=== PATIENT | female | born 1985 | race Caucasian/White ===

== ENCOUNTER 2025-04-29 22:58 | Observation (INO) | payer OTHER, SELFPAY ==
--- OUTSIDE RECORDS SUMMARY | 2024-10-11 08:00 | XMS_ITS ---
Author Organization [facility] Address [address] [facility] [place] [address] Care Team Providers Care Data Communications Analyst Name Role Phone Deidre Zepeda Unavailable [phone] Tete Taylor Unavailable [phone] REASON FOR VISIT Gastroparesis, GERD, Hx of Colon Cancer Encounters Encounter Location Date Provider Diagnosis [facility] [address] [place] [address] 10/11/2024 Tete Taylor Plan Of Treatment Next Appt Details Provider Name:Seamus Pena Chay sudhir, 05/25/2025 09:15:00 AM, [address] [place], [address], Progress Notes * WALTERDeidreDOB:1985 (40 yo F)Acc No.[id number]:10/11/2024 Patient: Deidre Hill Provider: Norma Taylor APRN :1985 A ge:39 Y S ex:Female Date:10/11/2024 Address:[address] [facility], [id number] Subjective: * Chief Complaints: * G astroparesis, GERD, Hx of Colon Cancer * Electronic signature of TOBY Soto on 04/29/2025 at 11:10 PM CDT Sign off status: Pending * Provider: Norma Taylor APRN Date: 0 10/11/2024 Generated for Ronaldo mcnair/Lion/eTransmitting on: 0 04/29/2025 11:10 PM CDT
--- OUTSIDE RECORDS SUMMARY | 2024-11-02 08:00 | XMS_ITS ---
Author Organization [facility] Address [address] [facility] [place] [address] Care Team Providers Care Mule Spinner Name Role Phone Deidre Zepeda Unavailable [phone] Dee Valentine Unavailable [phone] REASON FOR VISIT Gastroparesis, GERD, Hx of Colon Cancer Encounters Encounter Location Date Provider Diagnosis [facility] [address] [facility] [place] [address] 11/02/2024 Dee Valentine Plan Of Treatment Next Appt Details Provider Name:Seamus Jean peguero, 05/25/2025 09:15:00 AM, [address] [place], [address], Progress Notes * WALTERDeidreDOB:1985 (40 yo F)Acc No.[id number]:11/02/2024 Patient: Deidre Hill Provider: Slime Valentine APRN :1985 A ge:39 Y S ex:Female Date:11/02/2024 Address:[address] [facility], [id number] Subjective: * Chief Complaints: * G astroparesis, GERD, Hx of Colon Cancer Billing Information: * Procedure Codes: * Electronic signature of Yobany Valentine APRN-GAYLE on 04/29/2025 at 11:11 PM CDT Sign off status: Pending * Provider: Slime Valentine APRN Date: 0 11/02/2024 Generated for Ronaldo mcnair/Lion/Florecitaitting on: 0 04/29/2025 11:11 PM CDT
--- OUTSIDE RECORDS SUMMARY | 2024-12-28 05:30 | XMS_ITS ---
Author Organization [facility] Address [address] [facility] [place] [address] Care Team Providers Care Electroslag Welding Machine Operator Name Role Phone Deidre Zepeda Unavailable [phone] Dee Valentine Unavailable [phone] REASON FOR VISIT Gastroparesis, GERD, Hx of Colon Cancer Encounters Encounter Location Date Provider Diagnosis [facility] [address] [facility] [place] [address] 12/28/2024 Dee Valentine Plan Of Treatment Next Appt Details Provider Name:Seamus Jean peguero, 05/25/2025 09:15:00 AM, [address] [place], [address], Progress Notes * WALTERDeidreDOB:1985 (40 yo F)Acc No.[id number]:12/28/2024 Patient: Deidre Hill Provider: Slime Valentine APRN :1985 A ge:39 Y S ex:Female Date:12/28/2024 Address:[address] [facility], [id number] Subjective: * Chief Complaints: * G astroparesis, GERD, Hx of Colon Cancer Billing Information: * Procedure Codes: * Electronic signature of Yobany Valentine APRN-GAYLE on 04/29/2025 at 11:08 PM CDT Sign off status: Pending * Provider: Slime Valentine APRN Date: 0 12/28/2024 Generated for Ronaldo mcnair/Lion/Florecitaitting on: 0 04/29/2025 11:08 PM CDT
--- OUTSIDE RECORDS SUMMARY | 2025-04-05 05:40 | XMS_ITS ---
Author Organization [facility] Accounts Recei v[employer] Address [address] [place] [address] Care Team Providers Care R&D Lab Technician Name Role Phone Anita Church Primary Care Provider [phone] REASON FOR VISIT Non [facility] Hospital F/U, [facility] ORIENTAL ORTHODOX [place], Sharp Chest Pain, [facility] Social History Sex Assigned At : Social History Observation Description Sex Assigned At Female Encounters Encounter Location Date [facility] [address] [place] [address] 04/05/2025 Anita Church Plan Of Treatment No Information Progress Notes * Deidre WATSONDOB:1985 (40 yo F)Acc No.[id number]:04/05/2025 Patient: Deidre GARDNER Provider: Uri Church APRN :1985 A ge:40 Y S ex:Female Date:04/05/2025 Address:[address] [facility], [id number] Patient's Default Facility:[facility] View Subjective: * Chief Complaints: * 1 . Non TCM Hospital F/U, [facility] ORIENTAL ORTHODOX [place], Sharp Chest Pain, [facility]. * Medical History: Objective: * Vitals: Assessment: Plan: * Treatment: * Billing Information: * Visit Code: * Procedure Codes: * Electronic signature of Bennie Church APRN on 04/29/2025 at 11:10 PM CDT Sign off status: Pending * Provider: Uri Church APRN Date: 04/05/2025 Generated for Ronaldo Sol/Alexandro on: 04/29/2025 11:10 PM CDT
--- OUTSIDE RECORDS SUMMARY | 2025-04-19 08:20 | XMS_ITS ---
Author Organization [facility] Accounts Recei vable Address [address] [place] [address] Care Team Providers Care Medicine Aide Name Role Phone Anita Church Primary Care Provider REASON FOR VISIT ER f/up [facility]- CP/nausea/Back pain- 1 month f/u fasting tsmith Social History Sex Assigned At : Social History Observation Description Sex Assigned At Female Encounters Encounter Location Date Provider Diagnosis [facility] [address] [place] [address] 04/19/2025 Anita Church Plan Of Treatment No Information Progress Notes * Deidre WATSONDOB:1985 (40 yo F)Acc No.[id number]:04/19/2025 Patient: Deidre GARDNER Provider: rUi Church APRN :1985 A ge:40 Y S ex:Female Date:04/19/2025 [address] [facility] [place] [id number] Patient's Default Facility:[facility] View Subjective: * Chief Complaints: * 1 . ER f/up [facility]- CP/nausea/Back pain- 1 month f/u fasting tsmith. * Medical History: Objective: * Vitals: Assessment: Plan: * Treatment: * Billing Information: * Visit Code: * Procedure Codes: * Electronic signature of Bennie Church APRN on 04/29/2025 at 11:09 PM CDT Sign off status: Pending * Provider: Uri Church APRN Date: 0 04/19/2025 Generated for Ronaldo mcnair/Lion/Alexandro on: 0 04/29/2025 11:09 PM CDT
--- OUTSIDE RECORDS SUMMARY | 2025-04-19 08:44 | XMS_ITS ---
Author Organization [facility] Accounts Recei vable Address [address] [place] [address] Care Team Providers Care Cartoonist Special Effects Name Role Phone Anita Church Primary Care Provider [phone] REASON FOR VISIT n/s Social History Sex Assigned At : Social History Observation Description Sex Assigned At Female Encounters Encounter Location Date Provider Diagnosis [facility] [address] [place] [address] 04/19/2025 Anita Church Plan Of Treatment No Information Progress Notes * Deidre WATSONDOB:1985 (40 yo F)Acc No.[id number]:04/19/2025 Patient: Deidre GARDNER :1985 A ge:40 Y S ex:Female Address[address] [place], [address] * true * Date: Generated for Elisabeti tabby/Fagtg/eTransmitting on: 0 04/29/2025 11:09 PM CDT
--- OUTSIDE RECORDS SUMMARY | 2025-04-23 02:00 | XMS_ITS | Encounter Summary ---
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 Name Role Phone None, MD Primary Care Provider Unavailabl e Reason for Visit * Reason Comments Chest Pain Encounter Details Date Type Department Care Team (Late st Contact Info) Description 04/23/2025 2:00 AM CDT - 04/23/2025 4:39 AM CDT Emergency [facility] [address] [place] [address] [place] [id number] [place] [address] Chest pain, unspecified type (Primary Dx) Discharge Disposition: (01) - Home or Self Care Social History Tobacco Use Types Packs/Day Years Used Date Smoking Tobacco: Every Day Cigarettes Smokeless Tobacco: Never Alcohol Use Standard Drinks/Week Comments Never 0 (1 standard drink = 0.6 oz pur e alcohol) [facility] Utilities Answer Date Recorded In the past 12 months has e [employer], gas, oil, or water [employer] threatened to shut off services in your home? No 09/21/2024 Hunger Vital Sign Answer Date Recorded Within the past 12 months, y ou worried that your food would run out before you got the money to buy more. Patient declined Within the past 12 months, t he food you bought just didn't last and you didn't have money to get more. Patient declined [facility] HRSN - Transportation Answer Date R ecorded In the past 12 months, has l ack of reliable transportation kept you from medical appointments, meetings, work or from getting things needed for daily living? Unrecognized value 09/21/2024 PRAPARE - Interpersonal Safety Answer D ate Recorded Do you feel physically and e motionally safe? (A safe environment is one in which a person is not insulted, talked down to, threatened with harm, or screamed or cursed at.) Unrecognized value 09/21/2024 AAFP SN - Housing Stability Answer Date Recorded Are you worried or concerned that in the next two months you may not have stable housing that you own, rent, or stay in as a part of a household? Unrecognized value 09/21/[address] you li ve. Do you have problems with any of the following? 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 Sexual Orientation Straight 10/01/2024 8: 27 PM CAR ST[employer]ER documented as of this encounter Last Filed Vital Signs Vital Sign Reading Time Taken Comments Blood Pressure 104/70 04/23/2025 3:45 AM CDT Pulse 88 04/23/2025 4:00 AM CDT Temperature 36.7 C (98 F) 04/23/2025 1:56 AM CDT Respiratory Rate 22 04/23/2025 4:00 AM CDT Oxygen Saturation 97% 04/23/2025 4:00 AM CDT Inhaled Oxygen Concentration - - Weight 82.6 kg (182 lb) 04/23/2025 1:56 AM CDT Height 172.7 cm (5' 8 ) 04/23/2025 1:56 AM CDT Body Mass Index 27.67 04/23/2025 1:56 AM CDT documented in this encounter Functional Status documented as of this encounter Mental Status * Question Answer Entry Date Author Mental Status 0 04/23/2025 1:58 AM CDT Hilda Copeland RN documented in this encounter Medications at Time of Discharge ARIPiprazole 2 mg Oral tablet TAKE ONE TABLET BY MOUTH ONCE DAILY. stop escitalopram atorvastatin 80 mg Oral tablet Take 1 tablet by mouth at bedtime. clomiPRAMINE 50 mg Oral capsule Take 1 Capsule by mouth at bedtime, may increase to 2 capsules at bedtime. titrating off trazodone 5 clonazePAM 1 mg Oral disintegrating tablet Take 1 tablet by mouth 3 (three) times daily as needed for Anxiety. cyanocobalamin 1,000 mcg/mL Inj injection Inject 1 mL as directed every 30 (thirty) days. diltiazem 120 mg Oral 24 hr capsule Take 1 capsule by mouth daily. 30 capsule 11 4 furosemide 40 mg Oral tablet Take 1 tablet by mouth daily. gabapentin 400 mg Oral capsule Take 1 capsule by mouth 3 (three) times daily. hydroCHLOROthiazide 12.5 mg Oral capsule Take 1 capsule by mouth every morning at 0600. for blood pressure 5 HYDROcodone-acetami nophen 5-325 mg Oral per tablet Take 1 tablet by mouth every 8 (eight) hours as needed. metoclopramide HCl 5 mg Oral tablet Take 1 tablet by mouth 4 (four) times daily. nitroGLYCERIN 0.4 mg SL SL tablet 1 tab as directed Sublingual 1 tablet sublingual every 5 minutes up to 15 minutes as needed for chest pain. Do not take more than 3 tablets within the 15 minutes. if unrelieved with 3 doses go to the ER. for 30 days omeprazole 40 mg Oral capsule Take 1 capsule by mouth every morning at 0600. 30 min before breakfast ondansetron 4 mg Oral tablet Take 1 tablet by mouth every 6 (six) hours as needed for Nausea or Vomiting. potassium chloride 10 mEq Oral CR tablet Take 1 tablet by mouth every morning at 0600. Prasugrel 10 mg Oral Tab Take 1 tablet by mouth daily. promethazine 25 mg Oral tablet Take 1 tablet by mouth every 4 (four) hours as needed for Nausea. Do not take with metoclopramide ranolazine 500 mg Oral 12 hr tablet Take 1 tablet by mouth 2 (two) times daily. scopolamine 1 mg over [address] 1 patch onto the skin every third day. tiZANidine 4 mg Oral tablet Take 1 tablet by mouth every 6 (six) hours as needed for Muscle spasms. traZODone 50 mg Oral tablet Take 1 tablet by mouth at bedtime. Take 1-3 tabs QHS documented as of this encounter ED Notes * Leda Craig MD - 04/23/2025 2:01 AM CDT History Chief Complaint Patient presents with Chest Pain The history is provided by the patient. No russian language professor was used. Patient is a 40-year-old female with a history of previous LA, CAD s/p PCI, previous cardiac arrest, hypertension presenting to the ED for chest pain that started around 10:00 while she was visiting the ED with her significant other. Patient states that she started having some left-sided pain radiating to her jaw and felt that she was in trigeminy . She reported some shortness of breath and 1 episode of vomiting.. No recent fevers, abdominal pain, syncope, urinary symptoms. Past Medical History: Diagnosis Date CAD (coronary artery disease) Fibromyalgia Gastroparesis History of LA (myocardial infarction) Past Surgical History: Procedure Laterality Date SECTION, LOW TRANSVERSE CHOLECYSTECTOMY TN CATH PLMT L HRT & ARTS W/NJX & ANGIO IMG S&I N/A 09/21/2024 CL - SELECTIVE CORONARY ANGIOGRAPHY/LEFT HEART CATH (SCA/LHC) performed by Praveen Sanz MD at [facility] No family history on file. Social History Tobacco Use Smoking status: Every Day Types: Cigarettes Smokeless tobacco: Never Vaping Use Vaping status: Some Days Substances: THC Substance Use Topics Alcohol use: Never Drug use: Yes Types: Marijuana Review of Systems All other systems reviewed and are negative. Physical Exam First Vitals Charted [04/23/25 0156] BP Pulse Resp Temp SpO2 108/76 82 22 98 ??F (36.7 ??C) 100 % Physical Exam Vitals and nursing note reviewed. Constitutional: General: She is not in acute distress. Appearance: She is not ill-appearing or diaphoretic. HENT: Head: Normocephalic and atraumatic. Eyes: Extraocular Movements: Extraocular movements intact. Conjunctiva/sclera: Conjunctivae normal. Pupils: Pupils are equal, round, and reactive to light. Cardiovascular: Rate and Rhythm: Normal rate and regular rhythm. Pulses: Normal pulses. Heart sounds: Normal heart sounds. Pulmonary: Effort: Pulmonary effort is normal. No respiratory distress. Breath sounds: Normal breath sounds. Abdominal: General: Abdomen is flat. Tenderness: There is no abdominal tenderness. There is no guarding or rebound. Musculoskeletal: General: No deformity or signs of injury. Normal range of motion. Cervical back: Normal range of motion. Skin: General: Skin is warm and dry. Neurological: General: No focal deficit present. Mental Status: She is alert and oriented to person, place, and time. Mental status is at baseline. ED Course XR Chest 1 Vw Portable AP (Results Pending) Procedures Medication Administration from 04/23/2025 0146 to 04/23/2025 0201 None ED Course as of 04/23/25 0405 WedApr 23, 2025 0153 EKG per my read showed sinus rhythm with PVCs, with noST elevations or depressions or other concerns [AP] 0239 CXR with no acute cardiopulmonary findings per my read [AP] 0405 Patient wishes to leave against medical advice. I have discussed all risks with patient and any family members present at the time. Patient is alert and oriented X 3, has capacity to make all medical decisions, and has a complete understanding of all risks, including . Patient is aware that they may return at any time for further evaluation of their condition. [AP] ED Course User Index [AP] Leda Craig MD Clinical Impressions as of 04/23/25 0405 Chest pain, unspecified type Medical Decision Making Problems Addressed: Chest pain, unspecified type: acute illness or injury Amount and/or Complexity of Data Reviewed External Data Reviewed: labs, radiology, ECG and notes. Labs: ordered. Decision-making details documented in ED Course. Radiology: ordered and independent interpretation performed. Decision-making details documented in ED Course. ECG/medicine tests: ordered and independent interpretation performed. Decision- making details documented in ED Course. Risk Prescription drug management. Parenteral controlled substances. Drug therapy requiring intensive monitoring for toxicity. Results for orders placed or performed during the hospital encounter of 04/23/25 EKG 12 Lead - STAT Result Value Ref Range Ventricular Rate EKG/Min 85 BPM Atrial Rate 85 BPM QRS-Interval (MSEC) 104 ms QT-Interval (MSEC) 412 ms QTc 490 ms P [place] 62 degrees R [place] 48 degrees T [place] 32 degrees Labs Reviewed BASIC METABOLIC PANEL - Abnormal; Notable for the following components: Result Value Carbon Dioxide 20.8 (*) All other components within normal limits CBC W/ AUTO DIFFERENTIAL CWS AND NONCWS (PERFORMABLE) - Abnormal; Notable for the following components: Hemoglobin 10.5 (*) Hematocrit 34.0 (*) RDW 17.4 (*) Monocytes % 8.1 (*) All other components within normal limits CK - Abnormal; Notable for the following components: CK, Total 27 (*) All other components within normal limits NT PRO BRAIN NATRIURETIC PEPTIDE - Normal CBC AND DIFFERENTIAL (ORDERABLE) Narrative: The following orders were created for panel order CBC and Differential. Procedure Abnormality Status --------- ------ CBC and Differential[[id number]] Abnormal Final result Manual Differential[[id number]] Final result Please view results for these tests on the individual orders. CARDIAC PANEL(CKTOT, HSTROP W REFLEX)(NON-CLINIC ORDER) Narrative: The following orders were created for panel order Cardiac Panel (CK Total, HSTROP w Reflex if indicated). Procedure Abnormality Status --------- ------ High Sensitivity Troponi...[[id number]] Final result CK[[id number]] Abnormal Final result Please view results for these tests on the individual orders. HIGH SENSITIVITY TROPONIN SERIES, BASELINE W REFLEX IF NEEDED MANUAL DIFFERENTIAL,NONCARESPHERE (PERFORMABLE) D DIMER QUANTITATIVE B HIGH SENSITIVITY TROPONIN 2 HOUR W/REFLEX IF INDICATED XR Chest 1 Vw Portable AP (Results Pending) Medications ondansetron hcl (pf) (Zofran) (injection) 4 mg (4 mg Intravenous Given $$ 04/23/25 0343) morphine (injection) Syrg 4 mg (4 mg Intravenous Given $$ 04/23/25 0343) Vitals: 04/23/25 0300 04/23/25 0305 04/23/25 0345 04/23/25 0400 BP: (!) 117/103 111/72 104/70 Pulse: 76 75 79 88 Resp: (!) 27 13 23 22 Temp: TempSrc: SpO2: 98% 98% 99% 97% Weight: Height: Medical Decision Making: Patient is a 40-year-old female with a history of previous LA, CAD s/p PCI, previous cardiac arrest, hypertension presenting to the ED for chest pain that started around 10:00 while she was visiting the ED with her significant other. On examination here, patient was noted to be stable vitals, satting well on room air, exam as noted above. EKG per my read showed sinus rhythm with PVCs with no ST elevations or depressions. During today visit the following labs were obtained and I have reviewed the labs and noticed the following findings: Labs ordered which initially showed a negative troponin, BMP and CBC unremarkable,negative BNP., D-dimer and a repeat troponin ordered. Following imaging were also obtained with the following results: Chest x-ray with no acute cardiopulmonary process. Patient was treated in the ED with morphine and Zofran. Shortly after her receiving medications nursing staff informed me that patient wanted to leave AMA. I spoke with her in detail and told her that I would like to get more labs for potential concerns of other etiologies and especially given thatshe is high risk with previous PCI and cardiac arrest and I explained this in detail and patient continues to wish to leave AGAINST MEDICAL ADVICE. Patient wishes to leave against medical advice. I have discussed all risks with patient and any family members present at the time. Patient is alert and oriented X 3, has capacity to make all medicaldecisions, and has a complete understanding of all risks, including . Patient is aware that they may return at any time for further evaluation of their condition. 1. Chest pain, unspecified type Assessment / Plan Leda Craig MD 04/23/25 0501 Leda Craig MD 04/23/25 0512 * Leonela Salazar BSN RN - 04/23/2025 2:00 AM CDT Bed: 11 Expected date: Expected time: Means of arrival: Car Comments: * Hilda Barber RN - 04/23/2025 1:55 AM CDT Patient ambulatory to triage c/o chest pain that started 3-4 hours ago. She said that she has a stent in her heart from a previous LA in 2021. She has taken 325 ASA and three nitro SL with minimal relief. No acute distress noted. documented in this encounter Plan of Treatment Not on file documented as of this encounter Procedures Procedure Name Priority Date/Time Associated Diagnosis Comments XR CHEST 1 VW PORTABLE AP ER Eval 04/23/2025 2:25 AM CDT NT PRO BRAIN NATRIURETIC PEPTIDE Add-On 04/23/2025 2:14 AM CDT CARDIAC PANEL(CKTOT, HSTROP W REFLEX)(NON-CLINIC ORDER) ER Eval 04/23/2025 2:14 AM CDT HIGH SENSITIVITY TROPONIN SERIES, BASELINE W REFLEX IF NEEDED ER Eval 04/23/2025 2:14 AM CDT CBC W/ AUTO DIFFERENTIAL CWS AND NONCWS (PERFORMABLE) ER Eval 04/23/2025 2:14 AM CDT MANUAL DIFFERENTIAL,NONCARES PHERE (PERFROMABLE) STAT 04/23/2025 2:14 AM CDT CBC AND DIFFERENTIAL (ORDERABLE) ER Eval 04/23/2025 2:14 AM CDT CK ER Eval 04/23/2025 2:14 AM CDT BASIC METABOLIC PANEL ER Eval 04/23/2025 2:14 AM CDT EKG 12-LEAD STAT 04/23/2025 1:53 AM CDT documented in this encounter Results * XR Chest 1 Vw Portable AP (04/23/2025 2:25 AM CDT) Anatomical Region Laterality Modality Chest Digital Radiogra phy 04/23/2025 7:35 AM CDT Impressions 04/23/2025 1:16 PM CDT No acute cardiopulmonary findings. This document passed e-signature verification by Dr. Eduar Knutson on 04/23/2025 1:16 PM Narrative 04/23/2025 1:16 PM CDT CHEST RADIOGRAPH, ONE VIEW PROCEDURE DATE/TIME: 04/23/2025 2:16 AM HISTORY: Chest Pain. COMPARISON: 03/28/2025. 03/16/2025 FINDINGS: The cardiopericardial silhouette is normal in size. No pleural effusion or pneumothorax is evident. The lungs are clear. Procedure Note Eduar Knutson MD - 04/23/2025 CHEST RADIOGRAPH, ONE VIEW PROCEDURE DATE/TIME: 04/23/2025 2:16 AM HISTORY: Chest Pain. COMPARISON: 03/28/2025. 03/16/2025 FINDINGS: The cardiopericardial silhouette is normal in size. No pleural effusion or pneumothorax is evident. The lungs are clear. IMPRESSION: No acute cardiopulmonary findings. This document passed e-signature verification by Dr. Eduar Knutson on04/23/2025 1:16 PM Leda Craig MD IMG DIAGNOSTIC IMAGING ORDERAB LES Final Result * NT Pro Brain Natriuretic Peptide (04/23/2025 2:14 AM CDT) [facility] NT ProB-Natriuretic Peptide 57.5 15.8 - 104.8 pg/mL 04/23/2025 2:56 AM CDT [facility] Comment:The Alere NT-pro BNP for Alinity i assay is susceptible to interference effects from total protein >12.6 g/dL. Total protein at 15.2 g/dL decreased NT- proBNP values at 125 pg/mL by -12.7%. Blood VENOUS BLOOD SPECIMEN / Unknown Venipuncture / Unknown 04/23/2025 2:14 AM CDT 04/23/2025 2:16 AM CDT Leda Craig MD LAB BLOOD ORDERABLES Final Res ult [facility] [address] [place] [address] * Manual Differential (04/23/2025 2:14 AM CDT) [facility] Platelet Estimate Adequate 04/23/2025 2:51 AM CDT [facility] Blood VENOUS BLOOD SPECIMEN / Unknown Venipuncture / Unknown 04/23/2025 2:14 AM CDT 04/23/2025 2:16 AM CDT us Leda Craig MD LAB BLOOD ORDERABLES Final Res ult Performing Organization Address [facility] Co de Phone Number [facility] [address] [place] [address] * (ABNORMAL) CK (04/23/2025 2:14 AM CDT) [facility] CK, Total 27(L) 29 - 168 IU/L 04/23/2025 2:56 AM CDT [facility] Blood VENOUS BLOOD SPECIMEN / Unknown Venipuncture / Unknown 04/23/2025 2:14 AM CDT 04/23/2025 2:16 AM CDT us Leda Craig MD LAB BLOOD ORDER W/O STOP Final Result Performing Organization Address [facility] de Phone Number [facility] [address] [place] [address] * High Sensitivity Troponin Baseline with Reflex Actions if indicated (04/23/2025 2:14 AM CDT) [facility] High Sensitivity Trop, Baseline <2.7 <14.0 ng/L 04/23/2025 2:56 AM CDT [facility] Comment:Low risk for myocard ial infarction in patients with low clinical risk and symptoms > 2 hrs. Consider other causes of chest pain. A reflex 2-hour troponin will automatically be ordered; please cancel if not clinically indicated Symptom Onset >2Hrs Yes Hours 04/23/2025 2:56 AM CDT [facility] Symptom Onset >10Hrs No Hours 04/23/2025 2:56 AM CDT [facility] Blood VENOUS BLOOD SPECIMEN / Unknown Venipuncture / Unknown 04/23/2025 2:14 AM CDT 04/23/2025 2:16 AM CDT us Leda Craig MD LAB BLOOD ORDERABLES Final Res ult [facility] [address] [place] [address] * (ABNORMAL) CBC and Differential (04/23/2025 2:14 AM CDT) WBC 10.6 4.5 - 11.0 K/cmm 04/23/2025 2:51 AM CDT [facility] RBC 4.04 4.00 - 5.20 M/cmm 04/23/2025 2:51 AM CDT [facility] Hemoglobin 10.5(L) 12.0 - 16.0 g/dL 04/23/2025 2:51 AM T [facility] Hematocrit 34.0(L) 36.0 - 46.0 % 04/23/2025 2:51 AM T [facility] MCV 84 80 - 100 fL 04/23/2025 2:51 AM CDT [facility] MCH 26 26 - 34 pg 04/23/2025 2:51 AM T [facility] MCHC 31 31 - 37 g/dL 04/23/2025 2:51 AM T [facility] RDW 17.4(H) 12.2 - 15.6 % 04/23/2025 2:51 AM CDT [facility] RDWSD 54.3 40.0 - 55.0 fL 04/23/2025 2:51 AM T [facility] Platelets 223 150 - 400 K/cmm 04/23/2025 2:51 AM T [facility] Comment:Reviewed smear. MPV 10.5 9.2 - 12.0 fL 04/23/2025 2:51 AM [facility] Nucleated RBC's 0 0 - 1 /100WBC 04/23/2025 2:51 AM T [facility] Neutrophils % 55.0 40.0 - 70.0 % 04/23/2025 2:51 AM T [facility] Lymphocytes % 34.0 22.0 - 44.0 % 04/23/2025 2:51 AM T [facility] Monocytes % 8.1(H) 3.0 - 7.0 % 04/23/2025 2:51 AM T [facility] Eosinophils % 2.3 2.0 - 4.0 % 04/23/2025 2:51 AM CDT [facility] Basophils % 0.3 0.0 - 1.0 % 04/23/2025 2:51 AM T [facility] Immature Granulocytes Percent Automated 0.3 0.0 - 0.5 % 04/23/2025 2:51 AM CDT [facility] Neutrophils Absolute 5.81 1.50 - 7.70 K/cmm 04/23/2025 2:51 AM T [facility] Lymphocytes Absolute 3.59 1.00 - 4.80 K/cmm 04/23/2025 2:51 AM CDT [facility] Monocytes Absolute 0.85 0.20 - 1.00 K/cmm 04/23/2025 2:51 AM T [facility] Eosinophils Absolute 0.24 0.00 - 0.50 K/cmm 04/23/2025 2:51 AM T [facility] Basophils Absolute 0.03 0.00 - 0.20 K/cmm 04/23/2025 2:51 AM T [facility] Immature Platelet Fraction Percent 4.7 1.0 - 7.0 % 04/23/2025 2:51 AM T [facility] Blood VENOUS BLOOD SPECIMEN / Unknown Venipuncture / Unknown 04/23/2025 2:14 AM CDT 04/23/2025 2:16 AM CDT us Leda Craig MD LAB BLOOD ORDERABLES Final Res ult [facility] [address] [place] [address] * (ABNORMAL) Basic Metabolic Panel (04/23/2025 2:14 AM CDT) Glucose 75 70 - 105 mg/dL 04/23/2025 2:56 AM T [facility] BUN 9 7 - 18 mg/dL 04/23/2025 2:56 AM [facility] Creatinine, Blood 0.80 0.57 - 1.11 mg/dL 04/23/2025 2:56 AM [facility] Sodium 136 136 - 145 mEq/L 04/23/2025 2:56 AM T [facility] Potassium 4.0 3.5 - 5.1 mEq/L 04/23/2025 2:56 AM T [facility] Chloride 105 98 - 107 mEq/L 04/23/2025 2:56 AM [facility] Carbon Dioxide 20.8(L) 22.0 - 29.0 mEq/L 04/23/2025 2:56 AM T [facility] Calcium 8.8 8.4 - 10.2 mg/dL 04/23/2025 2:56 AM T [facility] Estimated GFR 96 >60 mL/min/1. 73m2 04/23/2025 2:56 AM T [facility] Comment: Calculation based on the Chronic Kidney Disease Epidemiology Collaboration (CKD-EPI)equation. The National Kidney Foundation recommends reporting eGFR(GFRC) values above 60 ml/min as >60. An eGFR(GFRC) of >60 ml/min is considered normal or near normal kidney function. Estimated GFR (eGFR or GFRC) values from 61 ml/min to 120 ml/min will also be reported. Anion Gap 10.2 8 - 12 mEq/L 04/23/2025 2:56 AM T [facility] Blood VENOUS BLOOD SPECIMEN / Unknown Venipuncture / Unknown 04/23/2025 2:14 AM CDT 04/23/2025 2:16 AM CDT us Leda Craig MD LAB BLOOD ORDERABLES Final Res ult [facility] [address] [place] [address] * EKG 12 Lead - STAT (04/23/2025 1:53 AM CDT) Ventricular Rate EKG/Min 85 BPM [facility] Atrial Rate 85 BPM [facility] QRS-Interval (MSEC) 104 ms [facility] QT-Interval (MSEC) 412 ms [facility] QTc 490 ms [facility] P [place] 62 degrees [facility] R [place] 48 degrees [facility] T [place] 32 degrees [facility] 04/23/2025 1:53 AM CDT Narrative [facility] - 04/25/2025 4:26 PM CDT Test Reason : Reason for Exam->Chest Pain Blood Pressure : */* mmHG Vent. Rate : 85 BPM Atrial Rate : 85 BPM P-R Int : 142 ms QRS Dur : 104 ms QT Int : 412 ms P-R-T Axes : 62 48 32 degrees QTcB Int : 490 ms Sinus rhythm with occasional Premature ventricular complexes Incomplete right bundle branch block Prolonged QT Abnormal ECG Referred By: Confirmed By: CAROLYN MANN MD Procedure Note Carolyn Mann MD - 04/25/2025 Test Reason : Reason for Exam->Chest Pain Blood Pressure : */* mmHG Vent. Rate : 85 BPM Atrial Rate : 85 BPM P-R Int : 142 ms QRS Dur : 104 ms QT Int : 412 ms P-R-T Axes : 62 48 32 degrees QTcB Int : 490 ms Sinus rhythm with occasional Premature ventricular complexes Incomplete right bundle branch block Prolonged QT Abnormal ECG Referred By: Confirmed By: CAROLYN MANN MD Leda Craig MD ECG ORDERABLES Final Result [facility] documented in this encounter Visit Diagnoses Diagnosis Chest pain, unspecified type- Primary documented in this encounter Administered Medications Inactive Administered Medications - up to 3 most recent administrations Medication Order MAR Action Action Date Dose Rate Site morphine (injection) Syrg 4 mg 4 mg, Intravenous, ONCE, On Wed04/23/25 at 0334, For 1 dose Given $$ 04/23/2025 3:43 AM CDT 4 mg ondansetron hcl (pf) (Zofran) (injection) 4 mg 4 mg, Intravenous, ONCE, On Wed04/23/25 at 0334, For 1 dose, IV: if unable to tolerate PO and IV access available. PO: if tolerating PO even if IV access available. Given $$ 04/23/2025 3:43 AM CDT 4 mg documented in this encounter Active and Recently Administered Medications Times are shown in CDT. Scheduled Medication Order 04/21/2025 04/22/2025 04/23/2025 morphine (injection) Syrg 4 mg (COMPLETED) 4 mg, Intravenous, ONCE, On Wed04/23/25 at 0334, For 1 dose 0343 (Given $$ - Pro vider: SALMA Madsen RN) ondansetron hcl (pf) (Zofran) (injection) 4 mg (COMPLETED) 4 mg, Intravenous, ONCE, On Wed04/23/25 at 0334, For 1 dose, IV: if unable to tolerate PO and IV access available. PO: if tolerating PO even if IV access available. 0343 (Given $$ - Pro vider: SALMA Madsen RN) documented in this encounter Care Teams Cafeteria Counter Attendant Relationship Specialty Start Date End Date Saqib, PCP - General 03/16/25 documented as of this encounter
--- OUTSIDE RECORDS SUMMARY | 2025-04-28 03:05 | XMS_ITS | Encounter Summary ---
Author Organization [facility] Address [address] [place] [address] Care Team Providers Care Hull Drafter Name Role Phone Andriy Ortiz MD Primary Care Provider [phone] Mariaa Barron PALLET RECTIFIER Unavailable [phone] Reason for Visit * Reason Comments Chest Pain Encounter Details Date Type Department Care Team ([facility] st Contact Info) Description 04/28/2025 3:05 AM CDT - 04/28/2025 6:05 AM CDT Emergency Emergency Department [address] [place] [phone] Stefano Yu, DO [address] [facility] [address] [place] [address] Chest pain, unspecified type (Primary Dx); Nausea [...] in this paperwork to sign up for Tongxue. This allows you to send messages to your doctor, view your test results, renew your prescriptions, schedule appointments, and more. To sign up, go to [email or web address] and click the Sign Up Now link in the New User box. Enter your Tongxue Activation Code exactly as it appears in the paperwork below along with the last 4 digits of your Social Security Number and your Date of to complete the sign-up process. * Attachments The following attachments cannot be sent through Care Everywhere. * Chest Pain That Is Not Caused by the Heart Discharge Instructions (Cymraes) * Chest Pain Discharge Instructions (Cymraes) documented in this encounter Medications at Time of Discharge prochlorperazine (COMPAZINE) 10 MG tablet Take one tablet (10 mg) by mouth every 6 (six) hours as needed (nausea). 5 tablet 03/29/2025 documented as of this encounter ED Notes * Emilee Crockett RN - 04/28/2025 2:18 AM CDT Extensive cardiac hx. Having CP that started 1900 last night with upper back pain, left arm pain and very nauseated - feels similar to prior [place]. documented in this encounter Plan of Treatment [...] <4.0 <14.9 ng/L 04/28/2025 5:41 AM CDT [facility] Blood Venipuncture / Unknown 04/28/2025 4:59 AM CDT 04/28/2025 5:10 AM CDT Narrative [facility] - 04/28/2025 5:41 AM CDT The High Sensitivity Troponin I was measured on the Daniel DXi with results expressed in units of ng/L; different from the previous Troponin I test which used units of ng/mL. Over all reference interval is 17.5 ng/L. Troponin results should be interpreted in conjunction with the patient's symptoms, history, and results of other diagnostic tests. us Stefano Haque Yu DO LAB BLOOD ORDERABLES Fi nal Result Performing Organization Address City/[facility]/ZIP Co de Phone Number [facility] [address] [place] [phone], * B-type Natriuretic Peptide (04/28/2025 4:08 AM CDT) Pathologist [facility] B-TYPE NATRIURETIC PEPTIDE <10 <=100 pg/mL 04/28/2025 4:48 AM CDT [facility] Blood Venipuncture / Unknown 04/28/2025 4:08 AM CDT 04/28/2025 4:16 AM CDT [employer] LAB BLOOD ORDERABLES Fi nal Result Performing Organization Address [facility] Co de Phone Number [facility] [address] [place] [phone], * High Sensitivity Troponin I-Timed Series (04/28/2025 4:08 AM CDT) [facility] HS Troponin I <4.0 <14.9 ng/L 04/28/2025 4:49 AM CDT [facility] Blood Venipuncture / Unknown 04/28/2025 4:08 AM CDT 04/28/2025 4:16 AM CDT Narrative [facility] - 04/28/2025 4:49 AM CDT The High Sensitivity Troponin I was measured on the Daniel DXi with results expressed in units of ng/L; different from the previous Troponin I test which used units of ng/mL. Over all reference interval is 17.5 ng/L. Troponin results should be interpreted in conjunction with the patient's symptoms, history, and results of other diagnostic tests. [employer]herrera HoneycuttTan Yu DO LAB BLOOD ORDERABLES Fi nal Result Performing Organization Address City/[facility]/ZIP Co de Phone Number [facility] [address] [place] [phone], * (ABNORMAL) Basic Metabolic Panel (04/28/2025 4:08 [...] mL/min/1.73 square meters 04/28/2025 4:49 AM CDT [facility] Blood Venipuncture / Unknown 04/28/2025 4:08 AM CDT 04/28/2025 4:16 AM CDT [facility] - 04/28/2025 4:49 AM CDT [...] us Stefano Yu DO LAB BLOOD ORDERABLES nal Result [facility] [address] [place] [address], [place] [phone] * (ABNORMAL) CBC (With Diff) (04/28/2025 4:08 AM CDT) [facility] WBC 8.31 3.60 - 9.50 K/uL 04/28/2025 [...] - 50.0 % 04/28/2025 4:32 AM CDT [facility] Monocytes, Auto 7.3 4.6 - 12.0 % 04/28/2025 4:32 AM CDT [facility] Eosinophils, Auto 1.4 0.5 - 6.5 % 04/28/2025 4:32 AM CDT [facility] Basophils, Auto 0.4 0.1 - 1.1 % 04/28/2025 4:32 AM CDT [facility] Immature Grans, Auto 0.4 0.0 - 0.5 % 04/28/2025 4:32 AM CDT [facility] Neutrophils, Absolute 4.42 1.40 - 6.00 K/uL 04/28/2025 4:32 AM CDT [facility] Lymphocytes, Absolute 3.10 1.20 - 3.40 K/uL 04/28/2025 4:32 AM CDT [facility] Monocytes, Absolute 0.61 0.20 - 1.00 K/uL 04/28/2025 4:32 AM CDT [facility] Eosinophils, Absolute 0.12 0.00 - 0.50 K/uL 04/28/2025 4:32 AM CDT [facility] Basophils, Absolute 0.03 0.00 - 0.07 K/uL 04/28/2025 4:32 AM CDT [facility] Immature Grans, Absolute 0.03 K/uL 04/28/2025 4:32 AM CDT [facility] Blood Venipuncture / Unknown 04/28/2025 4:08 AM CDT 04/28/2025 4:16 AM CDT Stefano Yu DO LAB BLOOD ORDERABLES Fi nal Result Performing Organization Address City/State/[facility] Co de Phone Number [facility] [address] [place] [address], * X-ray chest AP portable (04/28/2025 3:27 [...] acute cardiopulmonary findings. at04:15:32 Stefano Yu DO [facility] DIAGNOSTIC IMAGING ORDERABLES Final Result documented in [...] RN) documented in this encounter Care Teams Hull Drafter Relationship Specialty Start Date End Date Andriy Ortiz MD [address] [place] [id number] PCP - General Family Medicine 10/11/23 Mariaa Barron APRN [address] [place] [address] PCP - Insurance 03/15/25 documented as of this encounter
--- OUTSIDE RECORDS SUMMARY | 2025-04-29 23:09 | XMS_ITS | Patient Health Record ---
Author Organization [facility] Accounts Recei vable Address [address] [place] [address] Care Team Providers Care Natural Science Manager Name Role Phone Anita Church Primary Care Provider Akshat Marshall [phone] Allergies Allergen (clinical drug ingredient) Drug/Non Drug Allergy documented on EMR Reaction Allergy Type Onset Date Status ketorolac Ketorolac hives Drug Allergy Active Substance with sulfonamide structure and antibacterial mechanism of action (substance) Sulfa Antibiotics hives Drug Allergy Active tramadol traMADol anaphylaxis Drug Allergy Activ e Results Component Value Reference Range Notes Carotid Duplex Reviewed date:03/23/2025 08:17:28 AM Interpretation:Not Tracking Performing Lab: Notes/Report: Not Tracking Xray: Chest PA/Lat (PERFORME D AT ANOTHER FACILITY) Reviewed date:04/03/2025 02:38:01 PM Interpretation:Not Tracking Performing Lab: Notes/Report: Not Tracking Transthoracic Echocardiogram Reviewed date:04/03/2025 09:36:14 AM Interpretation:Not Tracking Performing Lab: Notes/Report: Not Tracking Reason For Referral Reason refer to dr bahena car diologist in [place] Diagnosis 1 History of heart art ashwin stent (Z95.5) Diagnosis 2 Hx of myocardial inf arction (I25.2) Diagnosis 3 Right-sided heart fa ilure, unspecified HF chronicity (I50.810) Referral Organization [facility] Referring Provider First Name Anita Referring Provider Last Name Ranjit Referring Provider Speciality Nurse Prac titioner Referred Provider Tim Bahena [place] [facility] Referred Provider Specialty Cardiology General Notes Sruthi Craft RN 05:57:31 PM > Per Dr. Bahena's office once referral has been received and processed they will reach out to pt to schedule. Referral and most recent OV note faxed., Sruthi Craft RN 03/28/2025 04:02:57 PM > Senior Sharepoint Developer called stating they have received referral and are working on scheduling an appointment. Senior Sharepoint Developer states Mona should be contacting me in the next few days regarding an appointment., Sruthi Craft RN 04/18/2025 11:51:34 AM > Pc to Dr. Bahena's office and left a message for Kenna [employer]er [employer] to call me back regarding appointment status for pt. Pc to pt, phone was answered by pt and when I stated I was calling from [facility] pt ended the phone call., Anika Moreira 04/18/2025 12:32:50 PM >appt date and time added. pt is aware Referral Priority Routine Referral Appointment Date 05/03/2025 Medications Medication SIG (Take, Route, Frequency, Duration) Notes Start Date End Date Status Ranolazine ER 500 MG 1 tablet Orally Twi ce a day Active traZODone HCl 100 MG 1 tablet at bedtime Orally Once a day Active Gabapentin 600 MG 1 tablet Orally Thre e Times a day Active Verapamil HCl 120 MG 1 tablet Orally Twi ce a day Active Prasugrel HCl 10 MG 1 tablet Orally once a day Active Potassium Chloride ER 10 MEQ 1 tablet wi th food Orally Twice a day for 30 days Active clonazePAM 1 MG 1 tablet Orally Once a day as needed for panic attacks 03/20/2025 Active Furosemide 40 MG 1 tablet Orally Once a day for 30 days Active Omeprazole 40 MG 1 capsule 1/2 to 1 h our before morning meal Orally Twice a day Active Ondansetron 4 MG 1 tablet on the tong ue and allow to dissolve Orally every 6 hours as needed Active ARIPiprazole 2 MG 1 tablet Oral Once a day for 30 days Active Nitroglycerin 0.4 MG 1 tablet under the tongue and allow to dissolve as needed. Take every 5 minutes up to 3 times if chest pain persists Sublingual Three times a day Active Cyanocobalamin 1000 MCG/ML 1 mL Injectio n once a month for 30 days Active tiZANidine HCl 4 MG 1 tablet at bedtime as needed Orally every 6 hours as needed Active Atorvastatin Calcium 80 MG 1 tablet Oral ly Once a day Active Amoxicillin-Pot Clavulanate 875-125 MG 1 tablet Orally every 12 hrs with food for 10 days 03/20/2025 Active Metoclopramide HCl 5 MG 1 tablet before meals Orally Four Times a Day as needed Active Social History Tobacco Use: Social History Observation Description Date Details (start date - stop date) Current Smoker NA - NA Sex Assigned At : Social History Observation Description Sex Assigned At Female PHQ2 (12+) Question Answer Notes Little interest or pleasure in doing things? Not at all Feeling down, depressed, or hopeless? Not at all Total Score 0 Alcohol Screening (12+) Question Answer Notes Did you have a drink containing alcohol in the p ast year? No Points 0 Interpretation Negative Smoking Status (12+) Question Answer Notes Tobacco use: Current smoker How many cigarettes a day do you smoke? 6-10 How soon after you wake up do you smoke your fir st cigarette? Within 5 minutes Are you interested in quitting? Not ready to gerri t Problems Problem Type SNOMED Code ICD Code Onset Dates Problem Status W/U Status Risk Notes Problem Coronary artery disease (I25.10) Active confirmed Problem 844161872 History of heart artery stent (Z95.5) Active confirmed Problem 624679599 Hx of myocardial infarction (I25.2) Active confirmed Problem Gastroparesis (484993271) Gastroparesis (K31.84) Active confirmed Problem Current smoker (11022398) Current smoker (F17.200) Active confirmed Vital Signs Heart Rate 68 Minute 03/20/2025 Temperature 97.8 degrees Fahrenheit 03/20/2025 Respiratory Rate 18 /min 03/20/2025 Blood pressure diastolic 64 mm Hg 03/20/2025 Oximetry 98 Percent 03/20/2025 Height 67 in 03/20/2025 Blood pressure systolic 96 mm Hg 03/20/2025 Weight 194.2 lbs 03/20/2025 BMI 30.41 kg/m2 03/20/2025 Encounters Encounter Location Date Provider [facility] [address] [place] [phone] 03/20/2025 Anita Church Dental infection K04 .7 ; Right-sided heart failure, unspecified HF chronicity I50.810 ; Hx of myocardial infarction I25.2 ; History of heart artery stent Z95.5 ; Gastroparesis K31.84 ; Current smoker F17.200 ; Coronary artery disease I25.10 and Vitamin B 12 deficiency E53.8 [facility] [address] [place] [address] 04/02/2025 Anita Church [facility] [address] [place] [address] 04/19/2025 Anita Church Assessments Encounter Date Diagnosis (ICD Code) Assessment Notes Treat ment Notes Treatment Clinical Notes 03/20/2025 Dental infection (ICD-10 - K04.7) Pt went to [facility] for dental pain yesterday, rx for amoxicillin-pot clavulanate given but patient unable to pharmacy picking tech, requesting new rx to local pharmacy. 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 Bahena. Referal made to Dr. Bahena. Pt advised that she would need to see cariologist to manage caridac medications. 03/20/2025 Hx of myocardial infarction (ICD-10 - I25.2) 08/28/21 03/20/2025 History of heart artery stent (ICD-10 - Z95.5) 03/20/2025 Gastroparesis (ICD-10 - K31.84) Pt on reglan 5 mg QID, adviced will need to see GI Doctor for managent, has appt with Dr. Herrera 03/27/25 for gastroparesis and esophageal spasm. 03/20/2025 Current smoker (ICD-10 - F17.200) 03/20/2025 Coronary artery disease (ICD-10 - I25.10) 03/20/2025 Vitamin B 12 deficiency (ICD-10 - E53.8) Pt currently taking B12 injections Q month, continue. 03/20/2025 Other Seeing [facility] for behavioral health issues, Telma Castillo DNP and giancarlo pop therapist. Pt states takes tizanidine for back pain and siatic nerve pain. Pt reports fibromyalgia and occipital neuralgia on gabapentin. Hospitalized last week for 4 days for chestpain, nausea, and low bp. Seen Dr. Melgar cardiology. OLVIN sent for records. OLVIN sent to Dr. Meija, and current PCP., A Healthy Lifestyle: Care Instructions material was printed Plan Of Treatment No Information Insurance Providers Payer Name Payer Address Payer Phone Subscriber Number Group Number Insured Name Patient Relationship to Insured Coverage Start Date Coverage End Date [employer] [address] [place] [phone] [id number] Deidre Bunch Self - patient is the insured UPDATE INSURANCE OR SLIDE [address] [id number] Deidre Bunch Self - patient is the insured Medical (General) History Medical History History ICD Code COPD PTSD Anxiety disorder Panic attacks night terrors major depressive mood disorder coronary artery disease gastroparesis fibromyalgia Right sided congestive heart failure myocardial infarction- 2020 Cardiac stent x 1 hypokalemia hyperlipidemia Surgical History Surgery Date(Month/Year) cardiac stent 08.28.21 C section x 3 cholecystectomy 10/2004 tubal ligation 10/2009
--- OUTSIDE RECORDS SUMMARY | 2025-04-29 23:09 | XMS_ITS | Data Portability ---
Author Organization [facility], autoContract Address [address] [facility] [address] [place] [address] Care Team Providers Care Professor Criminal Justice Name Role Phone Unavailable Primary Care Provider Unavailabl e Unavailable Referring Provider Unavailable Assessment No assessment recorded. Plan of Treatment Reminders Order Date Submit Date Provider Last Modified By Organization Details Last Modified Time Details Appointments None recorded. Lab amylase, serum or plasma 2017 018 sonny [place] ([facility]), [address] [place] [address] Adrián [place], [address], 8 15:58:17 CMP, serum or plasma 2017 018 JOSE ROBERTO [place] ([facility])[address] Adrián [place], [address], 8 17:37:39 lipase, serum or plasma 2017 018 ambrocio [place] ([facility])[address] Adrián [place], [address], 8 13:33:38 CBC w/ auto diff 2017 018 JOSE ROBERTO [place] ([facility]), [address] [place] [address] Adrián [place], [address], 8 17:25:18 Referral gastroente rologist referral 2017 018 leon Ferguson MD, [address], [facility], [address], 9 13:15:15 Procedures None recorded. Surgeries None recorded. Imaging US, transvagin al 2017 018 [facility]) Imaging, [address] [place] [address] Adrián Mcdonough, [place], [place], [address], 8 03:01:31 Medication Orders neomycin-p olymyxin-h ydrocort 3.5 mg-10,000 unit/mL-1 % ear drops,susp 2017 018 INTERFACE Not available 8 15:53:51 promethazi ne 25 mg tablet 2017 018 INTERFACE Not available 8 16:09:31 Patient TargetsNo targets recorded. Patient Instructions Encounter Date Encounter Id Patient Instructions Last Modified By Organization Details Last Modified Time 06/15/2018 [id number] nausea and vomit ing: care instructions [email or web address] Not available 06/15/2018 16:09:29 hepatitis C: car e instructions [email or web address] Not available 06/15/2018 16:13:28 Will get stat la bs Start Phenergan Patient was encouraged to drink more fluids. Patient was told to monitor for signs of dehydration such as decreased urination, dry mucus membranes, or inability to tolerate liquids for greater than 4 hours. If these symptoms develop, patient was told to return to clinic or go to er immediately. [email or web address] Not available 06/15/2018 16:12:03 06/27/2018 [id number] influenza (flu) vaccine: care instructions [email or web address] Not available 06/27/2018 15:53:49 earache: care instructions [email or web address] Not available 06/27/2018 15:53:49 gastroesophageal reflux disease (GERD): care instructions [email or web address] Not available 06/27/2018 15:53:49 Dr. Atul Portillo, [place]- has EGD appt on 08/01/18- [facility] Will get [facility] results Cont current meds Start ear drops Sched transvag US for ovarian cyst noted on ER CT of Abd Flu vaccine given today Pt was told to RTC in 1 week if not better or sooner if worsens kstucker Not available 06/27/2018 16:40:59 Reason for Referral Medical Transcription Supervisor Referral for Gastroesophageal reflux disease Referring Physician: Ramiro Olivares, Family Medicine, Encounter Date: 06/27/2018 Results Created Date Observation Date Name Description Value Unit Range Abnormal Flag Note LastModifiedBy Organization Detail LastModifiedTime 06/15/20 18 06/15/2018 CBC w/ auto diff blood leukocytes automated count (number/volu me) 10.4 10*3/ uL 4.5-11 .0 Not Available [facility] [address], [place], [address], 06/15/2018 17:25:18 06/15/20 18 06/15/2018 CBC w/ auto diff blood erythrocytes automated count (number/volu me) 5.56 10*6/ uL 4.00-5 .40 high Not Available [facility] [address], [place], [address], 06/15/2018 17:25:18 06/15/20 18 06/15/2018 CBC w/ auto diff blood hemoglobin measurement (mass/volume ) 15.7 g/dL 12.0-1 6.0 Not Available [facility] [address], [place], [address], 06/15/2018 17:25:18 06/15/20 18 06/15/2018 CBC w/ auto diff HCT vfr bld auto 49.3 % 36.0-4 8.0 high Not Available [facility] [address], [place], [address], 06/15/2018 17:25:18 06/15/20 18 06/15/2018 CBC w/ auto diff automated erythrocyte mean corpuscular volume 88.7 fL 80-100 Not Available [facility] [address], [place], [address], 06/15/2018 17:25:18 06/15/20 18 06/15/2018 CBC w/ auto diff automated erythrocyte mean corpuscular hemoglobin (mass per erythrocyte) 28.2 pg 27-32 Not Available [facility] [address], [place], [address], 06/15/2018 17:25:18 06/15/20 18 06/15/2018 CBC w/ auto diff automated erythrocyte mean corpuscular hemoglobin concentratio n measurement (mass/vol 31.8 g/dL 31.0-3 7.0 Not Available [facility] [address], [place], [address], 06/15/2018 17:25:18 06/15/20 18 06/15/2018 CBC w/ auto diff automated erythrocyte distribution width ratio 12.3 % 12-14. 5 Not Available [facility] [address], [place], [address], 06/15/2018 17:25:18 06/15/20 18 06/15/2018 CBC w/ auto diff automated blood platelet count (count/volum e) 93 10*3/ uL 140-45 0 low Not Available [facility] [address], [place], [address], 06/15/2018 17:25:18 06/15/20 18 06/15/2018 CBC w/ auto diff automated blood platelet mean volume 10.5 fL 7.4-10 .4 high Not Available [facility] [address], [place], [address], 06/15/2018 17:25:18 06/15/20 18 06/15/2018 CBC w/ auto diff automated blood segmented neutrophils/ 100 leukocytes 57.0 % 40-70 Not Available [facility] [address], [place], [address], 06/15/2018 17:25:18 06/15/20 18 06/15/2018 CBC w/ auto diff blood lymphocytes/ 100 leukocytes by flow cytometry 34.3 % 20-44 Not Available [facility] [address], [place], [address], 06/15/2018 17:25:18 06/15/20 18 06/15/2018 CBC w/ auto diff automated blood monocytes/10 0 leukocytes 5.5 % 2-9 Not Available [facility] [address], [place], [address], 06/15/2018 17:25:18 06/15/20 18 06/15/2018 CBC w/ auto diff automated blood eosinophils/ 100 leukocytes 2.0 % 0-4 Not Available [facility] [address], [place], [address], 06/15/2018 17:25:18 06/15/20 18 06/15/2018 CBC w/ auto diff automated blood basophils/10 0 leukocytes 1.2 % 0-1 high Not Available [facility] [address], [place], [address], 06/15/2018 17:25:18 06/15/20 18 06/15/2018 CBC w/ auto diff blood neutrophils automated count (number/volu me) 5.93 10*3/ uL 1.8-7. 7 Not Available [facility] [address], [place], [address], 06/15/2018 17:25:18 06/15/20 18 06/15/2018 CBC w/ auto diff blood lymphocytes automated count (number/volu me) 3.56 10*3/ uL 0.9-4. 8 Not Available [facility] [address], [place], [address], 06/15/2018 17:25:18 06/15/20 18 06/15/2018 CBC w/ auto diff blood monocytes automated count (number/volu me) 0.6 10*3/ uL 0-0.8 Not Available [facility] [address], [place], [address], 06/15/2018 17:25:18 06/15/20 18 06/15/2018 CBC w/ auto diff blood eosinophils automated count (count/volum e) 0.21 10*3/ uL 0-0.7 Not Available [facility] [address], [place], [address], 06/15/2018 17:25:18 06/15/20 18 06/15/2018 CBC w/ auto diff automated blood basophil count (count/volum e) 0.13 10*3/ uL 0-0.2 Not Available [facility] [address], [place], [address], 06/15/2018 17:25:18 06/15/20 18 06/15/2018 serum or plasm a amyla se measu remen t (enzy matic activ ity/v olume ) serum or plasma amylase measurement (enzymatic activity/vol ume) 56 U/L 30-110 Not Available [facility] [address], [place], [address], 06/15/2018 17:26:23 06/15/20 18 06/15/2018 serum or plasm a lipas e measu remen t (enzy matic activ ity/v olume ) serum or plasma lipase measurement (enzymatic activity/vol ume) 60 U/L 23-300 Not Available [facility] [address], [place], [address], 06/15/2018 17:26:24 06/15/20 18 06/15/2018 CMP, serum or plasm a glomerular filtration rate/1.73 sq M.predicted by creatinine-b ased formula (CKD-epi) 128.1 mL 60.0-1 20.0 Not Available [facility] [address], [place], [address], 06/15/2018 17:37:39 06/15/20 18 06/15/2018 CMP, serum or plasm a serum or plasma glucose measurement (mass/volume ) 94 mg/dL 74-106 Not Available [facility] [address], [place], [address], 06/15/2018 17:37:39 06/15/20 18 06/15/2018 CMP, serum or plasm a serum or plasma urea nitrogen measurement (mass/volume ) 10 mg/dL 7-17 Not Available [facility] [address], [place], [address], 06/15/2018 17:37:39 06/15/20 18 06/15/2018 CMP, serum or plasm a serum or plasma creatinine measurement (mass/volume ) 0.5 mg/dL 0.7-1. 2 low Not Available [facility] [address], [place], [address], 06/15/2018 17:37:39 06/15/20 18 06/15/2018 CMP, serum or plasm a blood urea nitrogen/cre atinine mass ratio 20.0 % 12 Not Available [facility] [address], [place], [address], 06/15/2018 17:37:39 06/15/20 18 06/15/2018 CMP, serum or plasm a serum or plasma sodium measurement (moles/volum e) 138 mmol/ L 137-14 5 Not Available [facility] [address], [place], [address], 06/15/2018 17:37:39 06/15/20 18 06/15/2018 CMP, serum or plasm a serum or plasma potassium measurement (moles/volum e) 4.5 mmol/ L 3.5-5. 1 Not Available [place] [facility] [address], [place], [address], 06/15/2018 17:37:39 06/15/20 18 06/15/2018 CMP, serum or plasm a serum or plasma chloride measurement (moles/volum e) 105 mmol/ L 98-107 Not Available [facility] [address], [place], [address], 06/15/2018 17:37:39 06/15/20 18 06/15/2018 CMP, serum or plasm a serum or plasma carbon dioxide, total measurement (moles/volum e) 22 mmol/ L 22-30 Not Available [facility] [address], [place], [address], 06/15/2018 17:37:39 06/15/20 18 06/15/2018 CMP, serum or plasm a blood calcium measurement (mass/volume ) 9.2 mg/dL 8.4-10 .2 Not Available [facility] [address], [place], [address], 06/15/2018 17:37:39 06/15/20 18 06/15/2018 CMP, serum or plasm a serum or plasma anion gap 15.5 mmol/ L 11.0-2 0.0 Not Available [facility] [address], [place], [address], 06/15/2018 17:37:39 06/15/20 18 06/15/2018 CMP, serum or plasm a osmolality of serum or plasma by calculation 275 mOsm/ kg 265.85 -296.6 0 Not Available [facility] [address], [place], [address], 06/15/2018 17:37:39 06/15/20 18 06/15/2018 CMP, serum or plasm a serum or plasma protein measurement (mass/volume ) 8.6 g/dL 6.3-8. 2 high Not Available [facility] [address], [place], [address], 06/15/2018 17:37:39 06/15/20 18 06/15/2018 CMP, serum or plasm a serum or plasma albumin measurement (mass/volume ) 4.6 g/dL 3.5-5. 0 Not Available [facility] [address], [place], [address], 06/15/2018 17:37:39 06/15/20 18 06/15/2018 CMP, serum or plasm a albumin/glob serpl-mrto 4.0 g/dL 2.2-4. 2 Not Available [facility] [address], [place], [address], 06/15/2018 17:37:39 06/15/20 18 06/15/2018 CMP, serum or plasm a serum or plasma albumin/glob ulin mass ratio 1.10 % 1.10-2 .20 Not Available [facility] [address], [place], [address], 06/15/2018 17:37:39 06/15/20 18 06/15/2018 CMP, serum or plasm a serum or plasma total bilirubin measurement (mass/volume ) 0.50 mg/dL 0.2-1. 3 Not Available [facility] [address], [place], [address], 06/15/2018 17:37:39 06/15/20 18 06/15/2018 CMP, serum or plasm a serum or plasma aspartate aminotransfe rase measurement (enzymatic activity/vol ume) 40 U/L 14-36 high Not Available [facility] [employer] [facility] [address], [place], [address], 06/15/2018 17:37:39 06/15/20 18 06/15/2018 CMP, serum or plasm a serum or plasma alanine aminotransfe rase measurement (enzymatic activity/vol ume) 54 U/L 9-52 high Not Available [facility] [employer] [facility] [address], [place], [address], 06/15/2018 17:37:39 06/15/20 18 06/15/2018 CMP, serum or plasm a serum or plasma alkaline phosphatase measurement (enzymatic activity/vol ume) 96 U/L 38-126 Not Available [facility] [address], [place], [address], 06/15/2018 17:37:39 06/15/20 18 06/15/2018 amyla se, serum or plasm a serum or plasma amylase measurement (enzymatic activity/vol ume) 56 U/L 30-110 Not Available [facility] [address], [place], [address], 06/15/2018 17:37:39 06/15/20 18 06/15/2018 serum or plasm a lipas e measu remen t (enzy matic activ ity/v olume ) serum or plasma lipase measurement (enzymatic activity/vol ume) 60 U/L 23-300 Not Available [facility] [address], [place], [address], 06/15/2018 17:37:40 12/31/19 23 12/31/2022 CBC WITH DIFFE RENTI AL WBC 8.0 K/uL 4.0-11 .0 Not Available [facility] [address] [place], [address], 12/31/2022 05:17:21 12/31/19 23 12/31/2022 CBC WITH DIFFE RENTI AL RBC 4.35 M/uL 4.00-5 .50 Not Available [facility] ([facility] [address] [place], [address], 12/31/2022 05:17:21 12/31/19 23 12/31/2022 CBC WITH DIFFE RENTI AL hemoglobin 12.9 g/dL 12.0-1 6.0 Not Available [facility] [address] [place], [address], 12/31/2022 05:17:21 12/31/19 23 12/31/2022 CBC WITH DIFFE RENTI AL hematocrit 39.4 % 36.0-4 8.0 Not Available [facility]) [address] [place], [address], 12/31/2022 05:17:21 12/31/19 23 12/31/2022 CBC WITH DIFFE RENTI AL MCV 90.6 fL 78.0-1 02.0 Not Available [facility] [address] [address] [place], [place], [address], 12/31/2022 05:17:21 12/31/19 23 12/31/2022 CBC WITH DIFFE RENTI AL MCH 29.7 pg 25.0-3 5.0 Not Available [facility] [address] [place], [place], [address], 12/31/2022 05:17:21 12/31/19 23 12/31/2022 CBC WITH DIFFE RENTI AL MCHC 32.7 g/dL 30.0-3 8.0 Not Available [facility] [address] [place], [place], [address], 12/31/2022 05:17:21 12/31/19 23 12/31/2022 CBC WITH DIFFE RENTI AL RDW 13.2 % 11.5-1 6.0 Not Available [facility] [address], [place], [address], 12/31/2022 05:17:21 12/31/19 23 12/31/2022 CBC WITH DIFFE RENTI AL platelet count 229 K/uL 150-45 0 Not Available [facility] [address] [place], [place], [address], 12/31/2022 05:17:21 12/31/19 23 12/31/2022 CBC WITH DIFFE RENTI AL abs neutrophils 4.2 K/uL 1.8-7. 0 Not Available [facility] [address] [place], [address], 12/31/2022 05:17:21 12/31/19 23 12/31/2022 CBC WITH DIFFE RENTI AL abs lymphocytes 3.0 K/uL 1.0-4. 0 Not Available [facility] [address] [place], [address], 12/31/2022 05:17:21 12/31/19 23 12/31/2022 CBC WITH DIFFE RENTI AL abs monocytes 0.5 K/uL 0.1-1. 1 Not Available [facility] [address] [place], [address], 12/31/2022 05:17:21 12/31/19 23 12/31/2022 CBC WITH DIFFE RENTI AL abs eosinophils 0.3 K/uL 0.0-0. 5 Not Available [facility] [address] [place], [address], 12/31/2022 05:17:21 12/31/19 23 12/31/2022 CBC WITH DIFFE RENTI AL abs basophils 0.0 K/uL 0.0-0. 3 Not Available [facility] [address] [place], [address], 12/31/2022 05:17:21 12/31/19 23 12/31/2022 CBC WITH DIFFE RENTI AL abs immature grans 0.0 K/uL 0.0-0. 1 Not Available [facility] [address] [place], [address], 12/31/2022 05:17:21 12/31/19 23 12/31/2022 CBC WITH DIFFE RENTI AL neutrophils 52.1 % Not Available [facility] [address] [place], [address], 12/31/2022 05:17:21 12/31/19 23 12/31/2022 CBC WITH DIFFE RENTI AL lymphocytes 36.9 % Not Available [facility] [address] [place], [place], [address], 12/31/2022 05:17:21 12/31/19 23 12/31/2022 CBC WITH DIFFE RENTI AL monocytes 6.3 % Not Available [facility] [address] [place], [address], 12/31/2022 05:17:21 12/31/19 23 12/31/2022 CBC WITH DIFFE RENTI AL eosinophils 3.8 % Not Available [facility] [address] [place], [address], 12/31/2022 05:17:21 12/31/19 23 12/31/2022 CBC WITH DIFFE RENTI AL basophils 0.5 % Not Available [facility] [address] [place], [address], 12/31/2022 05:17:21 12/31/19 23 12/31/2022 CBC WITH DIFFE RENTI AL immature grans 0.4 % Not Available [facility] [address] [place], [address], 12/31/2022 05:17:21 12/31/19 23 12/31/2022 CBC WITH DIFFE RENTI AL nucleated RBCs <1.0 /100_ WBCs <1 Not Available [facility] [address] [place], [address], 12/31/2022 05:17:21 12/31/19 23 12/31/2022 LUTEI NIZIN G HORMO NE LH 6.0 IU/L Comme nt for LUTEI NIZIN G HORMO NE Folli cular 2.4 - 12.6 IU/L Mid-C ycle 14.0 - 95.6 IU/L Lutea l 1.0 - 11.4 IU/L Post- Menop ausal 7.7 - 58.5 IU/L Not Available [facility] [address] [place], [address], 12/31/2022 05:17:20 12/31/19 23 12/31/2022 ESTRA DIOL estradiol 296 pg/mL Comme nt for ESTRA DIOL Folli cular 12 - 233 pg/mL Ovula tion 41 - 398 pg/mL Lutea l 22 - 341 pg/mL Post Menop ausal No HRT < 20 pg/mL Post Menop ausal With HRT < 139 pg/mL Not Available [facility] [address] [place], [address], 12/31/2022 05:17:19 12/31/19 23 12/31/2022 FOLLI TONY STIM HORMO NE FSH 5.8 IU/L Comme nt for FOLLI TONY STIM HORMO NE Folli cular : 3.5 - 12.5 IU/L Mid-C ycle: 4.7 - 21.5 IU/L Lutea l: 1.7 - 7.7 IU/L Post- Menop ausal : 25.8 - 134.8 IU/L Not Available [facility] [address] [place], [address], 12/31/2022 05:17:19 12/31/19 23 12/31/2022 THYRO ID STIM HORMO NE TSH 2.0 mIU/L 0.40-4 .1 Not Available [facility] [address] [place], [address], 12/31/2022 05:17:18 12/31/19 23 12/31/2022 LIPID PROFI LE cholesterol 157 mg/dL <200 Not Available [facility] [address] [place], [address], 12/31/2022 05:17:17 12/31/19 23 12/31/2022 LIPID PROFI LE triglyceride s 133 mg/dL 0-149 Not Available [facility] [address] [place], [address], 12/31/2022 05:17:17 12/31/19 23 12/31/2022 LIPID PROFI LE HDL cholesterol 50 mg/dL >39 Not Available [facility] [address] [place], [address], 12/31/2022 05:17:17 12/31/19 23 12/31/2022 LIPID PROFI LE LDL cholesterol 84 mg/dL <100 Not Available [facility] [address] [place], [address], 12/31/2022 05:17:17 12/31/19 23 12/31/2022 LIPID PROFI LE non HDL cholesterol 107 mg/dL <130 Not Available [facility] [address] [facility] [place], [address], 12/31/2022 05:17:17 12/31/19 23 12/31/2022 LIPID PROFI LE coronary risk ratio 3.14 <4.44 Comme nt for LIPID PROFI LE Non-H DL Heather stero l is a avelina r indic ator for cardi ovasc ular risk than LDL-C holes terol for patie nts who have incre ased trigl yceri luna or are non-f astin g. Non-H DL Heather stero l: < 130 mg/dL (Opti mal) < 160 mg/dL (Near Optim al/Ab ove Optim al) LDL Hetaher stero l: < 100 mg/dL (Opti mal) < 130 mg/dL (Near Optim al/Ab ove Optim al) Coron robert Risk Ratio : [place] for femal es < 4.44 Not Available [facility] [address] [place], [address], 12/31/2022 05:17:17 12/31/19 23 12/31/2022 COMP METAB OLIC PANEL sodium 141 mEq/L 135-14 6 Not Available [facility] [address] [place], [address], 12/31/2022 05:17:17 12/31/19 23 12/31/2022 COMP METAB OLIC PANEL potassium 4.0 mEq/L 3.5-5. 4 Not Available [facility] [address] [place], [address], 12/31/2022 05:17:17 12/31/19 23 12/31/2022 COMP METAB OLIC PANEL chloride 102 mEq/L 95-107 Not Available [facility] [address] [place], [address], 12/31/2022 05:17:17 12/31/19 23 12/31/2022 COMP METAB OLIC PANEL carbon dioxide 27 mEq/L 19-31 Not Available [facility] [address] [place], [address], 12/31/2022 05:17:17 12/31/19 23 12/31/2022 COMP METAB OLIC PANEL anion gap 12 mEq/L 7-23 Not Available [facility] [address] [place], [address], 12/31/2022 05:17:17 12/31/19 23 12/31/2022 COMP METAB OLIC PANEL glucose fasting 84 mg/dL 70-99 Not Available [facility] [address] [place], [address], 12/31/2022 05:17:17 12/31/19 23 12/31/2022 COMP METAB OLIC PANEL urea nitrogen (BUN) 8 mg/dL 6-20 Not Available [facility] [address] [place], [address], 12/31/2022 05:17:17 12/31/19 23 12/31/2022 COMP METAB OLIC PANEL creatinine 0.65 mg/dL 0.60-1 .30 Not Available [facility] [address] [place], [place], [address], 12/31/2022 05:17:17 12/31/19 23 12/31/2022 COMP METAB OLIC PANEL 2020 CKD-epi eGFR-cr 117 mL/mi n/1.7 3m'2 >59 Not Available [facility] ([facility] [address] [place], [place], [address], 12/31/2022 05:17:17 12/31/19 23 12/31/2022 COMP METAB OLIC PANEL BUN/creatini ne ratio 12 ratio Not Available [facility] [address] [place], [place], [address], 12/31/2022 05:17:17 12/31/19 23 12/31/2022 COMP METAB OLIC PANEL calcium total 8.9 mg/dL 8.5-10 .5 Not Available [facility] [address] [place], [place], [address], 12/31/2022 05:17:17 12/31/19 23 12/31/2022 COMP METAB OLIC PANEL protein total 6.9 g/dL 6.1-8. 3 Not Available [facility] [address] [place], [place], [address], 12/31/2022 05:17:17 12/31/19 23 12/31/2022 COMP METAB OLIC PANEL albumin 4.2 g/dL 3.5-5. 2 Not Available [facility] ([facility] [address] [place], [address], 12/31/2022 05:17:17 12/31/19 23 12/31/2022 COMP METAB OLIC PANEL globulin 2.7 g/dL 1.7-4. 3 Not Available [facility] [address] [place], [address], 12/31/2022 05:17:17 12/31/19 23 12/31/2022 COMP METAB OLIC PANEL A/G ratio 1.6 ratio 0.9-2. 8 Not Available [facility] ([facility] [address] [place], [address], 12/31/2022 05:17:17 12/31/19 23 12/31/2022 COMP METAB OLIC PANEL bilirubin total 0.2 mg/dL 0.0-1. 2 Not Available [facility] [address] [place], [address], 12/31/2022 05:17:17 12/31/19 23 12/31/2022 COMP METAB OLIC PANEL alkaline phosphatase 86 U/L 40-112 Not Available [facility] [address] [place], [address], 12/31/2022 05:17:17 12/31/19 23 12/31/2022 COMP METAB OLIC PANEL AST (SGOT) 11 U/L 9-40 Not Available [facility] [address] [place], [address], 12/31/2022 05:17:17 12/31/19 23 12/31/2022 COMP METAB OLIC PANEL ALT (SGPT) 8 U/L 5-40 Not Available [facility] [address] [place], [address], 12/31/2022 05:17:17 07/07/20 18 US, trans vagin al No observ ation record ed. [email or web address] [place] [facility] [address] [place], [address], 07/08/2018 11:58:30 07/07/20 18 07/04/2018 US, trans vagin al No observ ation record ed. [email or web address] [facility] [address] [place], [address], 07/08/2018 09:22:11 12/26/19 23 12/25/2022 imagi ng inter preta tion No observ ation record ed. [id number], [address], 08/13/2024 21:04:15 12/26/19 23 12/25/2022 imagi ng inter preta tion No observ ation record ed. [id number], [address], 08/13/2024 21:04:15 01/14/20 23 01/13/2023 imagi ng inter preta tion No observ ation record ed. [id number], [address], 08/13/2024 21:04:15 01/19/20 23 01/18/2023 imagi ng inter preta tion No observ ation record ed. [id number], [address], 08/13/2024 21:04:15 Result Notes None recorded. Problems Name Problem SNOMED Code Status Onset Date Resolution Date Notes Provider Name and Address Organization Details Recorded Time Depressive disorder 45649900 Active 2017 RAMIRO OLIVARES, [employer] [address], [place], [address] , [place] - Joey Phillips [facility] 8 16:00:37 Anxiety 34934151 Active 2017 RAMIRO OLIVARES, [employer] [address], [place], [address] , [place] LEXI Phillips [facility] 8 16:00:40 Gastroesophag eal reflux disease 057015864 Active 2017 RAMIRO OLIVARES, [employer] [address], [place], [address] , [place] LEXI Phillips [facility] 8 16:02:17 Steatotic liver disease 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 Active 2017 RAMIRO OLIVARES, [employer] [address], [place], [address] , LEXI Phillips [facility] 8 16:02:26 Chronic hepatitis C 971973210 Active 2017 RAMIRO OLIVARES, [employer] [address], [place], [address] , LEXI Phillips [facility] 8 16:02:35 Chronic obstructive pulmonary disease 17252578 Active 2017 RAMIRO OLIVARES, [employer] [address], [place], [address] , [place] LEXI Phillips [facility] 8 16:03:15 Fibromyalgia 309074995 Active 2017 RAMIRO OLIVARES, [employer] [address], [place], [address] , LEXI Phillips [facility] 8 16:03:38 Congestive heart failure 15978629 Active 2022 Not Available [facility] 4 21:05:01 Problem Notes None recorded. Procedures Surgical History Date Name Laterality Status Provider Name and Address Organization Details Recorded Time 10/04/19 10 Caesarean Section completed Alisha Phillips [facility] 06/15/2018 15:47:07 10/04/19 10 Tubal Ligation completed Alisha Phillips [facility] 06/15/2018 15:47:19 10/04/19 07 Caesarean Section completed Alisha Phillips [facility] 06/15/2018 15:47:04 10/04/19 06 Caesarean Section completed Alisha Phillips [facility] 06/15/2018 15:46:56 10/04/19 05 Cholecystectomy completed Alisha Phillips [facility] 06/15/2018 15:46:38 Cardiac Surgery completed Not Available [facility] 08/13/2024 21:03:47 Imaging Results None recorded. Procedure Notes None recorded. Medical Equipment None Reported. Allergies Allergen ID Allergen Name Allergen Category Reaction Reaction Severity Criticality Documentation Date Start Date Code Code System Note Provider Name and Address Organization Details Recorded Time 38816 Substance with sulfonami de structure and antibacte rial mechanism of action (substanc e) medicatio n anaphylax is moderate Not available 06/15/2018 20131 8003 SNOMED LEXI Bazzi [facility] 8 15:41:59 Medications Name Sig Start Date Stop Date Status Note LastModified by Organization Details LastModified Time verapamil ER (SR) 120 mg tablet,exte nded release Take 1 tablet twice a day by oral route. 12/30 completed Not Available Not Available Not Available cyclobenzap rine 10 mg tablet TAKE 1 TABLET BY MOUTH THREE TIMES DAILY NEEDED FOR MUSCLE RELAXATIO N active Not Available Not Available No t Available amoxicillin 500 mg capsule TK 1 C PO Q 8 H TAT active Not Available Not Available No t Available furosemide 40 mg tablet TAKE 1 TABLET BY MOUTH EVERY DAY 12/30 completed Not Available Not Available Not Available promethazin e-DM 6.25 mg-15 mg/5 mL oral syrup TAKE 5 ML (CC) BY MOUTH AT BEDTIME NEEDED active Not Available Not Available No t Available atorvastati n 80 mg tablet TAKE 1 TABLET AT BEDTIME active Not Available Not Available No t Available venlafaxine ER 75 mg capsule,ext ended release 24 hr TAKE ONE CAPSULE BY MOUTH EVERY DAY 12/30 completed Not Available Not Available Not Available doxycycline hyclate 100 mg capsule active Not Available Not Available N ot Available torsemide 20 mg tablet TAKE 1 TABLET BY MOUTH EVERY DAY active Not Available Not Available No t Available tizanidine 2 mg tablet TAKE ONE TABLET BY MOUTH EVERY 6 TO 8 HOURS NEEDED. must last 30 DAYS. 12/30 completed Not Available Not Available Not Available famotidine 10 mg tablet Take 1 tablet every day by oral route. 2022 active Not Available Not Available Not Stephanie iqbal azithromyci n 250 mg tablet TAKE 2 TABLETS (500MG) BY MOUTH TODAY THEN 1 TABLET (250MG) BY MOUTH DAILY FOR THE NEXT 4 DAYS. 12/30 completed Not Available Not Available Not Available alprazolam 1 mg tablet TAKE 1 TABLET 3 TIMES DAILY 12/30 completed Not Available Not Available Not Available tizanidine 4 mg tablet TAKE ONE TABLET BY MOUTH THREE TIMES DAILY NEEDED active Not Available Not Available No t Available hydrocodone 5 mg-acetamin ophen 325 mg tablet TAKE 1 TABLET BY MOUTH EVERY 6 HOURS NEEDED 12/30 completed Not Available Not Available Not Available meloxicam 15 mg tablet TAKE ONE TABLET BY MOUTH EVERY DAY active Not Available Not Available No t Available sucralfate 1 gram tablet Take 1 tablet 4 times a day by oral route for 30 days. active Not Available Not Available No t Available ondansetron HCl 4 mg tablet active Not Available Not Available Not Available isosorbide mononitrate ER 30 mg tablet,exte nded release 24 hr TAKE 3 TABLETS EVERY DAY active Not Available Not Available No t Available clonazepam 0.5 mg tablet TAKE 1 TABLET BY MOUTH 3 TIMES DAILY active Not Available Not Available No t Available clonazepam 1 mg tablet TAKE ONE TABLET BY MOUTH TWICE DAILY NEEDED 12/30 completed Not Available Not Available Not Available acetaminoph en 300 mg-codeine 30 mg tablet TK 1 T PO Q 4 TO 6 H PRN active Not Available Not Available No t Available hydrocodone 10 mg-acetamin ophen 325 mg tablet Take 1 tablet every 4-6 hours by oral route as needed. 06/27 completed Not Available Not Available Not Available omeprazole 40 mg capsule,del ayed release TAKE ONE CAPSULE BY MOUTH EVERY DAY 12/30 completed Not Available Not Available Not Available aspirin 81 mg tablet,dandy yed release TAKE 1 TABLET BY MOUTH ONCE DAILY active Not Available Not Available No t Available quetiapine 100 mg tablet TAKE 1 TABLET AT BEDTIME 12/30 completed Not Available Not Available Not Available ondansetron 8 mg disintegrat ing tablet 06/27 completed Not Available Not Available Not Available prednisone 10 mg tablets in a dose pack active Not Available Not Available Not Available isosorbide mononitrate ER 60 mg tablet,exte nded release 24 hr active Not Available Not Available Not Available potassium chloride ER 20 mEq tablet,exte nded release(par t/cryst) TAKE TWO TABLETS BY MOUTH THREE TIMES DAILY 12/30 completed Not Available Not Available Not Available trazodone 100 mg tablet TAKE ONE TABLET BY MOUTH DAILY 12/30 completed Not Available Not Available Not Available dicyclomine 20 mg tablet TAKE ONE TABLET BY MOUTH FOUR TIMES DAILY 12/30 completed Not Available Not Available Not Available meclizine 25 mg tablet active Not Available Not Available Not Available Lamictal 25 mg tablet take 1 TABLET BY MOUTH DAILY FOR 7 DAYS, 1 TABLET TWICE DAILY x7 DAYS, 1 TABLET THREE TIMES DAILY x7 DAYS, THEN 2 TABLETS TWICE DAILY 12/30 completed Not Available Not Available Not Available hydrocodone 7.5 mg-acetamin ophen 325 mg tablet TAKE 1 TABLET EVERY 6 HOURS NEEDED active Not Available Not Available No t Available promethazin e 25 mg tablet Take 1 tablet every 12 hours by oral route as needed. active Not Available Not Available No t Available Lamictal 100 mg tablet TAKE 1/2 TABLET (50 MG) BY MOUTH TWICE DAILY 12/30 completed Not Available Not Available Not Available metoprolol tartrate 50 mg tablet Take 1 tablet twice a day by oral route. active Not Available Not Available No t Available indomethaci n 50 mg capsule TAKE 1 CAPSULE 3 TIMES DAILY NEEDED FOR pain 12/30 completed Not Available Not Available Not Available nicotine 21 mg/24 hr daily transdermal patch apply one PATCH each DAY active Not Available Not Available No t Available nitroglycer in 0.4 mg sublingual tablet DISSOLVE 1 TABLET UNDER TONGUE every 5 MINUTES NEEDED FOR CHEST pain. DO not exceed total of 3 doses in 15 min. if no RELIEF seek medical help. 12/30 completed Not Available Not Available Not Available gabapentin 300 mg capsule TAKE 1 CAPSULE TWICE DAILY active Not Available Not Available No t Available omeprazole 20 mg capsule,del ayed release TAKE 1 CAPSULE EVERY DAY 12/30 completed Not Available Not Available Not Available chlordiazep oxide-clidi nium 5 mg-2.5 mg capsule TAKE 1 CAPSULE BY MOUTH 4 TIMES DAILY 12/30 completed Not Available Not Available Not Available acetaminoph en 300 mg-codeine 60 mg tablet TAKE 1 TABLET EVERY 6 HOURS NEEDED 12/30 completed Not Available Not Available Not Available lisinopril 5 mg tablet TAKE 1 TABLET BY MOUTH ONCE DAILY active Not Available Not Available No t Available mupirocin 2 % topical ointment APPLY TO AFFECTED AREA TWICE DAILY FOR 10 DAYS 12/30 completed Not Available Not Available Not Available furosemide 20 mg tablet TAKE ONE TABLET BY MOUTH EVERY DAY 12/30 completed Not Available Not Available Not Available metoprolol succinate ER 25 mg tablet,exte nded release 24 hr 12/30 completed Not Available Not Available Not Available Promethegan 25 mg rectal suppository active Not Available Not Available Not Available levofloxaci n 500 mg tablet TAKE 1 TABLET BY MOUTH ONCE DAILY FOR 10 DAYS active Not Available Not Available No t Available methylpredn isolone 4 mg tablets in a dose pack TAKE DIRECTED ON PACKAGE active Not Available Not Available No t Available ondansetron 4 mg disintegrat ing tablet DISSOLVE ONE TABLET ON TONGUE EVERY TWELVE HOURS NEEDED FOR NAUSEA AND VOMITING 12/30 completed Not Available Not Available Not Available amoxicillin 875 mg-potassiu m clavulanate 125 mg tablet TAKE 1 TABLET BY MOUTH EVERY 12 HOURS UNTIL ALL TAKEN active Not Available Not Available No t Available hydroxyzine pamoate 25 mg capsule TAKE 1 CAPSULE BY MOUTH TWICE DAILY 12/30 completed Not Available Not Available Not Available neomycin-po lymyxin-hyd rocort 3.5 mg-10,000 unit/mL-1 % ear drops,susp INSTILL 4 DROPS INTO LEFT EAR(S) BY OTIC ROUTE 3 TIMES PER DAY 2017 active Not Available Not Available Not Avai lable aripiprazol e 5 mg tablet TAKE 1 TABLET EVERY DAY 12/30 completed Not Available Not Available Not Available bupropion HCl XL 150 mg 24 hr tablet, extended release TAKE 1 TABLET BY MOUTH EVERY DAY active Not Available Not Available No t Available metoprolol tartrate 25 mg tablet TAKE 1 TABLET BY MOUTH TWICE DAILY active Not Available Not Available No t Available nitrofurant oin monohydrate /macrocryst als 100 mg capsule active Not Available Not Available Not Available duloxetine 30 mg capsule,del ayed release TAKE ONE CAPSULE BY MOUTH EVERY DAY AT dinner 12/30 completed Not Available Not Available Not Available duloxetine 60 mg capsule,del ayed release Take 1 capsule every day by oral route. active Not Available Not Available No t Available Librax (with clidinium) takes every 6 hours PRN active Not Available Not Available No t Available quetiapine 50 mg tablet TAKE 1 TABLET EVERY DAY 12/30 completed Not Available Not Available Not Available diclofenac 1 % topical gel active Not Available Not Available Not Available prasugrel HCl 10 mg tablet TAKE 1 TABLET EVERY DAY active Not Available Not Available No t Available Brilinta 90 mg tablet TAKE ONE TABLET BY MOUTH TWICE DAILY 12/30 completed Not Available Not Available Not Available potassium chloride ER 20 mEq tablet,exte nded release TAKE 1 TABLET BY MOUTH ONCE DAILY active Not Available Not Available No t Available albuterol 90 mcg-budeson alicia 80 mcg/actuati on HFA aerosol inhaler Inhale by inhalatio n route. 2022 active Not Available Not Available Not Avai lable Vitals Date Recorded Body weight Body mass index (BMI) Body height Heart rate Oxygen saturation Oxygen saturation in Arterial blood by Pulse oximetry Body temperature Systolic And Diastolic Provider Name and Address Organization Details Last Updated DateTime 3 38950.2 6 g 27.6 kg/m2 170.18 cm 62 /min 100 % 100 % 96.4 [degF] 90/59 mm[Hg] Not Available [facility] 4 21:04:57 Date Recorded Body weight Body mass index (BMI) Body height Body temperature Heart rate Respiratory rate Oxygen saturation Oxygen saturation in Arterial blood by Pulse oximetry Systolic And Diastolic Provider Name and Address Organization Details Last Updated DateTime 8 551602. 2 g 35.1 kg/m2 172.72 cm 98.1 [degF] 81 /min 19 /min 99 % 99 % 130/82 mm[Hg] Alisha Phillips [facility] 8 15:55:23 Date Recorded Body height Body mass index (BMI) Body weight Body temperature Heart rate Respiratory rate Oxygen saturation Oxygen saturation in Arterial blood by Pulse oximetry Systolic And Diastolic Provider Name and Address Organization Details Last Updated DateTime 8 172.72 cm 34.9 kg/m2 849553. 45 g 97.4 [degF] 70 /min 19 /min 96 % 96 % 132/80 mm[Hg] Alisha Phillips [facility] 8 15:23:18 Social History Question Answer Notes LastModified by Organizat ion Details LastModified Time Tobacco Smoking Status Current Every Day Smoker LEXI Bazzi [facility] 06/15/2018 15:44:10 Are You Blind Or Do You Have Difficulty Seeing? No [id number] Information not available 08/13/2024 What Is Your Level Of Caffeine Consumption? Heavy [email or web address] Information not available 06/15/2018 Are You Deaf Or Do You Have Serious Difficulty Hearing? No [id number] Information not available 08/13/2024 What Type Of Diet Are You Following? REGULAR [email or web address] Information not available 06/15/2018 Education 12 [email or web address] Information no t available 06/15/2018 Hard Of Hearing Or Deaf In One Or Both Ears? No [email or web address] Information not available 06/15/2018 Legally Blind In One Or Both Eyes? No [email or web address] Information no t available 06/15/2018 Live Alone Or With Others? With Others [email or web address] Information not available 06/15/2018 Risk Assessment Level Medium [email or web address] Information not available 07/07/2018 What Was The Date Of Your Most Recent Tobacco Screening? 06/27/2018 Information not available 04/27/2019 How Many Children Do You Have? 6 [id number] Information not available 08/13/2024 Performs Monthly Self-breast Exam? No [email or web address] Information no t available 06/15/2018 What Is Your Relationship Status? [id number] Information not available 08/13/2024 Seat Belts Used Routinely Yes [email or web address] Information not available 06/15/2018 Are You Sexually Active? Yes Information not available 06/15/2018 Smoke Alarm In Home Yes Information not available 06/15/2018 At What Age Did You Start Smoking Tobacco? 14 [id number] Information not available 08/13/2024 Are You Passively Exposed To Smoke? Yes Information no t available 06/15/2018 How Much Tobacco Do You Smoke? 1 PPD [email or web address] Information not available 06/15/2018 Do You Use Sunscreen Routinely? No [email or web address] Information not available 06/15/2018 Do You Have Difficulty Walking Or Climbing Stairs? No [id number] Information not available 08/13/2024 Sex: Unknown Functional Status Question Answer Note LastModified by Organizat ion Details LastModified Time Do you use any illicit or recreational drugs? No [id number] Information not available 08/13/2024 Do you or have you ever used any other forms of tobacco or nicotine? No [id number] Information not available 08/13/2024 What is your level of alcohol consumption? None [email or web address] Information not available 06/15/2018 Are you currently employed? No [email or web address] Information not available 06/15/2018 Do you have difficulty doing errands alone? No [id number] 900 Information not available 08/13/2024 Are you able to care for yourself independently? Yes Information not available 06/15/2018 Do you have difficulty dressing, bathing, grooming, or toileting? No [id number] 900 Information not available 08/13/2024 What is your exercise level? Occasional [email or web address] Information not available 06/15/2018 Mental Status Question Answer Note LastModified by Organizat ion Details LastModified Time Do you have difficulty concentrating, remembering or making decisions? No [id number] Information not available 08/13/2024 Family History Relationship Description Onset Age of this Age Resolved Age Notes LastModified by Organization Details LastModified Time Mother Anxiety disorder Not available 2017 15:52:28 Mother Cerebrovascu lar accident [email or web address] Not available 09/2018 15:52:49 Mother Myocardial infarction Not available 06/15 15:52:57 Mother Hypertensive disorder [id number] Not available 08/13/2024 21:04:14 Daughter Asthma [email or web address] Not availabl e 06/15/2018 15:52:41 Father Disease of liver [email or web address] Not available 2017 15:53:20 Father Malignant neoplastic disease Colon and Liver [email or web address] Not available 06/15/2018 16:00:20 Father Hypertensive disorder [id number] Not available 08/13/2024 21:04:14 Medical History Condition Response Depression Y COPD Y Anxiety Disorder Y Muscle, Joint, or Bone Problems Y Arthritis Y Hospital Admission other than Y Liver Disease Y Fibromyalgia Y Constipation Y GERD/Reflux Y Gynecological History Statement/Question Response Menses Monthly Y Duration of Flow (days) 7 Date of Last Pap Smear Age at Menarche 13 Current Control Method Tubal Ligat ion Age at First Child 19 Obstetrics History GPAL:G 5 P 0 3 2 3 Type Value Spontaneous 2 Premature 3 Living 3 Total 5 Immunizations Vaccine Type Date Status Note Provider Nam e and Address Organization Details Recorded Time Influenza, MDCK, quadrivalent, preservative 8 completed Not Available [facility] 10/21/2019 02:08:50 Past Encounters Encounter ID Performer Location Encounter Start Date Encounter Closed Date Diagnosis/Indication Diagnosis SNOMED-CT Code Diagnosis ICD10 Code Diagnosis Note [id number] RAMIRO OLIVARES [facility] [address] [place] [address] 06/15/2018 15:25:33 06/22/2018 11:46:42 Left upper quadrant pain 620420463 R10.12 Nausea and vomiting 1693 2000 R11.2 Chronic hepatitis C 1283 92768 B18.2 Sees GI in [place] [id number] RAMIRO OLIVARES [facility] [address] [place] [address] 06/27/2018 15:03:54 06/28/2018 14:51:38 Administration of influenza vaccine 43922144 Z23 Gastroesop hageal reflux disease 360050055 K21.9 Otalgia 87280831 H92.02 Tonsillar debris 1321932 00 J35.8 Warm salt water gargles Cyst of left ovary 60401 40174 4788471 N83.202 [id number] SONJA ESTRADA - [address] [place] [address] 12/30/2022 00:00:00 12/30/2022 12:46:51 Health Concerns Section Related Observation LastModified by Organization Detai ls LastModified Time None Recorded Concern Status LastModified by Organization Details LastModified Time None Recorded Advance Directives Directive None Recorded Payers Insurance Date Sequence Insurance Name Policy Number Policy Saunders Covered Member ID Saunders Member ID Guarantor Name 02/05/2021 1 [place]IT[place] Deidre Hussein [id number] Deidre Hussein 11/25/2020 1 [employer]: LOTTIE TAFOYA OPEN ACCESS (POS) Deidre Hussein [id number] Deidre Hussein 11/25/2020 1 [employer] - ESSENTIAL CARE 2 (PPO) [id number] Deidre Hussein [id number] Deidre Hussein Notes Date Note Type Note Provider Name and Address Organization Details Recorded Time 06/15/2018 text/html Abdominal PainRe ported by PatientAbdominal PainFor quality, patient reportsachingandsharp. For associated symptoms, patient reportsnausea,vomiting , andconstipation. For location, patient reportsluq. For severity, patient reportsmoderate. For duration, patient reportsconstant. Pt c/o abd pain, shoulder pain and vomiting for over 1 week. Pt reports she had episode of severe gastritis about 1.5 years ago and had to be admitted to [facility]. RAMIRO ANGELA, [employer] [address], [place], [address], LEXI Phillips [facility] 06/15/2018 16:13:32 06/27/2018 text/html EaracheReported by PatientHPIFor location, patient reportsleft. For quality, patient reportsaching. Follow up and left ear pain- Pt states she was seen at [facility] and was dx with ulcers and gastritis. Pt was given Carafate and Phenergan supp. Pt states she is feeling better. Pt states she went on 06/18 and 06/20- pt states she had US and CTs done. RAMIROLEIA OLIVARES, [employer] [address], [place], [address], [place] LEXI Phillips [facility] 06/27/2018 16:41:10 OBGyn Episode No OBEpisode recorded.
--- OUTSIDE RECORDS SUMMARY | 2025-04-29 23:09 | XMS_ITS | Clinical Summary ---
Author Organization [facility] Address [address] [place] [address] Care Team Providers Care Sand Digger Name Role Phone None, MD Primary Care Provider Unavailabl e Allergies Active Allergy Reactions Criticality Noted Date Comments Beta-Blockers (Beta-Adrenergic Blocking Agts) Diarrhea,Nausea And Vomiting 09/21/2024 Sulfa (Sulfonamide Antibiotics) Anaphylaxis High 09/20/2024 Ketorolac Rash Low 09/20/2024 Tramadol Rash Low 03/16/2025 Medications furosemide 40 mg Oral tablet Take 1 tablet by mouth daily. Active atorvastatin 80 mg Oral tablet Take 1 tablet by mouth at bedtime. Active tiZANidine 4 mg Oral tablet Take 1 tablet by mouth every 6 (six) hours as needed for Muscle spasms. Active gabapentin 400 mg Oral capsule Take 1 capsule by mouth 3 (three) times daily. Active clonazePAM 1 mg Oral disintegrating tablet Take 1 tablet by mouth 3 (three) times daily as needed for Anxiety. Active ondansetron 4 mg Oral tablet Take 1 tablet by mouth every 6 (six) hours as needed for Nausea or Vomiting. Active HYDROcodone-acetam inophen 5-325 mg Oral per tablet Take 1 tablet by mouth every 8 (eight) hours as needed. Active scopolamine 1 mg over [address] 1 patch onto the skin every third day. Active Prasugrel 10 mg Oral Tab Take 1 tablet by mouth daily. Active omeprazole 40 mg Oral capsule Take 1 capsule by mouth every morning at 0600. 30 min before breakfast Active ranolazine 500 mg Oral 12 hr tablet Take 1 tablet by mouth 2 (two) times daily. Active metoclopramide HCl 5 mg Oral tablet Take 1 tablet by mouth 4 (four) times daily. Active traZODone 50 mg Oral tablet Take 1 tablet by mouth at bedtime. Take 1-3 tabs QHS Active diltiazem 120 mg Oral 24 hr capsule Take 1 capsule by mouth daily. 30 capsule 11 09/23/20 24 Active cyanocobalamin 1,000 mcg/mL Inj injection Inject 1 mL as directed every 30 (thirty) days. Active potassium chloride 10 mEq Oral CR tablet Take 1 tablet by mouth every morning at 0600. Active promethazine 25 mg Oral tablet Take 1 tablet by mouth every 4 (four) hours as needed for Nausea. Do not take with metoclopramide Active ARIPiprazole 2 mg Oral tablet TAKE ONE TABLET BY MOUTH ONCE DAILY. stop escitalopram 12/08/19 Active clomiPRAMINE 50 mg Oral capsule Take 1 Capsule by mouth at bedtime, may increase to 2 capsules at bedtime. titrating off trazodone 12/08/19 Active hydroCHLOROthiazid e 12.5 mg Oral capsule Take 1 capsule by mouth every morning at 0600. for blood pressure 12/13/19 Active nitroGLYCERIN 0.4 mg SL SL tablet 1 tab as directed Sublingual 1 tablet sublingual every 5 minutes up to 15 minutes as needed for chest pain. Do not take more than 3 tablets within the 15 minutes. if unrelieved with 3 doses go to the ER. 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 09/21/2024 Fibromyalgia 09/21/2024 Chest pain, unspecified type 09/20/2024 Encounters Date Type Department Care Team Description 04/23/2025 2:00 AM CDT - 04/23/2025 4:39 AM CDT [facility] [address] [place] [address] Leda Craig MD Chest pain, unspecified type (Primary Dx) Discharge Disposition: (01) - Home or Self Care 04/23/2025 Travel 04/07/2025 8:05 PM CDT - 04/08/2025 5:02 AM CDT Emergency [facility] [address] [place], [place] [id number] Eloped from emergency department (Primary Dx) Discharge Disposition: (07) - Left Against Medical Advice or Discontinued Care 04/07/2025 Travel 03/28/2025 5:09 PM CDT - 03/28/2025 7:35 PM CDT [facility] [address] [place] [address] Discharge Disposition: (07) - Left Against Medical Advice or Discontinued Care 03/28/2025 Travel 03/16/2025 11:19 PM CDT - 03/17/2025 1:18 AM CDT [facility] [address] [place] [address] Luis A Rodríguez MD Atypical chest pain (Primary Dx) Discharge Disposition: (01) - Home or Self Care 03/16/2025 Travel from Last 3 Months Social History Tobacco Use Types Packs/Day Years Used Date Smoking Tobacco: Every Day Cigarettes Smokeless Tobacco: Never Tobacco Cessation:Ready to Q uit: Not Asked; Counseling Given: Not Answered Alcohol Use Standard Drinks/Week Comments Never 0 (1 standard drink = 0.6 oz pur e alcohol) [facility] Utilities Answer Date Recorded In the past 12 months has e eRALOS3, gas, oil, or water [employer] threatened to shut off services in your home? No 09/21/2024 Hunger Vital Sign Answer Date Recorded Within the past 12 months, y ou worried that your food would run out before you got the money to buy more. Patient declined Within the past 12 months, t he food you bought just didn't last and you didn't have money to get more. Patient declined [facility] HRSN - Transportation Answer Date [...] Sex Assigned at Female 10/01/2024 8:27 PM NURSE REVIEWER Legal Sex Female 4:36 PM NURSE REVIEWER Gender Identity Female 10/01/2024 8:27 PM NURSE REVIEWER Sexual Orientation Straight 10/01/2024 8: 27 PM NURSE REVIEWER Last Filed Vital Signs Vital Sign Reading [...] Mass Index 27.67 04/23/2025 1:56 AM CDT Plan of Treatment Health Maintenance Due Date Last Done Comments General Annual Wellness Visit 1986 HIV Screening 1986 HPV/Cotest 1986 Hepatitis C Screening 1986 Tobacco Cessation Intervention 1986 DTaP,Tdap,and Td Vaccines (6 - Tdap) 1997 04/24/1991, 07/14/1988, 06/24/1987, Additional history exists Pneumococcal Vaccine Childhood & At Risk (1 of 2 - PCV) 2005 Cervical Cancer Screening 2007 Pap Smear 2007 HPV Vaccines (1 - 3-dose SCDM series) 2013 Hepatitis A Vaccines (2 of 3 - Hep A Twinrix risk 3-dose series) 06/23/2016 05/26/2016 Hepatitis B Vaccines (2 of 3 - Hep B Twinrix 3-dose series) 06/23/2016 05/26/2016 COVID-19 Vaccine (1 - season) 2024 Depression Screening 10/04/2024 Influenza Vaccine (#1) 2025 2, 08/29/2021, 07/25/2018, Additional history exists Tobacco Use Screening 04/07/2026 04/07/2025 Lipid Screening 03/31/2028 03/31/2025, 12/2 , 09/22/2023 Shingles Vaccine (1 of 2) 01/09/2036 HIB Vaccines Aged Out No longer eligi ble based on patient's age to complete this topic Meningococcal ACWY Vaccine Aged Out N o longer eligible based on patient's age to complete this topic RSV Vaccine (under 20 mo) Aged Out No longer eligible based on patient's age to complete this topic Medical Devices Implanted Type Area Sonography Technician Device Identifier Shelf Expiration Date Model / Serial / Lot Device Prcls Prostyle 6fr Sutue Mediate Knot Push - [id number] Implanted:Qty: 1 on 09/21/2024 by Praveen Sanz MD at [facility] VASCULAR 05/03/2026 [id number] / [id number] / [id number] Procedures Procedure Name Priority Date/Time Associated Diagnosis Comments XR CHEST 1 VW PORTABLE AP ER Eval 04/23/2025 2:25 AM CDT NT PRO BRAIN NATRIURETIC PEPTIDE Add-On 04/23/2025 2:14 AM CDT MANUAL DIFFERENTIAL,NONCARES PHERE (PERFROMABLE) STAT 04/23/2025 2:14 AM CDT CK ER Eval 04/23/2025 2:14 AM CDT HIGH SENSITIVITY TROPONIN SERIES, BASELINE W REFLEX IF NEEDED ER Eval 04/23/2025 2:14 AM CDT CBC W/ AUTO DIFFERENTIAL CWS AND NONCWS (PERFORMABLE) ER Eval 04/23/2025 2:14 AM CDT CARDIAC PANEL(CKTOT, HSTROP W REFLEX)(NON-CLINIC ORDER) ER Eval 04/23/2025 2:14 AM CDT BASIC METABOLIC PANEL ER Eval 04/23/2025 2:14 AM CDT CBC AND DIFFERENTIAL (ORDERABLE) ER Eval 04/23/2025 2:14 AM CDT EKG 12-LEAD STAT 04/23/2025 1:53 AM CDT EKG 12-LEAD STAT 04/07/2025 8:29 PM CDT XR CHEST 2 VW PA AND LAT (ROUTINE) ER Eval 03/28/2025 2:31 PM CDT EKG 12-LEAD STAT 03/28/2025 2:10 PM CDT XR CHEST 1 VW PORTABLE AP ER Eval 03/16/2025 11:59 PM CDT SERUM QUALITATIVE POC WITH REFLEX TO QUANTITATIVE Routine 03/16/2025 11:50 PM CDT URINE MICRO HOLD SPECIMEN ER Eval 03/16/2025 11:34 PM CDT EXTRA URINE RED TOP ER Eval 03/16/2025 1 1:34 PM CDT UA DIPSTICK MICROSCOPIC IF INDICATED, WITH REFLEX TO CULTURE POC (PERFORMABLE) ER Eval 03/16/2025 11:34 PM CDT UA DIPSTICK MICROSCOPIC IF INDICATED, WITH REFLEX TO CULTURE POC (ORDERABLE) ER Eval 03/16/2025 11:34 PM CDT MAGNESIUM Add-On 03/16/2025 11:34 PM CDT CK ER Eval 03/16/2025 11:34 PM CDT HIGH SENSITIVITY TROPONIN SERIES, BASELINE W REFLEX IF NEEDED ER Eval 03/16/2025 11:34 PM CDT PURPLE TOP ER Eval 03/16/2025 11:34 PM CDT GREEN TOP ER Eval 03/16/2025 11:34 PM CDT GOLD (SST) TOP (PERFORMABLE) ER Eval 03/16/2025 11:34 PM CDT LIGHT BLUE TOP ER Eval 03/16/2025 11:34 PM CDT CARDIAC PANEL(CKTOT, HSTROP W REFLEX)(NON-CLINIC ORDER) ER Eval 03/16/2025 11:34 PM CDT BASIC METABOLIC AND VENOUS PH PANEL POC ER Eval 03/16/2025 11:34 PM CDT CBC W/DIFF POC ER Eval 03/16/2025 11:34 PM CDT ED RAINBOW DRAW ER Eval 03/16/2025 11:34 PM CDT EKG 12-LEAD STAT 03/16/2025 10:50 PM CDT from Last 3 Months Results * XR Chest 1 Vw Portable AP (04/23/2025 2:25 AM CDT) Only the most recent of2 resultswithin the time period is included. Anatomical Region Laterality Modality Chest Digital Radiogra [...] by Dr. Eduar Knutson on04/23/2025 1:16 PM us Leda Craig MD IMG DIAGNOSTIC IMAGING ORDERAB LES Final Result * NT Pro Brain Natriuretic Peptide (04/23/2025 2:14 AM CDT) [facility] NT ProB-Natriuretic Peptide 57.5 15.8 - 104.8 pg/mL 04/23/2025 2:56 AM CDT [facility] Comment:The Alere NT-pro BNP for Alinity i assay is susceptible to interference effects from total protein >12.6 g/dL. Total protein at 15.2 g/dL decreased NT- proBNP values at 125 pg/mL by -12.7%. Blood VENOUS BLOOD SPECIMEN / Unknown Venipuncture / Unknown 04/23/2025 2:14 AM CDT 04/23/2025 2:16 AM CDT us Leda Craig MD LAB BLOOD ORDERABLES Final Res ult [facility] [address] [place] [address] * High Sensitivity Troponin Baseline with Reflex Actions if indicated (04/23/2025 2:14 AM CDT) Only the most recent of2 resultswithin the time period is included. [facility] High Sensitivity Trop, Baseline <2.7 <14.0 ng/L 04/23/2025 2:56 AM CDT [facility] Comment:Low risk for myocard ial infarction in patients with low clinical risk and symptoms > 2 hrs. Consider other causes of chest pain. A reflex 2-hour troponin will automatically be ordered; please cancel if not clinically indicated Symptom Onset >2Hrs Yes Hours 04/23/2025 2:56 AM T [facility] Symptom Onset >10Hrs No Hours 04/23/2025 2:56 AM T [facility] Blood VENOUS BLOOD SPECIMEN / Unknown Venipuncture / Unknown 04/23/2025 2:14 AM CDT 04/23/2025 2:16 AM CDT us Leda Craig MD LAB BLOOD ORDERABLES Final Res ult [facility] [address] [place] [phone] * (ABNORMAL) CBC and Differential (04/23/2025 2:14 AM CDT) WBC 10.6 4.5 - 11.0 K/cmm 04/23/2025 2:[address] [facility] RBC 4.04 4.00 - 5.20 M/cmm 04/23/2025 2:[address] [facility] Hemoglobin 10.5(L) 12.0 - 16.0 g/dL 04/23/2025 2:[address] [facility] Hematocrit 34.0(L) 36.0 - 46.0 % 04/23/2025 2:[address] [facility] MCV 84 80 - 100 fL 04/23/2025 2:[address] [facility] MCH 26 26 - 34 pg 04/23/2025 2:[address] [facility] MCHC 31 31 - 37 g/dL 04/23/2025 2:[address] [facility] RDW 17.4(H) 12.2 - 15.6 % 04/23/2025 2:[address] [facility] RDWSD 54.3 40.0 - 55.0 fL 04/23/2025 2:[address] [facility] Platelets 223 150 - 400 K/cmm 04/23/2025 2:[address] [facility] Comment:Reviewed smear. MPV 10.5 9.2 - 12.0 fL 04/23/2025 2:[address] [facility] Nucleated RBC's 0 0 - 1 /100WBC 04/23/2025 2:[address] [facility] Neutrophils % 55.0 40.0 - 70.0 % 04/23/2025 2:[address] [facility] Lymphocytes % 34.0 22.0 - 44.0 % 04/23/2025 2:[address] [facility] Monocytes % 8.1(H) 3.0 - 7.0 % 04/23/2025 2:[address] [facility] Eosinophils % 2.3 2.0 - 4.0 % 04/23/2025 2:[address] [facility] Basophils % 0.3 0.0 - 1.0 % 04/23/2025 2:[address] [facility] Immature Granulocytes Percent Automated 0.3 0.0 - 0.5 % 04/23/2025 2:[address] [facility] Neutrophils Absolute 5.81 1.50 - 7.70 K/cmm 04/23/2025 2:[address] [facility] Lymphocytes Absolute 3.59 1.00 - 4.80 K/cmm 04/23/2025 2:[address] [facility] Monocytes Absolute 0.85 0.20 - 1.00 K/cmm 04/23/2025 2:[address] [facility] Eosinophils Absolute 0.24 0.00 - 0.50 K/cmm 04/23/2025 2:[address] [facility] Basophils Absolute 0.03 0.00 - 0.20 K/cmm 04/23/2025 2:[address] [facility] Immature Platelet Fraction Percent 4.7 1.0 - 7.0 % 04/23/2025 2:[address] [facility] Blood VENOUS BLOOD SPECIMEN / Unknown Venipuncture / Unknown 04/23/2025 2:14 AM T 04/23/2025 2:16 AM CDT Leda Craig MD LAB BLOOD ORDERABLES Final Res ult Performing Organization Address [facility]/ZIP Co de Phone Number [facility] [address] [place], [place] [phone] * Manual Differential (04/23/2025 2:14 AM CDT) Platelet Estimate Adequate 04/23/2025 2:51 AM CDT [facility] Blood VENOUS BLOOD SPECIMEN / Unknown Venipuncture / Unknown 04/23/2025 2:14 AM CDT 04/23/2025 2:16 AM CDT Leda Craig MD LAB BLOOD ORDERABLES Final Res ult Performing Organization Address [facility] de Phone Number [facility] [address] [place] [address] * (ABNORMAL) CK (04/23/2025 2:14 AM CDT) Only the most recent of2 resultswithin the time period is included. Pathologist [facility] CK, Total 27(L) 29 - 168 IU/L 04/23/2025 2:56 AM CDT [facility] Blood VENOUS BLOOD SPECIMEN / Unknown Venipuncture / Unknown 04/23/2025 2:14 AM CDT 04/23/2025 2:16 AM CDT Leda Craig MD LAB BLOOD ORDER W/O STOP Final Result Performing Organization Address [facility] Co de Phone Number [facility] [address] [facility] [place] [address] * (ABNORMAL) Basic Metabolic Panel (04/23/2025 2:14 AM CDT) Glucose 75 70 - 105 mg/dL 04/23/2025 2:56 AM CDT [facility] BUN 9 7 - 18 mg/dL 04/23/2025 2:56 AM CDT [facility] Creatinine, Blood 0.80 0.57 - 1.11 mg/dL 04/23/2025 2:56 AM CDT [facility] Sodium 136 136 - 145 mEq/L 04/23/2025 2:56 AM T [facility] Potassium 4.0 3.5 - 5.1 mEq/L 04/23/2025 2:56 AM T [facility] Chloride 105 98 - 107 mEq/L 04/23/2025 2:[address] [facility] Carbon Dioxide 20.8(L) 22.0 - 29.0 mEq/L 04/23/2025 2:56 AM T [facility] Calcium 8.8 8.4 - 10.2 mg/dL 04/23/2025 2:56 AM T [facility] Estimated GFR 96 >60 mL/min/1. 73m2 04/23/2025 2:56 AM T [facility] Comment: Calculation based on [...] - 12 mEq/L 04/23/2025 2:56 AM T [facility] Blood VENOUS BLOOD SPECIMEN / Unknown Venipuncture / Unknown 04/23/2025 2:14 AM CDT 04/23/2025 2:16 AM CDT us Leda Craig MD LAB BLOOD ORDERABLES Final Res ult [facility] [address] [place] [address] * EKG 12 Lead - STAT (04/23/2025 1:53 AM CDT) Only the most recent of4 resultswithin the time period is included. Ventricular Rate EKG/Min 85 BPM [facility] Atrial Rate 85 BPM [facility] QRS-Interval (MSEC) 104 ms [facility] QT-Interval (MSEC) 412 ms [facility] QTc 490 ms [facility] P [place] 62 degrees [facility] R [place] 48 degrees [facility] T [place] 32 degrees [facility] 04/23/2025 1:53 AM CDT Narrative [facility] - 04/25/2025 4:26 PM CDT Test [...] Leda Craig MD ECG ORDERABLES Final Result [facility] * XR Chest 2 Vw PA and Lat (Routine) (03/28/2025 2:31 PM CDT) Anatomical Region Laterality Modality Chest Digital Radiogra phy 03/28/2025 2:32 PM CDT Impressions 03/28/2025 2:33 PM CDT No acute cardiopulmonary abnormality. This document passed e-signature verification by Dr. Evaristo Jacome on 03/28/2025 2:33 PM Narrative 03/28/2025 2:33 PM CDT CHEST RADIOGRAPHS Procedure Date/Time: 03/28/2025 2:28 PM. History: Abscess and chest pain Comparison: Radiograph from 03/16/2025 Views: Two views of the chest were obtained. Findings: Support Devices: None. Mediastinum: Mediastinal contours are within normal limits. Heart: The cardiopericardial silhouette is normal in size. Pulmonary tico and vessels: No pulmonary vascular congestion is evident. Pleural spaces: No pleural effusion or pneumothorax is identified. Lungs: No focal infiltrate or other acute pulmonary abnormality is evident. Procedure Note Evaristo Jacome MD - 03/28/2025 CHEST RADIOGRAPHS Procedure Date/Time: 03/28/2025 2:28 PM. History: Abscess and chest pain Comparison: Radiograph from 03/16/2025 Views: Two views of the chest were obtained. Findings: Support Devices: None. Mediastinum: Mediastinal contours are within normal limits. Heart: The cardiopericardial silhouette is normal in size. Pulmonary tico and vessels: No pulmonary vascular congestion is evident. Pleural spaces: No pleural effusion or pneumothorax is identified. Lungs: No focal infiltrate or other acute pulmonary abnormality isevident. IMPRESSION: No acute cardiopulmonary abnormality. This document passed e-signature verification by Dr. Evaristo Jacome on 03/28/2025 2:33 PM Lizette Hilton APRN IMG DIAGNOSTIC IMAGING [place] Final Result * Serum Qualitative POC with Reflex to Quantitative (03/16/2025 11:50 PM CDT) Serum POC Negative NEGATIVE 03/16/2025 11:53 PM CDT [facility] Blood VENOUS BLOOD SPECIMEN / Unknown 03/16/2025 11:50 PM CDT 03/16/2025 11:53 PM CDT Luis A Rodríguez MD LAB BLOOD ORDERABLES Final Result [facility] [address] [place] [address] * Urine Micro Hold Specimen (03/16/2025 11:34 PM CDT) Extra Tube Hold for add-ons. 03/17/2025 1:01 AM T [facility] Urine URINE SPECIMEN COLLECTION, CLEAN CATCH / Unknown Non-blood Collection / Unknown 03/16/2025 11:34 PM CDT 03/16/2025 11:39 PM CDT Luis A Rodríguez MD URINE ORDERABLES Final Res ult [facility] [address] [place] [address] * (ABNORMAL) Basic Metabolic and Venous pH Panel POC (03/16/2025 11:34 PM CDT) Pathologist [facility] Glucose POC 71 70 - 105 mg/dl 03/16/2025 11:52 PM T [facility] BUN POC 5(L) 7 - 18 mg/dl 03/16/2025 11:52 PM [facility] Creatinine POC 0.90 0.57 - 1.11 mg/dL 03/16/2025 11:52 PM T [facility] Sodium POC 136 136 - 145 mmol/L 03/16/2025 11:52 PM [facility] Potassium POC 3.4(L) 3.5 - 5.1 mmol/L 03/16/2025 11:52 PM [facility] Chloride POC 102 98 - 107 mmol/L 03/16/2025 11:52 PM [facility] CO2 POC 32.7(H) 22.0 - 29.0 mmol/L 03/16/2025 11:52 PM [facility] Ionized Calcium POC 1.13 1.12 - 1.32 mmol/L 03/16/2025 11:52 PM [facility] ESTIMATED GFR POC 84 >60 mL/min/1. 73m2 03/16/2025 11:52 PM [facility] Comment: The calculation is based on the Chronic Kidney Disease Epidemiology Collaboration(CKD-EPI) equation. The National Kidney Foundation recommends reporting eGFR values above 60 ml/min as >60. An eGFR of >60 ml/min is considered normal or near normal kidney function. Estimated eGFR values from 61 ml/min to 120 ml/min will also be reported. VENOUS PH POC 7.414(H) 7.310 - 7.410 03/16/2025 11:52 PM CDT [facility] Anion Gap POC 1.3(L) 8 - 12 mEq/L 03/16/2025 11:52 PM CDT [facility] Blood VENOUS BLOOD SPECIMEN / Unknown Venipuncture / Unknown 03/16/2025 11:34 PM CDT 03/16/2025 11:36 PM CDT Luis A Rodríguez MD LAB BLOOD ORDERABLES Final Result [facility] [address] [place] [address] * UA DIPSTICK MICROSCOPIC IF INDICATED, WITH REFLEX TO CULTURE, POC (03/16/2025 11:34 PM CDT) Color, UA POC Yellow Yellow, Light Yellow, Dark Yellow 03/16/2025 11:49 PM CDT [facility] Clarity, UA POC Clear Clear 03/16/2025 11:49 PM CDT [facility] Specific [place], UA POC 1.010 1.003 - 1.035 03/16/2025 11:49 PM CDT [facility] pH, UA POC 7.5 5.0 - 9.0 03/16/2025 11:49 PM CDT [facility] Protein, UA POC Negative Negative 03/16/2025 11:49 PM CDT [facility] Glucose, UA POC Negative Negative 03/16/2025 11:49 PM CDT [facility] Ketones, UA POC Negative Negative 03/16/2025 11:49 PM CDT [facility] Bilirubin, UA POC Negative Negative 03/16/2025 11:49 PM CDT [facility] Blood, UA POC Negative Negative 03/16/2025 11:49 PM CDT [facility] Urobilinogen, UA POC 0.2 0.2, 1.0 03/16/2025 11:49 PM CDT [facility] Esterase UA POC Negative Negative 03/16/2025 11:49 PM CDT [facility] Nitrite, UA POC Negative Negative 03/16/2025 11:49 PM CDT [facility] Urine URINE SPECIMEN COLLECTION, CLEAN CATCH / Unknown Non-blood Collection / Unknown 03/16/2025 11:34 PM CDT 03/16/2025 11:39 PM CDT us Luis A Rodríguez MD URINE ORDERABLES Final Res ult Performing Organization Address [facility]/ZIP Co de Phone Number [facility] [address] [place] [phone] * Extra Urine Red Top (03/16/2025 11:34 PM CDT) Extra Urine Red Top Hold for add-ons. 03/17/2025 1:01 AM CDT [facility] Urine URINE SPECIMEN COLLECTION, CLEAN CATCH / Unknown Non-blood Collection / Unknown 03/16/2025 11:34 PM CDT 03/16/2025 11:39 PM CDT us Luis A Rodríguez MD URINE ORDERABLES Final Res ult Performing Organization Address City/[facility]/ZIP Co de Phone Number [facility] [address] [place] [address] * Gold (SST) Top (03/16/2025 11:34 PM CDT) Gold Top Hold Specimen Hold for add-ons. 03/17/2025 1:01 AM CDT [facility] Blood VENOUS BLOOD SPECIMEN / Unknown Venipuncture / Unknown 03/16/2025 11:34 PM CDT 03/16/2025 11:36 PM CDT Result Peter Rodríguez MD LAB BLOOD ORDERABLES Final Result [facility] [address] [place] [phone] * Purple Top (03/16/2025 11:34 PM CDT) Purple Top Hold Specimen Hold for add-ons. 03/17/2025 1:01 AM CDT [facility] Blood VENOUS BLOOD SPECIMEN / Unknown Venipuncture / Unknown 03/16/2025 11:34 PM CDT 03/16/2025 11:36 PM CDT Result Peter Rodríguez MD LAB BLOOD ORDERABLES Final Result Performing Organization Address City/[facility]/ZIP Co de Phone Number [facility] [address] [place] [phone] * Green Top (03/16/2025 11:34 PM CDT) Green Top Hold Specimen Hold for add-ons. 03/17/2025 1:01 AM CDT [facility] Blood VENOUS BLOOD SPECIMEN / Unknown Venipuncture / Unknown 03/16/2025 11:34 PM CDT 03/16/2025 11:36 PM CDT Result Peter Rodríguez MD LAB BLOOD ORDERABLES Final Result Performing Organization Address City/[facility]/ZIP Co de Phone Number [facility] [address] [place] [phone] * Light Blue Top (03/16/2025 11:34 PM CDT) Light Blue Top Hold Specimen Hold for add-ons. 03/17/2025 1:01 AM CDT [facility] Blood VENOUS BLOOD SPECIMEN / Unknown Venipuncture / Unknown 03/16/2025 11:34 PM CDT 03/16/2025 11:36 PM CDT us Luis A Rodríguez MD LAB BLOOD ORDERABLES Final Result [facility] [address] [phone] * (ABNORMAL) CBC w/Diff POC (03/16/2025 11:34 PM CDT) WBC POC 8.2 4.5 - 11.0 K/cmm 03/16/2025 11:40 PM CDT [facility] RBC POC 4.09 4.00 - 5.20 M/cmm 03/16/2025 11:40 PM CDT [facility] Hematocrit POC 34.7(L) 36.0 - 48.0 % 03/16/2025 11:40 PM CDT [facility] Hemoglobin POC 10.6(L) 12.0 - 16.0 g/dl 03/16/2025 11:40 PM CDT [facility] MCV POC 85 80 - 100 fl 03/16/2025 11:40 PM CDT [facility] MCH POC 26 26 - 34 pg 03/16/2025 11:40 PM CDT [facility] MCHC POC 31 31 - 37 g/dl 03/16/2025 11:40 PM CDT [facility] Platelets POC 213 150 - 400 K/cmm 03/16/2025 11:40 PM CDT [facility] Neutrophils % POC 54.1 40.0 - 70.0 % 03/16/2025 11:40 PM CDT [facility] Lymphs % POC 36.8 22.0 - 44.0 % 03/16/2025 11:40 PM CDT [facility] Monos % POC 7.1(H) 3.0 - 7.0 % 03/16/2025 11:40 PM CDT [facility] Baso % POC 0.2 0.0 - 1.0 % 03/16/2025 11:40 PM CDT [facility] Eos % POC 1.6(L) 2.0 - 4.0 % 03/16/2025 11:40 PM CDT [facility] Immature Gran % POC 0.2 0.0 - 0.5 % 03/16/2025 11:40 PM CDT [facility] NEUTROPHILS ABSOLUTE 4.43 1.50 - 7.70 K/cmm 03/16/2025 11:40 PM CDT [facility] LYMPHOCYTES ABSOLUTE 3.02 1.00 - 4.80 K/cmm 03/16/2025 11:40 PM CDT [facility] MONOCYTES ABSOLUTE 0.58 0.20 - 1.00 K/cmm 03/16/2025 11:40 PM CDT [facility] BASOPHILS ABSOLUTE 0.02 0.00 - 0.20 K/cmm 03/16/2025 11:40 PM CDT [facility] EOSINOPHILS ABSOLUTE 0.13 0.00 - 0.50 K/cmm 03/16/2025 11:40 PM CDT [facility] Blood VENOUS BLOOD SPECIMEN / Unknown Venipuncture / Unknown 03/16/2025 11:34 PM CDT 03/16/2025 11:36 PM CDT Luis A Rodríguez MD LAB BLOOD ORDERABLES Final Result Performing Organization Address City/[facility]/ZIP Co de Phone Number [facility] [address] [place], [place] [phone] * Magnesium (03/16/2025 11:34 PM CDT) [facility] Magnesium 1.750 1.560 - 2.520 mg/dL 03/17/2025 12:16 AM CDT [facility] Blood VENOUS BLOOD SPECIMEN / Unknown Venipuncture / Unknown 03/16/2025 11:34 PM CDT 03/16/2025 11:36 PM CDT us Luis A Rodríguez MD LAB BLOOD ORDERABLES Final Result Performing Organization Address City/[facility]/ZIP Co de Phone Number [facility] [address] [place] [phone] from Last 3 Months Insurance [facility] Advance Directives * Full Code (Latest Code Status on File) Date Activated Date Inactivated Comments 09/21/2024 1:00 PM 10/01/2024 5:40 PM * Full Code Date Activated Date Inactivated Comments 09/20/2024 6:29 PM 09/21/2024 1:00 PM Care Teams Sand Digger Relationship Specialty Start Date End Date None, PCP - General 03/16/25
--- OUTSIDE RECORDS SUMMARY | 2025-04-29 23:09 | XMS_ITS | Encounter Summary ---
Author Organization [facility] Address [address] [place] [address] Care Team Providers Care Telephoto Engineer Name Role Phone Andriy Ortzi MD Primary Care Provider [phone] Mariaa Barron DRAW FURNACE TENDER Unavailable [phone] Encounter Details Date Type Department Care Team (Latest Contact Info) Description 04/28/2025 Travel Social History Tobacco Use Types Packs/Day Years Used Date Smoking Tobacco: Every Day Cigarettes Smokeless Tobacco: Never Comments No Sex and Gender Information Value Date Recorded Sex Assigned at Not on file Legal Sex Female 6:05 PM CDT Gender Identity Not on file Sexual Orientation Not on file documented as of this encounter Plan of Treatment Not on file documented as of this encounter Visit Diagnoses Not on filedocumented in this encounter Care Teams Telephoto Engineer Relationship Specialty Start Date End Date Andriy Ortiz MD [address] [place] [address] PCP - General Family Medicine 10/11/23 Mariaa Barron APRN [address] [place] [phone] PCP - Insurance 03/15/25 documented as of this encounter
--- OUTSIDE RECORDS SUMMARY | 2025-04-29 23:09 | XMS_ITS | Clinical Summary ---
Author Organization [facility] Address [address] [place] [address] Care Team Providers Care Cut And Print Machine Operator Name Role Phone Andriy Ortiz MD Primary Care Provider [phone] Mariaa Barron STEEL PAN FORM PLACING SUPERVISOR Unavailable [phone] Allergies Active Allergy Reactions Criticality Noted Date Comments Beta-Blockers (Beta-Adrenergic Blocking Agts) 03/28/2025 Ketorolac Anaphylaxis,Rash High 06/16/2024 Ondansetron Other (See Comments) Low 09/21/2023 no longer allergic Sulfa (Sulfonamide Antibiotics) Anaphylaxis High 07/05/2024 Tramadol 03/15/2025 Venlafaxine 07/05/2024 Medications prochlorperazin e (COMPAZINE) 10 MG tablet Take one tablet (10 mg) by mouth every 6 (six) hours as needed (nausea). 5 tablet 03/29/2025 Active amoxicillin-cla vulanate (AUGMENTIN) 875-125 mg per tablet Take one tablet by mouth 2 (two) times a day for 7 days. 14 tablet 03/29/2025 Active Problems Problem Noted Date Diagnosed Date Allergic rhinitis due to pollen 04/28/2025 Current smoker 04/28/2025 Coronary artery graft present 04/28/2025 Chronic pain disorder 04/28/2025 Gastroesophageal reflux disease 04/28/2025 Viral hepatitis C 04/28/2025 Hyperlipidemia 03/31/2025 Lumbar radiculopathy 09/18/2024 Chronic fatigue syndrome 09/18/2024 Dyspnea on exertion 09/11/2024 Essential hypertension 09/03/2024 Gastroparesis 08/07/2024 No diagnosis on Denver I 02/07/2024 Anxiety 09/22/2023 Bipolar affective 09/22/2023 Cervical radiculopathy 09/22/2023 Chest pain 09/22/2023 CHF (congestive heart failure) 12/30/2022 Chronic obstructive pulmonary disease 12/30/2022 Fibromyalgia 12/30/2022 Atherosclerosis of coronary artery without angin a pectoris 08/12/2021 Encounters Date Type Department Care Team Description 04/28/2025 3:05 AM CDT - 04/28/2025 6:05 AM CDT Emergency Emergency Department [address] [place] [phone] Stefano Yu DO Chest pain, unspecified type (Primary Dx); Nausea and vomiting, unspecified vomiting type Discharge Disposition: Home or Self Care 04/28/2025 Travel 04/07/2025 7:14 PM CDT - 04/08/2025 12:12 AM CDT Emergency Emergency Department [address] [place] [phone] Discharge Disposition: Left Without Being Seen 03/28/2025 8:42 PM CDT - 03/29/2025 12:30 PM CDT Emergency Emergency Department [address] [place] [phone] Jez Marcos MD Dental infection (Primary Dx) Discharge Disposition: Home or Self Care 03/28/2025 Travel 03/15/2025 10:16 AM CDT - 03/15/2025 1:03 PM CDT Emergency Emergency Department [address] [place] [phone] Mitch Zhang MD Chest pain, rule out acute myocardial infarction (Primary Dx) Discharge Disposition: Home or Self Care 03/15/2025 Travel from Last 3 Months Social History [...] on file Sexual Orientation Not on file Last Filed Vital Signs Vital Sign Reading Time Taken Comments Blood Pressure 117/74 04/28/2025 5:45 AM CDT Pulse 91 04/28/2025 5:45 AM CDT Temperature 36.8 C (98.2 F) 04/28/2025 2:18 AM CDT Respiratory Rate 21 04/28/2025 5:45 AM CDT Oxygen Saturation 93% 04/28/2025 5:45 AM CDT Inhaled Oxygen Concentration - - Weight 80.7 kg (178 lb) 04/28/2025 2:18 AM CDT Height 170.2 cm (5' 7 ) 03/15/2025 10:15 AM CDT Body Mass Index 27.88 03/15/2025 10:15 AM CDT Plan of Treatment Health Maintenance Due Date Last Done Comments Anxiety Screening 1994 HIV Screening 2001 Depression Screening 01/09/2004 Pneumococcal Vaccine 0-50 years (1 of 2 - PCV) 2005 TDAP/DTaP/TD Vaccines (1 - Tdap) 2005 Pap Smear 2007 Cervical Cancer Screening (30-65) 01/09/2016 HPV/Cotest 01/09/2016 Hepatitis B Vaccine (2 of 3 - Hep B Twinrix 3-dose series) 06/23/2016 05/26/2016 COVID-19 Vaccine (1 - 2023-2 5 season) 2024 Influenza Series (#1) 2025 07/24/2022 , 06/19/2016 Hepatitis C Screening Completed 04/28/2025 Meningococcal B Vaccine Aged Out No l onger eligible based on patient's age to complete this topic Procedures Procedure Name Priority Date/Time Associated Diagnosis Comments TROPONIN I, HIGH SENSITIVITY-STANDALON E STAT 04/28/2025 4:59 AM CDT B-TYPE NATRIURETIC PEPTIDE Routine 04/28/2025 4:08 AM CDT HIGH SENSITIVITY TROPONIN I-TIMED SERIES Routine 04/28/2025 4:08 AM CDT BASIC METABOLIC PANEL Routine 04/28/2025 4:08 AM CDT CBC AND DIFFERENTIAL Routine 04/28/2025 4:08 AM CDT XR CHEST AP PORTABLE STAT 04/28/2025 3:27 AM CDT EKG 12-LEAD STAT 04/28/2025 2:26 AM CDT EKG 12-LEAD STAT 04/07/2025 7:35 PM CDT URINE TEST - POC STAT 03/28/2025 10:46 PM CDT MAGNESIUM Routine 03/28/2025 8:11 PM CDT HIGH SENSITIVITY TROPONIN I- HOUR 1 Routine 03/28/2025 8:11 PM CDT HIGH SENSITIVITY TROPONIN I-TIMED SERIES Routine 03/28/2025 5:14 PM CDT BASIC METABOLIC PANEL Routine 03/28/2025 5:14 PM CDT CBC Routine 03/28/2025 5:14 PM CDT EKG 12-LEAD STAT 03/28/2025 5:10 PM CDT HIGH SENSITIVITY TROPONIN I- HOUR 1 Routine 03/15/2025 11:55 AM CDT XR CHEST AP PORTABLE STAT 03/15/2025 10:47 AM CDT PHOSPHORUS STAT 03/15/2025 10:35 AM CDT MAGNESIUM STAT 03/15/2025 10:35 AM CDT HIGH SENSITIVITY TROPONIN I-TIMED SERIES Routine 03/15/2025 10:35 AM CDT BASIC METABOLIC PANEL Routine 03/15/2025 10:35 AM CDT CBC Routine 03/15/2025 10:35 AM CDT EKG 12-LEAD STAT 03/15/2025 10:18 AM CDT from Last 3 Months Results * Troponin I, High Sensitivity-Standalone (04/28/2025 4:59 AM CDT) [facility] HS Troponin I, Standalone <4.0 <14.9 ng/L 04/28/2025 5:41 AM CDT [facility] Blood Venipuncture / Unknown 04/28/2025 4:59 AM CDT 04/28/2025 5:10 AM CDT Narrative [facility] - 04/28/2025 5:41 AM CDT The High Sensitivity Troponin I was measured on the Daniel DXi with results expressed in units of ng/L; different from the previous Troponin I test which used units of ng/mL. Over all reference interval is 17.5 ng/L. Troponin results should be interpreted in conjunction with the patient's symptoms, history, and results of other diagnostic tests. Stefano Yu DO LAB BLOOD ORDERABLES Fi nal Result [facility] [address] [place] [address], * High Sensitivity Troponin I-Timed Series (04/28/2025 4:08 AM CDT) Only the most recent of3 resultswithin the time period is included. [facility] HS Troponin I <4.0 <14.9 ng/L 04/28/2025 4:49 AM CDT [facility] Blood Venipuncture / Unknown 04/28/2025 4:08 AM CDT 04/28/2025 4:16 AM CDT Narrative [facility] - 04/28/2025 4:49 AM CDT The High Sensitivity Troponin I was measured on the Daniel DXi with results expressed in units of ng/L; different from the previous Troponin I test which used units of ng/mL. Over all reference interval is 17.5 ng/L. Troponin results should be interpreted in conjunction with the patient's symptoms, history, and results of other diagnostic tests. us Stefano Yu DO LAB BLOOD ORDERABLES Fi nal Result [facility] [address] [place] [address], * (ABNORMAL) CBC (With Diff) (04/28/2025 4:08 [...] - 50.0 % 04/28/2025 4:32 AM CDT [facility] Monocytes, Auto 7.3 4.6 - 12.0 [...] - 0.07 K/uL 04/28/2025 4:32 AM CDT [facility] Immature Grans, Absolute 0.03 K/uL 04/28/2025 4:32 AM CDT [facility] Blood Venipuncture / Unknown 04/28/2025 4:08 AM CDT 04/28/2025 4:16 AM CDT us Stefano Yu DO LAB BLOOD ORDERABLES Fi nal Result [facility] [address] [phone], * B-type Natriuretic Peptide (04/28/2025 4:08 AM CDT) B-TYPE NATRIURETIC PEPTIDE <10 <=100 pg/mL 04/28/2025 4:48 AM CDT [facility] Blood Venipuncture / Unknown 04/28/2025 4:08 AM CDT 04/28/2025 4:16 AM CDT us Stefano Yu DO LAB BLOOD ORDERABLES Fi nal Result [facility] [address] [place] [address], * (ABNORMAL) Basic Metabolic Panel (04/28/2025 4:08 AM CDT) Only the most recent of3 resultswithin the time period is included. Sodium 134(L) 135 - 145 mmol/L 04/28/2025 [...] criteria for CKD Kidney Int Suppl 2013;3:1-150 Stefano Yu DO LAB BLOOD ORDERABLES Fi [facility] Result [facility] [address] [place] [address], * X-ray chest AP portable (04/28/2025 3:27 AM CDT) Only the most recent of2 resultswithin the time period is included. Anatomical Region Laterality Modality Chest Radiographic Negrita [...] acute cardiopulmonary findings. at04:15:32 Stefano Yu DO IMG DIAGNOSTIC IMAGING ORDERABLES Final Result * EKG 12 lead (04/07/2025 7:35 PM CDT) 04/07/2025 7:35 PM CDT 04/08/2025 5:58 AM CDT Narrative [facility] - 04/08/2025 5:58 AM CDT Ventricular Rate- 98 BPM Atrial Rate- 98 BPM P-R Interval- 130 ms QRS Duration- 102 ms Q-T Interval- 354 ms QTC Calculation(Bazett)- 451 ms P Denver- 75 degrees T Denver- 59 degrees Diagnosis Normal sinus rhythm Incomplete right bundle branch block Borderline ECG When compared with ECG of 28-Mar-2025 17:10, No significant change was found Confirmed by Valorie Norman ([id number]) on 04/08/2025 5:58:48 AM Samuel Claire MD ECG ORDERABLES Final Resu lt Performing Organization Address City/[facility]/ZIP Co de Phone Number [facility] * Urine test, Point of Care Testing (03/28/2025 10:46 PM CDT) Test, Ur Negative [facility] Lot Number [id number] [facility] Expiration Date 10/22/2026 [facility] Internal Control(s) Acceptable [facility] Jez Marcos MD POINT OF CARE TEST ORDERABLES Fi nal Result Performing Organization Address City/[facility]/ZIP Co de Phone Number [facility] [place] [address], * HIGH SENSITIVITY TROPONIN I- HOUR 1 (03/28/2025 8:11 PM CDT) Only the most recent of2 resultswithin the time period is included. HS Troponin I, 1hr <4.0 <14.9 ng/L 03/28/2025 9:15 PM CDT [facility] Blood Venipuncture / Unknown 03/28/2025 8:11 PM CDT 03/28/2025 8:15 PM CDT Narrative [facility] - 03/28/2025 9:15 PM CDT The High Sensitivity Troponin I was measured on the Daniel DXi with results expressed in units of ng/L; different from the previous Troponin I test which used units of ng/mL. Over all reference interval is 17.5 ng/L. Troponin results should be interpreted in conjunction with the patient's symptoms, history, and results of other diagnostic tests. Alejandro Camacho MD LAB BLOOD ORDERABLES Final Re sult Performing Organization Address [facility]/ZIP Co de Phone Number [facility] [address] [place] [address], * Magnesium, Serum (03/28/2025 8:11 PM CDT) Only the most recent of2 resultswithin the time period is included. Pathologist [facility] Magnesium 1.7 1.6 - 2.6 mg/dL 03/28/2025 10:02 PM CDT [facility] Blood Venipuncture / Unknown 03/28/2025 8:11 PM CDT 03/28/2025 8:15 PM CDT Srikanth BRYAN LAB BLOOD ORDERABLES Final Res ult Performing Organization Address [facility] Co de Phone Number [facility] [address] [place] [address], * (ABNORMAL) CBC (No Diff) (03/28/2025 5:14 PM CDT) Only the most recent of2 resultswithin the time period is included. WBC 9.48 3.60 - 9.50 K/uL 03/28/2025 5:37 PM CDT [facility] RBC 4.29 4.00 - 5.20 M/uL 03/28/2025 5:37 PM CDT [facility] Hemoglobin 11.3(L) 12.0 - 15.0 g/dL 03/28/2025 5:37 PM CDT [facility] Hematocrit 36.8 35.0 - 45.0 % 03/28/2025 5:37 PM CDT [facility] MCV 85.8 80.0 - 100.0 fL 03/28/2025 5:37 PM CDT [facility] MCH 26.3 26.0 - 33.0 pg 03/28/2025 5:37 PM CDT [facility] MCHC 30.7(L) 32.0 - 36.0 g/dL 03/28/2025 5:37 PM CDT [facility] RDW 17.7(H) 12.0 - 15.0 % 03/28/2025 5:37 PM CDT [facility] Platelet 244 150 - 450 K/ L 03/28/2025 5:37 PM CDT [facility] MPV 10.5 9.0 - 13.0 fL 03/28/2025 5:37 PM CDT [facility] Nucleated RBC 0.0 #/100 WBC 03/28/2025 5:37 PM CDT [facility] Blood Venipuncture / Unknown 03/28/2025 5:14 PM CDT 03/28/2025 5:27 PM CDT us Alejandro Camacho MD LAB BLOOD ORDERABLES Final Re sult [facility] [address] [place] [address], * EKG 12 lead (03/28/2025 5:10 PM CDT) 03/28/2025 5:10 PM CDT 04/02/2025 6:00 PM CDT Narrative [facility] - 04/02/2025 6:00 PM CDT Ventricular Rate- 78 BPM Atrial Rate- 78 BPM P-R Interval- 126 ms QRS Duration- 106 ms Q-T Interval- 428 ms QTC Calculation(Bazett)- 487 ms P Denver- 20 degrees T Denver- 45 degrees Diagnosis Normal sinus rhythm RSR' or QR pattern in V1 suggests right ventricular conduction delay Nonspecific T wave abnormality Prolonged QT Abnormal ECG When compared with ECG of 15-Mar-2025 10:18, No significant change was found Confirmed by Tonja Trinh ([id number]) on 04/02/2025 6:00:01 PM us Alejandro Camacho MD ECG ORDERABLES Final Result [facility] * PO4, Serum (03/15/2025 10:35 AM CDT) Phosphorus 3.9 2.5 - 4.5 mg/dL 03/15/2025 11:02 AM CDT [facility] Blood Venipuncture / Unknown 03/15/2025 10:35 AM CDT 03/15/2025 10:38 AM CDT Mitch Zhang MD LAB BLOOD ORDERABLES Chery l Result Performing Organization Address [facility] Co de Phone Number [facility] [address] [place] [address], * EKG 12 lead (03/15/2025 10:18 AM CDT) 03/15/2025 10:1 8 AM CDT 03/15/2025 4:43 PM CDT Narrative [facility] - 03/15/2025 4:43 PM CDT Ventricular Rate- 89 BPM Atrial Rate- 89 BPM P-R Interval- 170 ms QRS Duration- 102 ms Q-T Interval- 386 ms QTC Calculation(Bazett)- 469 ms P Denver- 84 degrees T Denver- 67 degrees Diagnosis Normal sinus rhythm RSR' or QR pattern in V1 suggests right ventricular conduction delay Nonspecific T wave abnormality Borderline ECG When compared with ECG of 20-Dec-2024 01:42, No significant change was found Confirmed by Tonja Trinh ([id number]) on 03/15/2025 4:43:53 PM Samuel Claire MD ECG ORDERABLES Final Resu lt Performing Organization Address City/[facility]/ZIP Co de Phone Number [employer] [facility] from Last 3 Months Insurance [employer] Advance Directives * Full Code (Latest Code Status on File) Date Activated Date Inactivated Comments 03/28/2025 10:42 PM 03/29/2025 10:31 PM * Full Code Date Activated Date Inactivated Comments 12/20/2024 4:22 AM 12/20/2024 3:12 PM Care Teams Cut And Print Machine Operator Relationship Specialty Start Date End Date Andriy Ortiz MD [address] [place] [phone] PCP - General Family Medicine 10/11/23 Mariaa Barron APRN [address] [place] [id number] PCP - Insurance 03/15/25
--- OUTSIDE RECORDS SUMMARY | 2025-04-29 23:09 | XMS_ITS | Encounter Summary ---
Author Organization [facility] Address [address] [place] [address] Phone Care Team Providers Care Tax Audit Manager Name Role Phone Pradeep Bunch MD Primary Care Provider [phone] System, Pcp Not In Primary Care Provider Unavail able Reason for Visit * Reason Comments Medication Refill Encounter Details Date Type Department Care Team (Late st Contact Info) Description 05/07/2022 Refill [facility] Internal Medicine [address] [place] [phone] Jared Gay Jr., MD [address] [id number] Social History Tobacco Use Types Packs/Day Years Used Date Smoking Tobacco: Every Day Cigarettes E-Cigarette Smokeless Tobacco: Never Alcohol Use Standard Drinks/Week Comments No 0 (1 standard drink = 0.6 oz pur e alcohol) AUDIT-C Answer Date Recorded Q1: How often do you have a drink containing alc ohol? Never 10/15/2020 Average Number of Drinks Not on file 021 Frequency of Binge Drinking Not on file 10/04 Comments No Sex and Gender Information Value Date Recorded Sex Assigned at Not on file Legal Sex Female 10:09 AM CUSTOM FRAME ASSEMBLER Gender Identity Not on file Sexual Orientation Not on file documented as of this encounter Plan of Treatment Not on file documented as of this encounter Visit Diagnoses Not on filedocumented in this encounter Additional Health Concerns Assessment Noted Time A fall risk assessment has been complete d for the patient 07/18/2021 2:14 PM CDT documented as of this encounter Care Teams Tax Audit Manager Relationship Specialty Start Date End Date Pradeep Bunhc MD [address] [place] [address] [place] [phone] PCP - General 07/19/20 03/30/25 System, Pcp Not In PCP - General 03/31/25 documented as of this encounter
--- OUTSIDE RECORDS SUMMARY | 2025-04-29 23:09 | XMS_ITS ---
Author Organization [facility] Address [address] [place] [address] Care Team Providers Care Auto Glass Installer Name Role Phone Andriy Ortiz MD Primary Care Provider [phone] MAN Unavailable [phone] ED Transition of Care Status:Identified (Enrolling) Start date:04/28/2025 Related social drivers of health:Social Connections, Alcohol Use, Tobacco Use, Financial Resource Strain, Depression, Stress, Physical Activity, Transportation Needs Continued Care and Services Coordination
--- OUTSIDE RECORDS SUMMARY | 2025-04-29 23:09 | XMS_ITS ---
Author Organization [facility] Address [address] [place] [address] Care Team Providers Care Green End Department Supervisor Name Role Phone Andriy Ortiz MD Primary Care Provider [phone] Mariaa Barron BREAST WORKER Unavailable [phone] Transitional Care Management Status:Closed (Closed) Start date:03/29/2025 End date:04/28/2025 Close reason:Patient graduated Related social drivers of health:Social Connections, Alcohol Use, Tobacco Use, Financial Resource Strain, Depression, Stress, Physical Activity, Transportation Needs Continued Care and Services Coordination
[2025-04-29 23:10] VITALS: BP 110/73; PULSE 83; RESP 18; TEMP 36.9; O2SAT 99; BMI 28.8
--- OUTSIDE RECORDS SUMMARY | 2025-04-29 23:10 | XMS_ITS | Referral Summary ---
Author Organization [facility] Address [address] [place] [phone] Care Team Providers Care Belt Buckle Maker Name Role Phone Saqib, Primary Care Provider Jason reyes Encounters Date Type Department Care Team Description 04/23/2025 Travel 04/23/2025 2:00 AM CDT - 04/23/2025 4:39 AM CDT [facility] [address] [place] [address] Leda Craig MD Chest pain, unspecified type (Primary Dx) Discharge Disposition: (01) - Home or Self Care 04/07/2025 8:05 PM CDT - 04/08/2025 5:02 AM CDT Emergency [facility] [address] [place], [place] [phone] Eloped from emergency department (Primary Dx) Discharge Disposition: (07) - Left Against Medical Advice or Discontinued Care 04/07/2025 Travel 03/28/2025 Travel 03/28/2025 5:09 PM CDT - 03/28/2025 7:35 PM CDT [facility] [address] [phone] Discharge Disposition: (07) - Left Against Medical Advice or Discontinued Care 03/16/2025 11:19 PM CDT - 03/17/2025 1:18 AM CDT Emergency [facility] [address] [place] [phone] Luis A Rodríguez MD Atypical chest pain (Primary Dx) Discharge Disposition: (01) - Home or Self Care 03/16/2025 Travel from Last 3 Months Allergies Active Allergy Reactions Criticality Noted Date [...] BY MOUTH ONCE DAILY. stop escitalopram 12/08/19 25 Active clomiPRAMINE 50 mg Oral capsule Take 1 Capsule by mouth at bedtime, may increase to 2 capsules at bedtime. titrating off trazodone 12/08/19 25 Active hydroCHLOROthiazid e 12.5 mg Oral capsule Take 1 capsule by mouth every morning at 0600. for blood pressure 12/13/19 25 Active nitroGLYCERIN 0.4 mg SL SL tablet 1 tab as directed Sublingual 1 tablet sublingual every 5 minutes up to 15 minutes as needed for chest pain. Do not take more than 3 tablets within the 15 minutes. if unrelieved with 3 doses go to the ER. 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 No 09/21/2024 Hunger Vital Sign Answer Date Recorded Within the past 12 months, y ou worried that your food would run out before you got the money to buy more. Patient declined Within the past 12 months, t he food you bought just didn't last and you didn't have money to get more. Patient declined [facility] HRSN - Transportation Answer Date R ecorded [...] Sex Assigned at Female 10/01/2024 8:27 PM ASSOCIATE PROFESSOR OF THEOLOGY Legal Sex Female 4:36 PM ASSOCIATE PROFESSOR OF THEOLOGY Gender Identity Female 10/01/2024 8:27 PM ASSOCIATE PROFESSOR OF THEOLOGY Sexual Orientation Straight 10/01/2024 8: 27 PM ASSOCIATE PROFESSOR OF THEOLOGY Last Filed Vital Signs Vital Sign Reading [...] 04/23/2025 1:56 AM CDT Plan of Treatment Not on file Medical Devices Implanted Type Area Hat And Cap Parts Cutter Hand Device Identifier Shelf Expiration Date Model / Serial / Lot Device Prcls Prostyle 6fr Sutue Mediate Knot Push - [id number] Implanted:Qty: 1 on 09/21/2024 by Praveen Sanz MD at [facility] [employer] 05/03/2026 [id number] / [id number] / [id number] Procedures Procedure Name Priority Date/Time Associated Diagnosis [...] Brain Natriuretic Peptide (04/23/2025 2:14 AM CDT) Pathologist [facility] NT ProB-Natriuretic Peptide 57.5 15.8 - 104.8 pg/mL 04/23/2025 2:56 AM CDT [facility] Comment:The Alere NT-pro BNP for Alinity i assay is susceptible to interference effects from total protein >12.6 g/dL. Total protein at 15.2 g/dL decreased NT- proBNP values at 125 pg/mL by -12.7%. Blood VENOUS BLOOD SPECIMEN / Unknown Venipuncture / Unknown 04/23/2025 2:14 AM CDT 04/23/2025 2:16 AM CDT us Leda Craig MD LAB BLOOD ORDERABLES Final Res ult [facility] [address] [place] [address] * High Sensitivity Troponin Baseline with Reflex Actions if indicated (04/23/2025 2:14 AM CDT) Only the most recent of2 resultswithin the time period is included. [facility] High Sensitivity Trop, Baseline <2.7 <14.0 ng/L 04/23/2025 2:56 AM CDT [facility] Comment:Low risk for myocard ial infarction in patients with low clinical risk and symptoms > 2 hrs. Consider other causes of chest pain. A reflex 2-hour troponin will automatically be ordered; please cancel if not clinically indicated Symptom Onset >2Hrs Yes Hours 04/23/2025 2:56 AM CDT [facility] Symptom Onset >10Hrs No Hours 04/23/2025 2:56 AM CDT [facility] Blood VENOUS BLOOD SPECIMEN / Unknown Venipuncture / Unknown 04/23/2025 2:14 AM CDT 04/23/2025 2:16 AM CDT us Leda Craig MD LAB BLOOD ORDERABLES Final Res ult [facility] [address] [facility] [phone] * (ABNORMAL) CBC and Differential (04/23/2025 2:14 AM CDT) [facility] WBC 10.6 4.5 - 11.0 K/cmm 04/23/2025 2:51 AM CDT [facility] RBC 4.04 4.00 - 5.20 M/cmm 04/23/2025 2:51 AM CDT [facility] Hemoglobin 10.5(L) 12.0 - 16.0 g/dL 04/23/2025 2:51 AM CDT [facility] Hematocrit 34.0(L) 36.0 - 46.0 % 04/23/2025 2:51 AM CDT [facility] MCV 84 80 - 100 fL 04/23/2025 2:51 AM CDT [facility] MCH 26 26 - 34 pg 04/23/2025 2:51 AM [facility] MCHC 31 31 - 37 g/dL 04/23/2025 2:51 AM [facility] RDW 17.4(H) 12.2 - 15.6 % 04/23/2025 2:51 AM [facility] RDWSD 54.3 40.0 - 55.0 fL 04/23/2025 2:51 AM [facility] Platelets 223 150 - 400 K/cmm 04/23/2025 2:51 AM [facility] Comment:Reviewed smear. MPV 10.5 9.2 - 12.0 fL 04/23/2025 2:51 AM [facility] Nucleated RBC's 0 0 - 1 /100WBC 04/23/2025 2:51 AM [facility] Neutrophils % 55.0 40.0 - 70.0 % 04/23/2025 2:51 AM [facility] Lymphocytes % 34.0 22.0 - 44.0 % 04/23/2025 2:51 AM [facility] Monocytes % 8.1(H) 3.0 - 7.0 % 04/23/2025 2:51 AM [facility] Eosinophils % 2.3 2.0 - 4.0 % 04/23/2025 2:51 AM [facility] Basophils % 0.3 0.0 - 1.0 % 04/23/2025 2:51 AM [facility] Immature Granulocytes Percent Automated 0.3 0.0 - 0.5 % 04/23/2025 2:51 AM [facility] Neutrophils Absolute 5.81 1.50 - 7.70 K/cmm 04/23/2025 2:51 AM [facility] Lymphocytes Absolute 3.59 1.00 - 4.80 K/cmm 04/23/2025 2:51 AM [facility] Monocytes Absolute 0.85 0.20 - 1.00 K/cmm 04/23/2025 2:51 AM [facility] Eosinophils Absolute 0.24 0.00 - 0.50 K/cmm 04/23/2025 2:51 AM [facility] Basophils Absolute 0.03 0.00 - 0.20 K/cmm 04/23/2025 2:51 AM CDT [facility] Immature Platelet Fraction Percent 4.7 1.0 - 7.0 % 04/23/2025 2:51 AM CDT [facility] Blood VENOUS BLOOD SPECIMEN / Unknown Venipuncture / Unknown 04/23/2025 2:14 AM CDT 04/23/2025 2:16 AM CDT us Leda Craig MD LAB BLOOD ORDERABLES Final Res ult Performing Organization Address [facility] Co de Phone Number [facility] [address] [place] [phone] * Manual Differential (04/23/2025 2:14 AM CDT) Platelet Estimate Adequate 04/23/2025 2:51 AM CDT [facility] Blood VENOUS BLOOD SPECIMEN / Unknown Venipuncture / Unknown 04/23/2025 2:14 AM CDT 04/23/2025 2:16 AM CDT us Leda Craig MD LAB BLOOD ORDERABLES Final Res ult Performing Organization Address [facility] Phone Number [facility] [address] [phone] * (ABNORMAL) CK (04/23/2025 2:14 AM CDT) Only the most recent of2 resultswithin the time period is included. CK, Total 27(L) 29 - 168 IU/L 04/23/2025 2:56 AM CDT [facility] Blood VENOUS BLOOD SPECIMEN / Unknown Venipuncture / Unknown 04/23/2025 2:14 AM CDT 04/23/2025 2:16 AM CDT us Leda Craig MD LAB BLOOD ORDER W/O STOP Final Result Performing Organization Address [facility]/State/ZIP Co de Phone Number [facility] [address] [phone] * (ABNORMAL) Basic Metabolic Panel (04/23/2025 2:14 AM CDT) [facility] Signature Glucose 75 70 - 105 mg/dL 04/23/2025 2:56 AM CDT [facility] BUN 9 7 - 18 mg/dL 04/23/2025 2:56 AM T [facility] Creatinine, Blood 0.80 0.57 - 1.11 mg/dL 04/23/2025 2:56 AM CDT [facility] Sodium 136 136 - 145 mEq/L 04/23/2025 2:56 AM T [facility] Potassium 4.0 3.5 - 5.1 mEq/L 04/23/2025 2:56 AM CDT [facility] Chloride 105 98 - 107 mEq/L 04/23/2025 2:56 AM T [facility] Carbon Dioxide 20.8(L) 22.0 - 29.0 mEq/L 04/23/2025 2:56 AM CDT [facility] Calcium 8.8 8.4 - 10.2 mg/dL 04/23/2025 2:56 AM T [facility] Estimated GFR 96 >60 mL/min/1. 73m2 04/23/2025 2:56 AM T [facility] Comment: Calculation based [...] - 12 mEq/L 04/23/2025 2:56 AM T [facility] Blood VENOUS BLOOD SPECIMEN / Unknown Venipuncture / Unknown 04/23/2025 2:14 AM CDT 04/23/2025 2:16 AM CDT us Leda Craig MD LAB BLOOD ORDERABLES Final Res ult Performing Organization Address [facility] Co de Phone Number [facility] [address] [phone] * EKG 12 Lead - STAT (04/23/2025 1:53 AM CDT) Only the most recent of4 resultswithin the time period is included. [facility] Signature Ventricular Rate EKG/Min 85 BPM [facility] Atrial Rate 85 BPM [facility] QRS-Interval (MSEC) 104 ms [facility] QT-Interval (MSEC) 412 ms [facility] QTc 490 ms [facility] P [place] 62 degrees [facility] R [place] 48 degrees [facility] T [place] 32 degrees [facility] 04/23/2025 1:53 AM CDT Narrative [facility] - 04/25/2025 4:26 PM CDT Test [...] Referred By: Confirmed By: CAROLYN MANN MD us Leda Craig MD ECG ORDERABLES Final Result Performing Organization Address [facility]/State/ZIP Co de Phone Number [facility] * XR Chest 2 Vw PA [...] Dr. Evaristo Jacome on 03/28/2025 2:33 PM us Lizette Hilton APRN IMG DIAGNOSTIC IMAGING ORDE ELLA Final Result * Serum Qualitative POC with Reflex to Quantitative (03/16/2025 11:50 PM CDT) Serum POC Negative NEGATIVE 03/16/2025 11:53 PM CDT [facility] Blood VENOUS BLOOD SPECIMEN / Unknown 03/16/2025 11:50 PM CDT 03/16/2025 11:53 PM CDT us Luis A Rodríguez MD LAB BLOOD ORDERABLES Final Result Performing Organization Address City/[facility]/ZIP Co de Phone Number [facility] [address] [place] [phone] * Urine Micro Hold Specimen (03/16/2025 11:34 PM CDT) Extra Tube Hold for add-ons. 03/17/2025 1:01 AM CDT [facility] Urine URINE SPECIMEN COLLECTION, CLEAN CATCH / Unknown Non-blood Collection / Unknown 03/16/2025 11:34 PM CDT 03/16/2025 11:39 PM CDT us Luis A Rodríguez MD URINE ORDERABLES Final Res ult Performing Organization Address City/[facility]/ZIP Co de Phone Number [facility] [address] [place] [phone] * (ABNORMAL) Basic Metabolic and Venous pH Panel POC (03/16/2025 11:34 PM CDT) Glucose POC 71 70 - 105 mg/dl 03/16/2025 11:52 PM CDT [facility] BUN POC 5(L) 7 - 18 mg/dl 03/16/2025 11:52 PM CDT [facility] Creatinine POC 0.90 0.57 - 1.11 mg/dL 03/16/2025 11:52 PM CDT [facility] Sodium POC 136 136 - 145 mmol/L 03/16/2025 11:52 PM CDT [facility] Potassium POC 3.4(L) 3.5 - 5.1 mmol/L 03/16/2025 11:52 PM T [facility] Chloride POC 102 98 - 107 mmol/L 03/16/2025 11:52 PM T [facility] CO2 POC 32.7(H) 22.0 - 29.0 mmol/L 03/16/2025 11:52 PM CDT [facility] Ionized Calcium POC 1.13 1.12 - 1.32 mmol/L 03/16/2025 11:52 PM CDT [facility] ESTIMATED GFR POC 84 >60 mL/min/1. 73m2 03/16/2025 11:52 PM CDT [facility] Comment: The calculation is based [...] 7.414(H) 7.310 - 7.410 03/16/2025 11:52 PM T [facility] Anion Gap POC 1.3(L) 8 - 12 mEq/L 03/16/2025 11:52 PM T [facility] Blood VENOUS BLOOD SPECIMEN / Unknown Venipuncture / Unknown 03/16/2025 11:34 PM CDT 03/16/2025 11:36 PM CDT Luis A Rodríguez MD LAB BLOOD ORDERABLES Final Result [facility] [address] [place] [address] * UA DIPSTICK MICROSCOPIC IF INDICATED, WITH REFLEX TO CULTURE, POC (03/16/2025 11:34 PM CDT) Color, UA POC Yellow Yellow, Light Yellow, Dark Yellow 03/16/2025 11:49 PM CDT [facility] Clarity, UA POC Clear Clear 03/16/2025 11:49 PM CDT [facility] Specific [place], UA POC 1.010 1.003 - 1.035 03/16/2025 11:49 PM CDT [facility] pH, UA POC 7.5 5.0 - 9.0 03/16/2025 11:49 PM CDT [facility] Protein, UA POC Negative Negative 03/16/2025 11:49 PM CDT [facility] Glucose, UA POC Negative Negative 03/16/2025 11:49 PM CDT [facility] Ketones, UA POC Negative Negative 03/16/2025 11:49 PM CDT [facility] Bilirubin, UA POC Negative Negative 03/16/2025 11:49 PM CDT [facility] Blood, UA POC Negative Negative 03/16/2025 11:49 PM CDT [facility] Urobilinogen, UA POC 0.2 0.2, 1.0 03/16/2025 11:49 PM CDT [facility] Esterase UA POC Negative Negative 03/16/2025 11:49 PM CDT [facility] Nitrite, UA POC Negative Negative 03/16/2025 11:49 PM CDT [facility] Urine URINE SPECIMEN COLLECTION, CLEAN CATCH / Unknown Non-blood Collection / Unknown 03/16/2025 11:34 PM CDT 03/16/2025 11:39 PM CDT us Luis A Rodríguez MD URINE ORDERABLES Final Res ult Performing Organization Address City/[facility]/ZIP Co de Phone Number [facility] [address] [place] [phone] * Extra Urine Red Top (03/16/2025 11:34 PM CDT) Extra Urine Red Top Hold for add-ons. 03/17/2025 1:01 AM CDT [facility] Urine URINE SPECIMEN COLLECTION, CLEAN CATCH / Unknown Non-blood Collection / Unknown 03/16/2025 11:34 PM CDT 03/16/2025 11:39 PM CDT us Luis A Rodríguez MD URINE ORDERABLES Final Res ult [facility] [address] [place] [address] * Gold (SST) Top (03/16/2025 11:34 PM CDT) Gold Top Hold Specimen Hold for add-ons. 03/17/2025 1:01 AM CDT [facility] Blood VENOUS BLOOD SPECIMEN / Unknown Venipuncture / Unknown 03/16/2025 11:34 PM CDT 03/16/2025 11:36 PM CDT us Luis A Rodríguez MD LAB BLOOD ORDERABLES Final Result [facility] [address] [place] [phone] * Purple Top (03/16/2025 11:34 PM CDT) Pathologist [facility] Purple Top Hold Specimen Hold for add-ons. 03/17/2025 1:01 AM CDT [facility] Blood VENOUS BLOOD SPECIMEN / Unknown Venipuncture / Unknown 03/16/2025 11:34 PM CDT 03/16/2025 11:36 PM CDT Result Peter Rodríguez MD LAB BLOOD ORDERABLES Final Result [facility] [address] [place] [id number] * Green Top (03/16/2025 11:34 PM CDT) Green Top Hold Specimen Hold for add-ons. 03/17/2025 1:01 AM CDT [facility] Blood VENOUS BLOOD SPECIMEN / Unknown Venipuncture / Unknown 03/16/2025 11:34 PM CDT 03/16/2025 11:36 PM CDT us Luis A Rodríguez MD LAB BLOOD ORDERABLES Final Result [facility] [address] [place] [phone] * Light Blue Top (03/16/2025 11:34 PM CDT) Light Blue Top Hold Specimen Hold for add-ons. 03/17/2025 1:01 AM CDT [facility] Blood VENOUS BLOOD SPECIMEN / Unknown Venipuncture / Unknown 03/16/2025 11:34 PM CDT 03/16/2025 11:36 PM CDT Luis A Rodríguez MD LAB BLOOD ORDERABLES Final Result [facility] [address] [place] [address] * (ABNORMAL) CBC w/Diff POC (03/16/2025 11:34 PM CDT) Pathologist [facility] WBC POC 8.2 4.5 - 11.0 K/cmm 03/16/2025 11:40 PM CDT [facility] RBC POC 4.09 4.00 - 5.20 M/cmm 03/16/2025 11:40 PM T [facility] Hematocrit POC 34.7(L) 36.0 - 48.0 % 03/16/2025 11:40 PM CDT [facility] Hemoglobin POC 10.6(L) 12.0 - 16.0 g/dl 03/16/2025 11:40 PM T [facility] MCV POC 85 80 - 100 fl 03/16/2025 11:40 PM CDT [facility] MCH POC 26 26 - 34 pg 03/16/2025 11:40 PM CDT [facility] MCHC POC 31 31 - 37 g/dl 03/16/2025 11:40 PM CDT [facility] Platelets POC 213 150 - 400 K/cmm 03/16/2025 11:40 PM CDT [facility] Neutrophils % POC 54.1 40.0 - 70.0 % 03/16/2025 11:40 PM CDT [facility] Lymphs % POC 36.8 22.0 - 44.0 % 03/16/2025 11:40 PM CDT [facility] Monos % POC 7.1(H) 3.0 - 7.0 % 03/16/2025 11:40 PM CDT [facility] Baso % POC 0.2 0.0 - 1.0 % 03/16/2025 11:40 PM CDT [facility] Eos % POC 1.6(L) 2.0 - 4.0 % 03/16/2025 11:40 PM CDT [facility] Immature Gran % POC 0.2 0.0 - 0.5 % 03/16/2025 11:40 PM CDT [facility] NEUTROPHILS ABSOLUTE 4.43 1.50 - 7.70 K/cmm 03/16/2025 11:40 PM CDT [facility] LYMPHOCYTES ABSOLUTE 3.02 1.00 - 4.80 K/cmm 03/16/2025 11:40 PM CDT [facility] MONOCYTES ABSOLUTE 0.58 0.20 - 1.00 K/cmm 03/16/2025 11:40 PM CDT [facility] BASOPHILS ABSOLUTE 0.02 0.00 - 0.20 K/cmm 03/16/2025 11:40 PM CDT [facility] EOSINOPHILS ABSOLUTE 0.13 0.00 - 0.50 K/cmm 03/16/2025 11:40 PM CDT [facility] Blood VENOUS BLOOD SPECIMEN / Unknown Venipuncture / Unknown 03/16/2025 11:34 PM CDT 03/16/2025 11:36 PM CDT Luis A Rodríguez MD LAB BLOOD ORDERABLES Final Result [facility] [address] [phone] * Magnesium (03/16/2025 11:34 PM CDT) [facility] Magnesium 1.750 1.560 - 2.520 mg/dL 03/17/2025 12:16 AM CDT [facility] Blood VENOUS BLOOD SPECIMEN / Unknown Venipuncture / Unknown 03/16/2025 11:34 PM CDT 03/16/2025 11:36 PM CDT Luis A Rodríguez MD LAB BLOOD ORDERABLES Final Result [facility] [address] [place] [address] from Last 3 Months Insurance [facility] Advance Directives * Full Code (Latest Code Status on File) Date Activated Date Inactivated Comments 09/21/2024 1:00 PM 10/01/2024 5:40 PM * Full Code Date Activated Date Inactivated Comments 09/20/2024 6:29 PM 09/21/2024 1:00 PM Care Teams Belt Buckle Maker Relationship Specialty Start Date End Date None, PCP - General 03/16/25
--- OUTSIDE RECORDS SUMMARY | 2025-04-29 23:10 | XMS_ITS | Data Portability ---
Author Organization [facility] Address [address] [place] [id number] Assessment Encounter Date Assessment Date Assessment LastModified by Organization Details LastModified Time 08/29/2024 08/29/2024 -Review of [facility] ED visit 08.28.24 [email or web address] Not available 09/12/2024 01:17:33 09/13/2024 09/13/2024 -OLVIN most recent cardiology notes -OLVIN ED note from [facility] and [facility] Admission notes. -This visit is medically necessary for longitudinal evaluation of this patient due to serious, complex, medical conditions. Will continue to follow this patient and serve as the focal point for all of this patient's needs, as the medical conditions require continuation of care. [email or web address] Not available 09/19/2024 20:26:12 10/05/2024 10/05/2024 -OLVIN Pulmonology -This visit is medically necessary for longitudinal evaluation of this patient due to serious, complex, medical conditions. Will continue to follow this patient and serve as the focal point for all of this patient's needs, as the medical conditions require continuation of care. [email or web address] Not available 10/15/2024 23:56:09 11/13/2024 11/13/2024 -This visit is medically necessary for longitudinal evaluation of this patient due to serious, complex, medical conditions. Will continue to follow this patient and serve as the focal point for all of this patient's needs, as the medical conditions require continuation of care. Not available 11/13/2024 15:06:02 12/11/2024 12/11/2024 -F2F visit to include HPI, review of multiple, previous ED visits, plan of care and discharge letter spent is 22 mins. [email or web address] Not available 12/21/2024 19:56:28 Plan of Treatment Reminders Order Date Submit Date Provider Last Modified By Organization Details Last Modified Time Details Appointments None recorded. Lab CBC 2024 025 [facility] ([facility]) - [place], [address], [address], [place], [address], 5 17:56:13 CMP, serum or plasma 2024 025 [facility] ([facility]) - [place], [address], [address], [place], [address], 5 17:56:13 unlisted lab - pain management panel w/reflex 2023 024 [facility] ([facility]) - [place], [address], [address], [place], [address], 4 16:38:31 unlisted lab - pain management panel w/reflex 2023 024 [facility] ([facility]) - [place], [address], [address], [place], [address], 4 14:35:47 Referral None recorded. Procedures None recorded. Surgeries None recorded. Imaging None recorded. Medication Orders Nitrostat 0.4 mg sublingual tablet 2024 025 [facility], [address] [facility], [place], [id number], 5 13:14:10 prasugrel HCl 10 mg tablet 2024 025 [facility], [address] [facility], [place], [id number], 5 15:42:44 trazodone 100 mg tablet 2024 025 [facility], [address], [place], [place], [id number], 15:42:49 cyanocobal alba (vit B-12) 1,000 mcg/mL injection solution 2024 [facility], [address], [place], [place], [id number], 16:45:45 tizanidine 4 mg tablet 2024 [facility] [address], [place], [place], [id number], 11:10:47 gabapentin 600 mg tablet 2024 [facility], [address], [place], [place], [id number], 10:17:00 hydrocodon e 5 mg-acetami nophen 325 mg tablet 2024 [facility], [address], [place], [place], [id number], 17:28:41 metoclopra mide 5 mg tablet 2024 [facility], [address], [place], [place], [id number], 15:42:44 omeprazole 40 mg capsule,de layed release 2024 [facility], [address], [place], [place], [id number], 17:28:33 verapamil 120 mg tablet 2024 [facility], [address], [place], [place], [id number], 15:42:38 hydrochlor othiazide 12.5 mg capsule 2024 [facility], [address], [place], [place], [id number], 5 10:17:02 potassium chloride ER 10 mEq capsule,ex tended release 2024 [facility], [address], [place], [place], [id number], 5 10:16:59 atorvastat in 80 mg tablet 2024 [facility], [address], [place], [place], [id number], 5 11:10:45 Nitrostat 0.4 mg sublingual tablet 2024 [facility], [address], [place], [place], [id number], 5 13:33:55 hydrocodon e 5 mg-acetami nophen 325 mg tablet 2024 [facility], [address], [place], [place], [id number], 5 10:35:16 gabapentin 600 mg tablet 2024 [facility], [address], [place], [place], [id number], 5 14:36:39 scopolamin e 1 mg over 3 days transderma l patch 2024 [facility], [address], [place], [place], [id number], 5 14:46:50 metoclopra mide 5 mg tablet 2024 [facility], [address], [place], [place], [id number], 5 15:45:24 verapamil 120 mg tablet 2024 [facility], [address], [place], [place], [id number], 5 15:45:27 albuterol sulfate HFA 90 mcg/actuat ion aerosol inhaler 2024 025 [facility], [address], [place], [place], [id number], 5 10:35:17 potassium chloride ER 10 mEq capsule,ex tended release 2024 025 [facility], [address], [place], [place], [id number], 5 10:35:15 tizanidine 4 mg tablet 2023 024 [facility], [address], [place], [place], [id number], 5 14:39:28 cyanocobal alba (vit B-12) 1,000 mcg/mL injection solution 2023 024 [facility], [address], [place], [place], [id number], 4 17:27:05 hydrocodon e 5 mg-acetami nophen 325 mg tablet 2023 024 [email or web address] [facility], [address], [place], [place], [id number], 4 14:40:17 ondansetro n HCl (PF) 4 mg/2 mL injection solution 2023 024 [email or web address] [facility], [address], [place], [place], [id number], 4 16:25:29 ondansetro n HCl 4 mg tablet 2023 025 [facility], [address], [place], [place], [id number], 14:36:31 metoclopra mide 5 mg tablet 2023 [facility], [address] [facility], [place], [id number], 5 11:10:46 verapamil 120 mg tablet 2023 024 [facility], [facility] [address] [facility], [id number], 5 10:17:01 potassium chloride ER 10 mEq capsule,ex tended release 2023 [facility] [address] [facility], [place], [id number], 11:42:20 Patient TargetsNo targets recorded. Patient Instructions Encounter Date Encounter Id Patient Instructions Last Modified By Organization Details Last Modified Time 08/29/2024 [id number] -Instructions reviewed with patient and the patient repeated and agrees to follow -Keep specialist appointments as scheduled -RTC in 1 month on 12.15.24 for follow up, sooner as needed. -Patient discharged to self to home in stable condition. [email or web address] Not available 09/12/2024 01:19:33 09/13/2024 [id number] -Instructions reviewed with patient and the patient repeated and agrees to follow -Keep specialty appointments as scheduled -RTC in 1 month for follow up, sooner as needed. -Patient discharged to self to home in stable condition. [email or web address] Not available 09/19/2024 20:28:07 10/05/2024 [id number] -Instructions reviewed with patient and the patient repeated and agrees to follow -RTC in 1 month on 2.3.25 for follow up, sooner as needed. -Patient discharged to self to home in stable condition. [email or web address] Not available 10/15/2024 23:53:24 11/13/2024 [id number] -Instructions reviewed with patient and the patient repeated and agrees to follow -RTC in 1 month for follow up or sooner if symptoms or worsen -Patient discharged to self to home in stable condition. [email or web address] Not available 12/11/2024 04:33:45 12/11/2024 [id number] -Patient was informed will not be refilling pain medications, she did ask for refills of her other medications, it is found she has refills existing. -Patient left clinic did not make a follow up appointment; left clinic in stable condition. [email or web address] Not available 12/21/2024 19:58:25 Reason for Referral None Reported. Results Created Date Observation Date Name Description Value Unit Range Abnormal Flag Note LastModifiedBy Organization Detail LastModifiedTime 08/08/20 24 08/10/2024 PAIN MANAG E W RFX URN amphetamine interp NEGATI VE cutoff 500 NG/mL Not Available [facility] [address] [facility], [address], 08/10/2024 14:44:21 08/08/20 24 08/10/2024 PAIN MANAG E W RFX URN barbiturates interp NEGATI VE cutoff 200 NG/mL Not Available [facility] [address] [facility] [place], [address], 08/10/2024 14:44:21 08/08/20 24 08/10/2024 PAIN MANAG E W RFX URN benzodiazepi richard interp NEGATI VE cutoff 200 NG/mL Not Available [facility] [address] [facility] [place], [address], 08/10/2024 14:44:21 08/08/20 24 08/10/2024 PAIN MANAG E W RFX URN cocaine interp NEGATI VE cutoff 150 NG/mL Not Available [facility] [address] [place], [address], 08/10/2024 14:44:21 08/08/20 24 08/10/2024 PAIN MANAG E W RFX URN methadone interp NEGATI VE cutoff 300 NG/mL Not Available [facility] [address] [facility] [place], [address], 08/10/2024 14:44:21 08/08/20 24 08/10/2024 PAIN MANAG E W RFX URN opiates interp NEGATI VE cutoff 300 NG/mL Not Available [facility] [address] [place] [address] [place], [address], 08/10/2024 14:44:21 08/08/20 24 08/10/2024 PAIN MANAG E W RFX URN oxycodone interp NEGATI VE cutoff 100 NG/mL Not Available [facility] [address] [place] [address] [place], [address], 08/10/2024 14:44:21 08/08/20 24 08/10/2024 PAIN MANAG E W RFX URN pcp - phencyclidin e interp NEGATI VE cutoff 25 NG/mL Not Available [facility] [address] [place] [address] [place], [address], 08/10/2024 14:44:21 08/08/20 24 08/10/2024 PAIN MANAG E W RFX URN propoxyphene interp NEGATI VE cutoff 300 NG/mL Not Available [facility] [address] [place] [address] [place], [address], 08/10/2024 14:44:21 08/08/20 24 08/10/2024 PAIN MANAG E W RFX URN cannabinoids interp NEGATI VE cutoff 50 NG/mL Not Available [facility] [address] [place] [address] [place], [address], 08/10/2024 14:44:21 08/08/20 24 08/10/2024 PAIN MANAG E W RFX URN creatinine 26 mg/dL >10 Comme nt for PAIN MANAG E W RFX URN Speci men - Urine Not Available [facility] [address] [place] [address] [place], [address], 08/10/2024 14:44:21 08/08/20 24 08/10/2024 PRESC RIPTI ON MED(S ) drug #1 No Medica tions Prescr ibed Not Available [facility] [address] [place], [address], 08/10/2024 14:44:22 08/08/20 24 08/10/2024 PRESC RIPTI ON MED(S ) enhanced report Comple te To downl oad an enhan angelica repor t for this test go to: https :[email or web address] [email or web address].so [email or web address]. us/#/ login [email or web address] [email or web address] [email or web address] Comme nt for PRESC RIPTI ON MED(S ) All urine confi rmati on tests were perfo rmed by Liqui d Chrom atogr aphy Tande m Mass Spect romet ry. These tests were devel oped and their perfo rmanc e jaxon cteri stics deter mined by [facility]. They have not been clear ed or appro du by the US Food and Drug Admin istra tion (FDA) . The FDA does not requi re these tests to go larsu zhang corin rket FDA revie w. [facility] is CLIA certi fied to perfo rm high- compl exity testi ng. Not Available [facility] [address] [place], [address], 08/10/2024 14:44:22 08/29/20 24 09/02/2024 PAIN MANAG E W RFX URN amphetamine interp Negati ve cutoff 500 NG/mL Not Available [facility] [address] [place], [address], 09/02/2024 14:35:47 08/29/20 24 09/02/2024 PAIN MANAG E W RFX URN barbiturates interp Negati ve cutoff 200 NG/mL Not Available [facility] [address] [place], [address], 09/02/2024 14:35:47 08/29/20 24 09/02/2024 PAIN MANAG E W RFX URN benzodiazepi richard interp Positi ve Incons istent cutoff 200 NG/mL abnormal Not Available [facility] [address] [place], [address], 09/02/2024 14:35:47 08/29/20 24 09/02/2024 PAIN MANAG E W RFX URN cocaine interp Negati ve cutoff 150 NG/mL Not Available [facility] [address], [address], 09/02/2024 14:35:47 08/29/20 24 09/02/2024 PAIN MANAG E W RFX URN methadone interp Negati ve cutoff 300 NG/mL Not Available [facility] [address] [place], [address], 09/02/2024 14:35:47 08/29/20 24 09/02/2024 PAIN MANAG E W RFX URN opiates interp Negati ve cutoff 300 NG/mL Not Available [facility] [address] [place], [address], 09/02/2024 14:35:47 08/29/20 24 09/02/2024 PAIN MANAG E W RFX URN oxycodone interp Negati ve cutoff 100 NG/mL Not Available [facility] [address] [place], [address], 09/02/2024 14:35:47 08/29/20 24 09/02/2024 PAIN MANAG E W RFX URN pcp - phencyclidin e interp Negati ve cutoff 25 NG/mL Not Available [facility] [address] [place] [address] [place], [address], 09/02/2024 14:35:47 08/29/20 24 09/02/2024 PAIN MANAG E W RFX URN propoxyphene interp Negati ve cutoff 300 NG/mL Not Available [facility] [address] [facility], [address], 09/02/2024 14:35:47 08/29/20 24 09/02/2024 PAIN MANAG E W RFX URN cannabinoids interp Negati ve cutoff 50 NG/mL Not Available [facility] [address] [facility], [address], 09/02/2024 14:35:47 08/29/20 24 09/02/2024 PAIN MANAG E W RFX URN creatinine 57 mg/dL >10 Comme nt for PAIN MANAG E W RFX URN Speci men - Urine Not Available [facility] [address] [facility], [address], 09/02/2024 14:35:47 08/29/20 24 09/02/2024 PRESC RIPTI ON MED(S ) drug #1 No Medica tions Prescr ibed Not Available [facility] [address] [facility] [place], [address], 09/02/2024 14:35:47 08/29/20 24 09/02/2024 PRESC RIPTI ON MED(S ) enhanced report Comple te To downl oad an enhan angelica repor t for this test go to: https :[email or web address] pt.so [facility]. us/#/ login [email or web address] [email or web address] Comme nt for PRESC RIPTI ON MED(S ) All urine confi rmati on tests were perfo rmed by Finn Domingo atogr ney Beckman m Mass Spect romet ry. These tests were devel oped and their perfo rmanc e jaxon cteri stics deter mined by [facility]. They have not been clear ed or appro du by the US Food and Drug Admin istra tion (FDA) . The FDA does not requi re these tests to go lester coombs rket FDA revjuan francisco leger NOEUri is DARWINIA certi fied to perfo rm high- compl exity testi ng. Not Available [facility] [address] [facility] [place], [address], 09/02/2024 14:35:47 08/29/20 24 09/02/2024 BENZO DIAZE PINES CON U 7-aminoclona zepam 244 NG/mL <50.0 high Not Available [facility] [address] [facility] [place], [address], 09/02/2024 14:35:48 08/29/20 24 09/02/2024 BENZO DIAZE PINES CON U 7-aminoclona zepam interp Positi ve-Inc onsist ent abnormal Not Available [facility] [address] [facility] [place], [address], 09/02/2024 14:35:48 08/29/20 24 09/02/2024 BENZO DIAZE PINES CON U 7-aminofluni trazepam Not Detect ed NG/mL <50.0 Not Available [facility] [address] [facility] [place], [address], 09/02/2024 14:35:48 08/29/20 24 09/02/2024 BENZO DIAZE PINES CON U 7-aminofluni trazepam interp Negati ve Not Available [facility] [address] [facility] [place], [address], 09/02/2024 14:35:48 08/29/20 24 09/02/2024 BENZO DIAZE PINES CON U A-hydroxyalp razolam Not Detect ed NG/mL <50.0 Not Available [facility] [address] [facility] [place], [address], 09/02/2024 14:35:48 08/29/20 24 09/02/2024 BENZO DIAZE PINES CON U A-hydroxyalp razolam interp Negati ve Not Available [facility] [address] [facility] [place], [address], 09/02/2024 14:35:48 08/29/20 24 09/02/2024 BENZO DIAZE PINES CON U lorazepam Not Detect ed NG/mL <50.0 Not Available [facility] [address] [facility], [address], 09/02/2024 14:35:48 08/29/20 24 09/02/2024 BENZO DIAZE PINES CON U lorazepam interp Negati ve Not Available [facility] [address] [facility], [address], 09/02/2024 14:35:48 08/29/20 24 09/02/2024 BENZO DIAZE PINES CON U nordiazepam Not Detect ed NG/mL <50.0 Not Available [facility] [address] [facility], [address], 09/02/2024 14:35:48 08/29/20 24 09/02/2024 BENZO DIAZE PINES CON U nordiazepam interp Negati ve Not Available [facility] [address] [facility], [address], 09/02/2024 14:35:48 08/29/20 24 09/02/2024 BENZO DIAZE PINES CON U oxazepam Not Detect ed NG/mL <50.0 Not Available [facility] [address] [facility], [address], 09/02/2024 14:35:48 08/29/20 24 09/02/2024 BENZO DIAZE PINES CON U oxazepam interp Negati ve Not Available [facility] [address], [address], 09/02/2024 14:35:48 08/29/20 24 09/02/2024 BENZO DIAZE PINES CON U temazepam Not Detect ed NG/mL <50.0 Not Available [facility] [address] [place], [place], [address], 09/02/2024 14:35:48 08/29/20 24 09/02/2024 BENZO DIAZE PINES CON U temazepam interp Negati ve Not Available [facility] [address] [place], [address], 09/02/2024 14:35:48 09/13/20 24 09/17/2024 PAIN MANAG E W RFX URN amphetamine interp Positi ve Incons istent cutoff 500 NG/mL abnormal Not Available [facility] [address] [place], [address], 09/17/2024 16:38:31 09/13/20 24 09/17/2024 PAIN MANAG E W RFX URN barbiturates interp Negati ve cutoff 200 NG/mL Not Available [facility] [address] [place], [address], 09/17/2024 16:38:31 09/13/20 24 09/17/2024 PAIN MANAG E W RFX URN benzodiazepi ricahrd interp Positi ve Incons istent cutoff 200 NG/mL abnormal Not Available [facility] [address] [place], [address], 09/17/2024 16:38:31 09/13/20 24 09/17/2024 PAIN MANAG E W RFX URN cocaine interp Negati ve cutoff 150 NG/mL Not Available [facility] [address] [facility] [place], [address], 09/17/2024 16:38:31 09/13/20 24 09/17/2024 PAIN MANAG E W RFX URN methadone interp Negati ve cutoff 300 NG/mL Not Available [facility] [address] [place], [address], 09/17/2024 16:38:31 09/13/20 24 09/17/2024 PAIN MANAG E W RFX URN opiates interp Positi ve Incons istent cutoff 300 NG/mL abnormal Not Available [facility] [address], [place], [address], 09/17/2024 16:38:31 09/13/20 24 09/17/2024 PAIN MANAG E W RFX URN oxycodone interp Negati ve cutoff 100 NG/mL Not Available [facility] [address] [place], [address], 09/17/2024 16:38:31 09/13/20 24 09/17/2024 PAIN MANAG E W RFX URN pcp - phencyclidin e interp Negati ve cutoff 25 NG/mL Not Available [facility] [address] [place], [address], 09/17/2024 16:38:31 09/13/20 24 09/17/2024 PAIN MANAG E W RFX URN propoxyphene interp Negati ve cutoff 300 NG/mL Not Available [facility] [address] [place], [address], 09/17/2024 16:38:31 09/13/20 24 09/17/2024 PAIN MANAG E W RFX URN cannabinoids interp Negati ve cutoff 50 NG/mL Not Available [facility] [address] [place], [address], 09/17/2024 16:38:31 09/13/20 24 09/17/2024 PAIN MANAG E W RFX URN creatinine 280 mg/dL >10 Comme nt for PAIN MANAG E W RFX URN Speci men - Urine Not Available [facility] [address] [place], [address], 09/17/2024 16:38:31 09/13/20 24 09/17/2024 PRESC RIPTI ON MED(S ) drug #1 No Medica tions Prescr ibed Not Available [facility] [address] [facility] [place], [address], 09/17/2024 16:38:32 09/13/20 24 09/17/2024 PRESC RIPTI ON MED(S ) enhanced report Comple te To downl oad an enhan angelica repor t for this test go to: https :[email or web address] pt.so [facility]. us/#/ login [email or web address] [email or web address] [email or web address] OGf Comme nt for PRESC RIPTI ON MED(S ) All urine confi rmati on tests were perfo rmed by Finn Domingo atogr ney farris Mass Spect romet ry. These tests were devel oped and their perfo rmanc e jaxon cteri stics deter mined by [facility]. They have not been clear ed or appro du by the US Food and Drug Admin istra tion (FDA) . The FDA does not requi re these tests to go lester holcomb corin rket FDA revie w. [facility] is CLIA certi fied to perfo rm high- compl exity testi ng. Not Available [facility] [address] [facility] [place], [address], 09/17/2024 16:38:32 09/13/20 24 09/17/[address] U amphetamine Not Detect ed NG/mL <50.0 Not Available [facility] [address] [place], [address], 09/17/2024 16:38:32 09/13/20 24 09/17/[address] U amphetamine interp Negati ve Not Available [facility] [address] [place], [address], 09/17/2024 16:38:32 09/13/20 24 09/17/[address] U methamphetam ine Not Detect ed NG/mL <50.0 Not Available [facility] [address] [place], [address], 09/17/2024 16:38:32 09/13/20 24 09/17/[address] U methamphetam ine interp Negati ve Not Available [facility] [address] [place] [place], [address], 09/17/2024 16:38:32 09/13/20 24 09/17/2024 BENZO DIAZE PINES CON U 7-aminoclona zepam >1000 NG/mL <50.0 high Not Available [facility] [address] [place], [address], 09/17/2024 16:38:33 09/13/20 24 09/17/2024 BENZO DIAZE PINES CON U 7-aminoclona zepam interp Positi ve-Inc onsist ent abnormal Not Available [facility] [address] [place], [address], 09/17/2024 16:38:33 09/13/20 24 09/17/2024 BENZO DIAZE PINES CON U 7-aminofluni trazepam Not Detect ed NG/mL <50.0 Not Available [facility]) [address] [place], [address], 09/17/2024 16:38:33 09/13/20 24 09/17/2024 BENZO DIAZE PINES CON U 7-aminofluni trazepam interp Negati ve Not Available [facility] ([facility]) [address] [place], [address], 09/17/2024 16:38:33 09/13/20 24 09/17/2024 BENZO DIAZE PINES CON U A-hydroxyalp razolam Not Detect ed NG/mL <50.0 Not Available [facility] ([facility]) [address] [place], [address], 09/17/2024 16:38:33 09/13/20 24 09/17/2024 BENZO DIAZE PINES CON U A-hydroxyalp razolam interp Negati ve Not Available [facility] ([facility]) [address] [place], [address], 09/17/2024 16:38:33 09/13/20 24 09/17/2024 [place] CON U lorazepam Not Detect ed NG/mL <50.0 Not Available [facility] ([facility] [address] [place], [address], 09/17/2024 16:38:33 09/13/20 24 09/17/2024 [place] CON U lorazepam interp Negati ve Not Available [facility] ([facility]) [address] [place], [address], 09/17/2024 16:38:33 09/13/20 24 09/17/2024 [place] CON U nordiazepam Not Detect ed NG/mL <50.0 Not Available [facility] ([facility] [address] [place], [address], 09/17/2024 16:38:33 09/13/20 24 09/17/2024 [place] CON U nordiazepam interp Negati ve Not Available [facility] ([facility]) [address] [place], [place], [address], 09/17/2024 16:38:33 09/13/20 24 09/17/2024 [place] CON U oxazepam Not Detect ed NG/mL <50.0 Not Available [facility] ([facility] [address] [place], [place], [address], 09/17/2024 16:38:33 09/13/20 24 09/17/2024 [place] CON U oxazepam interp Negati ve Not Available [facility] ([facility]) [address] [place], [place], [address], 09/17/2024 16:38:33 09/13/20 24 09/17/2024 [place] CON U temazepam Not Detect ed NG/mL <50.0 Not Available [facility] ([facility] [address] [place], [address], 09/17/2024 16:38:33 09/13/20 24 09/17/2024 [place] CON U temazepam interp Negati ve Not Available [facility] ([facility] [address] [place], [address], 09/17/2024 16:38:33 09/13/20 24 09/17/[address] URN codeine Not Detect ed NG/mL <50.0 Not Available [facility] [address] [place], [place], [address], 09/17/2024 16:38:33 09/13/20 24 09/17/[address] URN codeine interp Negati ve Not Available [facility] ([facility] [address] [place], [place], [address], 09/17/2024 16:38:33 09/13/20 24 09/17/[address] URN morphine Not Detect ed NG/mL <50.0 Not Available [facility] ([facility] [address] [place], [address], 09/17/2024 16:38:33 09/13/20 24 09/17/[address] URN morphine interp Negati ve Not Available [facility] ([facility] [address] [place], [address], 09/17/2024 16:38:33 09/13/20 24 09/17/[address] URN hydrocodone 182 NG/mL <50.0 high Not Available [facility] ([facility] [address] [place], [address], 09/17/2024 16:38:33 09/13/20 24 09/17/[address] URN hydrocodone interp Pos[facility] onsist ent abnormal Not Available [facility] ([facility] [address] [place], [address], 09/17/2024 16:38:33 09/13/20 24 09/17/[address] URN hydromorphon e 110 NG/mL <50.0 high Not Available [facility] ([facility] [address] [place], [address], 09/17/2024 16:38:33 09/13/20 24 09/17/[address] URN hydromorphon e interp Pos[facility] onsist ent abnormal Not Available [facility] ([facility] [address] [place], [address], 09/17/2024 16:38:33 09/13/20 24 09/17/[address] URN dihydrocodei ne 131 NG/mL <50.0 high Not Available [facility] [address] [place], [address], 09/17/2024 16:38:33 09/13/20 24 09/17/[address] URN dihydrocodei ne interp [facility] onsist ent abnormal Not Available [facility] [address], [place], [address], 09/17/2024 16:38:33 08/09/20 24 08/09/2024 XR, chest , 2 view No observ ation record ed. [email or web address] [facility] [address] [place], [address], 08/25/2024 00:00:30 08/17/20 24 08/16/2024 XR, chest , 2 view No observ ation record ed. [email or web address] [facility] [address] [place], [address], 08/25/2024 00:00:23 09/07/20 24 08/29/2024 XR, chest , 2 view No observ ation record ed. [facility] Not Available 2023 14:36:24 09/07/20 24 09/02/2024 US, duple x, venou s, upper extre mity No observ ation record ed. [facility] Not Available 2023 14:38:27 09/09/20 24 09/08/2024 XR, chest , 2 view No observ ation record ed. [facility] [address] [place], [address], 09/15/2024 13:17:08 09/21/20 24 09/20/2024 CT, angio gram, abdom en + pelvi s, w/ contr ast No observ ation record ed. [address] , [place], [address], 09/24/2024 11:23:30 09/21/20 24 09/20/2024 trans -thor acic echoc ardio gram (TTE) (PROC ) No observ ation record ed. [address] [place], [address], 09/24/2024 11:21:27 09/21/20 24 09/21/2024 XR, ribs, unila teral No observ ation record ed. [address] [place], [address], 09/24/2024 11:24:17 09/28/20 24 09/27/2024 XR, chest , 2 view No observ ation record ed. [address] [place], [address], 10/05/2024 07:56:27 10/01/20 24 10/01/2024 CT, angio gram, chest + abdom en + pelvi s, w/ contr ast No observ ation record ed. [address] [place], [address], 10/05/2024 09:41:17 10/02/20 24 10/01/2024 XR, chest No observ ation record ed. [address] [place], [address], 10/05/2024 09:39:10 10/05/19 25 09/30/2024 XR, chest No observ ation record ed. [email or web address] Not Available 2024 09:38:33 11/09/19 25 11/08/2024 XR, chest , 2 view No observ ation record ed. [place] [id number] [facility], [place], [address], 11/11/2024 22:52:21 12/12/19 25 12/11/2024 XR, chest , 2 view No observ ation record ed. [email or web address] [facility] [address] [place], [address], 12/11/2024 16:51:02 12/12/19 25 12/11/2024 emerg ency dept. visit * No observ ation record ed. [email or web address] [facility] [address] [facility], [place], [address], 12/11/2024 16:51:28 03/13/20 25 03/12/2025 XR, chest No observ ation record ed. [email or web address] [facility] [address] [place] [address], [address], 03/13/2025 14:00:36 03/26/20 25 03/26/2025 NM, myoca rdial perfu zack scan No observ ation record ed. [email or web address] [facility] [address] [place] [address], [address], 04/02/2025 12:55:56 Result Notes None recorded. Problems Name Problem SNOMED Code Status Onset Date Resolution Date Notes Provider Name and Address Organization Details Recorded Time Chronic pain syndrome 652549745 Active WILLIAM CABAN [employer] [address] [facility] [address] [place], [address], [facility] 4 22:49:38 Atheroscler osis of coronary artery without angina pectoris 8600209693270 03 Active 2020 WILLIAM CABAN [employer] [address] [place], [address], [facility] 4 08:26:46 Chronic anxiety 888567183 Active 2023 WILLIAM CABAN [employer] [address] [place], [address], [facility] 22:49:35 Gastropares is syndrome 436594414 Active 2023 WILLIAM CABAN APRN [address], [place], [address], [facility] 22:49:41 Muscle spasm of cervical muscle of neck 947723867514 Active 2023 WILLIAM CABAN APRN [address], [place], [address], [facility] 19:46:27 Chronic obstructive pulmonary disease 32179728 Active 2023 WILLIAM CABAN APRN [address] [facility] [address] [facility], [place], [address], [facility] 19:46:11 Hypokalemia 22603178 Active 2023 WILLIAM CABAN APRN [address] [facility], [place], [address], [facility] 19:46:18 Essential hypertensio n 19868118 Active 2023 WILLIAM CABAN APRN [address] [facility] [address], [place], [address], [facility] 19:46:14 Chronic fatigue syndrome 94573833 Active 2023 WILLIAM CABAN APRN [address], [place], [address], [facility] 19:46:07 Obesity 070448886 Active 2023 WILLIAM CABAN [employer]OWEL [employer] [address], [place], [address], [facility] 19:46:30 Lumbar radiculopat hy 564897934 Active 2023 WILLIAM CABAN APRN [address] [facility] [address], [place], [address], [facility] 4 19:46:23 Chronic diastolic heart failure 312124771 Active 2023 WILLIAM CABAN [employer] [address] [facility] [address] [place], [address], [facility] 4 19:55:13 Problem Notes None recorded. Procedures Surgical History Date Name Laterality Status Provider Name and Address Organization Details Recorded Time 08/17/20 07 cholecystectomy completed [facility] 08/08/2024 16:15:47 08/18/20 00 ligation of fallopian tube completed [facility] 08/08/2024 16:14:39 delivery completed [facility] 08/08/2024 16:14:17 Stent placemt ante carotid completed [facility] 08/08/2024 16:15:08 Imaging Results None recorded. Procedure Notes None recorded. Medical Equipment None Reported. Allergies Allergen ID Allergen Name Allergen Category Reaction Reaction Severity Criticality Documentation Date Start Date Code Code System Note Provider Name and Address Organization Details Recorded Time 84663 Substance with sulfonami de structure and antibacte rial mechanism of action (substanc e) medicatio n Not available Not available Not available 08/08/2024 49041 8003 SNOMED dona coltharp [facility] 15:57:44 58576 Toradol medicatio n anaphylax is moderate high 08/08/2024 69881 RxNorm dona coltharp [facility] 15:58:31 30541 duloxetin e medicatio n Not available Not available Not available 08/08/2024 21750 RxNorm WILLIAM CABAN [employer] [address] [facility] [address], [address], [facility] 4 17:10:16 Medications Name Sig Start Date Stop Date Status Note LastModified by Organization Details LastModified Time verapamil ER (SR) 120 mg tablet,exte nded release TAKE 1 TABLET BY MOUTH TWICE A DAY 08/08 completed Not Available Not Available Not Available cyclobenzap rine 10 mg tablet TAKE ONE TABLET BY MOUTH THREE TIMES DAILY NEEDED MAY CAUSE DROWSINES S 08/08 completed Not Available Not Available Not Available furosemide 40 mg tablet Take 1 tablet EVERY DAY active Not Available Not Available No t Available methocarbam ol 500 mg tablet TAKE 2 TABLETS BY MOUTH 3 TIMES A DAY NEEDED FOR MUSCLE SPASM 08/08 completed Not Available Not Available Not Available atorvastati n 80 mg tablet TAKE ONE TABLET BY MOUTH ONCE DAILY AT dinner active Not Available Not Available No t Available venlafaxine ER 37.5 mg capsule,ext ended release 24 hr TAKE 1 CAPSULE BY MOUTH ONCE DAILY 08/08 completed Not Available Not Available Not Available potassium chloride ER 10 mEq capsule,ext ended release TAKE ONE CAPSULE BY MOUTH TWICE DAILY WITH FOOD active Not Available Not Available No t Available gabapentin 600 mg tablet TAKE ONE TABLET BY MOUTH THREE TIMES DAILY active Not Available Not Available No t Available doxycycline hyclate 100 mg capsule TAKE 1 CAPSULE BY MOUTH TWICE A DAY FOR 7 DAYS 09/13 completed Not Available Not Available Not Available venlafaxine 75 mg tablet TAKE 1 TABLET BY MOUTH ONCE DAILY 08/08 completed Not Available Not Available Not Available torsemide 20 mg tablet TAKE 1 TABLET BY MOUTH EVERY DAY 08/08 completed Not Available Not Available Not Available quetiapine 300 mg tablet TAKE ONE TABLET BY MOUTH at bedtime AND TAKE 1/2 TABLET ONCE DAILY NEEDED 10/05 completed Not Available Not Available Not Available tizanidine 2 mg tablet Take 2 tablets by mouth EVERY 6 HOURS as needed for muscle spasms --may cause drowsines s active Not Available Not Available No t Available azithromyci n 250 mg tablet TAKE 2 TABLETS BY MOUTH ON DAY 1, AND THEN TAKE 1 TABLET BY MOUTH ONCE A DAY ON DAY 2 THROUGH DAY 5 08/08 completed Not Available Not Available Not Available isosorbide mononitrate 20 mg tablet TAKE 1 TABLET BY MOUTH THREE TIMES DAILY 08/21 completed Not Available Not Available Not Available tizanidine 4 mg tablet TAKE ONE TABLET BY MOUTH EVERY 6 HOURS NEEDED FOR MUSCLE SPASMS MAY CAUSE DROWSINES S active Not Available Not Available No t Available benzonatate 200 mg capsule TAKE ONE CAPSULE BY MOUTH EVERY 8 HOURS NEEDED FOR COUGH. swallow whole. 08/29 completed Not Available Not Available Not Available hydrocodone 5 mg-acetamin ophen 325 mg tablet TAKE ONE TABLET BY MOUTH EVERY 6 HOURS NEEDED FOR PAIN MAY CAUSE DROWSINES S active Not Available Not Available No t Available prazosin 1 mg capsule TAKE ONE CAPSULE at bedtime NEEDED 08/08 completed Not Available Not Available Not Available promethazin e 25 mg rectal suppository active Not Available Not Available Not Available ondansetron HCl 4 mg tablet TAKE ONE TABLET BY MOUTH EVERY 6 HOURS NEEDED FOR NAUSEA AND VOMITING active Not Available Not Available No t Available prednisone 20 mg tablet TAKE 3 TABLETS BY MOUTH ONCE DAILY FOR 5 DAYS 08/08 completed Not Available Not Available Not Available clonazepam 0.5 mg tablet Take 1 tablet BY MOUTH THREE TIMES DAILY NEEDED FOR SIX DAYS MAY CAUSE DROWSINES S 08/08 completed Not Available Not Available Not Available medroxyprog esterone 5 mg tablet TAKE ONE TABLET EVERY DAY FOR 10 DAYS STARTING ON CYCLE DAY 15. WITH FOOD 08/08 completed Not Available Not Available Not Available gabapentin 400 mg capsule Take 1 capsule 3 times a day by oral route as directed for 30 days, for pain. 11/13 completed Not Available Not Available Not Available quetiapine 200 mg tablet TAKE 1 TABLET BY MOUTH EVERY DAY AT BEDTIME 10/05 completed Not Available Not Available Not Available clonazepam 1 mg tablet TAKE ONE TABLET BY MOUTH ONCE DAILY NEEDED FOR panic attack ONLY. MAY CAUSE DROWSINES S active Not Available Not Available No t Available potassium chloride ER 10 mEq tablet,exte nded release 09/19 completed Not Available Not Available Not Available hydroxyzine HCl 50 mg tablet TAKE 1 TABLET BY MOUTH EVERY 6 TO 8 HOURS NEEDED FOR ANXIETY UP TO A MAX OF 4 DOSES PER DAY. 08/08 completed Not Available Not Available Not Available oxcarbazepi ne 300 mg tablet TAKE 1 TABLET BY MOUTH EVERY DAY FOR 30 DAYS 08/08 completed Not Available Not Available Not Available prochlorper azine maleate 10 mg tablet TAKE ONE TABLET BY MOUTH THREE TIMES DAILY active Not Available Not Available No t Available omeprazole 40 mg capsule,del ayed release TAKE ONE CAPSULE BY MOUTH TWICE DAILY for stomach active Not Available Not Available No t Available tramadol 50 mg tablet TAKE ONE TABLET THREE TIMES DAILY NEEDED FOR PAIN 08/08 completed Not Available Not Available Not Available ondansetron 8 mg disintegrat ing tablet active Not Available Not Available N ot Available lamotrigine 25 mg tablet TAKE 2 TABLETS BY MOUTH EVERY DAY 08/08 completed Not Available Not Available Not Available nortriptyli ne 25 mg capsule TAKE 1 CAPSULE BY MOUTH EVERY DAY FOR 30 DAYS 08/08 completed Not Available Not Available Not Available verapamil 120 mg tablet TAKE ONE TABLET BY MOUTH TWICE DAILY DIRECTED 2024 active Not Available Not Available Not Avai lable isosorbide mononitrate ER 60 mg tablet,exte nded release 24 hr TAKE 1 TABLET BY MOUTH EVERY DAY 08/08 completed Not Available Not Available Not Available potassium chloride ER 20 mEq tablet,exte nded release(par t/cryst) Take 1 tablet EVERY DAY 09/19 completed Not Available Not Available Not Available lorazepam 0.5 mg tablet 08/08 completed Not Available Not Available Not Available metoclopram alicia 5 mg tablet Take 1 tablet 4 times a day by oral route as needed for 30 days, for stomach. 2024 active Not Available Not Available Not Avai lable promethazin e 12.5 mg rectal suppository INSERT 1 SUPPOSITO RY RECTALLY EVERY 6 HOURS NEEDED FOR NAUSEA AND VOMITING 08/08 completed Not Available Not Available Not Available trazodone 100 mg tablet take 1 tablets by oral route at bedtime active Not Available Not Available No t Available dicyclomine 20 mg tablet TAKE 1 TABLET BY MOUTH EVERY 6 HOURS NEEDED FOR ABDOMINAL CRAMPING. 08/08 completed Not Available Not Available Not Available doxycycline monohydrate 100 mg capsule TAKE 1 CAPSULE BY MOUTH TWICE DAILY FOR 7 DAYS 08/08 completed Not Available Not Available Not Available hydrocodone 7.5 mg-acetamin ophen 325 mg tablet TAKE ONE TABLET BY MOUTH EVERY SIX HOURS NEEDED FOR PAIN 08/08 completed Not Available Not Available Not Available nortriptyli ne 10 mg capsule Take 2 capsules at bedtime x 7-10 days then decrease to one per day for 7-10 days 08/08 completed Not Available Not Available Not Available cyanocobala min (vit B-12) 1,000 mcg/mL injection solution INJECT 1 ML SUBCUTANE OUSLY EVERY MONTH active Not Available Not Available No t Available trazodone 150 mg tablet TAKE ONE TABLET BY MOUTH ONCE DAILY at bedtime 08/08 completed Not Available Not Available Not Available oseltamivir 75 mg capsule TAKE 1 CAPSULE BY MOUTH EVERY 12 HOURS FOR 5 DAYS FOR INFLUENZA 08/08 completed Not Available Not Available Not Available promethazin e 25 mg tablet TAKE 1 TABLET BY MOUTH EVERY 8 HOURS NEEDED FOR NAUSEA 10/05 completed Not Available Not Available Not Available hydrochloro thiazide 12.5 mg capsule TAKE ONE CAPSULE BY MOUTH EVERY MORNING for blood pressure active Not Available Not Available No t Available nitroglycer in 0.4 mg sublingual tablet DISSOLVE 1 TABLET UNDER THE TONGUE EVERY 5 MINUTES NEEDED FOR CHEST PAIN. DO NOT EXCEED A TOTAL OF 3 DOSES IN 15 MINUTES. active Not Available Not Available No t Available gabapentin 300 mg capsule Take 1 capsule 3 times a day by oral route as needed. 08/21 completed Not Available Not Available Not Available chlordiazep oxide-clidi nium 5 mg-2.5 mg capsule TAKE 1 CAPSULE BY MOUTH THREE TIMES DAILY 08/08 completed Not Available Not Available Not Available hydroxyzine HCl 25 mg tablet TAKE 1 TABLET BY MOUTH DAILY NEEDED FOR ANXIETY/S LEEP 30 DAYS 08/08 completed Not Available Not Available Not Available acetaminoph en 300 mg-codeine 60 mg tablet TAKE 1 TAB BY MOUTH 1-3 TIMES A DAY NEEDED FOR SEVERE PAIN. DO NOT TAKE NEAR KLONOPIN 08/08 completed Not Available Not Available Not Available furosemide 20 mg tablet TAKE ONE TABLET BY MOUTH ONCE DAILY 08/08 completed Not Available Not Available Not Available ziprasidone 40 mg capsule TAKE 1 CAPSULE BY MOUTH EVERY EVENING 08/08 completed Not Available Not Available Not Available clomipramin e 50 mg capsule active Not Available Not Available Not Available ibuprofen 600 mg tablet TAKE ONE TABLET EVERY 6 HOURS WITH FOOD 08/08 completed Not Available Not Available Not Available scopolamine 1 mg over 3 days transdermal patch Apply 1 patch every 72 hours by transderm al route as needed for 30 days, for nausea/vo miting. 11/13 completed Not Available Not Available Not Available albuterol sulfate HFA 90 mcg/actuati on aerosol inhaler Inhale 2 puffs every 4 hours by inhalatio n route as needed for 30 days, for wheezing. active Not Available Not Available No t Available ziprasidone 60 mg capsule TAKE 1 CAPSULE BY MOUTH ONCE DAILY 08/08 completed Not Available Not Available Not Available ondansetron 4 mg disintegrat ing tablet TAKE ONE TABLET BY MOUTH EVERY 6 HOURS NEEDED nausea AND vomiting. 11/13 completed Not Available Not Available Not Available cefdinir 300 mg capsule TAKE ONE CAPSULE BY MOUTH TWICE DAILY for 10 days 08/08 completed Not Available Not Available Not Available fluticasone propionate 50 mcg/actuati on nasal spray,suspe nsion USE 1 SPRAY IN EACH NOSTRIL TWICE DAILY 08/08 completed Not Available Not Available Not Available prazosin 2 mg capsule TAKE TWO CAPSULES BY MOUTH at bedtime 08/08 completed Not Available Not Available Not Available nortriptyli ne 50 mg capsule TAKE ONE CAPSULE BY MOUTH ONCE DAILY 08/08 completed Not Available Not Available Not Available diazepam 5 mg tablet TAKE 1 TABLET BY MOUTH TWICE A DAY NEEDED FOR PANIC ATTACKS 08/08 completed Not Available Not Available Not Available amoxicillin 875 mg-potassiu m clavulanate 125 mg tablet TAKE ONE TABLET TWICE DAILY for 7 days WITH FOOD active Not Available Not Available No t Available azithromyci n 500 mg tablet TAKE ONE TABLET BY MOUTH daily FOR THREE DAYS. 08/08 completed Not Available Not Available Not Available escitalopra m 10 mg tablet TAKE ONE TABLET EVERY DAY 08/08 completed Not Available Not Available Not Available escitalopra m 20 mg tablet TAKE ONE TABLET BY MOUTH ONCE DAILY active Not Available Not Available No t Available duloxetine 60 mg capsule,del ayed release TAKE 1 CAPSULE BY MOUTH TWICE A DAY 08/08 completed Not Available Not Available Not Available aspirin 81mg po daily active Not Available Not Available No t Available ranolazine ER 500 mg tablet,exte nded release,12 hr Take 1 tablet TWICE DAILY active Not Available Not Available No t Available aripiprazol e 2 mg tablet TAKE ONE TABLET BY MOUTH ONCE DAILY. stop escitalop harvey active Not Available Not Available No t Available ondansetron HCl (PF) 4 mg/2 mL injection solution Take 8 mg by injection route as directed. 09/13 completed Not Available Not Available Not Available prasugrel HCl 10 mg tablet Take 1 tablet every day by oral route in the morning for 30 days, for cad. 2024 active Not Available Not Available Not Avai lable buprenorphi ne 12 mg-naloxone 3 mg sublingual film 08/08 completed Not Available Not Available Not Available potassium chloride ER 20 mEq tablet,exte nded release Take 1 tablet every day by oral route as directed for 30 days. 09/19 completed Not Available Not Available Not Available naloxone 4 mg/actuatio n nasal spray NEEDED USE 1 SPRAY INTO ONE NOSTRIL. CALL 911. REPEAT AFTER 2-3 MIN IF NO OR MINIMAL RESPONSE active Not Available Not Available No t Available Tiadylt ER 120 mg capsule,ext ended release 10/05 completed Not Available Not Available Not Available Vitals Date Recorded Body height Body mass index (BMI) Body weight Respiratory rate Oxygen saturation Oxygen saturation in Arterial blood by Pulse oximetry Body temperature Heart rate Systolic And Diastolic Provider Name and Address Organization Details Last Updated DateTime 5 172.72 cm 30.1 kg/m2 46138.0 1 g 18 /min 98 % 98 % 98.2 [degF] 82 /min 114/68 mm[Hg] [facility] 5 14:12:33 Date Recorded Body height Body mass index (BMI) Body weight Respiratory rate Oxygen saturation Oxygen saturation in Arterial blood by Pulse oximetry Body temperature Heart rate Systolic And Diastolic Provider Name and Address Organization Details Last Updated DateTime 5 172.72 cm 29.3 kg/m2 30263.3 3 g 18 /min 100 % 100 % 97.4 [degF] 74 /min 118/68 mm[Hg] [facility] 5 14:28:48 Date Recorded Body height Body mass index (BMI) Body weight Respiratory rate Body temperature Oxygen saturation Oxygen saturation in Arterial blood by Pulse oximetry Heart rate Systolic And Diastolic Provider Name and Address Organization Details Last Updated DateTime 4 172.72 cm 30.7 kg/m2 83735.6 6 g 18 /min 98 [degF] 98 % 98 % 72 /min 120/72 mm[Hg] dona ramirezendy [facility] 4 11:47:39 Date Recorded Body height Body mass index (BMI) Body weight Respiratory rate Oxygen saturation Oxygen saturation in Arterial blood by Pulse oximetry Body temperature Heart rate Systolic And Diastolic Provider Name and Address Organization Details Last Updated DateTime 4 172.72 cm 30.4 kg/m2 92093.1 9 g 18 /min 97 % 97 % 97.7 [degF] 77 /min 106/68 mm[Hg] dona venturaendy [facility] 4 16:24:33 Social History Question Answer Notes LastModified by Organizat ion Details LastModified Time Tobacco Smoking Status Current Every Day Smoker dona venturaabdirahman calderon, [facility] 08/08/2024 16:12:18 What Type Of Diet Are You Following? REGULAR Information not available 08/08/2024 Have There Been Any Changes To Your Family Or Social Situation? No Information not available 08/08/2024 What Is The Fluoride Status Of Your Home? Fluoridated Information not available 08/08/2024 What Was The Date Of Your Most Recent Tobacco Screening? 11/13/2024 Information not available 11/13/2024 How Many Children Do You Have? 3 Information not available 08/08/2024 Do You Have Any Pets? No Information not available 08/08/2024 What Is Your Relationship Status? Information not available 08/08/2024 Do You Use Your Seat Belt Or Car Seat Routinely? Yes Information not available 08/08/2024 Are You Sexually Active? Yes Information not available 08/08/2024 Do You Have Smoke And Carbon Monoxide Detectors In Your Home? Yes Information not available 08/08/2024 Are You Passively Exposed To Smoke? Yes Information not available 08/08/2024 How Much Tobacco Do You Smoke? 0.25 PPD Information not available 11/13/2024 Do You Use Sunscreen Routinely? Yes Information not available 08/08/2024 Has Tobacco Cessation Counseling Been Provided? Yes Information not available 08/08/2024 On What Date Was Tobacco Cessation Counseling Provided? 11/13/2024 Information not available 11/13/2024 How Many Years Have You Smoked Tobacco? 17 Information not available 08/08/2024 Sex: Unknown Functional Status Question Answer Note LastModified by Organizat ion Details LastModified Time Do you use any illicit or recreational drugs? No Information not available 08/08/2024 Do you or have you ever used any other forms of tobacco or nicotine? No Information not available 08/08/2024 What is your level of alcohol consumption? None Information not available 08/08/2024 Are you currently employed? Yes Information not available 08/08/2024 Do you have transportation difficulties? No Information not available 08/08/2024 Are you able to walk? YESWOREST Information not available 08/08/2024 Are you able to care for yourself independently? Yes Information not available 08/08/2024 What is your occupation? [employer] Information not available 08/08/2024 What is your exercise level? Occasional Information not available 08/08/2024 Mental Status Question Answer Note LastModified by Organization D etails LastModified Time Do you feel stressed (tense, restless, nervous, or anxious, or unable to sleep at night)? [id number] Information not available 08/08/2024 Family History Relationship Description Onset Age of this Age Resolved Age Notes LastModified by Organization Details LastModified Time Father Liver cell carcinoma [email or web address] Not available 2023 16:09:36 Father Hypertensive disorder pcoltharp Not available 2023 16:09:47 Mother Arthritis pcoltharp Not availab le 08/08/2024 16:10:07 Mother Essential hypertension pcoltharp Not available 02/2024 16:10:28 Mother Heart disease pcoltharp Not available 2023 16:10:38 Brother Cerebrovascu lar accident pcoltharp Not available 02/2024 16:10:51 Brother History of hypertension pcoltharp Not available 02/2024 16:11:20 Sister History of hypertension pcoltharp Not available 02/2024 16:11:20 Medical History Condition Response Coronary Artery Disease N Gout N Kidney Stones N HX Inpatient Psych Admission N Depression N COPD N Congestive Heart Failure N Parkinson's N Anxiety Disorder N Muscle, Joint, or Bone Problems N Vision or Eye Problems N Arthritis Y Serious Illness or Injuries N Seizures / Epilepsy N Blood Disease N Congenital Anomalies N Cancer N Stroke N Bladder or Kidney Problems N Hospital Admission other than N High Cholesterol Y Liver Disease N Fibromyalgia N Pulmonary Embolism / DVT N Kidney Disease N Prostate N Ear or Hearing Problems N ADD or ADHD N Thyroid Problems N Skin Problems N Anemia N Constipation N Diabetes N Bedwetting N Eczema, Hives, or other skin conditions N Tuberculosis N Pacemaker / Defibrillator N Diverticulitis N Dementia N Asthma N Allergies N GERD / Reflux N Heart Disease Y Hypertension Y Osteoporosis N Chicken Pox N Gynecological History Statement/Question Response Menses Monthly N Age at Menarche 13 Current Control Method None Obstetrics History GPAL:G 3 P 3 0 0 0 Type Value Full Term 3 Total 3 Past Encounters Encounter ID Performer Location Encounter Start Date Encounter Closed Date Diagnosis/Indication Diagnosis SNOMED-CT Code Diagnosis ICD10 Code Diagnosis Note [id number] WILLIAM CABAN RUDY [facility] [address] [place] [address] 08/08/2024 15:42:38 08/08/2024 17:46:44 Chronic pain syndrome 166110525 G89.4 -Patient denies active pain management contract with any provider.- Patient query on [place] Prescript[place] Drug Monitoring program shows multiple short term 3-5 day opioids prescribed /filled by multiple providers in the past year. This concern for opioid seeking behavior was discussed and patient stated that she would like to stay with one provider.- It is further discussed that due to patient's chronic pain history, it is highly advised to establish with pain management provider; patient agrees to referral back to [facility] Pain management clinic. -Pain management contract discussed, and agreed upon by provider and patient, signed by patient and scanned into [employer].-As of today there should not be any further prescripti ons from multiple providers, for multiple controlled substances , or in excessive amounts or frequencie s.-Must RTC each month for F2F for refills of controlled pain medication .-Discusse d with patient the use and prescribin g of controlled substances including prescripti on can not be filled any earlier than 30 days (or number of days that last Rx covered)-K eep in a secure location and not to share medication s with anyone because even if lost or stolen would be unable to provide new Rx until appropriat e time frame.-ENDY DMP will be reviewed prior to each prescripti on and patient is not to go to multiple providers or use multiple pharmacies for controlled substances .-Will need to bring pill bottle in for pill count. Will also be subjected to random drug screens and will be responsibl e for payment.-U DS is completed today.-Grace her admits she has naloxone nasal spray for emergent use if needed. Gastropare sis syndrome [id number] K31.84 -Patient has been followed by GI provider in [facility] [place]; she has not found one in her [facility] area of [facility].-Zuleika ent reports she has been on Librax in the past but due to chronic pain and opioid prescripti on, this is not advised since FDA warning on combinatio n use.-Will continue current regimen of metoclopra mide, omeprazole and daily Potassium replacemen t.-Referra l for GI specialty as discussed. Chronic anxiety 47412714 9 F41.9 -Patient is followed by provider with [facility] for her mental health medication s.-Continu e current regimen Atheroscle rosis of coronary artery without angina pectoris [id number] 08030 I25.10 -[facility] , patient to continue Baby asa. She admits she has SL TNG to use as needed for chest pain; to follow instructio ns as prescribed .-No chest pain or acute symptoms today. Hypertensive disorder 38 778747 I10 -Patient currently taking verapamil; patient admits that she has difficulty at times with her bp on the low end. She is advised to keep monitored at home. Would like to see these numbers at next appt.-Cont inue verapamil as prescribed . -Monitor for signs of elevated BP such has headaches, changes in vision, chest pain, palpitatio ns. RTC/ER if these occur. Lumbar radiculopathy 128 757011 M54.16 -Patient has been having right sided pain for several months, has worsened in the past few weeks.-Rep orts history of disc bulges in past, received interventi onal injections which helped temporaril y.-Unknown last MRI-Advise d to have new imaging to evaluate worsening pain with numbness. [id number] WILLIAM CABAN [address] [address] 08/21/2024 15:29:35 08/21/2024 16:50:29 Chronic pain syndrome 673667538 G89.4 -Patient query on [place] Prescript[place] Drug Monitoring program review shows no new controlled prescripti ons filled since last 7 day prescripti on of opioid by [facility] provider on 08.08.24.-P ending [facility] pain management PLANNED GIVING OFFICER appt.-Init ial UDS on 08.08.24 is negative for controlled or illegal substances .-Re-enfor angelica pain management agreement contract; one month hydro-apap given to take as needed every 6 hours as needed.-Winston ordoñez admits having naloxone nasal spray available for emergent use is needed. Gastropare sis syndrome 087247487 K31.84 -Pending GI specialty appointmen t.-To continue current regimen of metoclopra mide, omeprazole and daily Potassium replacemen t.-Will add trial of transderma l scopolamin e patch; indication s, directions and possible SE of reviewed. Atheroscle rosis of coronary artery without angina pectoris [id number] 78907 I25.10 -Has been followed by Dr. Barry and has a follow up in Sep 2024. Chronic anxiety 35162004 9 F41.9 Patient is followed by provider with [facility] for her mental health medication s.-Continu e current regimen [id number] [facility] [address] [place] [address] 08/29/2024 10:52:03 08/29/2024 13:32:23 Chronic pain syndrome 046568547 G89.4 -Pending [facility] pain management PLANNED GIVING OFFICER appt.-Zuleika ent query on [place] Prescript[place] Drug Monitoring program review shows no new controlled prescripti ons filled since last prescripti on of opioid by [facility] provider on 08.11.24.-I nitial UDS on 08.08.24 is negative for controlled or illegal substances .-Re-enfor angelica pain management agreement contract; one month hydro-apap given to take as needed every 6 hours as needed.-Winston ordoñez admits having naloxone nasal spray available for emergent use is needed.-[facility] RTC each month for F2F for refills of controlled pain medication -Discussed with patient the use and prescribin g of controlled substances including prescripti on can not be filled any earlier than 30 days (or number of days that last rx covered)-K eep in a secure location and not to share medication s with anyone because even if lost or stolen would be unable to provide new rx until appropriat e time frame.-ENDY DMP will be reviewed prior to each prescripti on and patient is not to go to multiple providers or use multiple pharmacies for controlled substances .-Will need to bring pill bottle in for pill count. Will also be subjected to random drug screens and will be responsibl e for payment.-U DS today Chronic anxiety 73057166 9 F41.9 -Followed by [facility] provider for POC-Denies acute s.s Atheroscle rosis of coronary artery without angina pectoris [id number] 90950 I25.10 Nausea 245155866 R11.0 Muscle spa sm of cervical muscle of neck 2266159489 04 M62.838 -A muscle spasm is sudden tightness and pain in your neck or back muscles. It may happen from overuse or an injury. Things like sleeping in an awkward way, bending, lifting, standing, or sitting can sometimes cause a spasm.-May use OTC ibuprofen or Tylenol per manufactur e dose and directions .-Alternat e heat with ice-Increa se fluid intake-To perform daily stretch and strengthen exercises to the specific area. Chest pain 92271021 R07. 9 -Patient denies pain today.-Has follow up appt. with Dr. Barry on 09.20.24; she is advised to call to add to cancellati on waiting list.-Re-e nforced emergent s.s to go directly to nearest ED: Severe sudden onset of chest pain, shortness of breath, severe JARRETT, loss of function, diff speech, or swallowing . Chronic ob structive pulmonary disease 15160924 J44.9 Hypokalemia 33091791 E87 .6 Essential hypertension 27696301 I10 -BP is controlled with current regimen verapamil, continue 120mg twice daily-Yarely tor bp, keep diary and bring with next appt. Gastropare sis syndrome 346546709 K31.84 -Pending GI specialty appointmen t.-To continue current regimen of metoclopra mide, omeprazole and daily Potassium replacemen t.-Will add trial of transderma l scopolamin e patch; indication s, directions and possible SE of reviewed. [id number] WILLIAM CABAN RUDY [facility] [address] [place] [address] 09/13/2024 15:55:45 09/13/2024 17:54:35 Chronic pain syndrome 447767036 G89.4 -Pending [facility] pain management PLANNED GIVING OFFICER appt; patient has spoken with office reporting they have her referral and will call her for an appt.-Zuleika ent query on [place] Prescript[place] Drug Monitoring program review shows no new controlled prescripti ons filled since last prescripti on of opioid by [facility] provider on 08.29.24.- Initial UDS on 08.08.24 is negative for controlled or illegal substances .-Continue current POC medication of tizanidine 4mg and opioid hydro/apap 5/325 as prescribed .-Discusse d and reviewed naloxone reversal agent, indication s, directions and possible SE to keep on hand in event of accidental overdose, it is recommende d by CDC and CAT (National institute on drug abuse). https://ni da.nih.gov /-Patient admits naloxone agent is on hand for emergency use if needed.-Re peat UDS today Obesity 953513242 E66.09 Chronic fa tigue syndrome 51275045 R53.82 -Continue monthly B12 injections Lumbar radiculopathy 128 361860 M54.16 -Pending PA approval for MRI, it has been submitted to insurance. -Discussed with patient other recommende d modalities , patient has failed NSAIDS, ice and heat, home exercise, and interventi onal steroid injections ; she is currently on opioids and muscle relaxants but continues to report uncontroll ed pain. She denies any kind of physical therapy (PT) or chiropract or treatment. -Declines PT Chronic anxiety 53512460 9 F41.9 -Followed by [facility] provider for POC-Denies acute s.s Chronic di astolic heart failure 881580095 I50.32 -Has been followed by [facility] cardiology -Today she reports that she has decided to change and establish with [facility], she confirmed she called and RS her appt with [facility] to see RUDY Joe on 10.03.24 Essential hypertension 69556961 I10 -BP is controlled with current regimen verapamil, continue 120mg twice daily-Yarely tor bp, keep diary and bring with next appt. History of thrombophlebitis 743745532 Z86.72 -Advised to complete antibiotic s as prescribed Hypokalemia 45574741 E87 .6 -Stable levels with replacemen t dosing-Rev iewed with patient high potassium foods to increase-W ill repeat labs with next visit [id number] [facility] [address] [place] [address] 10/05/2024 13:58:37 10/05/2024 16:05:17 Gastroparesis syndrome 183942571 K31.84 -Pending GI specialty appointmen t; Next appt is 11.02.24-To continue current regimen of metoclopra mide, omeprazole and daily Potassium replacemen t.-Will add trial of transderma l scopolamin e patch; indication s, directions and possible SE of reviewed. Chronic pain syndrome 37 0839707 G89.4 -Pending [facility] pain management PLANNED GIVING OFFICER appt on 10.18.24-Winston ordoñez query on [place] Pres[place] Drug Monitoring program review shows no new controlled prescripti ons filled since last 30 day prescripti on of opioid by [facility] provider on 09.06.24.-M ost recent UDS on Sep 13 2024 is consistent for opioids and benzo medication s prescribed .-Continue current POC medication of tizanidine 4mg and opioid hydro/apap 5/325 as prescribed .-Patient admits naloxone agent is on hand for emergency use if needed Essential hypertension 73284684 I10 -BP is controlled with current regimen verapamil, continue 120mg twice daily-Yarely tor bp, keep diary and bring with next appt. Atheroscle rosis of coronary artery without angina pectoris 3885056959 63896 I25.10 -Had to RS with [facility] for 1.20.25 Hypokalemia 96044308 E87 .6 -Stable levels with replacemen t dosing-Rev iewed with patient high potassium foods to increase-W ill repeat labs with next visit Chronic ob structive pulmonary disease 87527219 J44.9 -Chronic controlled with current medication s Albuterol rescue MDI as needed for short of breath.- To keep rescue MDI on person.-Av oid triggers-R eport to nearest ED or call 911 if uncontroll ed SOB, chest pain, high fever, new or worsening of swelling in legs or abdominal area Allergic rhinitis 054472 04 J30.89 -Discussed physical exam findings not likely bacterial, will treat symptomati herberth viral or allergic cause-Zuleika ent has fluticason e nasal spray at home, has not been using, recommende d to start using twice a day for 7 days, then daily and as needed for seasonal allergy prevention and flares-Adv ised patient to take OTC antihistam ine and decongesta nt; ie Caritin D, Advil Sinus D, tiffanie D, Nyquil at night-OTC Tylenol alternatin g with Motrin as indicated for discomfort or fever-May use hot compresses for sinus discomfort -Increase water intake, use a cool humidifier [id number] WILLIAM CABAN APRN [facility] [address] [place] [address] 11/13/2024 14:16:50 11/13/2024 16:55:36 Chronic fatigue syndrome 78775514 R53.82 -Continue monthly B12 injections Chronic pain syndrome 37 4965887 G89.4 -Patient has had to RS pain management due to bad weather-Winston ordoñez query on [place] Prescript[place] Drug Monitoring program review shows no new controlled prescripti ons filled since last 30 day prescripti on of opioid by [facility] provider on - Most recent UDS on Sep 13 2024 is consistent for opioids and benzo medication s prescribed .-Continue current POC medication of tizanidine 4mg and opioid hydro/apap 5/325 as prescribed .-Will increase gabapentin to 600mg TID from 400mg-Zuleika ent admits naloxone agent is on hand for emergency use if needed Gastropare sis syndrome 981210187 K31.84 -Pending GI specialty appointmen t; Next appt is 11.02.24-To continue current regimen of metoclopra mide, omeprazole and daily Potassium replacemen t.-Will add trial of transderma l scopolamin e patch; indication s, directions and possible SE of reviewed. Atheroscle rosis of coronary artery without angina pectoris [id number] 79713 I25.10 -Reports she has a RS appt. with [facility] clinic on 11.15.24 Hypokalemia 86554013 E87 .6 -Stable levels with replacemen t dosing-Rev iewed with patient high potassium foods to increase Chronic depression 30335 0009 F32.1 -Reports doing well on current regimen-De nies homicidal or suicidal ideation-D enies acute s.s-Contin ue trazodone 100mg 1-3tabs at HS for rest Essential hypertension 34521728 I10 -BP is controlled with current regimen verapamil, continue 120mg twice daily-Yarely tor bp, keep diary and bring with next appt. [id number] WILLIAM CABAN [facility] [address] [place] [address] 12/11/2024 13:40:52 12/11/2024 17:51:10 Chronic pain syndrome 057070680 G89.4 -See HPI-Multip le documents in [place] to local ED to show this patient is showing addictive and drug-seeki ng behavior for opioids.-S he was initially informed [facility] will continue her routine medication s, but no further pain medication s, she declines this. Letter of discharge will be sent to patient. Chronic di astolic heart failure 131323604 I50.32 -She is establishe d with cardiology , Dr. Goran Barry in [place] . Chronic anxiety 92283510 9 F41.9 -Followed by [facility] provider for POC Health Concerns Section Related Observation LastModified by Organization Detai ls LastModified Time None Recorded Concern Status LastModified by Organization Details LastModified Time None Recorded Advance Directives Directive None Recorded Payers Insurance Date Sequence Insurance Name Policy Number Policy Saunders Covered Member ID Saunders Member ID Guarantor Name 04/19/2025 1 BRITTNEY [employer]ADY - ESSENTIAL CARE 2 (PPO) Deidre Bunch [id number] Deidre Bunch Notes Date Note Type Note Provider Name and Address Organization Details Recorded Time 08/29/2024 text/html 39 Y/O FM presents to clinic today for a F/U from ER visit last night at 8:30 released her at 2:00 AM told her to go to her PCP. Pt reports that she was having chest pain on her left side radiating across to right shoulder that started around 6:00 PM yesterday. She reportedly has been seen in local ED without any further work up requested and has been sent home told that ekg and troponin are normal. She is having dizziness some when she stands up. She is concerned with 5 pound weight gain in past week. She does have shortness of breath, but relates this to her COPD, recently saw her stock clipper without any new recommendations. WILLIAM CABAN APRN [address] [place] [address] [address] [facility], [facility], [address], [facility] 09/12/2024 01:19:50 09/13/2024 text/html 39 Y/O FM presents to clinic with her for F./U and medication refill. She saw her campus manager Dr. Bill this morning at [facility]; reports no new recommendations. Pt. stated that she went to ED in [place] and they wanted to keep her and she left [place] because she was told her labs and ekg were normal and they couldn't do any more testing. The following day she reports she went to [facility] ED and was dx with a blood clot in her right arm from an infiltration of an IV. She was admitted overnight and dc on antibiotics. Denies any CP or SOB at this time. WILLIAM CABAN APRN [address] [facility] [address], [place], [phone], [facility] 09/19/2024 20:34:27 10/05/2024 text/html 39 Y/O FM presents to clinic today with her for a ER visit in [place] at [facility] on for CP, PVC's real bad, they released her did a chest Xray and said they did not know what was on the Xray could not explain it, so they brought the image CD with them. Then on they went home on the way stopped at [facility] in [place] did not find anything, then on the woke up and now she is having cough, headache, chills/low grade fever, sinus. Stated she was taken Tussin DM, tylenol, tizanidine and benadryl for the symptoms. Denies any CP at this time. WILLIAM CABAN TOWEL DISTRIBUTOR [address] [facility] [address], [place], [phone], [facility] 10/15/2024 23:56:39 11/13/2024 text/html 39 Y/O FM presents to clinic today for F/U and medication refills, stated that she has been down with gastroparesis for the past 6 weeks, stated that she went to the ER [facility]. Stated that she has been having bad H/a so she thinks that her B/P medicine is not working, stated this has been ongoing for over one week, stated that it has been running >140's/90. Denies any CP or SOB at this time. WILLIAM CABAN TOWEL DISTRIBUTOR [address] [facility] [address], [place], [phone], [facility] 12/11/2024 04:38:10 12/11/2024 text/html ROS as noted in the HPI Ms. Bunch presents to the clinic with her requesting only her pain medication refilled. Ms. Bunch is an established female patient that came to me in Aug 2024 several chronic problems asking for specialty referrals for her cardiac, GI and pain management. She was advised to see paint tinter for her pain, and initially referred to [facility] pain management. I had agreed to continue her pain management regimen until she was able to be seen and evaluated for further recommendations. After multiple times she rescheduled for different reasons she has failed to go to this referral. She has also been found to have frequent local facility ERs and left AMA after the provider refused to give her pain medication at her request. This morning specifically we have received records from [facility] in [place] and [facility] in [place] that she visited this am before coming to our clinic as a walk in stating she is out of her pain medications. These medical records were reviewed with patient, she was informed that this provider will no longer refill controlled pain medications. WILLIAM CABAN APRN [address] [place] [address] [place], [phone], [facility] - [facility] 12/21/2024 20:04:27 OBGyn Episode No OBEpisode recorded.
--- OUTSIDE RECORDS SUMMARY | 2025-04-29 23:10 | XMS_ITS | Clinical Summary ---
Author Organization [facility] Address [address] [place] [address] Phone Care Team Providers Care Deputy Director Name Role Phone System, Pcp Not In Primary Care Provider Unavail able Allergies Active Allergy Reactions Criticality Noted Date Comments Beta-Blockers (Beta-Adrenerg ic Blocking Agts) Nausea or Vomiting 03/31/2025 Morphine Hives 03/31/2025 Sulfa (Including Sulfonamide Antibiotics) Rash,Anaphylaxis High 05/20/2019 Sulfamethoxazole-Trimethoprim Unknown 2019 Ketorolac Rash Low 03/31/2025 Tramadol Anaphylaxis High 03/31/2025 Medications probiotic (TREE-Q) 8 billion cell capsule Take one capsule by mouth one (1) time a day. Active omeprazole (PRILOSEC) [address] capsule Take one capsule (40 mg total) by mouth one (1) time a day for 14 days 14 capsule 10/15/19 21 Active atorvastatin (LIPITOR) 80 MG tablet Take one tablet (80 mg total) by mouth one (1) time a day. Active furosemide (LASIX) 40 MG tablet Take one tablet (40 mg total) by mouth one (1) time a day. Active ranOLAzine (RANEXA) 500 MG 12 hr tablet Take one tablet (500 mg total) by mouth 2 (two) times a day. Active traZODone (DESYREL) 100 MG tablet Take one tablet to three tablets (100-300 mg total) by mouth nightly. Active nitroglycerin (NITROSTAT) 0.[address] one tablet (0.4 mg total) under the tongue every 5 (five) minutes as needed for chest pain. If pain is not relieved or worsens after 3 doses, seek immediate emergency medical attention (eg, call 911). Active HYDROcodone-acetam inophen (NORCO) 5-325 mg tablet Take one tablet by mouth 2 (two) times a day as needed for pain. Active magnesium 200 mg tablet Take two hundred mg by mouth one (1) time a day. Active clonazePAM (KLONOPIN) 1 MG tablet Take one tablet (1 mg total) by mouth 2 (two) times a day as needed for anxiety. Active metoclopramide HCl (REGLAN) 5 MG tablet Take one tablet (5 mg total) by mouth in the morning and one tablet (5 mg total) at noon and one tablet (5 mg total) in the evening and one tablet (5 mg total) before bedtime. Active naloxone (NARCAN) 4 mg/actuation nasal spray one spray by Nasal route Every 2 minutes as needed. 1 Blist Pack 03/31/20 25 025 Active Additional Information Patient taking differently:1 spray Nasal Every 2 min PRN,opioid overdose, Reported on 04/11/2025 ARIPiprazole (ABILIFY) 2 MG tablet Take one tablet (2 mg total) by mouth one (1) time a day. 12/08/19 25 Active chlorhexidine (PERIDEX) 0.12 % oral rinse Use as directed 15 mL in the mouth or throat 2 (two) times a day. 04/02/20 25 Active clomiPRAMINE (ANAFRANIL) 50 MG capsule Take one capsule (50 mg total) by mouth in the morning and at bedtime. 12/08/19 25 Active cyanocobalamin (VITAMIN B-12) 1,000 mcg/mL injection Inject 1 mL (1,000 mcg total) under the skin every 30 (thirty) days. 12/30/19 25 Active gabapentin (NEURONTIN) 600 MG tablet Take one tablet (600 mg total) by mouth in the morning and one tablet (600 mg total) at noon and one tablet (600 mg total) before bedtime. Active nicotine (NICODERM CQ) 21 mg/24 hr (daily patch) Place one patch onto the skin daily. Active ondansetron (ZOFRAN-ODT) 4 MG disintegrating tablet Dissolve one tablet (4 mg total) onto the tongue every 6 (six) hours as needed for nausea. 04/02/20 25 Active potassium chloride (MICRO-K) 10 mEq ER capsule Take one capsule (10 mEq total) by mouth 2 (two) times a day. 02/28/20 25 Active prasugreL HCl (EFFIENT) 10 mg tablet Take one tablet (10 mg total) by mouth every morning. Active sucralfate (CARAFATE) 1 gram tablet Take one tablet (1 g total) by mouth in the morning and one tablet (1 g total) at noon and one tablet (1 g total) in the evening and one tablet (1 g total) before bedtime. Active tiZANidine (ZANAFLEX) 4 MG tablet Take one tablet (4 mg total) by mouth every 6 (six) hours as needed (muscle spasms). Active verapamiL (CALAN) 120 MG tablet Take one tablet (120 mg total) by mouth 2 (two) times a day. Active loratadine (CLARITIN REDITABS) 10 mg disintegrating tablet Take 10 mg by mouth one (1) time a day Discontinu ed(Prescri ption Complete) ibuprofen (ADVIL,MOTRIN) 800 MG tablet Take 400 mg by mouth every 6 (six) hours as needed for pain Discontinu ed(Prescri ption Complete) lisinopriL (PRINIVIL) 5 MG tablet Take 5 mg by mouth one (1) time a day Discontinu ed(Prescri ption Complete) famotidine (PEPCID) 40 MG tablet Take one tablet (40 mg total) by mouth nightly 30 tablet 10/15/19 21 Discontinu ed(Dose adjustment ) prasugreL HCl (EFFIENT) 5 mg tablet Take two tablets (10 mg total) by mouth one (1) time a day. Discontinu ed(Dose adjustment ) verapamiL (CALAN-SR) 240 MG ER tablet Take one tablet (240 mg total) by mouth in the morning and at bedtime. Discontinu ed(Dose adjustment ) potassium chloride (KLOR-CON) 20 mEq oral packet Take one packet (20 mEq total) by mouth 2 (two) times a day. Discontinu ed(Dose adjustment ) TiZANidine (ZANAFLEX) 4 MG capsule Take one capsule (4 mg total) by mouth every 4 (four) hours as needed for muscle spasms. 025 Discontinu ed(Dose adjustment ) gabapentin (NEURONTIN) 300 MG capsule Take two capsules (600 mg total) by mouth in the morning and two capsules (600 mg total) at noon and two capsules (600 mg total) before bedtime. 025 Discontinu ed(Dose adjustment ) prochlorperazine (COMPAZINE) 5 MG tablet Take one tablet (5 mg total) by mouth every 6 (six) hours as needed for nausea. 20 tablet 03/31/20 25 025 magnesium oxide (MAG-OX) 400 mg (241.3 mg magnesium) tablet Take one tablet (400 mg total) by mouth one (1) time a day for 15 days. 15 tablet 04/11/20 25 025 potassium chloride (K-DUR) 20 MEQ ER tablet Take twenty mEq by mouth one (1) time a day for 7 days. 7 tablet 04/11/20 25 025 Active Problems Problem Noted Date Diagnosed Date CAD (coronary artery disease) 03/31/2025 HTN (hypertension) 03/31/2025 HLD (hyperlipidemia) 03/31/2025 CHF (congestive heart failure) (HCC ) 03/31/2025 Gastroparesis 03/31/2025 Anxiety 03/31/2025 Resolved Problems Problem Noted Date Diagnosed Date Resolved Date Chest pain 03/31/2025 03/31/2025 Encounters Date Type Department Care Team Description 04/11/2025 12:48 PM CDT - 04/11/2025 3:38 PM CDT Emergency [facility] Emergency Department [address] [phone] Rex Sanabria MD Chest pain, unspecified type; Hypokalemia; Hypomagnesemia; Drug-seeking behavior Discharge Disposition: Home 04/11/2025 Travel 04/05/2025 4:12 PM CDT - 04/05/2025 5:02 PM CDT Emergency [facility] Emergency Department [address] [phone] Tutu Song MD Chest pain, moderate coronary artery risk Discharge Disposition: Left Against Medical Advice 04/02/2025 Telephone [facility] Care Coordination Jennifer Pires [address] [id number] Mercedes Diez 03/31/2025 2:34 AM CDT - 03/31/2025 4:03 PM CDT Hospital Encounter [facility] [address] [id number] Skyla Mills MD Dhami, Balreet Kaur, MD Chest pain, unspecified type; Unstable angina pectoris (HCC ) Discharge Disposition: Home 03/31/2025 Travel from Last 3 Months Social History Tobacco Use Types Packs/Day Years Used Date Smoking Tobacco: Every Day Cigarettes E-Cigarette Smokeless Tobacco: Never Tobacco Cessation:Ready to Q uit: Not Asked; Counseling Given: Not Answered Alcohol Use Standard Drinks/Week Comments No 0 (1 standard drink = 0.6 oz pur e alcohol) AUDIT-C Answer Date Recorded Q1: How often do you have a drink containing alc ohol? Never 10/15/2020 Average Number of Drinks Not on file 021 Frequency of Binge Drinking Not on file 10/04 BOC Food Insecurity Answer Date Recorde d Food/Housing/Utility/Transport/Financial Concern s Unrecognized value 03/31/2025 BOC Transportation Needs Answer Date Re corded Food/Housing/Utility/Transport/Financial Concern s Unrecognized value 03/31/2025 BOC Housing Stability Source Answer Henry e Recorded Food/Housing/Utility/Transport/Financial Concern s Unrecognized value 03/31/2025 BOC Utility Needs Source Answer Date Re corded Food/Housing/Utility/Transport/Financial Concern s Unrecognized value 03/31/2025 BOC Financial Resource Needs Answer Henry e Recorded Food/Housing/Utility/Transport/Financial Concern s Unrecognized value 03/31/2025 Intimate Partner Safety Answer Date Rec orded Feels Unsafe at Home or Work/School Unrecognized value 04/11/2025 Feels Threatened by Someone Unrecognized value 0 04/11/2025 Does Anyone Try to Keep You From Having Contact with Others or Doing Things Outside Your Home? 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 Gender Identity Not on file Sexual Orientation Not on file Last Filed Vital Signs Vital Sign Reading Time Taken Comments Blood Pressure 132/80 04/11/2025 1:37 PM CDT Pulse 108 04/11/2025 1:37 PM CDT Temperature 36.8 C (98.2 F) 04/11/2025 12:53 PM CDT Respiratory Rate 27 04/11/2025 1:37 PM CDT Oxygen Saturation 99% 04/11/2025 1:18 PM CDT Inhaled Oxygen Concentration - - Weight 83.9 kg (185 lb) 04/05/2025 4:16 PM CDT Height 170.2 cm (5' 7 ) 04/05/2025 4:16 PM CDT Body Mass Index 28.98 04/05/2025 4:16 PM CDT Plan of Treatment Health Maintenance Due Date Last Done Comments Pneumococcal Vaccine High Risk 1986 Annual Depression Screening 1997 DTap/Tdap/Td Vaccines (6 - Tdap) 1997 04/24/1991, 07/14/1988, 06/24/1987, Additional history exists Hepatitis C Antibody Screen 01/09/2004 Cervical Cancer Screening 2007 Influenza Vaccine 06/04/2025 07/24/2022, , 06/19/2016, Additional history exists Annual Physical 08/08/2025 08/08/2024 Procedures Procedure Name Priority Date/Time Associated Diagnosis Comments TROPONIN HIGH SENSITIVITY (90 MINUTES) Timed 04/11/2025 3:03 PM CDT EKG 12-LEAD Routine 04/11/2025 3:00 PM CDT EKG 12-LEAD ED DOCUMENTATION Routine 04/11/2025 3:00 PM CDT D-DIMER QUANTITATIVE STAT 04/11/2025 1:37 PM CDT PROBNP STAT 04/11/2025 1:16 PM CDT TROPONIN HIGH SENSITIVITY WITH REFLEXES STAT 04/11/2025 1:16 PM CDT MAGNESIUM STAT 04/11/2025 1:16 PM CDT COMPREHENSIVE METABOLIC PANEL STAT 04/11/2025 1:16 PM CDT CBC WITH DIFFERENTIAL STAT 04/11/2025 1:16 PM CDT XR CHEST PORTABLE STAT 04/11/2025 1:1 6 PM CDT EKG 12-LEAD STAT 04/11/2025 12:51 PM CDT EKG 12-LEAD ED DOCUMENTATION Routine 04/11/2025 12:51 PM CDT DRUG SCREEN URINE IPANEL STAT 04/05/2025 4:37 PM CDT URINALYSIS WITH MICROSCOPIC AND CULTURE IF POSITIVE STAT 04/05/2025 4:37 PM CDT XR CHEST PORTABLE STAT 04/05/2025 4:3 4 PM CDT TROPONIN HIGH SENSITIVITY WITH REFLEXES STAT 04/05/2025 4:27 PM CDT MAGNESIUM STAT 04/05/2025 4:27 PM CDT COMPREHENSIVE METABOLIC PANEL STAT 04/05/2025 4:27 PM CDT CBC WITH DIFFERENTIAL STAT 04/05/2025 4:27 PM CDT PROBNP STAT 04/05/2025 4:27 PM CDT HCG SERUM QUALITATIVE STAT 04/05/2025 4:27 PM CDT EKG 12-LEAD STAT 04/05/2025 4:21 PM CDT EKG 12-LEAD ED DOCUMENTATION Routine 04/05/2025 4:21 PM CDT ECHOCARDIOGRAM W CONTRAST IF NEEDED Routine 03/31/2025 8:52 AM CDT HEMOGLOBIN A1C Routine 03/31/2025 8:09 AM CDT POTASSIUM Add-On 03/31/2025 5:49 AM CDT THYROID STIMULATING HORMONE Add-On 03/31/2025 5:49 AM CDT LIPID PANEL Routine 03/31/2025 5:49 AM CDT TROPONIN HIGH SENSITIVITY (3 HOURS) Timed 03/31/2025 5:49 AM CDT DRUG SCREEN URINE IPANEL Routine 03/31/2025 5:39 AM CDT IP CONSULT TO RESPIRATORY CARE Routine 03/31/2025 4:45 AM CDT NASAL CANNULA OXYGEN Routine 03/31/2025 4:45 AM CDT PROBNP Add-On 03/31/2025 4:29 AM CDT TROPONIN HIGH SENSITIVITY (90 MINUTES) Timed 03/31/2025 4:29 AM CDT EKG 12-LEAD Routine 03/31/2025 4:28 AM CDT XR CHEST PORTABLE STAT 03/31/2025 3:0 9 AM CDT TROPONIN HIGH SENSITIVITY WITH REFLEXES STAT 03/31/2025 2:50 AM CDT MAGNESIUM STAT 03/31/2025 2:50 AM CDT COMPREHENSIVE METABOLIC PANEL STAT 03/31/2025 2:50 AM CDT CBC WITH DIFFERENTIAL STAT 03/31/2025 2:50 AM CDT EKG 12-LEAD ED DOCUMENTATION Routine 03/31/2025 2:42 AM CDT EKG 12-LEAD STAT 03/31/2025 2:38 AM CDT from Last 3 Months Results * Troponin High Sensitivity at 90 Minutes (04/11/2025 3:03 PM CDT) Only the most recent of2 resultswithin the time period is included. [facility] Troponin T High Sensitivity <6 <=14 ng/L 04/11/2025 3:26 PM CDT [facility] Blood Venipuncture / Unknown 04/11/2025 3:03 PM CDT 04/11/2025 3:06 PM CDT Narrative [facility] - 04/11/2025 3:26 PM CDT Biotin >1200 ng/mL can reduce Elecsys Troponin T Gen 5 (Terence Gen 5; [employer]) assay recovery, potentially leading to falsely low results in patients with suspected acute myocardial infarction (AMI). Rex Sanabria MD LAB BLOOD ORDERABLES Fin al Result [facility] [address] [place] [address] * EKG 12 lead in 90 minutes (04/11/2025 3:00 PM CDT) Only the most recent of5 resultswithin the time period is included. [facility] Vent Rate 99 BPM MUSE Atrial Rate 99 BPM MUSE CO Interval 154 ms MUSE QRS Interval 100 ms MUSE QT Interval 382 ms MUSE QTC Interval 490 ms MUSE P [place] 75 degrees MUSE R [place] 65 degrees MUSE T [place] 49 degrees MUSE Clinical Diagnosis Normal sinus rhythm Confirmed by MD Bertha, Nephertiti ([id number]) on 04/11/2025 7:06:09 PM MUSE 04/11/2025 3:00 PM CDT 04/11/2025 7:06 PM CDT Rex Sanabria MD ECG ORDERABLES Edited R esult - Final MUSE * EKG 12-LEAD ED DOCUMENTATION (04/11/2025 3:00 PM CDT) Only the most recent of4 resultswithin the time period is included. Rex Gonzales MD - 04/11/2025 3:00 PM CDT Rex Sanabria MD 04/11/2025 5:17 PM EKG 12 lead ED Documentation Date/Time: 04/11/2025 3:00 PM Performed by: Rex Sanabria MD Authorized by: Rex Sanabria MD Interpreted by ED physician Rhythm: sinus rhythm Rate: normal BPM: 99 QRS axis: normal Conduction: conduction normal ST Segments: ST segments normal T Waves: T waves normal Other findings: prolonged QTc interval Clinical impression: non-specific ECG Comments: Qtc 490 ms Rex Sanabria MD ECG ORDERABLES Final Re sult * D-dimer, quantitative (04/11/2025 1:37 PM CDT) [facility] D-dimer 0.45 <0.50 ug/ml FEU 04/11/2025 2:14 PM CDT [facility] Comment:The STA Liatest D-di gordon assay can be used to aid in the diagnosis of deep vein thrombosis (DVT) and Pulmonary Embolism (PE) disease. At a 0.50 ug/mL FEU cutoff value, sensitivity and negative predictive values in the range of 90-100% were obtained. Blood Venipuncture / Unknown 04/11/2025 1:37 PM CDT 04/11/2025 1:59 PM CDT Rex Sanabria MD LAB BLOOD ORDERABLES Fin al Result Performing Organization Address City/[facility]/ZIP Co de Phone Number [facility] [address] [address] * ProBNP (04/11/2025 1:16 PM CDT) Only the most recent of3 resultswithin the time period is included. Pathologist [facility] ProBNP 36 <125 pg/mL 04/11/2025 4:05 PM CDT [facility] Comment: [place] for Congestive Heart Failure Rule Out: Less than 300 pg/ml Rule In (<50 Years): Greater than or Equal to 450 pg/ml Rule In (50-75 Years): Greater than or Equal to 900 pg/ml Rule In (>75 Years): Greater than or Equal to 1800 pg/ml Blood Venipuncture / Unknown 04/11/2025 1:16 PM CDT 04/11/2025 1:24 PM CDT Rex Sanabria MD LAB BLOOD ORDERABLES Fin al Result [facility] [address] [place] [address] * X-Ray Chest Portable (04/11/2025 1:16 PM CDT) Only the most recent of3 resultswithin the time period is included. Anatomical Region Laterality Modality Chest X-ray 04/11/2025 1:36 PM CDT Impressions 04/11/2025 1:37 PM CDT Impression: Negative chest. Narrative 04/11/2025 1:37 PM CDT History: Chest pain Reference study April 05, 2025 Findings: Frontal portable view chest provided for review. The lungs are clear. No evidence of pulmonary edema or pleural effusion. The cardiac silhouette has normal appearance. Procedure Note Pieter Murray MD - 04/11/2025 History: Chest pain Reference study April 05, 2025 Findings: Frontal portable view chest provided for review. The lungs are clear. No evidence of pulmonary edema or pleural effusion. The cardiac silhouette has normal appearance. Impression: Negative chest. Rex Sanabria MD XR IMG ORDERABLES Final Result * Troponin High Sensitivity with Reflexes (04/11/2025 1:16 PM CDT) Only the most recent of3 resultswithin the time period is included. Troponin T High Sensitivity <6 <=14 ng/L 04/11/2025 1:47 PM CDT [facility] Blood Venipuncture / Unknown 04/11/2025 1:16 PM CDT 04/11/2025 1:24 PM CDT Narrative [facility] - 04/11/2025 1:47 PM CDT Biotin >1200 ng/mL can reduce [employer] Troponin T Gen 5 (Terence Gen 5; [employer]) assay recovery, potentially leading to falsely low results in patients with suspected acute myocardial infarction (AMI). us Rex Sanabria MD LAB BLOOD ORDERABLES Fin al Result [facility] [address] [address] * (ABNORMAL) CBC with Differential (04/11/2025 1:16 PM CDT) Only the most recent of3 resultswithin the time period is included. WBC 9.3 5.0 - 10.0 K/uL 04/11/2025 1:27 PM CDT [facility] RBC 4.23 4.10 - 5.40 M/uL 04/11/2025 1:27 PM T [facility] Hemoglobin 11.3(L) 12.0 - 16.0 g/dL 04/11/2025 1:27 PM T [facility] Hematocrit 35.6(L) 37.0 - 47.0 % 04/11/2025 1:27 PM T [facility] MCV 84.2 80.0 - 97.0 fL 04/11/2025 1:27 PM CDT [facility] MCH 26.7(L) 27.0 - 32.0 pg 04/11/2025 1:27 PM CDT [facility] MCHC 31.7(L) 32.0 - 36.0 g/dL 04/11/2025 1:27 PM CDT [facility] RDW SD 56.1(H) 36.4 - 46.3 fL 04/11/2025 1:27 PM [facility] Platelet 288 150 - 500 K/uL 04/11/2025 1:27 PM [facility] MPV 11(H) 7 - 10 fL 04/11/2025 1:27 PM [facility] Absolute Neutrophil 6.5 2.5 - 7.5 K/uL 04/11/2025 1:27 PM [facility] Absolute Lymphocyte 2.1 1.0 - 4.0 K/uL 04/11/2025 1:27 PM [facility] Absolute Monocyte 0.66(H) 0.05 - 0.60 K/uL 04/11/2025 1:27 PM [facility] Absolute Eosinophil 0.08 0.05 - 0.50 K/uL 04/11/2025 1:27 PM [facility] Absolute Basophil 0.02 0.00 - 0.10 K/uL 04/11/2025 1:27 PM [facility] Absolute Immature Granulocytes 0.02(H) <=0.00 K/uL 04/11/2025 1:27 PM [facility] Neutrophil percent 69.1 50.0 - 75.0 % 04/11/2025 1:27 PM [facility] Lymphocyte percent 22.5 20.0 - 40.0 % 04/11/2025 1:27 PM [facility] Monocyte percent 7.1(H) 0.0 - 6.0 % 04/11/2025 1:27 PM [facility] Eosinophil percent 0.9 0.0 - 6.0 % 04/11/2025 1:27 PM [facility] Basophils Percent, Automated 0.2 0.0 - 1.0 % 04/11/2025 1:27 PM [facility] Immature Granulocytes percent 0.20(H) % 04/11/2025 1:27 PM [facility] Blood Venipuncture / Unknown 04/11/2025 1:16 PM CDT 04/11/2025 1:24 PM CDT Rex Sanabria MD LAB BLOOD ORDERABLES Fin al Result Performing Organization Address City/[facility]/ZIP Co de Phone Number [facility] [address] [place] [address] * (ABNORMAL) Magnesium (04/11/2025 1:16 PM CDT) Only the most recent of3 resultswithin the time period is included. Magnesium 1.6(L) 1.8 - 2.4 mg/dL 04/11/2025 1:47 PM CDT [facility] Blood Venipuncture / Unknown 04/11/2025 1:16 PM CDT 04/11/2025 1:24 PM CDT Rex Sanabria MD LAB BLOOD ORDERABLES Fin al Result Performing Organization Address City/[facility] Co de Phone Number [facility] [address] [place] [address] * (ABNORMAL) CMP (04/11/2025 1:16 PM CDT) Only the most recent of3 resultswithin the time period is included. Sodium 139 135 - 145 mmol/L 04/11/2025 1:47 PM CDT [facility] Potassium 3.1(L) 3.5 - 5.0 mmol/L 04/11/2025 1:47 PM CDT [facility] Chloride 99 98 - 107 mmol/L 04/11/2025 1:47 PM CDT [facility] Carbon Dioxide 25 21 - 32 mmol/L 04/11/2025 1:47 PM CDT [facility] Anion Gap 15 6 - 16 mmol/L 04/11/2025 1:47 PM CDT [facility] Glucose 94 70 - 110 mg/dL 04/11/2025 1:47 PM CDT [facility] BUN 6(L) 7 - 18 mg/dL 04/11/2025 1:47 PM T [facility] Creatinine 0.73 0.60 - 1.30 mg/dL 04/11/2025 1:47 PM [facility] BUN/Creatinine Ratio 8.2(L) 11.7 - 13.9 04/11/2025 1:47 PM [facility] Calcium 9.3 8.5 - 10.1 mg/dL 04/11/2025 1:47 PM [facility] Comment:Calcium measurements are adversely affected by the use of Omniscan during MRI. Analysis of calcium is not recommended for 12 to 24 hours after the use of the contrast agent. Protein total 7.6 6.4 - 8.2 g/dL 04/11/2025 1:47 PM [facility] Albumin 3.5 3.4 - 5.0 g/dL 04/11/2025 1:47 PM [facility] Bilirubin Total 0.4 0.0 - 1.0 mg/dL 04/11/2025 1:47 PM [facility] AST 11 7 - 34 U/L 04/11/2025 1:47 PM [facility] ALT 7(L) 16 - 62 U/L 04/11/2025 1:47 PM [facility] ALP 93 50 - 136 U/L 04/11/2025 1:47 PM [facility] eGFR 2020 CKD-EPI-cr 107.4 >60.0 mL/min/1.7 3m*2 04/11/2025 1:47 PM [facility] Blood Venipuncture / Unknown 04/11/2025 1:16 PM CDT 04/11/2025 1:24 PM CDT us Rex Sanabria MD LAB BLOOD ORDERABLES Fin al Result [facility] [address] [address] * (ABNORMAL) Urinalysis with Microscopic and Culture if Positive (04/05/2025 4:37 PM CDT) Color UA Yellow Yellow 04/05/2025 4:47 PM CDT [facility] Clarity UA Clear Clear 04/05/2025 4:47 PM CDT [facility] pH UA 6.0 5.0 - 8.0 04/05/2025 4:47 PM CDT [facility] Specific [place] UA 1.015 1.005 - 1.030 04/05/2025 4:47 PM CDT [facility] Glucose UA Negative Negative 04/05/2025 4:47 PM CDT [facility] Ketones UA Negative Negative 04/05/2025 4:47 PM CDT [facility] Bilirubin UA Negative Negative 04/05/2025 4:47 PM CDT [facility] Protein UA Negative Negative 04/05/2025 4:47 PM CDT [facility] Leukocyte Esterase UA Negative Negative 04/05/2025 4:47 PM T [facility] Nitrite UA Negative Negative 04/05/2025 4:47 PM [facility] Blood UA 1+(A) Negative 04/05/2025 4:47 PM [facility] Urobilinogen UA 0.2 0.2 - 1.0 E.U./dL 04/05/2025 4:47 PM [facility] RBC UA 19.2 <=23.0 RBC/ul 04/05/2025 4:47 PM [facility] WBC UA 5.8 <=28.0 WBC/ul 04/05/2025 4:47 PM T [facility] Squamous Epithelial Cells UA 14.0 <=31.0 Epi/ul 04/05/2025 4:47 PM T [facility] Hyaline Casts UA <1.41 <=2.00 Chair And Couch Maker/ul 04/05/2025 4:47 PM CDT [facility] Bacteria UA 154.2 <=941.0 Fran/ul 04/05/2025 4:47 PM CDT [facility] Urine MID-STREAM URINE SPECIMEN / Unknown Collection / Unknown 04/05/2025 4:37 PM CDT 04/05/2025 4:39 PM CDT us Mikie Rodgers PA-C URINE ORDERABLES Final Result [facility] [address] [place] [address] * (ABNORMAL) Drug Screen Urine Ipanel (04/05/2025 4:37 PM CDT) Only the most recent of2 resultswithin the time period is included. [facility] Amphetamines Urine, Screen Negative Negative 04/05/2025 4:57 PM CDT [facility] Barbiturates Urine, Screen Negative Negative 04/05/2025 4:57 PM CDT [facility] Benzodiazepines Urine, Screen Positive(A) Negative 04/05/2025 4:57 PM CDT [facility] Cannabinoids Urine, Screen Negative Negative 04/05/2025 4:57 PM CDT [facility] Cocaine Metabolite Urine, Screen Negative Negative 04/05/2025 4:57 PM CDT [facility] Fentanyl Urine, Screen Positive(A) Negative 04/05/2025 4:57 PM CDT [facility] Opiates Urine, Screen Positive(A) Negative 04/05/2025 4:57 PM CDT [facility] Phencyclidine (PCP) Urine, Screen Negative Negative 04/05/2025 4:57 PM CDT [facility] Creatinine Urine 62.10 10.00 - 300.00 mg/dL 04/05/2025 4:57 PM CDT [facility] Urine URINE SPECIMEN / Unknown Collection / Unknown 04/05/2025 4:37 PM CDT 04/05/2025 4:42 PM CDT Narrative [facility] - 04/05/2025 4:57 PM CDT This is a qualitative test and does not distinguish between amphetamine and methamphetamine. Confirmation is needed to distinguish between the two. Gas chromatography/mass spectrometry (GC/MS) is the preferred confirmatory method for this test. These results should be used for medical purposes only. Results not confirmed by GC/MS methods should not be used for non-medical purposes. DRUG CLASS NEGATIVE THRESHOLD Amphetamines 300 ng/ml Barbiturates 200 ng/ml Benzodiazepines 200 ng/ml THC 50 ng/ml Cocaine 300 ng/ml Fentanyl 5 ng/ml Opiates 300 ng/ml Phencyclidine 25 ng/ml This procedure is for screening only. If confirmations are needed, please order the individual drug and submit specimen. Mikie Rodgers PA-C URINE ORDERABLES Final Result Performing Organization Address [facility] Co de Phone Number [facility] [address] [place] [address] * hCG Serum Qualitative (04/05/2025 4:27 PM CDT) hCG qualitative Negative Negative 4:45 PM CDT [facility] Blood Venipuncture / Unknown 04/05/2025 4:27 PM CDT 04/05/2025 4:29 PM CDT Mikie Rodgers PA-C LAB BLOOD ORDERABLES F inal Result Performing Organization Address City/[facility] Co de Phone Number [facility] [address] [place] [address] * Echocardiogram Complete With Contrast if Needed (03/31/2025 8:52 AM CDT) 03/31/2025 8:22 AM CDT Narrative [facility] - 03/31/2025 7:18 PM CDT Transthoracic Echocardiography Report (TTE) Demographics Patient Name WALTER GLASGOW Gender Female Patient Number [id number] Race Visit Number [id number] Room Number 3221 Accession Number [id number] Referring Physician MD. 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 Procedure date Date: 03/31/2025Start: 08:22 AM Study Location: [facility] Non-Invasive Indications: Symptomatic Chest Pain. Patient Status: Routine Height: 66 inchesWeight: 195 poundsBSA: 1.98 m^2BMI: 31.47 kg/m^2 HR: 83 bpmBP: 122/57 mmHg Findings Left Ventricle The left ventricular cavity is normal in size. The wall thickness is normal. The systolic function is normal. The estimated left ventricular ejection fraction is 60-65%. The diastolic function is normal. There are no resting, regional wall motion abnormalities. Left Atrium The left atrium is normal in size. There is no visualized thrombus or mass. There is no PFO or ASD identified by color Doppler evaluation. Right Ventricle The right ventricle is normal in size and function. Right Atrium The right atrium is normal in size. There is no visualized mass/thrombus. Mitral Valve The mitral valve appears morphologically normal in structure based on 2D images. There is no Doppler evidence of mitral stenosis. There is trace physiologic mitral regurgitation. Aortic Valve The aortic valve appears structurally tri-leaflet based on 2D. There is no evidence of aortic stenosis visually by 2D nor color and spectral Doppler. There is no evidence of aortic regurgitation by color and spectral Doppler. Tricuspid Valve The tricuspid valve appears structurally normal based on 2D imaging. There is no evidence of stenosis. There is trace physiologic tricuspid regurgitation. Normal right ventricular systolic pressure. Pulmonic Valve The pulmonic valve is not well visualized, but based on spectral and color Doppler there is no evidence of pulmonic stenosis nor regurgitation. Pericardial Effusion No evidence of pericardial effusion. Pleural Effusion No evidence of pleural effusion. Miscellaneous The aortic root is normal in size. The ascending aorta is normal in size. IVC is normal in diameter with normal inspiratory collapse (the estimated CVP is 3mmHg). M-Mode/2D Measurements M-Mode/2D Measurements LV Diastolic Dimension: 4.75 cm LV Systolic Dimension: 3.05 cm LV Septum Diastolic: 0.84 cm LV Septum Systolic: 1.16 cm LV PW Diastolic: 0.92 cm LV PW Systolic: 1.35 cm AO Root Dimension: 2.74 cm LA Dimension: 3.12 cm GLS:-24.1 LVOT: 2.06 cm Doppler Doppler Measurements AV Peak Velocity: 155 cm/s MV Peak E-Wave: 126 cm/s AV Peak Gradient: 9.61 mmHg MV Peak A-Wave: 96.9 cm/s LVOT Peak Velocity: 126 cm/s MV E/A Ratio: 1.3 TR Velocity:245 cm/s TR Gradient:24.01 mmHg Estimated RAP:5 mmHg MR Velocity: 385 cm/s E' Velocity: 12.8 cm/s PV Peak Velocity: 104 cm/s PV Peak Gradient: 4.33 mmHg A' Velocity: 9.9 cm/s Conclusions Summary Normal left ventricular structure and function. Estimated LVEF 60-65%. Normal right ventricular size and function. The atria are normal in size. There are no hemodynamically significant valvular abnormalities. Signature Procedure Note Elise Nunez MD - 03/31/2025 Transthoracic Echocardiography Report (TTE) Demographics Patient Name WALTER GLASGOW Gender Female Patient Number [id number] Race Visit Number [id number] Room Number 3221 Accession Number [id number] Referring Physician MD. 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 Procedure date Date: 03/31/2025Start: 08:22 AM Study Location: [facility] Non-Invasive Indications: Symptomatic Chest Pain. Patient Status: Routine Height: 66 inchesWeight: 195 poundsBSA: 1.98 m^2BMI: 31.47 kg/m^2 HR: 83 bpmBP: 122/57 mmHg Findings Left Ventricle The left ventricular cavity is normal in size. The wall thickness is normal. The systolic function is normal. The estimated left ventricular ejection fraction is 60-65%. The diastolic function is normal. There are no resting, regional wall motion abnormalities. Left Atrium The left atrium is normal in size. There is no visualized thrombus or mass. There is no PFO or ASD identified by color Doppler evaluation. Right Ventricle The right ventricle is normal in size and function. Right Atrium The right atrium is normal in size. There is no visualized mass/thrombus. Mitral Valve The mitral valve appears morphologically normal in structure based on 2D images. There is no Doppler evidence of mitral stenosis. There is trace physiologic mitral regurgitation. Aortic Valve The aortic valve appears structurally tri-leaflet based on 2D. There is no evidence of aortic stenosis visually by 2D nor color and spectral Doppler. There is no evidence of aortic regurgitation by color and spectralDoppler. Tricuspid Valve The tricuspid valve appears structurally normal based on 2D imaging. There is no evidence of stenosis. There is trace physiologic tricuspid regurgitation. Normal right ventricular systolic pressure. Pulmonic Valve The pulmonic valve is not well visualized, but based on spectral andcolor Doppler there is no evidence of pulmonic stenosis nor regurgitation. Pericardial Effusion No evidence of pericardial effusion. Pleural Effusion No evidence of pleural effusion. Miscellaneous The aortic root is normal in size. The ascending aorta is normal insize. IVC is normal in diameter with normal inspiratory collapse (theestimated CVP is 3mmHg). M-Mode/2D Measurements M-Mode/2D Measurements LV Diastolic Dimension: 4.75 cm LV Systolic Dimension: 3.05 cm LV Septum Diastolic: 0.84 cm LV Septum Systolic: 1.16 cm LV PW Diastolic: 0.92 cm LV PW Systolic: 1.35 cm AO Root Dimension: 2.74 cm LA Dimension: 3.12 cm GLS:-24.1 LVOT: 2.06 cm Doppler Doppler Measurements AV Peak Velocity: 155 cm/s MV Peak E-Wave: 126 cm/s AV Peak Gradient: 9.61 mmHg MV Peak A-Wave: 96.9 cm/s LVOT Peak Velocity: 126 cm/s MV E/A Ratio: 1.3 TR Velocity:245 cm/s TR Gradient:24.01 mmHg Estimated RAP:5 mmHg MR Velocity: 385 cm/s E' Velocity: 12.8 cm/s PV Peak Velocity: 104 cm/s PV Peak Gradient: 4.33 mmHg A' Velocity: 9.9 cm/s Conclusions Summary Normal left ventricular structure and function. Estimated LVEF 60-65%. Normal right ventricular size and function. The atria are normal in size. There are no hemodynamically significant valvular abnormalities. Signature Evaristo Brewer DO 64 ECHO CV IMG ORDERABLES Final Result Performing Organization Address City/State/[facility] Co de Phone Number [facility] [address] [place] [address] * Hemoglobin A1c (03/31/2025 8:09 AM CDT) Hemoglobin A1c 5.6 3.8 - 5.6 % 03/31/2025 8:32 AM CDT [facility] Estimated average glucose 114 03/31/2025 8:32 AM CDT [facility] Blood Venipuncture / Unknown 03/31/2025 8:09 AM CDT 03/31/2025 8:15 AM CDT Laura W Park DO LAB BLOOD ORDERABLES Final Res ult Performing Organization Address [facility]/ZIP Co de Phone Number [facility] [address] [place] [address] * Troponin High Sensitivity at 3 Hours (03/31/2025 5:49 AM CDT) [facility] Troponin T High Sensitivity <6 <=14 ng/L 03/31/2025 6:37 AM CDT [facility] Blood Venipuncture / Unknown 03/31/2025 5:49 AM CDT 03/31/2025 6:15 AM CDT Narrative [facility] - 03/31/2025 6:37 AM CDT Biotin >1200 ng/mL can reduce [employer] Troponin T Gen 5 (Terence Gen 5; [employer]) assay recovery, potentially leading to falsely low results in patients with suspected acute myocardial infarction (AMI). Evaristo Brewer DO LAB BLOOD ORDERABLES Final Resul t Performing Organization Address [facility] Co de Phone Number [facility] [address] [place] [address] * TSH (03/31/2025 5:49 AM CDT) [facility] TSH 1.55 0.35 - 5.50 uIU/mL 03/31/2025 7:25 AM CDT [facility] Blood Venipuncture / Unknown 03/31/2025 5:49 AM CDT 03/31/2025 6:15 AM CDT Laura Tangela Park DO LAB BLOOD ORDERABLES Final Res ult Performing Organization Address City/[facility]/ZIP Co de Phone Number [facility] [address], [place] [address] * (ABNORMAL) Potassium (03/31/2025 5:49 AM CDT) [facility] Potassium 3.4(L) 3.5 - 5.0 mmol/L 03/31/2025 8:38 AM CDT [facility] Blood Venipuncture / Unknown 03/31/2025 5:49 AM CDT 03/31/2025 6:15 AM CDT us Laura Park DO LAB BLOOD ORDERABLES Final Res ult Performing Organization Address [facility]/ZIP Co de Phone Number [facility] [address] [address] [address] * (ABNORMAL) Lipid Panel (03/31/2025 5:49 AM CDT) Triglycerides 109 <150 mg/dL 03/31/2025 6:37 AM CDT [facility] Cholesterol 109 <=200 mg/dL 03/31/2025 6:37 AM CDT [facility] HDL 42(L) >50 mg/dL 03/31/2025 6:37 AM T [facility] Cholesterol/HDL Ratio 2.6 % 03/31/2025 6:37 AM T [facility] Comment: Average coronary risk ratio for males: 4.97 (Human male up to 199 years) Average coronary risk ratio for females: 4.44 (Human male up to 199 years) LDL Calculated 45 <=100 mg/dL 03/31/2025 6:37 AM T [facility] Blood Venipuncture / Unknown 03/31/2025 5:49 AM CDT 03/31/2025 6:15 AM CDT us Evaristo Brewer DO LAB BLOOD ORDERABLES Final Resul t Performing Organization Address City/[facility]/ZIP Co de Phone Number [facility] [address] [address] [address] from Last 3 Months Insurance [employer] Advance Directives For more information, please contact: [phone] (7AM - 5PM [facility]/[place], 7 days a week) * Full Code (Latest Code Status on File) Date Activated Date Inactivated Comments 03/31/2025 4:45 AM 03/31/2025 6:09 PM Care Teams Deputy Director Relationship Specialty Start Date End Date System, Pcp Not In PCP - General 03/31/25
--- OUTSIDE RECORDS SUMMARY | 2025-04-29 23:10 | XMS_ITS | Encounter Summary ---
Author Organization [facility] Address [address] [place] [address] Care Team Providers Care Registered Medical Assistant Name Role Phone None, Primary Care Provider Unavailabl e Encounter Details Date Type Department Care Team (Latest Contact Info) Description 04/23/2025 Travel Social History Tobacco Use Types Packs/Day Years Used Date Smoking Tobacco: Every Day Cigarettes Smokeless Tobacco: Never Alcohol Use Standard Drinks/Week Comments Never 0 (1 standard drink = 0.6 oz pur e alcohol) [facility] Utilities Answer Date Recorded In the past 12 months has th e electric, gas, oil, or water company threatened to shut off services in your home? No 09/21/2024 Hunger Vital Sign Answer Date Recorded Within the past 12 months, y ou worried that your food would run out before you got the money to buy more. Patient declined Within the past 12 months, t he food you bought just didn't last and you didn't have money to get more. Patient declined [facility] HRSN - Transportation Answer Date R [...] Sex Assigned at Female 10/01/2024 8:27 PM [employer]IC[employer] Legal Sex Female 4:36 PM [employer] OFFICER Gender Identity Female 10/01/2024 8:27 PM [employer] OFFICER Sexual Orientation Straight 10/01/2024 8: 27 PM [employer] OFFICER documented as of this encounter Functional Status documented as of this encounter Mental Status * Question Answer Entry Date Author Mental Status 0 04/23/2025 1:58 AM CDT Hilda Copeland, RN documented in this encounter Plan of Treatment Not on file documented as of this encounter Visit Diagnoses Not on filedocumented in this encounter Care Teams Registered Medical Assistant Relationship Specialty Start Date End Date Saqib, PCP - General 03/16/25 documented as of this encounter
--- OUTSIDE RECORDS SUMMARY | 2025-04-29 23:10 | XMS_ITS | Data Portability ---
Author Organization [facility], [facility]. Address [address] [facility] [place] [address] Care Team Providers Care University President Name Role Phone [facility] Primary Care Provider Assessment Encounter Date Assessment Date Assessment LastModified by Organization Details LastModified Time 05/17/2024 05/17/2024 No show to nick swanson Not available 05/21/2024 16:31:16 09/13/2024 09/13/2024 Patient left before being seen Not available 09/13/2024 18:21:15 Plan of Treatment Reminders Order Date Submit Date Provider Last Modified By Organization Details Last Modified Time Details Appointments FOLLOW UP 30 2024 03:00P Goran LIMON NP Not available Not available Not available Lab CBC 2020 021 [email or web address] [facility] (All Lab Orders), [address] [place], [address], 10/17/2021 12:13:54 CMP, serum or plasma 2020 021 [email or web address] [facility] (All Lab Orders), [address] [place], [address], 10/17/2021 12:13:54 pro BNP (pro B-type natriuret ic peptide), serum or plasma 2020 021 [id number] [facility] (All Lab Orders), [address] [place], [address], 10/17/2021 12:13:54 Referral overnight pulse oximetry referral [email or web address] [facility], [address] [place], [address], 04/02/2022 14:12:01 behaviora l health referral - Patient with increasin g anxiety with home and health stressors ; requests behaviora l health evaluatio n 2021 [email or web address] [facility], [address], [place], [address], 11/13/2021 14:02:14 Procedures None recorded. Surgeries None recorded. Imaging event monitor 2020 [facility] [address], [place], [address], 11/13/2021 13:56:06 Medication Orders Effient 10 mg tablet 2021 JOSE ROBERTO [facility], [facility] [address] [facility] [address], [place], [address], 01/28/2022 15:31:34 verapamil ER (SR) 120 mg tablet,ex tended release 2021 [email or web address] [facility], [address] [place] [address], [id number], 09/13/2024 12:31:40 furosemid e 20 mg tablet 2020 [email or web address] [facility], [facility] [address] [place], [id number], 09/23/2022 11:38:10 Patient TargetsNo targets recorded. Patient InstructionsNo instructions recorded. Reason for Referral Behavioral Health Referral f or Mixed anxiety and depressive disorder Patient with increasing anxiety with home and health stressors; requests behavioral health evaluation Referring Physician: Sima Gurrola, Cardiology, Encounter Date: 10/29/2021 Overnight Pulse Oximetry Ref erral for Diastolic heart failure Referring Physician: Paul Pope, Cardiology, Encounter Date: 01/28/2022 Results Created Date Observation Date Name Description Value Unit Range Abnormal Flag Note LastModifiedBy Organization Detail LastModifiedTime 09/30/20 21 09/30/2021 CBC PANEL - BLOOD BY AUTOM ATED COUNT leukocytes [#/volume] in blood by automated count 10.3 10*3/ uL 4.5-11 .0 Not Available [facility] ([facility]) [address] [place] [address], [id number], 09/30/2021 17:49:30 09/30/20 21 09/30/2021 CBC PANEL - BLOOD BY AUTOM ATED COUNT erythrocytes [#/volume] in blood by automated count 4.64 10*6/ uL 4.2-5. 4 Not Available [facility] ([facility]) [address] [place] [address], [address], 09/30/2021 17:49:30 09/30/20 21 09/30/2021 CBC PANEL - BLOOD BY AUTOM ATED COUNT hemoglobin [mass/volume ] in blood 13.2 g/dL 12.0-1 6.0 Not Available [facility] ([facility]) [address] [place] [address], [address], 09/30/2021 17:49:30 09/30/20 21 09/30/2021 CBC PANEL - BLOOD BY AUTOM ATED COUNT HCT vfr bld auto 40.3 % 36.0-4 8.0 Not Available [facility] ([facility]) [facility] [place], [address], 09/30/2021 17:49:30 09/30/20 21 09/30/2021 CBC PANEL - BLOOD BY AUTOM ATED COUNT MCV [entitic volume] by automated count 86.9 fL 80-100 Not Available [facility] ([facility]) [facility] [place], [address], 09/30/2021 17:49:30 09/30/20 21 09/30/2021 CBC PANEL - BLOOD BY AUTOM ATED COUNT MCH [entitic mass] by automated count 28.4 pg 27-32 Not Available [facility] ([facility]) [facility] [place], [address], 09/30/2021 17:49:30 09/30/20 21 09/30/2021 CBC PANEL - BLOOD BY AUTOM ATED COUNT MCHC [mass/volume ] by automated count 32.8 g/dL 31.0-3 7.0 Not Available [facility] ([facility]) [address] [place], [address], 09/30/2021 17:49:30 09/30/20 21 09/30/2021 CBC PANEL - BLOOD BY AUTOM ATED COUNT erythrocyte distribution width [ratio] by automated count 13.3 % 12-14. 5 Not Available [facility] ([facility]) [address] [place] [address], [address], 09/30/2021 17:49:30 09/30/20 21 09/30/2021 CBC PANEL - BLOOD BY AUTOM ATED COUNT platelets [#/volume] in blood by automated count 242 10*3/ uL 150-45 0 1648, 09/30 Not Available [facility] ([facility]) [facility] [place], [address], 09/30/2021 17:49:30 09/30/20 21 09/30/2021 CBC PANEL - BLOOD BY AUTOM ATED COUNT platelet mean volume [entitic volume] in blood by automated count 11.1 fL 9.1-13 .2 Not Available [facility] ([facility]) [facility] [place], [address], 09/30/2021 17:49:30 09/30/20 21 09/30/2021 NATRI URETI C PEPTI DE.B PROHO RMONE N-TER SHAW [MASS /VOLU ME] IN SERUM OR PLASM A natriuretic peptide.B prohormone N-terminal [mass/volume ] in serum or plasma 213.00 pg/mL 0-125. 00 high Not Available [facility] ([facility]) [address] [place] [address], [address], 09/30/2021 18:10:07 09/30/20 21 09/30/2021 COMPR EHENS WHIT METAB OLIC 2000 PANEL - SERUM OR PLASM A glucose [mass/volume ] in serum or plasma 97 mg/dL 74-106 Not Available [facility] ([facility]) [address] [place] [address], [address], 10/01/2021 12:18:21 09/30/20 21 09/30/2021 COMPR EHENS WHIT METAB OLIC 2000 PANEL - SERUM OR PLASM A urea nitrogen [mass/volume ] in serum or plasma 7 mg/dL 7-17 Not Available [facility] ([facility]) [address] [place] [address], [address], 10/01/2021 12:18:21 09/30/20 21 09/30/2021 COMPR EHENS WHIT METAB OLIC 2000 PANEL - SERUM OR PLASM A creatinine [mass/volume ] in serum or plasma 0.6 mg/dL 0.7-1. 2 low Not Available [facility] ([facility]) [address] [place] [address], [address], 10/01/2021 12:18:21 09/30/20 21 09/30/2021 COMPR EHENS WHIT METAB OLIC 2000 PANEL - SERUM OR PLASM A sodium [moles/volum e] in serum or plasma 141 mmol/ L 137-14 5 Not Available [facility] ([facility]) [address] [place] [address], [address], 10/01/2021 12:18:21 09/30/20 21 09/30/2021 COMPR EHENS WHIT METAB OLIC 2000 PANEL - SERUM OR PLASM A potassium [moles/volum e] in serum or plasma 3.7 mmol/ L 3.5-5. 1 Not Available [facility] ([facility]) [address] [place], [address], 10/01/2021 12:18:21 09/30/20 21 09/30/2021 COMPR EHENS HWIT METAB OLIC 1999 PANEL - SERUM OR PLASM A chloride [moles/volum e] in serum or plasma 103 mmol/ L 98-107 Not Available [facility] ([facility]) [facility] [place], [address], 10/01/2021 12:18:21 09/30/20 21 09/30/2021 COMPR EHENS WHIT METAB OLIC 2000 PANEL - SERUM OR PLASM A carbon dioxide, total [moles/volum e] in serum or plasma 28 mmol/ L 22-30 Not Available [facility] ([facility]) [address] [place], [address], 10/01/2021 12:18:21 09/30/20 21 09/30/2021 COMPR EHENS WHIT METAB OLIC 2000 PANEL - SERUM OR PLASM A calcium [mass/volume ] in blood 9.1 mg/dL 8.4-10 .2 Not Available [facility] ([facility]) [facility] [place], [address], 10/01/2021 12:18:21 09/30/20 21 09/30/2021 COMPR EHENS WHIT METAB OLIC 2000 PANEL - SERUM OR PLASM A anion gap in serum or plasma 10.0 mEq/L 7.0-16 .0 Not Available [facility] ([facility]) [facility] [place], [address], 10/01/2021 12:18:21 09/30/20 21 09/30/2021 COMPR EHENS WHIT METAB OLIC 2000 PANEL - SERUM OR PLASM A urea nitrogen/cre atinine [mass ratio] in blood 11.6 % 12.0-2 0.0 low Not Available [facility] ([facility]) [address] [place], [address], 10/01/2021 12:18:21 09/30/20 21 09/30/2021 COMPR EHENS WHIT METAB OLIC 2000 PANEL - SERUM OR PLASM A osmolality of serum or plasma by calculation 279 mOsm/ kg 261-28 0 Not Available [facility] ([facility]) [address] [place], [address], 10/01/2021 12:18:21 09/30/20 21 09/30/2021 COMPR EHENS WHIT METAB OLIC 2000 PANEL - SERUM OR PLASM A glomerular filtration rate/1.73 sq M.predicted [volume rate/area] in serum, plasma or blood by creatinine-b ased formula (CKD-epi) 118.1 mL 90.0-1 20 Not Available [facility] ([facility]) [address] [place], [address], 10/01/2021 12:18:21 09/30/20 21 09/30/2021 COMPR EHENS WHIT METAB OLIC 2000 PANEL - SERUM OR PLASM A bilirubin.to keiko [mass/volume ] in serum or plasma 0.40 mg/dL 0.2-1. 3 Not Available [facility] ([facility]) [address] [place], [address], 10/01/2021 12:18:21 09/30/20 21 09/30/2021 COMPR EHENS WHIT METAB OLIC 2000 PANEL - SERUM OR PLASM A aspartate aminotransfe rase [enzymatic activity/vol ume] in serum or plasma 18 U/L 14-36 Not Available [facility] ([facility]) [address] [place], [address], 10/01/2021 12:18:21 09/30/20 21 09/30/2021 COMPR EHENS WHIT METAB OLIC 2000 PANEL - SERUM OR PLASM A alanine aminotransfe rase [enzymatic activity/vol ume] in serum or plasma 12 U/L 0-34 Not Available [facility] ([facility]) [address] [place], [address], 10/01/2021 12:18:21 09/30/20 21 09/30/2021 COMPR EHENS WHIT METAB OLIC 2000 PANEL - SERUM OR PLASM A alkaline phosphatase [enzymatic activity/vol ume] in serum or plasma 107 U/L 38-126 Not Available [facility] ([facility]) [address] [place], [address], 10/01/2021 12:18:21 09/30/20 21 09/30/2021 COMPR EHENS WHIT METAB OLIC 2000 PANEL - SERUM OR PLASM A protein [mass/volume ] in serum or plasma 7.0 g/dL 6.3-8. 2 Not Available [facility] ([facility]) [address] [place], [address], 10/01/2021 12:18:21 09/30/20 21 09/30/2021 COMPR EHENS WHIT METAB OLIC 2000 PANEL - SERUM OR PLASM A albumin [mass/volume ] in serum or plasma 4.2 g/dL 3.5-5. 0 Not Available [facility] ([facility]) [address] [place], [address], 10/01/2021 12:18:21 09/30/20 21 09/30/2021 COMPR EHENS WHIT METAB OLIC 2000 PANEL - SERUM OR PLASM A globulin [mass/volume ] in plasma 2.8 g/dL 2.2-4. 2 Not Available [facility] ([facility]) [address] [place], [address], 10/01/2021 12:18:21 09/30/20 21 09/30/2021 COMPR EHENS WHIT METAB OLIC 2000 PANEL - SERUM OR PLASM A albumin/glob ulin [mass ratio] in serum or plasma 1.50 % 1.10-2 .20 Not Available [facility] ([facility]) [address] [place], [address], 10/01/2021 12:18:21 04/03/20 25 04/03/2025 HCG SERPL -ACNC choriogonado tropin [units/volum e] in serum or plasma NEGATI VE Not Available [facility] ([facility]) [address] [place], [address], 04/03/2025 11:21:34 09/05/20 21 08/28/2021 elect rocar diogr am No observ ation record ed. BARCODE Not Available 2020 10:05:36 09/05/20 21 09/01/2021 XR, chest No observ ation record ed. BARCODE Not Available 2020 10:05:38 09/05/20 21 08/29/2021 US, echoc ardio gram No observ ation record ed. BARCODE Not Available 2020 10:05:38 09/05/20 21 08/28/2021 imagi ng/di agnos tic resul t No observ ation record ed. BARCODE Not Available 2020 10:05:38 09/05/20 21 01/06/2018 CT, chest , w/o contr ast No observ ation record ed. BARCODE Not Available 2020 10:05:38 10/08/19 22 09/30/2021 elect rocar diogr am No observ ation record ed. [email or web address] Not Available 2021 17:51:50 10/31/19 22 10/29/2021 event monit or No observ ation record ed. [email or web address] [facility] [address], [place], [address], 11/21/2021 15:05:04 04/07/20 22 03/02/2022 NM, myoca rdial perfu zack scan No observ ation record ed. [address], [address], 04/08/2022 09:10:41 04/21/20 22 03/03/2022 elect twyla delatorre am No observ ation record ed. [facility]. [address] [place] [address], [phone], 04/21/2022 11:30:56 08/26/20 22 08/11/2022 imagi ng/di agnos tic resul t No observ ation record ed. BARCODE Not Available 2021 09:34:43 12/26/19 23 12/25/2022 imagi ng/di agnos tic resul t No observ ation record ed. [address], [address], 12/28/2022 08:16:41 03/09/20 24 12/25/2022 US, echoc ardio gram No observ ation record ed. Not Available 2023 15:28:04 04/12/20 25 04/05/2025 CT, angio gram, chest , w/ contr ast No observ ation record ed. [email or web address] Not Available 2024 10:35:25 04/12/20 25 03/26/2025 NM, myoca rdial perfu zack scan No observ ation record ed. [email or web address] Not Available 2024 12:03:15 04/12/20 25 03/08/2025 US, mari x, carot id arter y No observ ation record ed. [email or web address] Not Available 2024 10:40:46 04/12/20 25 03/25/2025 US, echoc ardio gram No observ ation record ed. [email or web address] Not Available 2024 12:03:15 Result Notes None recorded. Problems Name Problem SNOMED Code Status Onset Date Resolution Date Notes Provider Name and Address Organization Details Recorded Time Coronary arteriosclero sis 26444960 [facility] Dyspnea on exertion 34833452 [facility] 11:[facility] Edema of lower extremity 630820952 [facility] 11[facility] Insomnia 704856140 Active 2023 [facility] 11:56:37 Diastolic heart failure 391952759 Active 2023 [facility] 11:56:51 Tobacco user 175734421 Active 2023 [facility] 11:57:00 Problem Notes None recorded. Procedures Surgical History Date Name Laterality Status Provider Name and Address Organization Details Recorded Time Division of fallopian tube completed [facility] 09/04/2021 19:04:58 Caesarean Section completed [facility] 09/04/2021 19:05:14 Cholecystectomy completed [facility] 09/04/2021 19:05:33 Coronary Artery Stent completed [facility] 09/04/2021 19:10:54 Imaging Results None recorded. Procedure Notes None recorded. Medical Equipment None Reported. Allergies Allergen ID Allergen Name Allergen Category Reaction Reaction Severity Criticality Documentation Date Start Date Code Code System Note Provider Name and Address Organization Details Recorded Time 374272 Substance with sulfonami de structure and antibacte rial mechanism of action (substanc e) medicatio n Not available Not available Not available 09/04/2021 [id number] [facility]12 Medications Name Sig Start Date Stop Date Status Note LastModified by Organization Details LastModified Time verapamil ER (SR) 120 mg tablet,exte nded release TAKE 1 TABLET BY MOUTH TWICE A DAY 09/13 completed Not Available Not Available Not Available furosemide 40 mg tablet Take 1 tablet every day by oral route. active Not Available Not Available No t Available atorvastati n 40 mg tablet Take 1 tablet every day by oral route. 01/28 completed Not Available Not Available Not Available atorvastati n 80 mg tablet TAKE 1 TABLET BY MOUTH ONCE DAILY AT BEDTIME active Not Available Not Available No t Available venlafaxine ER 37.5 mg capsule,ext ended release 24 hr TAKE 1 CAPSULE BY MOUTH ONCE DAILY 09/13 completed Not Available Not Available Not Available venlafaxine ER 75 mg capsule,ext ended release 24 hr TAKE ONE CAPSULE BY MOUTH EVERY DAY 09/13 completed Not Available Not Available Not Available doxycycline hyclate 100 mg capsule TAKE 1 CAPSULE BY MOUTH TWICE DAILY FOR INFECTION . AVOID PROLONGED EXPOSURE TO SUNLIGHT. 09/12 completed Not Available Not Available Not Available venlafaxine 75 mg tablet TAKE 1 TABLET BY MOUTH ONCE DAILY 09/13 completed Not Available Not Available Not Available torsemide 20 mg tablet TAKE 1 TABLET BY MOUTH EVERY DAY 09/13 completed Not Available Not Available Not Available tizanidine 2 mg tablet TAKE ONE TABLET BY MOUTH EVERY 6 TO 8 HOURS NEEDED. must last 30 DAYS. 09/23 completed Not Available Not Available Not Available azithromyci n 250 mg tablet TAKE 2 TABLETS BY MOUTH ON DAY 1, AND THEN TAKE 1 TABLET BY MOUTH ONCE A DAY ON DAY 2 THROUGH DAY 5 09/13 completed Not Available Not Available Not Available ibuprofen 800 mg tablet 09/13 completed Not Available Not Available Not Available alprazolam 1 mg tablet TAKE 1 TABLET 3 TIMES DAILY 09/13 completed Not Available Not Available Not Available isosorbide mononitrate 20 mg tablet TAKE 1 TABLET BY MOUTH THREE TIMES DAILY 09/13 completed Not Available Not Available Not Available tizanidine 4 mg tablet TAKE ONE TABLET BY MOUTH THREE TIMES DAILY NEEDED active Not Available Not Available No t Available hydrocodone 5 mg-acetamin ophen 325 mg tablet TAKE 1 TABLET BY MOUTH EVERY 6 HOURS NEEDED FOR PAIN active Not Available Not Available No t Available prednisone 20 mg tablet TAKE 3 TABLETS BY MOUTH ONCE DAILY FOR 5 DAYS 09/13 completed Not Available Not Available Not Available isosorbide mononitrate ER 30 mg tablet,exte nded release 24 hr TAKE 3 TABLETS EVERY DAY 09/13 completed Not Available Not Available Not Available clonazepam 0.5 mg tablet TAKE 1 TABLET BY MOUTH 3 TIMES DAILY 09/13 completed Not Available Not Available Not Available quetiapine 200 mg tablet TAKE 1 TABLET BY MOUTH EVERY DAY AT BEDTIME 09/13 completed Not Available Not Available Not Available clonazepam 1 mg tablet TAKE 1 TABLET BY MOUTH THREE TIMES DAILY NEEDED FOR ANXIETY active Not Available Not Available No t Available hydroxyzine HCl 50 mg tablet TAKE 1 TABLET BY MOUTH EVERY 6 TO 8 HOURS NEEDED FOR ANXIETY UP TO A MAX OF 4 DOSES PER DAY. 09/13 completed Not Available Not Available Not Available clopidogrel 75 mg tablet Take 1 tablet every day by oral route. 09/05 completed Not Available Not Available Not Available omeprazole 40 mg capsule,del ayed release TAKE 1 CAPSULE BY MOUTH TWICE DAILY active Not Available Not Available No t Available aspirin 81 mg tablet,dandy yed release TAKE 1 TABLET BY MOUTH ONCE DAILY active Not Available Not Available No t Available Nicotrol 10 mg inhalation cartridge USE UP TO 6 CARTRIDGE S PER DAY FOR UP TO 3 WEEKS 09/13 completed Not Available Not Available Not Available quetiapine 100 mg tablet TAKE 1 TABLET AT BEDTIME 01/05 completed Not Available Not Available Not Available carvedilol 3.125 mg tablet TAKE ONE TABLET BY MOUTH TWICE DAILY. *START TAKING AFTER A MONTH* 09/23 completed Not Available Not Available Not Available verapamil 120 mg tablet TAKE 1 TABLET BY MOUTH TWICE DAILY active Not Available Not Available No t Available isosorbide mononitrate ER 60 mg tablet,exte nded release 24 hr Take 1 tablet every day by oral route. 09/13 completed Not Available Not Available Not Available famotidine 20 mg tablet TAKE ONE TABLET BY MOUTH TWICE DAILY WITH A MEAL. 09/13 completed Not Available Not Available Not Available metoclopram alicia 5 mg tablet TAKE 1 TABLET BY MOUTH 4 TIMES DAILY NEEDED FOR NAUSEA AND VOMITING active Not Available Not Available No t Available promethazin e 12.5 mg rectal suppository INSERT 1 SUPPOSITO RY RECTALLY EVERY 6 HOURS NEEDED FOR NAUSEA AND VOMITING 09/13 completed Not Available Not Available Not Available trazodone 100 mg tablet TAKE ONE TABLET BY MOUTH 3 times daily. active Not Available Not Available No t Available dicyclomine 20 mg tablet TAKE 1 TABLET BY MOUTH EVERY 6 HOURS NEEDED FOR ABDOMINAL CRAMPING. 09/13 completed Not Available Not Available Not Available benzonatate 100 mg capsule TAKE ONE CAPSULE BY MOUTH THREE TIMES A DAY FOR 10 DAYS 09/13 completed Not Available Not Available Not Available doxycycline monohydrate 100 mg capsule TAKE 1 CAPSULE BY MOUTH TWICE DAILY FOR 7 DAYS 09/12 completed Not Available Not Available Not Available Lamictal 25 mg tablet take 1 TABLET BY MOUTH DAILY FOR 7 DAYS, 1 TABLET TWICE DAILY x7 DAYS, 1 TABLET THREE TIMES DAILY x7 DAYS, THEN 2 TABLETS TWICE DAILY 09/13 completed Not Available Not Available Not Available hydrocodone 7.5 mg-acetamin ophen 325 mg tablet TAKE 1 TABLET EVERY 6 HOURS NEEDED 09/13 completed Not Available Not Available Not Available pantoprazol e 40 mg tablet,dandy yed release Take 1 tablet twice a day by oral route. 09/05 completed Not Available Not Available Not Available trazodone 150 mg tablet TAKE 1 TABLET BY MOUTH EVERY DAY AT BEDTIME FOR SLEEP 09/13 completed Not Available Not Available Not Available oseltamivir 75 mg capsule TAKE 1 CAPSULE BY MOUTH EVERY 12 HOURS FOR 5 DAYS FOR INFLUENZA active Not Available Not Available No t Available promethazin e 25 mg tablet TAKE 1 TABLET BY MOUTH EVERY 8 HOURS NEEDED FOR NAUSEA 09/13 completed Not Available Not Available Not Available Lamictal 100 mg tablet TAKE 1/2 TABLET (50 MG) BY MOUTH TWICE DAILY 09/13 completed Not Available Not Available Not Available Klonopin 2 mg tablet Take 1 tablet twice a day by oral route. active Not Available Not Available No t Available metoprolol tartrate 50 mg tablet Take 1 tablet twice a day by oral route. 09/13 completed Not Available Not Available Not Available indomethaci n 50 mg capsule TAKE 1 CAPSULE 3 TIMES DAILY NEEDED FOR pain active Not Available Not Available No t Available nicotine 21 mg/24 hr daily transdermal patch apply one PATCH each DAY 09/13 completed Not Available Not Available Not Available nitroglycer in 0.4 mg sublingual tablet DISSOLVE1 TABLET UNDER TONGUE EVERY 5 MINS NEEDED FOR CHEST PAIN UP TO 3 DOSES IN 15MINS. SEEK MEDICAL HELP IF NO RELIEF active Not Available Not Available No t Available gabapentin 300 mg capsule TAKE 1 CAPSULE BY MOUTH THREE TIMES DAILY active Not Available Not Available No t Available omeprazole 20 mg capsule,del ayed release TAKE 1 CAPSULE EVERY DAY 01/05 completed Not Available Not Available Not Available chlordiazep oxide-clidi nium 5 mg-2.5 mg capsule TAKE 1 CAPSULE BY MOUTH 2 TO 3 TIMES DAILY NEEDED FOR GASTROPAR ESIS. NO OTHER BENZODIAZ EPINES OR OPIODS WHILE TAKING. active Not Available Not Available No t Available acetaminoph en 300 mg-codeine 60 mg tablet TAKE 1 TABLET EVERY 6 HOURS NEEDED 09/13 completed Not Available Not Available Not Available lisinopril 5 mg tablet Take 1 tablet every day by oral route. 09/05 completed Not Available Not Available Not Available mupirocin 2 % topical ointment APPLY TO AFFECTED AREA TWICE DAILY FOR 10 DAYS 09/13 completed Not Available Not Available Not Available furosemide 20 mg tablet TAKE 1 TABLET BY MOUTH ONCE DAILY active Not Available Not Available No t Available ziprasidone 40 mg capsule 09/13 completed Not Available Not Available Not Available metoprolol succinate ER 25 mg tablet,exte nded release 24 hr Take 1 tablet every day by oral route. 09/23 completed Not Available Not Available Not Available methylpredn isolone 4 mg tablets in a dose pack TAKE DIRECTED WITH FOOD FOR 6 DAYS. 01/05 completed Not Available Not Available Not Available albuterol sulfate HFA 90 mcg/actuati on aerosol inhaler INHALE 2 TO 4 PUFFS BY MOUTH 4 TIMES DAILY NEEDED FOR COUGH FOR WHEEZING active Not Available Not Available No t Available ziprasidone 60 mg capsule TAKE 1 CAPSULE BY MOUTH ONCE DAILY 09/13 completed Not Available Not Available Not Available ondansetron 4 mg disintegrat ing tablet DISSOLVE ONE TABLET ON TONGUE EVERY TWELVE HOURS NEEDED FOR NAUSEA AND VOMITING active Not Available Not Available No t Available cefdinir 300 mg capsule TAKE 1 CAPSULE BY MOUTH EVERY 12 HOURS FOR 7 DAYS 09/13 completed Not Available Not Available Not Available ipratropium bromide 0.02 % solution for inhalation INHALE 2.5 ML EVERY 6 HOURS BY INHALATIO N ROUTE NEEDED. 09/13 completed Not Available Not Available Not Available hydroxyzine pamoate 25 mg capsule TAKE 1 CAPSULE BY MOUTH TWICE DAILY 09/13 completed Not Available Not Available Not Available aripiprazol e 5 mg tablet TAKE 1 TABLET EVERY DAY active Not Available Not Available No t Available Klor-Con M20 mEq tablet,exte nded release TAKE 1 TABLET BY MOUTH ONCE DAILY active Not Available Not Available No t Available bupropion HCl XL 150 mg 24 hr tablet, extended release TAKE 1 TABLET BY MOUTH EVERY DAY 09/13 completed Not Available Not Available Not Available metoprolol tartrate 25 mg tablet Take 1 tablet twice a day by oral route. 01/14 completed Not Available Not Available Not Available duloxetine 30 mg capsule,del ayed release TAKE ONE CAPSULE BY MOUTH EVERY DAY AT dinner 09/23 completed Not Available Not Available Not Available duloxetine 60 mg capsule,del ayed release Take 1 capsule every day by oral route. 09/13 completed Not Available Not Available Not Available Ranexa 500 mg tablet,exte nded release Take 1 tablet twice a day by oral route. active Not Available Not Available No t Available quetiapine 50 mg tablet TAKE 1 TABLET EVERY DAY 01/05 completed Not Available Not Available Not Available prasugrel HCl 10 mg tablet TAKE 1 TABLET BY MOUTH EVERY DAY active Not Available Not Available No t Available Brilinta 90 mg tablet Take 1 tablet twice a day by oral route. 01/28 completed Not Available Not Available Not Available potassium chloride ER 20 mEq tablet,exte nded release TAKE 1 TABLET BY MOUTH ONCE DAILY active Not Available Not Available No t Available Probiotic (B. coagulans) 10 billion cell capsule,del ayed release Take 1 capsule every day by oral route. active Not Available Not Available No t Available albuterol sulf 90 mcg/actuati on breath activated powder inhaler,sen sor Inhale 2 puffs every 4 hours by inhalatio n route as needed. 09/13 completed Not Available Not Available Not Available Vitals Date Recorded Body height Respiratory rate Body mass index (BMI) Body weight Heart rate Oxygen saturation Oxygen saturation in Arterial blood by Pulse oximetry Systolic And Diastolic Provider Name and Address Organization Details Last Updated DateTime 2 171.45 cm 16 /min 31.2 kg/m2 51657.6 6 g 96 /min 97 % 97 % 112/78 mm[Hg] Tally Tim [facility] 2 15:33:00 Date Recorded Body height Body mass index (BMI) Body weight Respiratory rate Heart rate Systolic And Diastolic Provider Name and Address Organization Details Last Updated DateTime 2 171.45 cm 25.9 kg/m2 18333.5 2 g 16 /min 84 /min 167/8 mm[Hg] Jocelyne Malone [facility] 2 14:58:31 Date Recorded Body mass index (BMI) Body height Provider Name and Address Organization Details Last Updated DateTime 09/13/2024 28.9 kg/m2 172.72 cm Mary Kay Turner [facility] 09/13/2024 12:23:46 Date Recorded Heart rate Respiratory rate Body weight Oxygen saturation Oxygen saturation in Arterial blood by Pulse oximetry Systolic And Diastolic Provider Name and Address Organization Details Last Updated DateTime 4 76 /min 16 /min 99717.5 5 g 98 % 98 % 99/61 mm[Hg] Page Juarez [facility] 4 12:22:00 Date Recorded Body height Body mass index (BMI) Body weight Respiratory rate Heart rate Systolic And Diastolic Provider Name and Address Organization Details Last Updated DateTime 1 171.45 cm 32.3 kg/m2 37726.8 1 g 16 /min 91 /min 122/72 mm[Hg] Jocelyne Malone [facility] 1 16:38:12 Social History Question Answer Notes LastModified by [employer] Details LastModified Time Tobacco Smoking Status Current Every Day Smoker [email or web address]/28[facility]2022 14:53:39 What Is Your Level Of Caffeine Consumption? None [email or web address] Information not available 01/28/2022 What Was The Date Of Your Most Recent Tobacco Screening? 01/28/2022 [email or web address] Information not available 01/28/2022 What Is Your Relationship Status? [email or web address] Information not available 01/28/2022 Sex: Unknown Functional Status Question Answer Note LastModified by [employer] Details LastModified Time Do you use any illicit or recreational drugs? No [email or web address] Information not available 01/28/2022 Do you or have you ever used any other forms of tobacco or nicotine? Yes [email or web address] Information not available 01/28/2022 What is your level of alcohol consumption? Occasional Information not available 01/28/2022 Are you currently employed? No [email or web address] Information not available 01/28/2022 Do you or have you ever used e-cigarettes or vape? Current user of electronic cigarettes [email or web address] Information not available 01/28/2022 Mental Status None recorded. Family History Relationship Description Onset Age of this Age Resolved Age Notes LastModified by Organization Details LastModified Time Father Heart disease [email or web address] Not available 2020 18:59:07 Father Heart failure Not available 2020 19:00:49 Father Hypertensive disorder [email or web address] Not available 2020 19:01:25 Mother Heart disease [email or web address] Not available 2020 18:59:07 Mother Heart failure Not available 2020 19:00:49 Mother Hypertensive disorder Not available 2020 19:01:26 Brother Hypertensive disorder [email or web address] Not available 2020 19:01:36 Paternal Grandmother Hypertensive disorder [email or web address] Not available 2020 19:01:48 Paternal Grandmother Heart failure [email or web address] Not available 2020 19:04:16 Sister Hypertensive disorder [email or web address] Not available 2020 19:01:56 Paternal Grandfather Hypertensive disorder Not available 2020 19:02:11 Paternal Grandfather Heart failure [email or web address] Not available 2020 19:03:24 Maternal Grandmother Hypertensive disorder [email or web address] Not available 2020 19:02:49 Maternal Grandmother Heart failure [email or web address] Not available 2020 19:03:40 Maternal Grandfather Hypertensive disorder [email or web address] Not available 2020 19:03:01 Maternal Grandfather Heart failure [email or web address] Not available 2020 19:03:52 Medical History Condition Response Coronary Artery Disease Y Hypothyroidism Y Anxiety Disorder Y Muscle, Joint, or Bone Problems Y Arthritis Y Acid Reflux (GERD) Y Liver Disease Y Headaches Y Migraines Y Heart Attack (GA) Y Back Problems Y GERD/Reflux Y Hypertension Y Gynecological HistoryNo gynecological history recorded. Obstetrics History GPAL:G 0 P 0 0 0 0 Past Encounters Encounter ID Performer Location Encounter Start Date Encounter Closed Date Diagnosis/Indication Diagnosis SNOMED-CT Code Diagnosis ICD10 Code Diagnosis Note [id number] Kary Pires APRN [facility]. [address] [place], [place] [address], [place] [address] 07/18/2018 18:25:24 07/20/2018 18:44:48 [id number] [facility]. [address] [place], [place] [address], [place] [address] 07/28/2018 19:24:37 07/29/2018 11:13:30 [id number] Kary Pires APRN [facility]. [address] [place], [place] [address], [place] [address] 08/01/2018 15:00:43 08/02/2018 10:53:43 [id number] Kary Pires APRN [facility]. [address] [place], [place] [address], [place] [address] 08/08/2018 14:47:01 08/08/2018 18:17:47 [id number] [facility] BODYWORK THERAPIST [facility]. [address] [place], [place] [address], [place] [address] 08/17/2018 16:32:29 08/17/2018 17:13:30 [id number] Kary Pires APRN [facility]. [address] [place], [place] [address], [place] [address] 09/05/2018 16:32:33 09/06/2018 08:08:33 [id number] Kary Pires APRN [facility]. [address] [place], [place] [address], [place] [address] 09/13/2018 14:12:22 09/13/2018 16:07:34 [id number] Alejandra James MD [facility]. [address] [place], [place] [address] [address] 09/29/2018 13:29:04 09/29/2018 14:50:15 [id number] Kary Pires APRN [facility]. [address] [place] [address] [place] [address] 11/01/2018 18:29:07 11/03/2018 08:51:42 [id number] Kary Pires APRN [facility]. [address] [place] [address] [place] [address] 11/18/2018 13:52:55 11/21/2018 08:28:25 [id number] Kary Pires APRN [facility]. [address] [place] [address] [place] [address] 12/09/2018 14:38:01 12/12/2018 08:28:39 [id number] Kary Pires APRN [facility]. [address] [place] [address] [place] [address] 12/13/2018 10:02:51 12/13/2018 11:40:57 [id number] Dennise Lizama APRN [facility]. [address] [place] [address] [place] [address] 12/27/2018 17:47:54 12/28/2018 17:39:19 [id number] Kary Pires APRN [facility]. [address] [place] [address] [place], [place] [address] 4 01/30/2019 14:01:14 01/30/2019 14:41:27 [id number] Alejandra James MD [facility]. [address] [place] [address] [place] [address] 02/07/2019 14:36:05 02/07/2019 16:04:50 [id number] Kary Pires APRN [facility]. [address] [place] [address] [place] [address] 4 02/13/2019 12:16:50 02/13/2019 12:55:13 [id number] Alejandra James MD [facility]. [address] [place] [address] [place] [address] 4 02/15/2019 15:58:48 02/15/2019 16:38:05 [id number] Kary Pires APRN [facility]. [address] [place] [address] 02/28/2019 16:23:03 02/28/2019 19:13:41 [id number] Kary Pires APRN [facility]. [place] [address] 4 03/20/2019 15:30:41 03/20/2019 19:00:02 [id number] Alejandra James MD [facility] [address] 03/30/2019 09:22:23 03/30/2019 11:24:56 [id number] Kary Pires APRN [facility] [address] 03/31/2019 15:53:50 03/31/2019 18:38:04 [id number] Kary Pires APRN [facility]. [facility] [place] [address] 04/10/2019 14:10:20 04/10/2019 15:27:14 [id number] Kary Pires APRN [facility]. [facility] [place] [address] 04/11/2019 13:58:16 04/11/2019 14:44:15 [id number] Kary Pires APRN [facility]. [facility] [place] [address] 05/08/2019 14:25:40 05/08/2019 18:26:39 [id number] MD [facility] [address] [facility] [place] [address] 07/20/2019 10:42:45 07/20/2019 12:36:08 [id number] Kary Pires APRN [facility]. [place] [address] 11/10/2019 19:36:22 11/13/2019 16:54:07 [id number] Kary Pires APRN [facility]. [address] [place] [address] [place] [address] 4 11/14/2019 17:50:43 11/15/2019 13:07:31 [id number] Yang Bishop APRN [facility]. [address] [place] [address] [place] [address] 4 11/23/2019 13:42:36 11/23/2019 16:04:11 [id number] Alejandra James MD [facility]. [address] [place] [address] [place], [place] [address] 12/14/2019 14:59:04 12/14/2019 16:17:00 [id number] Dennise Lizama APRN [facility]. [address] [place], [place] [address], [place] [address] 01/03/2020 09:56:17 01/04/2020 11:46:41 [id number] Alejandra James MD [facility]. [address] [place], [place] [address] [address] 02/05/2021 11:19:50 02/10/2021 13:11:22 [id number] Alejandra James MD [facility]. [address] [place], [place] [address], [place] [address] 02/12/2021 15:38:46 02/13/2021 15:54:47 [id number] Alejandra James MD [facility]. [address] [place], [place] [address], [place] [address] 03/13/2021 16:11:59 03/14/2021 08:29:45 [id number] Alejandra James MD [facility]. [address] [place], [place] [address] [address] 04/14/2021 11:46:56 04/15/2021 12:47:27 [id number] Alejandra James MD [facility]. [address] [place], [place] [address] [address] 4 04/21/2021 10:50:31 04/22/2021 13:04:37 [id number] Alejandra James MD [facility]. [address] [place], [place] [address] [address] 05/20/2021 16:10:24 05/23/2021 16:35:40 [id number] Pradeep Bunch MD [facility]. [address] [place], [place] [address] [address] 07/09/2021 09:53:19 07/14/2021 07:21:49 [id number] Deidre Curran APRN [facility] [address] [place] [address] [place] [address] 08/14/2021 10:48:11 08/15/2021 19:19:33 [id number] RENETTA MONTALVO APRN [facility] Medical [facility] [address] [place] [address] 08/19/2021 14:22:02 08/19/2021 15:16:56 [id number] Deid[facility]ran [facility] [address] [place] [address] [place] [address] 08/25/2021 11:05:12 08/25/2021 15:32:12 [id number] Alejandra James MD [facility]. [address] [place], [place] [address], [place] [address] 09/02/2021 10:04:15 09/02/2021 10:51:28 [id number] Edson Ortiz MD [facility] CArdiolog y. [address] [place] [address] [place] [address] 09/05/2021 09:55:44 09/05/2021 11:26:19 Coronary arteriosclerosis in [place] artery 4886297323 107 I25.10 Obesity 544755521 E66.9 Gastroesop hageal reflux disease without esophagitis 801657160 K21.9 Ventricula r fibrillation 73603955 I49.01 Post-disch arge follow-up 523803508 Z09 [id number] Alejandra James MD [facility]. [address] [place], [place] [address], [place] [address] 09/10/2021 16:13:34 09/11/2021 17:05:53 [id number] Deidre Curran APRN [facility] [address] [place] [address] [place] [address] 09/30/2021 12:12:17 10/01/2021 08:48:10 [id number] Sima Gurrola BODYWORK THERAPIST [facility] CArdiolog y. [address] [facility] [place] [address] 09/30/2021 16:11:54 10/01/2021 10:02:52 Coronary arteriosclerosis 95490480 I25.10 Dizziness 363452466 R42 Diastolic dysfunction 35 97265 I51.9 [id number] Kierra Goldman, [facility] [address] [place] [address] 10/15/2021 15:52:29 10/15/2021 16:37:14 [id number] Sima Gurrola BODYWORK THERAPIST [facility] CArdiolog y. [address] [facility] [place] [address] 10/29/2021 15:28:11 10/30/2021 08:50:46 Essential hypertension 28238977 I10 Mixed anxi ety and depressive disorder 952237081 F41.8 [id number] Alejandra James MD [facility]. [address] [place] [address] Adrián [place] [facility] [address] 12/09/2021 14:53:45 12/11/2021 14:03:31 [id number] Paul Pope Jr., [facility] CArdiolog y. [address] [facility] [place] [address] 01/28/2022 14:24:35 02/03/2022 16:35:47 Coronary arteriosclerosis 13655873 I25.10 pci to the LAD 08/2021 Dyspnea on exertion 6084 5006 R06.09 Edema of l ower extremity 317615487 R60.0 Difficulty sleeping 3013 20115 Z72.820 Diastolic heart failure 727023345 I50.32 Tobacco user 960261151 Z 72.0 [id number] Alejandra James MD [facility]. [address] [place] [address] [place]án [place] [address] 04/23/2022 15:38:14 05/11/2022 11:19:13 [id number] Alejandra James MD [facility]. [address] [place] [address] 05/20/2022 09:26:47 05/29/2022 13:49:48 [id number] Alejandra James MD [facility]. [address] [place], [place] [address], [place] [address] 07/09/2022 16:54:01 07/23/2022 14:12:01 [id number] Alejandra James MD [facility]. [address] [place], [place] [address], [place] [address] 07/21/2022 11:30:54 08/05/2022 18:16:07 [id number] Edson Ortiz MD [facility] CArdiolog [facility] [address] [place] [address], [place] [address] 05/17/2024 14:53:31 05/21/2024 16:31:22 [id number] [facility] [address] [place] [address], [place] [address] 05/26/2024 11:39:51 05/26/2024 14:21:31 [id number] [facility] [address] [place] [address] 05/29/2024 11:42:25 05/29/2024 12:48:23 [id number] [facility] [address] [place] [address] 06/15/2024 15:42:54 06/15/2024 17:57:36 [id number] Edson Ortiz MD [facility] CArdiolog [facility] [address] [place] [address], [place] [address] 09/13/2024 12:09:00 09/13/2024 18:21:21 Coronary arteriosclerosis 38500506 I25.10 ECHO (limited) . Left ventricula r ejection fraction, by visual estimation , is 60 to 65%.2. Normal RV systolic function.3 . Mild mitral valve regurgitat ion.4. No significan t change from prior echo. Dyspnea on exertion 6084 5006 R06.09 Edema of l ower extremity 238907866 R60.0 - continue furosemide 20 mg Diastolic heart failure 629473010 I50.32 Sinus rhythm with some episodes of sinus tachycardi a, no abnormal rhythms. Health Concerns Section Related Observation LastModified by Organization Detai ls LastModified Time None Recorded Concern Status LastModified by Organization Details LastModified Time None Recorded Advance Directives Directive None Recorded Payers Insurance Date Sequence Insurance Name Policy Number Policy Saunders Covered Member ID Saunders Member ID Guarantor Name 03/13/2025 1 [place] - ESSENTIAL CARE 2 (PPO) Deidre Bunch [id number] Deidre Bunch 03/13/2025 1 [place]ARE 2 (PPO) [id number] Deidre A Couch [id number] Deidre Bunch 03/13/2025 [place] Deidre Couch [id number] Deidre Bunch 03/13/2025 1 [place] EARLINE Deidre Couch [id number] Deidre Bunch 04/10/2025 1 [place] ESS[place]ARE 2 (PPO) Deidre Bunch [id number] Deidre Bunch 03/13/2025 2 [place] Deidre Bunch [id number] Deidre Bunch Notes Date Note Type Note Provider Name and Address Organization Details Recorded Time 09/30/2021 text/html This patient presents today with complaint of edema, hypotension, and dizziness. She states that she started coreg yesterday. She states that her blood pressure was in the 70's yesterday and she started swelling. She saw her PCP today and was encouraged to take at least 0.5 tab of the coreg. She states the dizziness has been constant since yesterday. She did walk 2.5 miles today and went shopping yesterday. She states that she had some chest pressure last night after taking the coreg. Nursing note: EKG performed, jxwe-hc-cxwe patient education given, Scheduling/coordinatin g any ancillary services ordered on this visitI have personally reviewed prior external chart notes and reviewed pertinent testing including EKG.Spouse presents with the patient and assists with providing the HPI. LEXI Farley - [facility] 09/30/2021 17:33:17 10/29/2021 text/html Patient present for follow up for CAD. Patient reports she continues to have palpitations, her BP is elevated in the evenings that causes her to have a JARRETT, chest pain that was relieved with TNG, occasion dizziness that she contributes to dehydration, and edema to BLE that is relieved with Lasix. She denies dyspnea or fatigue. Patient reports she has been been working out and more physically active without complication. She has been able to tolerate very strenous exercise daily without developing chest pain. Her event monitor shows occasional PVCs. Nursing note: EKG performed, zebk-eh-kout patient education given, Scheduling/coordinatin g any ancillary services ordered on this visitI have personally reviewed prior external chart notes and reviewed pertinent testing including EKG.Spouse presents with the patient and assists with providing the HPI. Sima calderon, [facility] 10/29/2021 17:34:53 01/28/2022 text/html Patient present for 3 month follow up for CAD. She reports an increase in shortness of breath and with edema. She denies any chest pain. Patient reports she has been been working out and more physically active but having sob. BP running 90/70s at home. Nursing note: xzci-kl-voos patient education given, Scheduling/coordinatin g any ancillary services ordered on this visit I have personally reviewed prior external chart notes, 08/2021 cath, and nurse ros. Paul Pope Jr., BODYWORK THERAPIST [address] [place], [address], [facility] 01/28/2022 15:26:50 05/17/2024 text/html Ms Hussein 39 y/o presents as follow up for medicaton refills. Nursing note: fxzh-ie-ifsh patient education given, Scheduling/coordinatin g any ancillary services ordered on this visit. I have discussed and reviewed all current medications with the patient at this visit. Recommendations and changes have been addressed in the AP.I have personally reviewed prior external chart notes and reviewed pertinent testing including: ECHO (limited) . Left ventricular ejection fraction, by visual estimation, is 60 to 65%.2. Normal RV systolic function.3. Mild mitral valve regurgitation.4. No significant change from prior echo. ECHO . Left ventricular ejection fraction, by visual estimation, is 60 to 65%.2. Normal left ventricular size and wall thicknesses, with normal systolic and diastolic function.3. Normal right ventricular size and systolic function.4. Mild mitral valve regurgitation.5. Intact interatrial and interventricular septa appear intact, with no echocardiographic evidence of intracardiac shunting. Cardiac Catherization 12/2022Widely patent stent in the mid LAD with no significant ISR Event monitor inus rhythm with some episodes of sinus tachycardia, no abnormal rhythms. If she has SOB, dizziness, can switch to plavix Edson Ortiz MD [address] [place], [address], [facility] 05/21/2024 16:31:19 09/13/2024 text/html 39 yr old female presents to the clinic for f/u and medication refills with a pmhx of dyspnea on exertion, edema and diastolic heart failure. Today, patient reports SOB, chest pain, back pain, jaw pain. Patient states that she has gained 30 pounds in the last month. Patient reports occasional edema. Patient has no other complaints today. Nursing note: wpil-rr-zsgk education given, scheduling/coordinatin g any ancillary services ordered on this visit. I have discussed and reviewed all current medications with the patient at this visit. Recommendations and changes have been addressed in the AP. I have personally reviewed prior external chart notes and reviewed pertinent testing including: ECHO (limited) . Left ventricular ejection fraction, by visual estimation, is 60 to 65%.2. Normal RV systolic function.3. Mild mitral valve regurgitation.4. No significant change from prior echo. Cardiac Catherization 12/2022Widely patent stent in the mid LAD with no significant ISR Event monitor inus rhythm with some episodes of sinus tachycardia, no abnormal rhythms. If she has SOB, dizziness, can switch to plavix Edson Ortiz MD [address] [place], [address], [facility] 09/13/2024 18:21:19 OBGyn Episode No OBEpisode recorded.
--- OUTSIDE RECORDS SUMMARY | 2025-04-29 23:11 | XMS_ITS | Data Portability ---
Author Organization [facility], Telemed[facility] Address [address] [id number] Assessment No assessment recorded. Plan of Treatment Reminders Order Date Submit Date Provider Last Modified By Organization Details Last Modified Time Details Appointments None recorded . Lab None recorded . Referral counseli ng referral 2022 023 ATHKELSI [facility], [address], [place], [address], 11:20:35 psychiat rist referral 2022 023 Berna Dueñas MD, [address], [address], [place], [address], 09:54:59 pain manageme nt referral 2022 023 [facility], [address], [place], [address], 14:52:48 Procedures None recorded . Surgeries None recorded . Imaging None recorded . Medication Orders clonazep am 0.5 mg tablet 2022 023 JOSE ROBERTO [facility], [address] [place], [address], 10:31:28 Seroquel 100 mg tablet 2022 023 JOSE ROBERTO [facility], [address] [place], [address], 10:31:27 omeprazo le 40 mg capsule, delayed release 2022 023 JOSE ROBERTO [facility], [address] [place], [address], 10:31:27 gabapent in 300 mg capsule 2022 023 JOSE ROBERTO [facility], [address] [place], [address], 10:31:27 Patient TargetsNo targets recorded. Patient InstructionsNo instructions recorded. Reason for Referral Counseling Referral for Bipo lar disorder Referring Physician: Francesco Riley [facility], Encounter Date: 12/30/2022 Psychiatrist Referral for Bi polar disorder Referring Physician: Francesco Riley [facility], Encounter Date: 12/30/2022 Pain Management Referral for Long-term current use of opiate analgesic drug Referring Physician: Francesco Riley [facility], Encounter Date: 12/30/2022 Results Created Date Observation Date Name Description Value Unit Range Abnormal Flag Note LastModifiedBy Organization Detail LastModifiedTime 12/31/19 23 12/31/2022 COMP METAB OLIC PANEL sodium 141 mEq/L 135-14 6 Not Available [facility] [address] [place], [address], 12/31/2022 05:17:17 12/31/19 23 12/31/2022 COMP METAB OLIC PANEL potassium 4.0 mEq/L 3.5-5. 4 Not Available [facility] [address] [place], [address], 12/31/2022 05:17:17 12/31/19 23 12/31/2022 COMP METAB OLIC PANEL chloride 102 mEq/L 95-107 Not Available [facility] [address] [place], [address], 12/31/2022 05:17:17 12/31/19 23 12/31/2022 COMP METAB OLIC PANEL carbon dioxide 27 mEq/L 19-31 Not Available [facility] [address] [place], [address], 12/31/2022 05:17:17 12/31/19 23 12/31/2022 COMP METAB OLIC PANEL anion gap 12 mEq/L 7-23 Not Available [facility] [address] [place], [address], 12/31/2022 05:17:17 12/31/19 23 12/31/2022 COMP METAB OLIC PANEL glucose fasting 84 mg/dL 70-99 Not Available [facility] [address] [place], [address], 12/31/2022 05:17:17 12/31/19 23 12/31/2022 COMP METAB OLIC PANEL urea nitrogen (BUN) 8 mg/dL 6-20 Not Available [facility] [address] [place], [address], 12/31/2022 05:17:17 12/31/19 23 12/31/2022 COMP METAB OLIC PANEL creatinine 0.65 mg/dL 0.60-1 .30 Not Available [facility] [address] [place], [address], 12/31/2022 05:17:17 12/31/19 23 12/31/2022 COMP METAB OLIC PANEL 2020 CKD-epi eGFR-cr 117 mL/mi n/1.7 3m'2 >59 Not Available [facility] [address] [place], [address], 12/31/2022 05:17:17 12/31/19 23 12/31/2022 COMP METAB OLIC PANEL BUN/creatini ne ratio 12 ratio Not Available [facility] [address] [place], [address], 12/31/2022 05:17:17 12/31/19 23 12/31/2022 COMP METAB OLIC PANEL calcium total 8.9 mg/dL 8.5-10 .5 Not Available [facility] [address] [place], [address], 12/31/2022 05:17:17 12/31/19 23 12/31/2022 COMP METAB OLIC PANEL protein total 6.9 g/dL 6.1-8. 3 Not Available [facility] [address] [place], [address], 12/31/2022 05:17:17 12/31/19 23 12/31/2022 COMP METAB OLIC PANEL albumin 4.2 g/dL 3.5-5. 2 Not Available [facility] [address] [place], [address], 12/31/2022 05:17:17 12/31/19 23 12/31/2022 COMP METAB OLIC PANEL globulin 2.7 g/dL 1.7-4. 3 Not Available [facility] [address] [place], [address], 12/31/2022 05:17:17 12/31/19 23 12/31/2022 COMP METAB OLIC PANEL A/G ratio 1.6 ratio 0.9-2. 8 Not Available [facility] [address] [place], [address], 12/31/2022 05:17:17 12/31/19 23 12/31/2022 COMP METAB OLIC PANEL bilirubin total 0.2 mg/dL 0.0-1. 2 Not Available [facility] [address] [place], [address], 12/31/2022 05:17:17 12/31/19 23 12/31/2022 COMP METAB OLIC PANEL alkaline phosphatase 86 U/L 40-112 Not Available [facility] [address] [place], [place], [address], 12/31/2022 05:17:17 12/31/19 23 12/31/2022 COMP METAB OLIC PANEL AST (SGOT) 11 U/L 9-40 Not Available [facility] [address] [place], [address], 12/31/2022 05:17:17 12/31/19 23 12/31/2022 COMP METAB OLIC PANEL ALT (SGPT) 8 U/L 5-40 Not Available [facility] [address] [place], [address], 12/31/2022 05:17:17 12/31/19 23 12/31/2022 LIPID PROFI LE cholesterol 157 mg/dL <200 Not Available [facility] [address] [place], [address], 12/31/2022 05:17:17 12/31/19 23 12/31/2022 LIPID PROFI LE triglyceride s 133 mg/dL 0-149 Not Available [facility] [address] [place], [address], 12/31/2022 05:17:17 12/31/19 23 12/31/2022 LIPID PROFI LE HDL cholesterol 50 mg/dL >39 Not Available [facility] [address] [place], [address], 12/31/2022 05:17:17 12/31/19 23 12/31/2022 LIPID PROFI LE LDL cholesterol 84 mg/dL <100 Not Available [facility] [address] [place], [address], 12/31/2022 05:17:17 12/31/19 23 12/31/2022 LIPID PROFI LE non HDL cholesterol 107 mg/dL <130 Not Available [facility] [address] [place], [address], 12/31/2022 05:17:17 12/31/19 23 12/31/2022 LIPID PROFI [...] (Near Optim al/Ab ove Optim al) LDL Heather stero l: < 100 mg/dL (Opti mal) < 130 mg/dL (Near Optim al/Ab ove Optim al) Coron robert Risk Ratio : [place] for femal es < 4.44 Not Available [facility] [address] [place], [address], 12/31/2022 05:17:17 12/31/19 23 12/31/2022 THYRO ID STIM HORMO NE TSH 2.0 mIU/L 0.40-4 .1 Not Available [facility] [address] [place], [address], 12/31/2022 05:17:18 12/31/19 23 12/31/2022 FOLLI TONY STIM HORMO NE FSH 5.8 IU/L Comme nt for FOLLI TONY STIM HORMO NE Folli cular : 3.5 - 12.5 IU/L Mid-C ycle: 4.7 - 21.5 IU/L Lutea l: 1.7 - 7.7 IU/L Post- Menop ausal : 25.8 - 134.8 IU/L Not Available [facility] [address] [place], [address], 12/31/2022 05:17:19 12/31/19 23 12/31/2022 ESTRA DIOL estradiol 296 pg/mL Comme nt for ESTRA DIOL Folli cular 12 - 233 pg/mL Ovula tion 41 - 398 pg/mL Lutea l 22 - 341 pg/mL Post Menop ausal No HRT < 20 pg/mL Post Menop ausal With HRT < 139 pg/mL Not Available [facility] [address] [facility] [place], [address], 12/31/2022 05:17:19 12/31/19 23 12/31/2022 LUTEI NIZIN G HORMO NE LH 6.0 IU/L Comme nt for LUTEI NIZIN G HORMO NE Folli cular 2.4 - 12.6 IU/L Mid-C ycle 14.0 - 95.6 IU/L Lutea l 1.0 - 11.4 IU/L Post- Menop ausal 7.7 - 58.5 IU/L Not Available [facility] [address] [facility] [place], [address], 12/31/2022 05:17:20 12/31/19 23 12/31/2022 CBC WITH DIFFE RENTI AL WBC 8.0 K/uL 4.0-11 .0 Not Available [facility] [address] [facility] [place], [address], 12/31/2022 05:17:21 12/31/19 23 12/31/2022 CBC WITH DIFFE RENTI AL RBC 4.35 M/uL 4.00-5 .50 Not Available [facility] [address] [facility] [place], [address], 12/31/2022 05:17:21 12/31/19 23 12/31/2022 CBC WITH DIFFE RENTI AL hemoglobin 12.9 g/dL 12.0-1 6.0 Not Available [facility] [address] [place], [address], 12/31/2022 05:17:21 12/31/19 23 12/31/2022 CBC WITH DIFFE RENTI AL hematocrit 39.4 % 36.0-4 8.0 Not Available [facility] [address] [place], [address], 12/31/2022 05:17:21 12/31/19 23 12/31/2022 CBC WITH DIFFE RENTI AL MCV 90.6 fL 78.0-1 02.0 Not Available [facility] [address] [place], [place], [address], 12/31/2022 05:17:21 12/31/19 23 12/31/2022 CBC WITH DIFFE RENTI AL MCH 29.7 pg 25.0-3 5.0 Not Available [facility] [address] [place], [place], [address], 12/31/2022 05:17:21 12/31/19 23 12/31/2022 CBC WITH DIFFE RENTI AL MCHC 32.7 g/dL 30.0-3 8.0 Not Available [facility] [address], [place], [address], 12/31/2022 05:17:21 12/31/19 23 12/31/2022 CBC WITH DIFFE RENTI AL RDW 13.2 % 11.5-1 6.0 Not Available [facility] [address] [place], [place], [address], 12/31/2022 05:17:21 12/31/19 23 12/31/2022 CBC WITH DIFFE RENTI AL platelet count 229 K/uL 150-45 0 Not Available [facility] [address] [place], [place], [address], 12/31/2022 05:17:21 12/31/19 23 12/31/2022 CBC WITH DIFFE RENTI AL abs neutrophils 4.2 K/uL 1.8-7. 0 Not Available [facility] [address] [place], [address], 12/31/2022 05:17:21 12/31/19 23 12/31/2022 CBC WITH DIFFE RENTI AL abs lymphocytes 3.0 K/uL 1.0-4. 0 Not Available [facility] [address] [place], [address], 12/31/2022 05:17:21 12/31/19 23 12/31/2022 CBC WITH DIFFE RENTI AL abs monocytes 0.5 K/uL 0.1-1. 1 Not Available [facility] [address] [place], [address], 12/31/2022 05:17:21 12/31/19 23 12/31/2022 CBC WITH DIFFE RENTI AL abs eosinophils 0.3 K/uL 0.0-0. 5 Not Available [facility] [address] [place], [address], 12/31/2022 05:17:21 12/31/19 23 12/31/2022 CBC WITH DIFFE RENTI AL abs basophils 0.0 K/uL 0.0-0. 3 Not Available [facility] [address] [place], [address], 12/31/2022 05:17:21 12/31/19 23 12/31/2022 CBC WITH DIFFE RENTI AL abs immature grans 0.0 K/uL 0.0-0. 1 Not Available [facility] [address] [place], [address], 12/31/2022 05:17:21 12/31/19 23 12/31/2022 CBC WITH DIFFE RENTI AL neutrophils 52.1 % Not Available [facility] [address] [place], [place], [address], 12/31/2022 05:17:21 12/31/19 23 12/31/2022 CBC WITH DIFFE RENTI AL lymphocytes 36.9 % Not Available [facility] [address] [place], [address], 12/31/2022 05:17:21 12/31/19 23 12/31/2022 CBC WITH DIFFE RENTI AL monocytes 6.3 % Not Available [facility] [address] [place], [address], 12/31/2022 05:17:21 12/31/19 23 12/31/2022 CBC WITH DIFFE RENTI AL eosinophils 3.8 % Not Available [facility] [address] [place], [address], 12/31/2022 05:17:21 12/31/19 23 12/31/2022 CBC WITH DIFFE RENTI AL basophils 0.5 % Not Available [facility] [address] [place], [address], 12/31/2022 05:17:21 12/31/19 23 12/31/2022 CBC WITH DIFFE RENTI AL immature grans 0.4 % Not Available [facility] [address] [place], [address], 12/31/2022 05:17:21 12/31/19 23 12/31/2022 CBC WITH DIFFE RENTI AL nucleated RBCs <1.0 /100_ WBCs <1 Not Available [facility] [address] [place], [place], [address], 12/31/2022 05:17:21 12/26/19 23 12/25/2022 imagi ng inter preta tion No observ ation record ed. [address], [address], 12/29/2022 11:22:00 12/26/19 23 12/25/2022 imagi ng inter preta tion No observ ation record ed. [address], [address], 12/29/2022 11:21:41 01/14/20 23 01/13/2023 imagi ng inter preta tion No observ ation record ed. [address], [address], 01/21/2023 17:11:56 01/19/20 23 01/18/2023 imagi ng inter preta tion No observ ation record ed. [address], [address], 01/21/2023 17:12:02 Result Notes None recorded. Problems Name Problem SNOMED Code Status Onset Date Resolution Date Notes Provider Name and Address Organization Details Recorded Time Congestive heart failure 08057512 Active 2022 Alberta calderon, LEXI Ose[facility] 3 09:47:30 Chronic obstructive pulmonary disease 55089729 Active 2022 Alberta calderon, LEXI Oseguera 3 09:47:47 Fibromyalgia 759234391 Active 2022 Alberta calderon, LEXI Oseguera 3 09:47:54 Problem Notes None recorded. Procedures Surgical History Date Name Laterality Status Provider Name and Address Organization Details Recorded Time Caesarean Section completed Alberta Osegurea 12/30/2022 09:50:36 Cholecystectomy completed Alberta Oseguera 12/30/2022 09:50:41 Tubal Ligation completed Alberta German Oseguera 12/30/2022 09:50:46 Cardiac Surgery completed Alberta German Oseguera 12/30/2022 09:51:00 Imaging Results None recorded. Procedure Notes None recorded. Medical Equipment None Reported. Allergies Allergen ID Allergen Name Allergen Category Reaction Reaction Severity Criticality Documentation Date Start Date Code Code System Note Provider Name and Address Organization Details Recorded Time Substance with sulfonami de structure and antibacte rial mechanism of action (substanc e) medicatio n Not available Not available Not available 12/30/2022 64084 8003 SNOMED Alberta calderon, LEXI Padilla Song Ana Rosa 09:47:11 Medications Name Sig Start Date Stop Date Status Note LastModified by Organization Details LastModified Time verapamil ER (SR) 120 mg tablet,exte nded release Take 1 tablet twice a day by oral route. 12/30 completed Not Available Not Available Not Available furosemide 40 mg tablet TAKE 1 [...] Available omeprazole 40 mg capsule,del ayed release Take 1 capsule twice a day by oral route for 30 days. 2022 active Not Available Not Available Not Avai lable aspirin 81 mg tablet,dandy yed release TAKE [...] 12 hours by oral route as needed. 2022 active Not Available Not Available Not Avai lable Lamictal 100 mg tablet TAKE 1/2 TABLET [...] Available nitroglycer in 0.[address] 1 tablet as needed by sublingua l route. active Not Available Not Available No [...] completed Not Available Not Available Not Available Seroquel 100 mg tablet Take 1 tablet every day by oral route at bedtime for 30 days. 2022 active Not Available Not Available Not Avai lable metoprolol succinate ER 25 mg tablet,exte nded [...] Available Not Available No t Available duloxetine 30 mg capsule,del ayed release TAKE ONE CAPSULE BY MOUTH EVERY DAY AT dinner 12/30 completed Not Available Not Available Not Available duloxetine 60 mg capsule,del ayed release Take 1 capsule every day by oral route. 2022 active Not Available Not Available Not Avai lable quetiapine 50 mg tablet TAKE 1 TABLET [...] aerosol inhaler Inhale by inhalatio n route. active Not Available Not Available No t Available Vitals Date Recorded Body weight Body temperature Body mass index (BMI) Body height Heart rate Oxygen saturation Oxygen saturation in Arterial blood by Pulse oximetry Systolic And Diastolic Provider Name and Address Organization Details Last Updated DateTime 3 34986.2 6 g 96.4 [degF] 27.6 kg/m2 170.18 cm 62 /min 100 % 100 % 90/59 mm[Hg] Alberta Oseguera 09:46:55 Social History Question Answer Notes LastModified by [place] ion Details LastModified Time Tobacco Smoking Status Current Every Day Smoker LEXI Briscoe 12/30/2022 09:50:23 Are You Blind Or Do You Have Difficulty Seeing? No Information not available 12/30/2022 What Is Your Level Of Caffeine Consumption? Heavy Information not available 12/30/2022 Are You Deaf Or Do You Have Serious Difficulty Hearing? No Information not available 12/30/2022 What Type Of Diet Are You Following? REGULAR Information not available 12/30/2022 What Was The Date Of Your Most Recent Tobacco Screening? 12/30/2022 Information not available 12/30/2022 How Many Children Do You Have? 6 Information not available 12/30/2022 What Is Your Relationship Status? Information not available 12/30/2022 At What Age Did You Start Smoking Tobacco? 14 Information not available 12/30/2022 How Much Tobacco Do You Smoke? 1 PPD Information not available 12/30/2022 Do You Have Difficulty Walking Or Climbing Stairs? No Information not available 12/30/2022 Sex: Unknown Functional Status Question Answer Note LastModified by Organizat ion Details LastModified Time Do you use any illicit or recreational drugs? No Information not available 12/30/2022 Do you or have you ever used any other forms of tobacco or nicotine? No Information not available 12/30/2022 What is your level of alcohol consumption? None Information not available 12/30/2022 Are you currently employed? No Information not available 12/30/2022 Do you have difficulty doing errands alone? No Information not available 12/30/2022 Are you able to care for yourself independently? Yes Information not available 12/30/2022 Do you have difficulty dressing, bathing, grooming, or toileting? No Information not available 12/30/2022 Mental Status Question Answer Note LastModified by Organization D etails LastModified Time Do you have difficulty concentrating, remembering or making decisions? No Information no t available 12/30/2022 Family History Relationship Description Onset Age of this Age Resolved Age Notes LastModified by Organization Details LastModified Time Father Hypertensive disorder Not available 2022 09:49:04 Father Malignant neoplastic disease Not available 2022 09:49:20 Mother Hypertensive disorder Not available 2022 09:49:10 Medical History No medical history recorded. Gynecological History Statement/Question Response Menses Monthly Y Duration of Flow (days) 7 Date of Last Pap Smear Age at Menarche 13 Current Control Method Tubal Ligat ion Age at First Child 19 Obstetrics History GPAL:G 5 P 0 3 2 3 Type Value Spontaneous 2 Premature 3 Living 3 Total 5 Past Encounters Encounter ID Performer Location Encounter Start Date Encounter Closed Date Diagnosis/Indication Diagnosis SNOMED-CT Code Diagnosis ICD10 Code Diagnosis Note [id number] MIGUEL Guerrero Main Office [address] [place] [id number] 12/30/2022 09:32:24 12/30/2022 10:46:11 History of myocardial infarction 310616271 I25.2 pt is seeing cardiology in [place] every three months. Bipolar disorder 9415888 4 F31.9 continue taking wellbutrin and duloxetine , will start back on low dose seroquel and set up with psychiatry for further eval. transition from xanax to clonazepam Neuropathy 091908265 G62 .9 use as directed Gastroesop hageal reflux disease 196608307 K21.9 use as directed Long-term current use of opiate analgesic drug 0669839556 65609 Z79.891 will set up with pain management , pt takes intermitte nt pain medication . not willing to manage due to history of drug abuse and current benzodiaze pine use. Health Concerns Section Related Observation LastModified by Organization Detai ls LastModified Time None Recorded Concern Status LastModified by Organization Details LastModified Time None Recorded Advance Directives Directive None Recorded Payers Insurance Date Sequence Insurance Name Policy Number Policy Saunders Covered Member ID Saunders Member ID Guarantor Name 02/09/2024 1 [place] J[place]ARAN EARLINE Deidre Hussein [id number] Deidre Cintronantoine Notes Date Note Type Note Provider Name and Address Organization Details Recorded Time 12/30/2022 text/html COPDReported by PatientHPI:For severity, patient reportsnot limiting. For associated symptoms, patient reportsno snoring,no excessive daytime sleepiness,no arousals from sleep,no dyspnea,no decrease in exercise capacity,no fatigue,not coughing up sputum,no cough,no fever,no wheezing,no weight loss, andno depression. Coronary Artery Disease F/UReported by PatientHPIFor severity, patient reportssymptoms are improving,no chest discomfort with daily activities, andhas not needed to use nitroglycerin. For context, patient reportsnon-smoker. For associated symptoms, patient reportsno chest pain,no neck pain,no left arm pain,no dyspnea with exertion,no sweating,no nausea, andno stress. New Patient. Patient is here for a check up. Patient states that she sees a sponge fisherman in [place]. Patient is also wanting to have her hormones checked because she doesn't have a sex drive.Pt states she sees Dr. Ruiz at [facility]. every three months MIGUEL Guerrero [address] [place], [id number], [place] LEXI Oseguera 12/30/2022 12:46:51 OBGyn Episode No OBEpisode recorded.
--- OUTSIDE RECORDS SUMMARY | 2025-04-29 23:11 | XMS_ITS | Patient Health Record ---
Author Organization [facility] Address [address] [place] [address] Care Team Providers Care Clerical Assigner Name Role Phone DuaneDeidre Unavailable [phone] Tete Taylor Unavailable [phone] Migration, Provider Unavailable Unavailable Dee Valentine Unavailable [phone] Saritha Sweeney Unavailable [phone] Allergies Allergen (clinical drug ingredient) Drug/Non Drug Allergy documented on EMR Reaction Allergy Type Onset Date Status Substance with sulfonamide structure and antibacterial mechanism of action (substance) Sulfa Antibiotics Unknown Drug Allergy Active sulfacetamide Sulfacetamide Unknown Drug Allergy Active Results Component Value Reference Range Notes Chest PA/Lat-56127 Reviewed date:06/07/2024 10:27:06 AM Interpretation: Performing Lab: Notes/Report: See Below For Report Chest PA/Lat Read See Below For Report X-RAY EXAM CHEST 2 [id number] Reviewed date:01/19/2025 11:28:03 AM Interpretation: Performing Lab: Notes/Report: Chest PA/Lat-08762 Reviewed date:05/25/2024 09:51:09 AM Interpretation: Performing Lab: Notes/Report: [id number] Reason For Referral Reason molluscum contagiosu m Diagnosis 1 Molluscum contagiosu m (B08.1) Referral Organization [facility] Referring Provider First Name Saritha Referring Provider Last Name Zahra Referring Provider Speciality Nurse Prac titioner Referred Provider Clinton Zapata Referred Provider Specialty Dermatology General Notes Kayla Malone 05/25 02:59:40 PM >sent, Kayla Malone 05/30/2024 10:50:10 AM >Patient is discharged from clinic Referral Priority Routine Reason gastroparesis, gerd, history of colon cancer in the family Appt 12/28-Pt was a No Show Diagnosis 1 Gastroparesis (K31.8 4) Referring Provider First Name Saritha Referring Provider Last Name Zahra Referring Provider Speciality Nurse Mandeep mckeon Referred Organization [facility] Referred Provider Jessee Danielson [facility] Referred Address [address] [place] [place],[address] Referred Provider Specialty Gastroentero logy Referral Priority Routine Medications Medication SIG (Take, Route, Frequency, Duration) Notes Start Date End Date Status Albuterol Sulfate HFA 108 (9 0 Base) MCG/ACT Aerosol Solution 1-2 puff as needed Inhalation every 4-6 hours as needed for shortness of breath or wheezing; Duration: 30 days 03/31/2024 Active Ondansetron HCl 4 MG Tablet 1 tablet Ora lly every 6 hours as needed for nausea; Duration: 30 days Active Verapamil HCl 120 MG Tablet 1 tablet Ora lly twice daily; Duration: 30 days Active Atorvastatin Calcium 80 MG Tablet 1 tablet Orally Once a day; Duration: 30 days Active traZODone HCl 150 MG Tablet 1 tablet Ora lly Once a day; Duration: 30 days Active Prasugrel HCl 10 MG Tablet as directed O rally daily; Duration: 30 days Active Ranolazine ER 500 MG Tablet Extended Release 12 Hour 1 tablet Orally Twice a day; Duration: 30 days Active Metoclopramide HCl 5 mg Tablet TAKE ONE TABLET oral FOUR TIMES DAILY; Duration: 30 days Active Flonase Allergy Relief 50 MCG/ACT Suspension 1 spray in each nostril Nasally twice daily; Duration: 30 days 03/31/2024 Active Nitroglycerin 0.4 MG Tablet Sublingual 1 tab as directed Sublingual 1 tablet sublingual every 5 minutes up to 15 minutes as needed for chest pain. Do not take more than 3 tablets within the 15 minutes. if unrelieved with 3 doses go to the ER.; Duration: 30 days Active Prazosin HCl 5 MG Capsule 1 capsule at b edtime Orally Once a day Active Cyclobenzaprine HCl 10 MG Tablet 1 tablet Orally three times daily as needed; Duration: 30 days Active Lexapro 10 MG Tablet 1 tablet Orally Onc e a day; Duration: 30 days Active Gabapentin 300 MG Capsule 1 capsule Oral ly three times daily; Duration: 30 days Active clonazePAM 1 MG Tablet 1 tablet Orally tid Active Nortriptyline HCl 50 MG Capsule 1 capsul e Orally Once a day; Duration: 30 days Active medroxyPROGESTERone Acetate 5 MG Tablet 1 tablet Orally 1 tablet with food Orally take for 10 days starting cycle day 15-24, Once a day; Duration: 10 days Active Omeprazole 40 MG Capsule Delayed Release 1 capsule 30 minutes before morning meal Orally twice daily; Duration: 30 days Active Immunizations Vaccine Route Administration Date Status Comme nts Influenza (whole), CPT 89025 Inactive Unknown 09/25/2016 Administered Influenza (whole), CPT 52258 Inactive Unknown 07/25/2018 Administered Social History Tobacco Use: Social History Observation Description Date Details (start date - stop date) Current Smoker NA - NA Social History Depression Screening Social Info Question Answer Notes depression screening findings Findings Positive (5+ without suicidality) PHQ-9 Little interest or pleasure in doing things Several days Feeling down, depressed, or hopeless Not at all Trouble falling or staying asleep, or sleeping t oo much Nearly every day Feeling tired or having little energy Several da ys Poor appetite or overeating Several days Feeling bad about yourself, or that you are a failure, or have let yourself or your family down Several days Trouble concentrating on thi ngs, such as reading the newspaper or watching television Not at all Moving or speaking so slowly that other people could have noticed. Or the opposite ? being so fidgety or restless that you have been moving around a lot more than usual Not at all Thoughts that you would be b lexy off , or of hurting yourself in some way Not at all Total Score 7 Interpretation Mild Depression Drugs/Alcohol: Social Info Question Answer Notes Drugs Have you used drugs other than those for medical reasons in the past 12 months? No Drug/Alcohol: Social Info Question Answer Notes AUDIT-C (Standard) Did you have a drink containing alcohol in the past year? No Points 0 Interpretation Negative Tobacco Use: Social Info Question Answer Notes Tobacco Control (Standard) Tobacco use: Current smoker How many cigarettes a day do you smoke? 11-20 How soon after you wake up do you smoke your first cigarette? 6-30 minutes Are you interested in quitting? Not ready to quit Additional Details Category Social Info Options Details Migrated Social History Migrated Social History Alcoholic beverages? - No, Applying for disability? - No, Currently on disability? - No, Drug or substance abuse? - No, exposure to toxins/poisonous substances at work - No, I am interested in quitting. - No, If yes, frequency of alcoholic beverages - 1 drink per day, Marital Status - , Nonprescription drug use? - No, Participation in detoxification or rehabilitation - No, Smoked in the past? - Yes, Smoking - 1 PPD, Smoking status (MU) - Current every day smoker, Working currently? - No Section Notes: history of drug use. history of drug use. history of drug use. Problems Problem Type SNOMED Code ICD Code Onset Dates Problem Status W/U Status Risk Notes Problem Gastroparesis (300866737) Gastroparesis (K31.84) Active confirmed Problem Fibromyalgia (537864916) Fibromyalgia (M79.7) Active confirmed Problem Anxiety (15144380) Anxiety (F41.9) Active confi rmed Problem Essential hypertension (80302767) Hypertension, unspecified type (I10) Active confirmed Problem Hyperlipidaemia (03694572) Hyperlipidemia, unspecified hyperlipidemia type (E78.5) Active confirmed Problem Allergic rhinitis caused by pollen (50077697) Seasonal allergic rhinitis due to pollen (J30.1) Active confirmed Problem Insomnia (731458139) Insomnia, unspecified type (G47.00) Active confirmed Problem Long-term current use of drug therapy (161118566) Antiplatelet or antithrombotic long-term use (Z79.02) Active confirmed Problem Dysphagia (25118692) Dysphagia (R13.10) Active confirmed Problem Atherosclerotic heart disease of [place] coronary artery without angina pectoris (129488257336164) Arteriosclerosis of coronary artery (I25.10) Active confirmed Problem H/O heart artery stent (Z95.5) Active confirmed Problem Tobacco dependence (63267859) Tobacco dependence (F17.200) Active confirmed Problem Hyperlipidemia (32940696) Hyperlipidemia (E78.5) Active confirmed Problem Vitamin D deficiency (75807435) Low vitamin D level (E55.9) Active confirmed Problem 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) Active confirmed Problem Chronic obstructive lung disease (11857027) COPD without exacerbation (J44.9) Active confirmed Problem Coronary artery disease with angina pectoris with documented spasm, unspecified vessel or lesion type, unspecified whether [place] or transplanted heart (I25.111) Active confirmed Vital Signs Heart Rate 88 /min 05/24/2024 Temperature 97.8 degrees Fahrenheit 05/24/2024 Respiratory Rate 18 /min 05/24/2024 Blood pressure diastolic 64 mm Hg 05/24/2024 Oximetry 94 % 05/24/2024 Weight-kg 85.82 kg 05/24/2024 Height 67 in 05/24/2024 Blood pressure systolic 130 mm Hg 05/24/2024 Weight 189.2 lbs 05/24/2024 BMI 29.63 kg/m2 05/24/2024 Encounters Encounter Location Date Provider Diagnosis [facility] [address] [place] [address] 05/24/2024 Saritha Sweeney Coronary artery disease with angina pectoris with documented spasm, unspecified vessel or lesion type, unspecified whether [place] or transplanted heart I25.111 ; BMI 29.0-29.9,adult Z68.29 ; Acute cough R05.1 ; Other chest pain R07.89 ; Acute bronchitis, unspecified organism J20.9 ; Expiratory wheezing R06.2 ; Molluscum contagiosum B08.1 ; Hyperlipidemia, unspecified hyperlipidemia type E78.5 ; Gastroparesis K31.84 ; Fibromyalgia M79.7 ; Hypertension, unspecified type I10 ; Depression, unspecified depression type F32.A and Cigarette smoker F17.210 Migrated_Facility 0 0 07/30/2024 Provider Migration Migrated_Facility 0 0 07/29/2024 Provider Migration [facility] [address] [place] [address] 04/24/2025 Deidre Zepeda [facility] [address] [place] [address] 05/29/2024 Saritha Sweeney [facility] [address] [place] [address] 05/26/2024 Saritha Sweeney [address] [place] [address] 05/26/2024 Saritha Sweeney [facility] [address] [place] [address] 05/22/2024 Saritha Sweeney [facility] [address] [place] [address] 05/18/2024 Saritha Sweeney Assessments Encounter Date Diagnosis (ICD Code) Assessment Notes Treatment Notes Treatment Clinical Notes Section Notes 05/24/2024 BMI 29.0-29.9,adult (ICD-10 - Z68.29) meds, diet and exercise as directed 05/24/2024 Coronary artery disease with angina pectoris with documented spasm, unspecified vessel or lesion type, unspecified whether [place] or transplanted heart (ICD-10 - I25.111) follow up with cardiology as scheduled Notify if any worsening or increase Low NA, cardiac diet Exercise as directed, as tolerated If any chest pain, pressure, arrythmia, sob or in any distress go to the ER 05/24/2024 Acute cough (ICD-10 - R05.1) Take meds as directed xray for eval Notify if any worsening or increase Steam inhalation/humidi lashawn Sleep elevated If any sob or in any distress go to the ER Rest periods inbetween activity Turn, cough and deep breathe every hour Notify if cough becomes productive Notify if any fever Take meds as directed. 05/24/2024 Other chest pain (ICD-10 - R07.89) follow up with cardiology as scheduled Notify if any worsening or increase Low NA, cardiac diet Exercise as directed, as tolerated If any chest pain, pressure, arrythmia, sob or in any distress go to the ER 05/24/2024 Acute bronchitis, unspecified organism (ICD-10 - J20.9) Take meds as directed 2 mg of dexamethasone x 1 now Notify if any worsening or increase Steam inhalation/humidi lashawn Sleep elevated If any sob or in any distress go to the ER Rest periods inbetween activity Turn, cough and deep breathe every hour Notify if cough becomes productive Notify if any fever Take meds as directed. 05/24/2024 Expiratory wheezing (ICD-10 - R06.2) Take meds as directed Notify if any worsening or increase Steam inhalation/humidi lashawn Sleep elevated If any sob or in any distress go to the ER Rest periods inbetween activity Turn, cough and deep breathe every hour Notify if cough becomes productive Notify if any fever Take meds as directed. 05/24/2024 Molluscum contagiosum (ICD-10 - B08.1) referral for eval notify if any worsening or increase discussed precautions 05/24/2024 Hyperlipidemia, unspecified hyperlipidemia type (ICD-10 - E78.5) Take meds as directed. Low cholesterol diet Exercise as directed, as tolerated 05/24/2024 Gastroparesis (ICD-10 - K31.84) Meds as directed. Notify if any worsening or increase. Follow-up with GI as directed. Diet as directed as tolerated. Exercise as directed. Discussed on when patient would need to go to the ER. Increase fluids as directed. Maintain regular bowel movements. 05/24/2024 Fibromyalgia (ICD-10 - M79.7) Meds as directed. Notify if any worsening or increase. No lifting or strenuous activity. Rest periods in between activity. Discussed, patient would need to go to the ER. 05/24/2024 Hypertension, unspecified type (ICD-10 - I10) Meds as directed Notify if any worsening or increase Low NA diet Exercise as directed, as tolerated Monitor blood pressure as directed, if having any symptoms, parameters out or range on in any distress go to the ER 05/24/2024 Depression, unspecified depression type (ICD-10 - F32.A) Meds as directed. Keep appointments with psych as scheduled. Notify if any worsening or increase. If have any thoughts of self-harm, harming others, or any distress go to the ER immediately. Encourage enjoyable hobbies, encourage routine. Relaxation/breath ing/imagery techniques. Decrease stress, decrease caffeine. 05/24/2024 Cigarette smoker (ICD-10 - F17.210) 05/24/2024 Other Body Mass Index: Care Instructions material was printed Plan Of Treatment Next Appt Details Provider Name:Seamus ying, 05/25/2025 09:15:00 AM, [address] [place] [address], [phone], Insurance Providers Payer Name Payer Address Payer Phone Subscriber Number Group Number Insured Name Patient Relationship to Insured Coverage Start Date Coverage End Date [employer] [address] [place] [phone] [id number] Deidre Bunch Self - patient is the insured [place] Medicaid [address] [place] [address] [id number] AliviaDeidre Self - patient is the insured Medications Administered Medication Instructions Date of Administration Dosage Notes Celestone Soluspan 03/31/2024 6 mg dexAMETHasone 05/24/2024 2 mg Medical (General) History Medical History History ICD Code Anxiety Chronic depression Chronic hepatitis C resolved with treatm ents Family history of colorectal cancer Fibromyalgia Gastroesophageal reflux disease Obesity Osteoporosis Tobacco user congestive heart failure chronic obstructive pulmonary disease (C OPD) fibromyalgia Chicken Pox Pneumonia Heart Disease Arthritis migraine headaches Back Trouble hypertension asthma bronchitis myocardial infarction Surgical History Surgery Date(Month/Year) cardiac stent section tubal ligation Cholecystectomy cholecystectomy Tubal ligation section x3
--- NOTE | 2025-04-29 23:20 | XRR_ITS ---
PROCEDURE INFORMATION: Exam: XR Chest Exam date and time: 04/29/2025 11:33 PM Age: 40 years old Clinical indication: Pain; Chest pressure; Prior surgery; Surgery date: 6+ months; Surgery type: Coronary stents; Substernal cp that radiates into her back, neck, and left arm. PT has taken 4 nitro and 325 of aspirin with no relief. PT has a HX of stent placement and chf. PT also complains of nausea. TECHNIQUE: Imaging protocol: Radiologic exam of the chest. Views: 1 view. COMPARISON: No relevant prior studies available. FINDINGS: Lungs: Unremarkable. No consolidation. Pleural spaces: Unremarkable. No pleural effusion. No pneumothorax. Heart/Mediastinum: Unremarkable. No cardiomegaly. Bones/joints: Unremarkable. XR/XR chest 1V portable [id number] IMPRESSION: No acute findings.
--- NOTE | 2025-04-29 23:21 | ECG_ITS ---
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 Measurements Intervals [place] Rate: 82 P: 62 ID: [id number] QRS: 59 QRSD: 112 T: 44 QT: 401 QTc: 470 Interpretive Statements SINUS RHYTHM POSSIBLE LEFT ATRIAL ENLARGEMENT [-0.1mV P-WAVE IN V1/V2] INCOMPLETE RIGHT BUNDLE BRANCH BLOCK [90+ ms QRS DURATION, TERMINAL R IN V1/V2, 40+ ms S IN I/aVL/V4/V5/V6] INTERPRETATION BASED ON A DEFAULT AGE OF 41 YEARS No previous ECG available for comparison Electronically Signed On 05-02-2025 14:03:47 CDT by Jeremy Vasquez M.D. [email or web address]
[2025-04-30] VITALS (8 sets, daily range): BP systolic 96–121; BP diastolic 44–77; PULSE 76–97; RESP 16–26; TEMP 36.9; O2SAT 96–100
[2025-04-30] MEDS: nitroglycerin 1 gm/inch oint Pkt 0.5 INCH TOPICAL (00:12)
[2025-04-30] MEDS: morphine 4 mg/mL SDV 1 mL IVP ×2 (00:15→01:01)
[2025-04-30] MEDS: metoclopramide 5 mg/mL SDV 2 mL 10 MG IVP (00:15)
--- NOTE | 2025-04-30 00:19 | W.ED.CHESTPA ---
HPI - Chest Pain General: Chief Complaint: Chest Pain Stated Complaint: CHEST PAINS, has a stent Time Seen by Provider: 04/29/25 23:19 History of Present Illness: 40-year-old female with a history of coronary disease. She has a stent in her LAD, placed back in 2020. She had ventricular tachycardia following this. She presents with chest discomfort starting this evening that has not let up. It radiates to her back, neck, and lower left arm. She has been short of breath and nauseated. Symptoms are similar to her prior MD. Previous procedures were done in [facility]. Related Data Home Medications ?Medication ?Instructions ?Recorded ?Confirmed Klonopin 0.5 mg PO TID 01/19/23 01/19/23 aspirin 81 mg capsule 81 mg PO DAILY 01/20/23 04/30/25 atorvastatin 80 mg tablet 80 mg PO QPM 01/20/23 04/30/25 bupropion HCl 150 mg 24 hr tablet, 150 mg PO QAM 01/20/23 01/20/23 extended release gabapentin 300 mg tablet 600 mg PO TID 01/20/23 04/30/25 hydrocodone 7.5 mg-acetaminophen 1 tab PO Q6H PRN Pain 01/20/23 01/20/23 325 mg tablet isosorbide mononitrate 30 mg 90 mg PO DAILY 01/20/23 01/20/23 tablet,extended release 24 hr metoprolol tartrate 50 mg tablet 50 mg PO BID 01/20/23 01/20/23 nitroglycerin 0.4 mg sublingual 0.4 mg sublingual Q5M PRN Chest 01/20/23 01/20/23 tablet Pain omeprazole 40 mg capsule,delayed 40 mg PO BID 01/20/23 01/20/23 release prasugrel HCl 10 mg tablet 10 mg PO DAILY 01/20/23 01/20/23 torsemide 20 mg tablet 20 mg PO DAILY 01/20/23 01/20/23 trazodone 50 mg tablet 50 mg PO BEDTIME PRN Sleep 01/20/23 01/20/23 Allergies Allergy/AdvReac Type Severity Reaction Status Date / Time Beta-Blockers Allergy ADR-Nausea Verified 04/29/25 23:14 (Beta-Adrenergic Bloc ketorolac (From Toradol) Allergy ALGY-Hives Verified 04/29/25 23:15 ondansetron Allergy ADR-Vomitin Verified 01/20/23 17:20 g Sulfa (Sulfonamide Allergy ADR-Itching Verified 01/20/23 17:19 Antibiotics) tramadol Allergy ALGY-Difficulty Verified 04/29/25 23:14 Swallowing Physical Exam Const: GENERAL APPEARANCE: cooperative and anxious; not frail appearing HENMT: COMMON NORMALS: normocephalic, atraumatic and Normal external nose present HEAD & SCALP: normocephalic and atraumatic FACE & SINUS: normal facial exam and face symmetric NOSE: Normal external nose present Eye: COMMON NORMALS: Equal, round and reactive pupils present and EOMs intact bilaterally PUPIL: Yes Equal, round and reactive pupils present Neck/C-Spine: GENERAL: Yes trachea midline Chest: CHEST: Yes Symmetrical chest wall rise Resp: COMMON NORMALS: normal respiratory effort, No retractions, No use of accessory muscles and clear to auscultation bilaterally AUSCULTATION: clear to auscultation bilaterally Cardio: COMMON NORMALS: regular rate and regular rhythm RATE: regular rate RHYTHM: regular rhythm GI: COMMON NORMALS: Normal to inspection, nondistended, normoactive bowel sounds present Extremity: COMMON NORMALS: no pedal edema Neuro: MIKAEL COMA SCALE: document GCS findings [place] coma scale eye opening: Spontaneous Mikael coma scale verbal response: Orientated [place] coma scale motor response: Obey commands [place] coma scale total score: 15 SENSORY EXAM: Yes extremities (intact) Psych: COMMON NORMALS: speech normal SPEECH: Yes normal speech Skin: COMMON NORMALS: no rashes or lesions noted GENERAL SKIN EXAM: no rashes or lesions noted Course Vital Signs: Vital signs: Vital Signs Temperature 98.5 F 04/29/25 23:10 Pulse Rate 76 04/30/25 03:11 Respiratory Rate 18 04/30/25 03:45 Blood Pressure 99/74 04/30/25 03:11 Pulse Oximetry 98 04/30/25 03:45 Oxygen Delivery Me thod Room Air 04/30/25 03:00 MDM - Chest Pain Medical Decision Making Patient has received topical nitroglycerin, morphine and Reglan. She has a listed adverse reaction to Zofran. She was not significantly improved. Switch nitroglycerin to intravenous nitroglycerin, more morphine with some improvement. She had taken aspirin at home. Chest x-ray is negative. CTA of the chest shows coronary artery calcifications, is otherwise negative. Her hemoglobin is 9. Potassium is 3.4. Her troponins are nondetectable at 0 and 2 hours. Her BNP is 48. She has intractable unstable angina. We will observe in the CSU for this. Hospitalist agrees to admission. Lab Data 04/30/25 00:19 04/30/25 00:19 Radiology Impressions Chest X-Ray 04/29/25 23:20 IMPRESSION: No acute findings. Chest CTA 04/30/25 01:00 IMPRESSION: 1. Negative for pulmonary embolus. 2. Coronary artery atherosclerotic calcifications Laboratory Results WBC 9.56 10^3/uL (3.29-11.43) 04/30/25 00:19 RBC 3.57 10^6/uL (3.85-5.65) L 04/30/25 00:19 Hgb 9.30 g/dL (11.27-16.99) L 04/30/25 00:19 Hct 29.9 % (36-47) L 04/30/25 00:19 MCV 83.8 fl (85-98) L 04/30/25 00:19 MCH 26.1 pg (27-33) L 04/30/25 00:19 MCHC 31.1 g/dL (30-55) 04/30/25 00:19 RDW 17.9 % (12.1-15.1) H 04/30/25 00:19 Plt Count 245 10^3/cmm (157-399) 04/30/25 00:19 MPV 10.6 fL (7.4-10.4) H 04/30/25 00:19 Neut % (Auto) 62.3 % 04/30/25 00:19 Lymph % (Auto) 29.5 % 04/30/25 00:19 Sawyer % (Auto) 6.8 % 04/30/25 00:19 Eos % (Auto) 1.0 % 04/30/25 00:19 Baso % (Auto) 0.2 % 04/30/25 00:19 Neut # (Auto) 5.95 10^3/uL (1.8-7.7) 04/30/25 00:19 Lymph # (Auto) 2.8 10^3/uL (0.8-4.8) 04/30/25 00:19 Sawyer # (Auto) 0.7 10^3/uL (0.2-0.9) 04/30/25 00:19 Eos # (Auto) 0.1 10^3/uL (0.0-0.8) 04/30/25 00:19 Baso # (Auto) 0.0 10^3/uL (0.0-0.1) 04/30/25 00:19 Nucleated RBC % (auto) 0 % 04/30/25 00:19 Nucleated RBCs # 0.0 /100WBC 04/30/25 00:19 Sodium 138 mmol/L (136-145) 04/30/25 00:19 Potassium 3.4 mmol/L (3.5-5.1) L 04/30/25 00:19 Chloride 101 mmol/L (98-107) 04/30/25 00:19 Carbon Dioxide 26 mmol/L (22-29) 04/30/25 00:19 Anion Gap 14.4 (5-19) 04/30/25 00:19 BUN 9 mg/dL (6-20) 04/30/25 00:19 Creatinine 0.8 mg/dL (0.5-0.9) 04/30/25 00:19 GFR Calculation 79.9 mL/min (90-130) L 04/30/25 00:19 Glucose 92 mg/dL (65-115) 04/30/25 00:19 Calculated Osmolality 284 mOsm/kg (285-295) L 04/30/25 00:19 Calcium 8.9 mg/dL (8.5-10.5) 04/30/25 00:19 Total Bilirubin 0.3 mg/dL (0.15-1.2) 04/30/25 00:19 AST 7 U/L (0-32) 04/30/25 00:19 ALT < 5 U/L (0-33) 04/30/25 00:19 Alkaline Phosphatase 90 U/L (35-105) 04/30/25 00:19 Troponin T Baseline < 6 ng/L (0-10) 04/30/25 00:19 Troponin T 120 Minute < 6.0 ng/L (0-10) 04/30/25 02:10 Delta Troponin T 0 ABS# (0-10) 04/30/25 02:10 NT-Pro-B Natriuret Pep 48 pg/mL (0-125) 04/30/25 00:19 Total Protein 6.8 g/dL (6.6-8.7) 04/30/25 00:19 Albumin 4.1 g/dL (3.5-5.2) 04/30/25 00:19 Globulin 2.7 g/dL (1.3-4.6) 04/30/25 00:19 All radiology interpretation(s) finalized by discharge Discharge Plan Discharge Patient Disposition: Placed in Observation Admit Provider: Olesya Boothe Clinical Impression: Unstable angina pectoris Coding Level of Care Code ED Clinical Informatics Educator for Bart Garrett
[2025-04-30 00:29] LABS: Hematocrit 29.9 % (36-47); Hemoglobin 9.30 g/dL (11.27-16.99); Mean Corpuscular HGB Conc 31.1 g/dL (30-55); Mean Corpuscular Hemoglobin 26.1 pg (27-33); Mean Corpuscular Volume 83.8 fl (85-98); Nucleated Red Blood Cells % 0 %; Platelet Count 245 10^3/cmm (157-399); Red Blood Count 3.57 10^6/uL (3.85-5.65); White Blood Count 9.56 10^3/uL (3.29-11.43)
[2025-04-30 00:50] LABS: Troponin(5th) Baseline < 6 ng/L (0-10)
--- NOTE | 2025-04-30 01:00 | CTR_ITS ---
PROCEDURE INFORMATION: Exam: CTA Chest With Contrast Exam date and time: 04/30/2025 1:21 AM Age: 40 years old Clinical indication: Chest pressure; Prior surgery; Surgery date: 6+ months; Surgery type: Coronary stent; Chest pain with tachycardia; Additional info: Chdst pain TECHNIQUE: Imaging protocol: Computed tomographic angiography of the chest with contrast. Exam focused on the arteries. 3D rendering (Not supervised by radiologist): MIP and/or 3D reconstructed images were created by the technologist. Radiation optimization: All CT scans at this facility use at least one of these dose optimization techniques: automated exposure control; mA and/or kV adjustment per patient size (includes targeted exams where dose is matched to clinical indication); or iterative reconstruction. Contrast material: OMNI 350; Contrast volume: 55 ml; Contrast route: INTRAVENOUS (IV); COMPARISON: CR (CHEST, ) 04/29/2025 11:33 PM RADIATION DOSE METRICS: Total DLP (mGy-cm): 395.55 FINDINGS: Pulmonary arteries: Normal. No pulmonary emboli. Aorta: Unremarkable. No aortic aneurysm. No aortic dissection. Lungs: Unremarkable. No consolidation. No masses. Pleural spaces: Unremarkable. No pneumothorax. No pleural effusion. Heart: Unremarkable. No cardiomegaly. No pericardial effusion. Coronary arteries: Coronary artery atherosclerotic calcifications. Lymph nodes: Unremarkable. No enlarged lymph nodes. Bones/joints: Unremarkable. No acute fracture. Soft tissues: Unremarkable. CT/CT angio chest PE protcl [id number] IMPRESSION: 1. Negative for pulmonary embolus. 2. Coronary artery atherosclerotic calcifications
[2025-04-30 01:02] LABS: Alanine Aminotransferase < 5 U/L (0-33); Albumin Level 4.1 g/dL (3.5-5.2); Alkaline Phosphatase 90 U/L (35-105); Anion Gap 14.4 (5-19); Aspartate Amino Transferase 7 U/L (0-32); Blood Urea Nitrogen 9 mg/dL (6-20); Calcium 8.9 mg/dL (8.5-10.5); Carbon Dioxide 26 mmol/L (22-29); Chloride 101 mmol/L (98-107); Creatinine Clr Calc Pharmacy 104.8449; Globulin 2.7 g/dL (1.3-4.6); Glucose 92 mg/dL (65-115); NT Pro B Type Natriuretic Pept 48 pg/mL (0-125); Osmolality Calculated 284 mOsm/kg (285-295); Potassium 3.4 mmol/L (3.5-5.1); Sodium 138 mmol/L (136-145); Total Protein 6.8 g/dL (6.6-8.7)
[2025-04-30] MEDS: iohexol 350 mg/mL 500 mL Btl (per mL) IV (01:21)
--- NOTE | 2025-04-30 01:21 | ECG_ITS ---
[employer] Test Date: 2025-04-30 Pat Name: Deidre Bunch Department: Room: 102 Gender: Female Biomass Facilitator: : 1985 Requested By: Nikita Zuleta Order Number: [id number] Osiris MD: BRIGITTE MART Measurements Intervals [place] Rate: 85 P: 56 AR: 156 QRS: 48 QRSD: 118 T: 30 QT: 389 QTc: 465 Interpretive Statements SINUS RHYTHM INCOMPLETE RIGHT BUNDLE BRANCH BLOCK [90+ ms QRS DURATION, TERMINAL R IN V1/V2, 40+ ms S IN I/aVL/V4/V5/V6] NONSPECIFIC T-WAVE ABNORMALITY Compared to ECG 04/29/2025 23:08:06 T-wave abnormality now present Electronically Signed On 05-03-2025 22:24:51 CDT by BRIGITTE MART [email or web address]
[2025-04-30] MEDS: nitroglycerin drip 50 MG/250 ML PREMIX IV (01:29)
[2025-04-30] MEDS: lidocaine 2% viscous 15 ML, aluminum-mag hydrox-simethicon 30 ML, sucralfate oral liq 1 GM PO (01:30)
[2025-04-30] MEDS: potassium chloride oral liq 20 mEq/15 mL UDC 40 MEQ PO (02:17)
[2025-04-30] MEDS: LORazepam 1 MG/0.5 ML injection IVP (02:18)
[2025-04-30 02:36] LABS: Troponin 5 2HR < 6.0 ng/L (0-10); Troponin 5 2HR Delta 0 ABS# (0-10)
--- NOTE | 2025-04-30 03:23 | PM.HP ---
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 Patient reported pain in the left side of the chest, appears to have started at rest, radiating down into her back neck and left arm. Associated symptoms included feeling subjective dyspnea and nausea. Troponin series with a baseline troponin of less than 6, 2 hours less than 6 with no significant delta. CTA of the chest was performed upon admission which ruled out PE and aortic dissection. Denied any history of drug use. No known history of diabetes mellitus. Patient received morphine 4 mg IV x 2, Reglan, Ativan in the emergency room along with 40 mEq p.o. potassium supplementation. She received nitroglycerin patch which did not appear to have improved her symptoms therefore she was started on a nitroglycerin infusion in the emergency room which is continued at this time. Review of Systems General: Reports: 10 or more systems reviewed and unremarkable except in HPI and below Const: Denies: fever(s), chills or body aches Eyes: Denies: change in vision, blurry vision or photophobia ENMT: Reports: hoarseness; Denies: throat pain, enlarged tonsils, odynophagia or nasal congestion Card: Denies: chest pain, palpitations, irregular heart rhythm, edema, swelling of feet/ankles, lightheadedness, pre-syncope, dyspnea on exertion or orthopnea Resp: Denies: dyspnea, productive cough, non-productive cough, wheezing, stridor, pain on inspiration, change in phlegm color, hemoptysis or chest congestion GI: Denies: abdominal pain, nausea, vomiting, hematemesis, coffee ground emesis, dysphagia, heartburn, diarrhea, constipation, GI cramping, change in stool character, hematochezia or melena : Denies: flank pain, difficulty voiding, dysuria, urinary frequency, urinary urgency, urinary hesitancy or hematuria Musc: Denies: neck pain, back pain, extremity pain, joint swelling, joint warmth or deformity Neuro: Denies: headache(s), numbness in extremities, weakness in extremities, sensory changes, difficulty walking, frequent falls, dizziness, vertigo, behavioral changes, Slurred speech present or seizure-like activity Psych: Denies: anxiety, depression, suicidal ideation or homicidal ideation Endo: Denies: polyuria, polydipsia, tired all the time, cold intolerance or hot flashes Ángel/Lymph: Denies: easy bruising or easy bleeding Medications/Allergies Home Medications ?Medication ?Instructions ?Recorded ?Confirmed ?Last Taken ?Type Klonopin 0.5 mg PO TID 01/19/23 01/19/23 01/19/23 History aspirin 81 mg capsule 81 mg PO DAILY 01/20/23 04/30/25 Unknown History atorvastatin 80 mg tablet 80 mg PO QPM 01/20/23 04/30/25 Unknown History bupropion HCl 150 mg 24 hr tablet, 150 mg PO QAM 01/20/23 01/20/23 Unknown History extended release gabapentin 300 mg tablet 600 mg PO TID 01/20/23 04/30/25 Unknown History hydrocodone 7.5 mg-acetaminophen 1 tab PO Q6H PRN Pain 01/20/23 01/20/23 Unknown History 325 mg tablet isosorbide mononitrate 30 mg 90 mg PO DAILY 01/20/23 01/20/23 Unknown History tablet,extended release 24 hr metoprolol tartrate 50 mg tablet 50 mg PO BID 01/20/23 01/20/23 Unknown History nitroglycerin 0.4 mg sublingual 0.4 mg sublingual Q5M PRN Chest 01/20/23 01/20/23 Unknown History tablet Pain omeprazole 40 mg capsule,delayed 40 mg PO BID 01/20/23 01/20/23 Unknown History release prasugrel HCl 10 mg tablet 10 mg PO DAILY 01/20/23 01/20/23 Unknown History torsemide 20 mg tablet 20 mg PO DAILY 01/20/23 01/20/23 Unknown History trazodone 50 mg tablet 50 mg PO BEDTIME PRN Sleep 01/20/23 01/20/23 Unknown History Allergies Allergy/AdvReac Type Severity Reaction Status Date / Time Beta-Blockers Allergy ADR-Nausea Verified 04/29/25 23:14 (Beta-Adrenergic Bloc ketorolac (From Toradol) Allergy ALGY-Hives Verified 04/29/25 23:15 ondansetron Allergy ADR-Vomitin Verified 01/20/23 17:20 g Sulfa (Sulfonamide Allergy ADR-Itching Verified 01/20/23 17:19 Antibiotics) tramadol Allergy ALGY-Difficulty Verified 04/29/25 23:14 Swallowing Vitals/I&O/Wt Last Vital Signs Temp 98.5 F 04/29/25 23:10 Pulse 76 04/30/25 03:11 Resp 18 04/30/25 03:11 BP 99/74 04/30/25 03:11 Pulse Ox 98 04/30/25 03:11 O2 Del Method Room Air 04/30/25 03:00 04/29/25 04/29/25 04/30/25 14:59 22:59 06:59 Intake Total Balance Weight last 48 hrs Weight 90.9 kg Weight 83.461 kg Physical Exam Narrative: General: No acute distress, AO x3 HEENT: PERRLA, pupils bilaterally equal and reactive, pallors not present Chest: Normal vesicular breath sounds, no added sounds, equal good air entry bilaterally CVS: S1-S2 regular, no murmurs, no tachycardia, no gallops, no rubs Abdomen: Soft, nontender, no organomegaly, bowel sounds present Neuro: No focal deficits, no facial deformity, AO x3, power 5/5 in all limbs Data 04/30/25 00:19 04/30/25 00:19 Other data: Ordering Provider/Ordering MD: Nikita Major DO Date of Service: 04/30/25 Procedure(s): CT angio chest PE protcl [id number] Accession Number(s): [id number] Report Number: [id number] PROCEDURE INFORMATION: Exam: CTA Chest With Contrast Exam date and time: 04/30/2025 1:21 AM Age: 40 years old Clinical indication: Chest pressure; Prior surgery; Surgery date: 6+ months; Surgery type: Coronary stent; Chest pain with tachycardia; Additional info: Chdst pain TECHNIQUE: Imaging protocol: Computed tomographic angiography of the chest with contrast. Exam focused on the arteries. 3D rendering (Not supervised by radiologist): MIP and/or 3D reconstructed images were created by the technologist. Radiation optimization: All CT scans at this facility use at least one of these dose optimization techniques: automated exposure control; mA and/or kV adjustment per patient size (includes targeted exams where dose is matched to clinical indication); or iterative reconstruction. Contrast material: OMNI 350; Contrast volume: 55 ml; Contrast route: INTRAVENOUS (IV); COMPARISON: CR (CHEST, ) 04/29/2025 11:33 PM RADIATION DOSE METRICS: Total DLP (mGy-cm): 395.55 FINDINGS: Pulmonary arteries: Normal. No pulmonary emboli. Aorta: Unremarkable. No aortic aneurysm. No aortic dissection. Lungs: Unremarkable. No consolidation. No masses. Pleural spaces: Unremarkable. No pneumothorax. No pleural effusion. Heart: Unremarkable. No cardiomegaly. No pericardial effusion. Coronary arteries: Coronary artery atherosclerotic calcifications. Lymph nodes: Unremarkable. No enlarged lymph nodes. Bones/joints: Unremarkable. No acute fracture. Soft tissues: Unremarkable. CT/CT angio chest PE protcl [id number] IMPRESSION: 1. Negative for pulmonary embolus. 2. Coronary artery atherosclerotic calcifications A&P Assessment and plan 1. Unstable angina pectoris: 2. Chest pain: Plan: 40-year-old lady with a past medical history of premature CAD, with prior coronary stents and a reported history of ventricular tachycardia in the past presented to the hospital today with chief complaints of chest pain. Currently EKG is without any acute ST-T wave changes. Baseline troponin is at 6, 2-hour also at 6, without any significant delta at 2 hours. Pending a 6-hour trend at this time. CTA of the chest has ruled out aortic dissection and pulmonary embolism. Lipase is within normal limits She received morphine 4 mg x 2 in the emergency room and was started on a nitroglycerin infusion due to ongoing chest pain. Pain is somewhat improved at this point. Continue with home doses of aspirin, prasugrel, atorvastatin 80, metoprolol as she takes at home. Echocardiogram has been ordered to assess for any regional wall motion abnormalities, systolic and diastolic function. Currently saturating 99% on room air, hemodynamically stable. Overall clinical impression is that of possibly unstable angina. Depending on the pending 6-hour troponin trend and patient's clinical symptoms with chest pain, will decide if patient should proceed with a Lexiscan stress test versus cardiology consult for possible angiogram for ischemic evaluation. Continue nitroglycerin infusion as started in the emergency room for chest pain. Telemetry monitoring , admission to [facility] PDMP PDMP Reviewed: Not Reviewed Attestations Medical Necessity Statement*: Greater than 2 midnight stay is currently anticipated for evaluation of unstable angina, ongoing nitroglycerin infusion Coding Level of Care Code Acute Code for Chg Fwd High MDM includes number and complexity of problems actively addressed during encounter, amount and/or complexity of data reviewed/ordered and described risk of complication, morbidity or mortality of management as documented Diagnoses Unstable angina pectoris I20.0 Chest pain R07.9
[2025-04-30] MEDS: morphine 4 mg/mL SDV 1 mL 2 MG IVP (03:45)
--- NOTE | 2025-04-30 03:53 | PC.NURSE ---
Patient refused Lovenox, stated, she took her Effient and Aspirin today and didn't need it . Notified Dr. Boothe of patients refusal.
--- NOTE | 2025-04-30 04:11 | PC.NURSE ---
Addendum entered by Deidre Chavez RN 04/30/25 05:02: Given orders for Nitro-Bid 0.5 inch to help with continued chest pain. Patient refused and asked for AMA papers. Patient left AMA at 0500. Dr. Boothe notified. Original Note: Patient requesting the Nitroglycerin IV be shut off because, it doesn't help with the chest pain only the Morphine does . Gave PRN dose of Morphine 2mg IVP. Upon reassessment of pain patient stating that Morphine did not help. Educated patient on use of Nitroglycerin IV to help control chest pain. Patient still adamant that Nitroglycerin IV be left off, requesting something for continued chest pain. Notified Dr. Boothe of patient request.
[2025-04-30 04:24] LABS: PCP Screen Urine Negative (Negative)
== END 2025-04-30 05:00 | disposition left against medical advice (07) ==
LOC: ER 04-30 00:42 → CSU 04-30 02:40
PROVIDERS: Admitting Provider Student in an Organized Health Care Education/Training Program; Emergency Provider Emergency Medicine; Visit Provider Student in an Organized Health Care Education/Training Program
DX: I20.0 Unstable angina (principal); Z53.29 Procedure and treatment not carried out because of patient's decision for other reasons; Z79.82 Long term (current) use of aspirin; K21.9 Gastro-esophageal reflux disease without esophagitis; Z86.79 Personal history of other diseases of the circulatory system; Z95.5 Presence of coronary angioplasty implant and graft; I25.2 Old myocardial infarction
CPT/HCPCS: 71045; 71275; 80053; 80306; 83880; 84484; 85025; 93005; 96365; 96366; 96372; 96375; 96376; 99285; G0378; J2060; J2270; J2765; J3490; J9999

== ENCOUNTER 2025-05-01 20:18 | Observation (INO) | payer OTHER, SELFPAY ==
--- OUTSIDE RECORDS SUMMARY | 2024-10-11 08:00 | XMS_ITS ---
Author Organization [facility] Address [address] [facility] [place] [address] Care Team Providers Care Car Examiner Name Role Phone Deidre Zepeda Unavailable [phone] Tete Taylor Unavailable [phone] REASON FOR VISIT Gastroparesis, GERD, Hx of Colon Cancer Encounters Encounter Location Date Provider Diagnosis [facility] [address] [place] [address] 10/11/2024 Tete Taylor Plan Of Treatment Next Appt Details Provider Name:Seamus Pena Chay sudhir, 05/25/2025 09:15:00 AM, [address] [place], [address], Progress Notes * WALTERDeidreDOB:1985 (40 yo F)Acc No.[id number]:10/11/2024 Patient: Deidre Hill Provider: Norma Taylor APRN :1985 A ge:39 Y S ex:Female Date:10/11/2024 Address:[address] [facility], [id number] Subjective: * Chief Complaints: * G astroparesis, GERD, Hx of Colon Cancer * Electronic signature of TOBY Soto on 05/01/2025 at 08:26 PM CDT Sign off status: Pending * Provider: Norma Taylor APRN Date: 0 10/11/2024 Generated for Ronaldo mcnair/Lion/eTransmitting on: 0 05/01/2025 08:26 PM CDT
--- OUTSIDE RECORDS SUMMARY | 2024-11-02 08:00 | XMS_ITS ---
Author Organization [facility] Address [address] [facility] [place] [address] Care Team Providers Care Electronics Research Engineer Name Role Phone Deidre Zepeda Unavailable [phone] Dee Valentine Unavailable [phone] REASON FOR VISIT Gastroparesis, GERD, Hx of Colon Cancer Encounters Encounter Location Date Provider Diagnosis [facility] [address] [facility] [place] [address] 11/02/2024 Dee Valentine Plan Of Treatment Next Appt Details Provider Name:Seamus peguero, 05/25/2025 09:15:00 AM, [address] [place], [address], Progress Notes * WALTERDeidreDOB:1985 (40 yo F)Acc No.[id number]:11/02/2024 Patient: Deidre Hill Provider: Slime Valentine APRN :1985 A ge:39 Y S ex:Female Date:11/02/2024 Address:[address] [facility], [id number] Subjective: * Chief Complaints: * G astroparesis, GERD, Hx of Colon Cancer Billing Information: * Procedure Codes: * Electronic signature of Yobany Valentine APRN-GAYLE on 05/01/2025 at 08:27 PM CDT Sign off status: Pending * Provider: Slime Valentine APRN Date: 0 11/02/2024 Generated for Ronaldo mcnair/Lion/Florecitaitting on: 0 05/01/2025 08:27 PM CDT
--- OUTSIDE RECORDS SUMMARY | 2024-12-28 05:30 | XMS_ITS ---
Author Organization [facility] Address [address] [place] [address] Care Team Providers Care Chain Saw Operator Name Role Phone Deidre Zepeda Unavailable [phone] Dee Valentine Unavailable [phone] REASON FOR VISIT Gastroparesis, GERD, Hx of Colon Cancer Encounters Encounter Location Date Provider Diagnosis [facility] [address] [facility] [place] [address] 12/28/2024 Dee Valentine Plan Of Treatment Next Appt Details Provider Name:Seamus Jean peguero, 05/25/2025 09:15:00 AM, [address] [place], [address], Progress Notes * WALTERDeidreDOB:1985 (40 yo F)Acc No.[id number]:12/28/2024 Patient: Deidre Hill Provider: Slime Valentine APRN :1985 A ge:39 Y S ex:Female Date:12/28/2024 Address:[address] [facility], [id number] Subjective: * Chief Complaints: * G astroparesis, GERD, Hx of Colon Cancer Billing Information: * Procedure Codes: * Electronic signature of Yobany Valentine APRN-GAYLE on 05/01/2025 at 08:24 PM CDT Sign off status: Pending * Provider: Slime Valentine APRN Date: 0 12/28/2024 Generated for Ronaldo mcnair/Lion/Florecitaitting on: 0 05/01/2025 08:24 PM CDT
--- OUTSIDE RECORDS SUMMARY | 2025-04-05 05:40 | XMS_ITS ---
Author Organization [facility] Accounts Recei v[employer] Address [address] [place] [address] Care Team Providers Care Licensed Massage Practitioner Name Role Phone Anita Church Primary Care Provider REASON FOR VISIT Non [facility] Hospital F/U, [facility] DENOMINATIONAL [place], Sharp Chest Pain, [facility] Social History Sex Assigned At : Social History Observation Description Sex Assigned At Female Encounters Encounter Location Date [facility] [address] [address] 04/05/2025 Anita Church Plan Of Treatment No Information Progress Notes * Deidre WATSONDOB:1985 (40 yo F)Acc No.[id number]:04/05/2025 Patient: Deidre GARDNER Provider: Uri Church APRN :1985 A ge:40 Y S ex:Female Date:04/05/2025 Address:[address] [facility], [id number] Patient's Default Facility:[facility] View Subjective: * Chief Complaints: * 1 . Non TCM Hospital F/U, [facility] DENOMINATIONAL [place], Sharp Chest Pain, [facility]. * Medical History: Objective: * Vitals: Assessment: Plan: * Treatment: * Billing Information: * Visit Code: * Procedure Codes: * Electronic signature of Bennie Church APRN on 05/01/2025 at 08:26 PM CDT Sign off status: Pending * Provider: Uri Church APRN Date: 04/05/2025 Generated for Ronaldo Sol/Alexandro on: 05/01/2025 08:26 PM CDT
--- OUTSIDE RECORDS SUMMARY | 2025-04-19 08:20 | XMS_ITS ---
Author Organization [facility] Accounts Recei vable Address [address] [place] [address] Care Team Providers Care Small Engine Trainer Name Role Phone Anita Church Primary Care Provider [phone] REASON FOR VISIT ER f/up [facility]- CP/nausea/Back pain- 1 month f/u fasting tsmith Social History Sex Assigned At : Social History Observation Description Sex Assigned At Female Encounters Encounter Location Date Provider Diagnosis [facility] [address] [address] 04/19/2025 Anita Church Plan Of Treatment No Information Progress Notes * Deidre WATSONDOB:1985 (40 yo F)Acc No.[id number]:04/19/2025 Patient: Deidre GARDNER Provider: Uri Church APRN :1985 A ge:40 Y S ex:Female Date:04/19/2025 [address] [facility] [place] [id number] Patient's Default Facility:[facility] View Subjective: * Chief Complaints: * 1 . ER f/up [facility]- CP/nausea/Back pain- 1 month f/u fasting tsmith. * Medical History: Objective: * Vitals: Assessment: Plan: * Treatment: * Billing Information: * Visit Code: * Procedure Codes: * Electronic signature of Bennie Church APRN on 05/01/2025 at 08:24 PM CDT Sign off status: Pending * Provider: Uri Church APRN Date: 0 04/19/2025 Generated for Ronaldo mcnair/Lion/Alexandro on: 0 05/01/2025 08:24 PM CDT
--- OUTSIDE RECORDS SUMMARY | 2025-04-19 08:44 | XMS_ITS ---
Author Organization [facility] Accounts Rece[employer] vable Address [address] [place] [address] Care Team Providers Care Clerk Carrier Name Role Phone Anita Church Primary Care Provider REASON FOR VISIT n/s Social History Sex Assigned At : Social History Observation Description Sex Assigned At Female Encounters Encounter Location Date Provider Diagnosis [facility] [address] [place] [address] 04/19/2025 Anita Church Plan Of Treatment No Information Progress Notes * Deidre WATSONDOB:1985 (40 yo F)Acc No.[id number]:04/19/2025 Patient: Deidre GARDNER :1985 A ge:40 Y S ex:Female [address] [place], [address] * true * Date: Generated for Elisabeti tabby/Fagtg/eTransmitting on: 0 05/01/2025 08:25 PM CDT
--- OUTSIDE RECORDS SUMMARY | 2025-04-28 03:05 | XMS_ITS | Encounter Summary ---
Author Organization [facility] Address [address] [place] [address] Care Team Providers Care Boiler Cleaner Name Role Phone Andriy Ortiz MD Primary Care Provider [phone] Mariaa Barron SOLDERER ASSEMBLY REPAIR Unavailable [phone] Reason for Visit * Reason Comments Chest Pain Encounter Details Date Type Department Care Team ([facility] st Contact Info) Description 04/28/2025 3:05 AM CDT - 04/28/2025 6:05 AM CDT Emergency Emergency Department [address] [place] [phone] Stefano Yu, DO [address] [facility] [address] [place] [address] Chest pain, unspecified type (Primary Dx); Nausea and vomiting, unspecified vomiting type Discharge Disposition: Home or Self Care Social History Tobacco Use Types Packs/Day Years Used Date Smoking Tobacco: Every Day Cigarettes Smokeless Tobacco: Never Tobacco Cessation:Ready to Q uit: Not Asked; Counseling Given: Not Answered Comments No Sex and Gender Information Value Date Recorded Sex Assigned at Not on file Legal Sex Female 6:05 PM CDT Gender Identity Not on file Sexual Orientation Not on file documented as of this encounter Last Filed Vital Signs Vital Sign Reading Time Taken Comments Blood Pressure 117/74 04/28/2025 5:45 AM CDT Pulse 91 04/28/2025 5:45 AM CDT Temperature 36.8 C (98.2 F) 04/28/2025 2:18 AM CDT Respiratory Rate 21 04/28/2025 5:45 AM CDT Oxygen Saturation 93% 04/28/2025 5:45 AM CDT Inhaled Oxygen Concentration - - Weight 80.7 kg (178 lb) 04/28/2025 2:18 AM CDT Height - - Body Mass Index 27.88 03/15/2025 10:15 AM CDT documented in this encounter Discharge Instructions * Discharge Instructions* Unique Gonzalez DO - 04/28/2025 6:01 AM CDT Please follow up with your primary care physician Within one week for re- evaluation. Continue to follow with your usual medical providers and take all of your home medications as they are prescribed unless you have been told otherwise. If you notice any new or worsening symptoms as discussed to include persistent or worsening chest pain, trouble breathing, fever, syncope, or any additional concerns, return to the Emergency Department immediately for further evaluation. Instructions are included in this paperwork to sign up for [employer]. This allows you to send messages to your doctor, view your test results, renew your prescriptions, schedule appointments, and more. To sign up, go to [email or web address] and click the Sign Up Now link in the New User box. Enter your [employer] Activation Code exactly as it appears in the paperwork below along with the last 4 digits of your Social Security Number and your Date of to complete the sign-up process. * Attachments The following attachments cannot be sent through Care Everywhere. * Chest Pain That Is Not Caused by the Heart Discharge Instructions (Turkmen) * Chest Pain Discharge Instructions (Turkmen) documented in this encounter Medications at Time of Discharge prochlorperazine (COMPAZINE) 10 MG tablet Take one tablet (10 mg) by mouth every 6 (six) hours as needed (nausea). 5 tablet 03/29/2025 documented as of this encounter ED Notes * Unique Gonzalez DO - 04/28/2025 3:11 AM CDT History Chief Complaint Patient presents with Chest Pain HPI Deidre Bunch is a 40 y.o. female with PMHx of ID status post stent placement right-sided heart failure, cardiac arrest in 2020 who presents to the ED for chest pain. Patient states that chest pain began last night at approximately 1900 and has persisted since. She was sitting on the couch relaxing pain started. Primarily occurs in the center of her chest radiates somewhat to the left side as well as her left arm and into the left side of her neck. She has taken for sublingual nitroglycerin and aspirin 325 mg without improvement in her symptoms. She denies any coughing but notes she has intermittent associated shortness of breath. She did have an episode of vomiting around time onset. She states that symptoms lot of similarities to the symptoms she had when she had her attack. Past Medical History: Diagnosis Date Anxiety Atherosclerosis Bipolar affective (HCC) Cardiac arrest (HCC) CHF (congestive heart failure) (HCC) Chronic fatigue Chronic pain COPD (chronic obstructive pulmonary disease) (HCC) Coronary artery disease Fibromyalgia Hepatitis HLD (hyperlipidemia) Hypertension ID (myocardial infarction) (HCC) Past Surgical History: Procedure Laterality Date , UNDOCUMENTED SCAR TYPE CHOLECYSTECTOMY CORONARY ANGIOPLASTY WITH STENT PLACEMENT TUBAL LIGATION No family history on file. Social History Socioeconomic History Marital status: Spouse name: Not on file Number of children: Not on file Years of education: Not on file Highest education level: Not on file Occupational History Not on file Tobacco Use Smoking status: Not on file Smokeless tobacco: Not on file Substance and Sexual Activity Alcohol use: Not on file Drug use: Not on file Sexual activity: Not on file Other Topics Concern Not on file Social History Narrative Not on file Social Drivers of Health Financial Resource Strain: Not At Risk (03/31/2025) Received from [facility] BOC Financial Resource Needs Food/Housing/Utility/Transport/Financial Concerns : Unrecognized value Food Insecurity: Not At Risk (03/31/2025) Received from [facility] BOC Food Insecurity Food/Housing/Utility/Transport/Financial Concerns : Unrecognized value Transportation Needs: Not At Risk (03/31/2025) Received from [facility] BOC Transportation Needs Food/Housing/Utility/Transport/Financial Concerns : Unrecognized value Physical Activity: Not on file Stress: Not on file Social Connections: Not on file Intimate Partner Violence: Not At Risk (04/11/2025) Received from [facility] Intimate Partner Safety Feels Unsafe at Home or Work/School: Unrecognized value Feels Threatened by Someone: Unrecognized value Does Anyone Try to Keep You From Having Contact with Others or Doing Things Outside Your Home?: Unrecognized value Physical Signs of Abuse Present: Unrecognized value Major Change/Loss/Stressor/Fears: Unrecognized value Housing Stability: Not At Risk (03/31/2025) [facility] Stability Source Food/Housing/Utility/Transport/Financial Concerns : Unrecognized value Review of Systems Constitutional: Negative for fever. Respiratory: Negative for cough and shortness of breath. Cardiovascular: Positive for chest pain. Gastrointestinal: Positive for nausea and vomiting. Negative for abdominal pain, constipation and diarrhea. Psychiatric/Behavioral: Negative for agitation and confusion. No current facility-administered medications for this encounter. Current Outpatient Medications Medication Sig Dispense Refill prochlorperazine (COMPAZINE) 10 MG tablet Take one tablet (10 mg) by mouth every 6 (six) hours as needed (nausea). 5 tablet 0 Allergies Allergen Reactions Ketorolac Anaphylaxis and Rash Sulfa (Sulfonamide Antibiotics) Anaphylaxis Beta-Blockers (Beta-Adrenergic Blocking Agts) Tramadol Venlafaxine Ondansetron Other (See Comments) no longer allergic 1. Chest pain, unspecified type 2. Nausea and vomiting, unspecified vomiting type Physical Exam BP 111/68 Pulse 81 Temp 98.2 ??F (36.8 ??C) Resp 18 Wt 80.7 kg (178 lb) SpO2 100% BMI 27.88 kg/m?? Physical Exam Vitals and nursing note reviewed. HENT: Head: Normocephalic and atraumatic. Right Ear: External ear normal. Left Ear: External ear normal. Nose: Nose normal. Mouth/Throat: Mouth: Mucous membranes are moist. Eyes: General: Lids are normal. Right eye: No discharge. Left eye: No discharge. Conjunctiva/sclera: Conjunctivae normal. Pupils: Pupils are equal, round, and reactive to light. Cardiovascular: Rate and Rhythm: Normal rate and regular rhythm. Pulses: Normal pulses. Radial pulses are 2+ on the right side and 2+ on the left side. Posterior tibial pulses are 2+ on the right side and 2+ on the left side. Pulmonary: Effort: Pulmonary effort is normal. No tachypnea or accessory muscle usage. Breath sounds: Normal breath sounds. No wheezing, rhonchi or rales. Chest: Chest wall: No lacerations or tenderness. Abdominal: General: Abdomen is flat. There is no distension. Tenderness: There is no abdominal tenderness. There is no guarding or rebound. Musculoskeletal: Right lower leg: No edema. Left lower leg: No edema. Skin: General: Skin is warm and dry. Coloration: Skin is not jaundiced. Findings: No rash. Neurological: Mental Status: She is alert. Psychiatric: Mood and Affect: Mood normal. Behavior: Behavior normal. Behavior is cooperative. ED Course DIAGNOSTICS: LABS: Results for orders placed or performed during the hospital encounter of 04/28/25 CBC (With Diff) Collection Time: 04/28/25 4:08 AM Result Value Ref Range WBC 8.31 3.60 - 9.50 K/uL RBC 3.65 (L) 4.00 - 5.20 M/uL Hemoglobin 9.5 (L) 12.0 - 15.0 g/dL Hematocrit 30.7 (L) 35.0 - 45.0 % MCV 84.1 80.0 - 100.0 fL MCH 26.0 26.0 - 33.0 pg MCHC 30.9 (L) 32.0 - 36.0 g/dL RDW 17.8 (H) 12.0 - 15.0 % Platelet 250 150 - 450 K/??L MPV 10.6 9.0 - 13.0 fL ANC 4.4 1.4 - 6.0 K/uL Nucleated RBC 0.0 #/100 WBC Neutrophils, Auto 53.2 35.0 - 65.0 % Lymphs, Auto 37.3 23.0 - 50.0 % Monocytes, Auto 7.3 4.6 - 12.0 % Eosinophils, Auto 1.4 0.5 - 6.5 % Basophils, Auto 0.4 0.1 - 1.1 % Immature Grans, Auto 0.4 0.0 - 0.5 % Neutrophils, Absolute 4.42 1.40 - 6.00 K/uL Lymphocytes, Absolute 3.10 1.20 - 3.40 K/uL Monocytes, Absolute 0.61 0.20 - 1.00 K/uL Eosinophils, Absolute 0.12 0.00 - 0.50 K/uL Basophils, Absolute 0.03 0.00 - 0.07 K/uL Immature Grans, Absolute 0.03 K/uL Basic Metabolic Panel Collection Time: 04/28/25 4:08 AM Result Value Ref Range Sodium 134 (L) 135 - 145 mmol/L Potassium 3.1 (L) 3.5 - 5.1 mmol/L Chloride 102 98 - 107 mmol/L CO2 24 22 - 32 mmol/L BUN 8 6 - 20 mg/dL Creatinine 0.9 0.4 - 1.0 mg/dL Calcium 8.9 8.6 - 10.2 mg/dL Glucose 80 70 - 110 mg/dL Anion Gap 8 3 - 11 eGFR 83.6 mL/min/1.73 square meters High Sensitivity Troponin I-Timed Series Collection Time: 04/28/25 4:08 AM Result Value Ref Range HS Troponin I <4.0 <14.9 ng/L B-type Natriuretic Peptide Collection Time: 04/28/25 4:08 AM Result Value Ref Range B-TYPE NATRIURETIC PEPTIDE <10 <=100 pg/mL Troponin I, High Sensitivity-Standalone Collection Time: 04/28/25 4:59 AM Result Value Ref Range HS Troponin I, Standalone <4.0 <14.9 ng/L RADIOLOGY: X-ray chest AP portable Final Result FINDINGS AND IMPRESSION: Cardiac silhouette is not enlarged. No evidence of mediastinal widening. No evidence of pleural effusion. No definite pneumothorax noted. No lung consolidation or opacities. Overall no acute cardiopulmonary findings. GENCY DEPARTMENT MEDS GIVEN: Medications prochlorperazine (Compazine) (injection) 10 mg (10 mg Intravenous Given 04/28/25 0449) morphine (injection) 5 mg (5 mg Intravenous Given 04/28/25 0451) potassium chloride SA CR tablet 40 mEq (40 mEq Oral Given 04/28/25 0527) Vitals: 04/28/25 0218 04/28/25 0315 04/28/25 0330 04/28/25 0545 BP: 111/68 106/76 113/69 117/74 Pulse: 81 70 71 91 Resp: 18 15 22 21 Temp: 98.2 ??F (36.8 ??C) SpO2: 100% 100% 99% 93% Weight: 80.7 kg (178 lb) MEDICAL DECISION MAKING AND PLAN OF CARE: ED Course: Deidre Bunch with history stated above presents to the emergency department today for Chest pain.On initial evaluation patient is alert, sitting up in bed, in no acute distress. Vital signs were within normal limits. Patient had no acute abnormalities appreciated on exam. Patient was given morphine for pain and Compazine for nausea. Lab work demonstrated normocytic anemia without leukocytosis. Hypokalemia without additional electrolyte abnormalities appreciated. Oral potassium repletion was administered. Initial troponin within normal limits and stable on repeat. BNP unremarkable. EKG unremarkable and stable from previous. Chest x-ray without acute cardiopulmonaryabnormalities appreciated. Patient's checked in for chest pain shortly after the patient arrived and patient requested to be discharged so she could be with her during his evaluation. Deidre Bunch is a 40 y.o. female who was seen on 04/28/2025 and was diagnosed with: 1. Chest pain, unspecified type 2. Nausea and vomiting, unspecified vomiting type Patient is currently stable, in no acute distress, and does not require inpatient supportive/symptomatic treatment or therapies at this time. They will be discharged with Instructions to follow-up with her primary care provider within one week for re-evaluation. The evaluation and findings, along with the disposition, and plan of care were discussed with the patient/family/caregiver. They agreed and expressed understanding. Emergency precautions were discussed, and the patient was instructed to return to the ED for any worsening of symptoms, persistent comp laints, or further concerns. Patient was discharged with: Medication List ASK your doctor about these medications prochlorperazine 10 MG tablet Commonly known as: Compazine Take one tablet (10 mg) by mouth every 6 (six) hours as needed (nausea). Instructed to follow up with: Andriy Ortiz MD [facility] [address] In 1 week Emergency Department [address] [place] [phone] As needed Procedures Medical Decision Making Amount and/or Complexity of Data Reviewed External Data Reviewed: labs, ECG and notes. Labs: ordered. Decision-making details documented in ED Course. Radiology: ordered. Decision-making details documented in ED Course. ECG/medicine tests: ordered and independent interpretation performed. Decision- making details documented in ED Course. Risk Prescription drug management. Edit Clinical Impression ED Course as of 04/28/25 0555 Sat Apr 28, 2025 0452 EKG 12 lead sinus rhythm with no axis deviation or interval lengthening abnormalities; evidence of acute ischemic change when compared previous my independent interpretation. [KL] 0453 X-ray chest AP portable IMPRESSION: Cardiac silhouette is not enlarged. No evidence of mediastinal widening. No evidence of pleural effusion. No definite pneumothorax noted. No lung consolidation or opacities. Overall no acute cardiopulmonary findings. [KL] ED Course User Index [KL] Unique Gonzalez DO This note was produced using voice recognition software, and despite best efforts with proofreading, some typographical errors may be present. Decision Support Decision Support Unique Gonzalez DO Resident 04/28/25 0900 Stefano Yu DO 04/30/25 0224 Cosigned by Stefano Yu DO at 04/30/2025 2:24 AM CDT Associated attestation - Stefano Yu DO - 04/30/2025 2:24 AM CDT ED ATTENDING ATTESTATION Deidre Bunch is a 40 y.o. female who presents to the ED with Chief Complaint Patient presents with Chest Pain Vitals: 04/28/25 0218 04/28/25 0315 04/28/25 0330 04/28/25 0545 BP: 111/68 106/76 113/69 117/74 Pulse: 81 70 71 91 Resp: 18 15 22 21 Temp: 98.2 ??F (36.8 ??C) SpO2: 100% 100% 99% 93% Weight: 80.7 kg (178 lb) I have seen and examined this patient and discussed the H&P and plan with the resident. I agreewith the note and have inserted my edits as needed. Impression: 1. Chest pain, unspecified type 2. Nausea and vomiting, unspecified vomiting type Date of service: 04/28/2025 Stefano Yu DO Curator [employer] [facility] 04/30/2025 2:24 AM * Emilee Crockett RN - 04/28/2025 2:18 AM CDT Extensive cardiac hx. Having CP that started 1900 last night with upper back pain, left arm pain and very nauseated - feels similar to prior ID. documented in this encounter Plan of Treatment Pending Results Name Type Priority Associated Diagnoses Date /Time EKG 12 lead ECG STAT 04/28/2025 2: 26 AM CDT documented as of this encounter Procedures Procedure Name Priority Date/Time Associated Diagnosis Comments TROPONIN I, HIGH SENSITIVITY-STANDALON E STAT 04/28/2025 4:59 AM CDT HIGH SENSITIVITY TROPONIN I-TIMED SERIES Routine 04/28/2025 4:08 AM CDT CBC AND DIFFERENTIAL Routine 04/28/2025 4:08 AM CDT B-TYPE NATRIURETIC PEPTIDE Routine 04/28/2025 4:08 AM CDT BASIC METABOLIC PANEL Routine 04/28/2025 4:08 AM CDT XR CHEST AP PORTABLE STAT 04/28/2025 3:27 AM CDT EKG 12-LEAD STAT 04/28/2025 2:26 AM CDT documented in this encounter Results * Troponin I, High Sensitivity-Standalone (04/28/2025 4:59 AM CDT) HS Troponin I, Standalone <4.0 <14.9 ng/L 04/28/2025 5:41 AM CDT [facility] Blood Venipuncture / Unknown 04/28/2025 4:59 AM CDT 04/28/2025 5:10 AM CDT Narrative [facility] - 04/28/2025 5:41 AM CDT The High Sensitivity Troponin I was measured on the FLIP4NEW DXi with results expressed in units of ng/L; different from the previous Troponin I test which used units of ng/mL. Over all reference interval is 17.5 ng/L. Troponin results should be interpreted in conjunction with the patient's symptoms, history, and results of other diagnostic tests. ICAgenherrera Yu Lang-8 LAB BLOOD ORDERABLES Fi nal Result Performing Organization Address [facility] Co de Phone Number [facility] [address] [place] [address], * B-type Natriuretic Peptide (04/28/2025 4:08 AM CDT) B-TYPE NATRIURETIC PEPTIDE <10 <=100 pg/mL 04/28/2025 4:48 AM CDT [facility] Blood Venipuncture / Unknown 04/28/2025 4:08 AM CDT 04/28/2025 4:16 AM CDT [employer] Garland Yu LAB BLOOD ORDERABLES Fi nal Result Performing Organization Address [facility] Co de Phone Number [facility] [address] [place] [id number], * High Sensitivity Troponin I-Timed Series (04/28/2025 4:08 AM CDT) Pathologist [facility] HS Troponin I <4.0 <14.9 ng/L 04/28/2025 4:49 AM CDT [facility] Blood Venipuncture / Unknown 04/28/2025 4:08 AM CDT 04/28/2025 4:16 AM CDT Narrative [facility] - 04/28/2025 4:49 AM CDT The High Sensitivity Troponin I was measured on the Daniel DXi with results expressed in units of ng/L; different from the previous Troponin I test which used units of ng/mL. Over all reference interval is 17.5 ng/L. Troponin results should be interpreted in conjunction with the patient's symptoms, history, and results of other diagnostic tests. Christherrera Yu DO LAB BLOOD ORDERABLES [facility] Result [facility] [address] [place] [address], * (ABNORMAL) Basic Metabolic Panel (04/28/2025 4:08 AM CDT) Sodium 134(L) 135 - 145 mmol/L 04/28/2025 4:49 AM CDT [facility] Potassium 3.1(L) 3.5 - 5.1 mmol/L 04/28/2025 4:49 AM CDT [facility] Chloride 102 98 - 107 mmol/L 04/28/2025 4:49 AM CDT [facility] CO2 24 22 - 32 mmol/L 04/28/2025 4:49 AM CDT [facility] BUN 8 6 - 20 mg/dL 04/28/2025 4:49 AM CDT [facility] Creatinine 0.9 0.4 - 1.0 mg/dL 04/28/2025 4:49 AM CDT [facility] Calcium 8.9 8.6 - 10.2 mg/dL 04/28/2025 4:49 AM CDT [facility] Glucose 80 70 - 110 mg/dL 04/28/2025 4:49 AM CDT [facility] Anion Gap 8 3 - 11 04/28/2025 4:49 AM CDT [facility] Comment:Anion Gap calculated as Na-(Cl+HCO3). eGFR 83.6 mL/min/1.73 square meters 04/28/2025 4:49 AM CDT [facility] Blood Venipuncture / Unknown 04/28/2025 4:08 AM CDT 04/28/2025 4:16 AM CDT Narrative [facility] - 04/28/2025 4:49 AM CDT eGFR has been calculated using CKD-EPI Creatinine Equation (2020) which is recommended by the National Kid[employer]. GFR Categories in Chronic Kidney Disease (CKD) Category GFR Interpretation: G1 90 or greater Normal or high* G2 60-89 Mild decrease* G3a 45-59 Mild to moderate decrease G3b 30-44 Moderate to severe decrease G4 15-29 Severe decrease G5 14 or less Kidney failure *In the absence of evidence of kidney damage, neither GFR category G1 nor G2 fulfill the criteria for CKD Kidney Int Suppl 2013;3:1-150 us Stefano Yu DO LAB BLOOD ORDERABLES Fi nal Result [facility] [address] [place] [address], * (ABNORMAL) CBC (With Diff) (04/28/2025 4:08 AM CDT) WBC 8.31 3.60 - 9.50 K/uL 04/28/2025 4:32 AM CDT [facility] RBC 3.65(L) 4.00 - 5.20 M/uL 04/28/2025 4:32 AM CDT [facility] Hemoglobin 9.5(L) 12.0 - 15.0 g/dL 04/28/2025 4:32 AM CDT [facility] Hematocrit 30.7(L) 35.0 - 45.0 % 04/28/2025 4:32 AM CDT [facility] MCV 84.1 80.0 - 100.0 fL 04/28/2025 4:32 AM CDT [facility] MCH 26.0 26.0 - 33.0 pg 04/28/2025 4:32 AM CDT [facility] MCHC 30.9(L) 32.0 - 36.0 g/dL 04/28/2025 4:32 AM CDT [facility] RDW 17.8(H) 12.0 - 15.0 % 04/28/2025 4:32 AM CDT [facility] Platelet 250 150 - 450 K/ L 04/28/2025 4:32 AM CDT [facility] MPV 10.6 9.0 - 13.0 fL 04/28/2025 4:32 AM CDT [facility] ANC 4.4 1.4 - 6.0 K/uL 04/28/2025 4:32 AM CDT [facility] Nucleated RBC 0.0 #/100 WBC 04/28/2025 4:32 AM CDT [facility] Neutrophils, Auto 53.2 35.0 - 65.0 % 04/28/2025 4:32 AM CDT [facility] Lymphs, Auto 37.3 23.0 - 50.0 % 04/28/2025 4:32 AM CDT [facility] Monocytes, Auto 7.3 4.6 - 12.0 % 04/28/2025 4:32 AM CDT [facility] Eosinophils, Auto 1.4 0.5 - 6.5 % 04/28/2025 4:32 AM CDT [facility] Basophils, Auto 0.4 0.1 - 1.1 % 04/28/2025 4:32 AM CDT [facility] Immature Grans, Auto 0.4 0.0 - 0.5 % 04/28/2025 4:32 AM CDT [facility] Neutrophils, Absolute 4.42 1.40 - 6.00 K/uL 04/28/2025 4:32 AM CDT [facility] Lymphocytes, Absolute 3.10 1.20 - 3.40 K/uL 04/28/2025 4:32 AM CDT [facility] Monocytes, Absolute 0.61 0.20 - 1.00 K/uL 04/28/2025 4:32 AM CDT [facility] Eosinophils, Absolute 0.12 0.00 - 0.50 K/uL 04/28/2025 4:32 AM CDT [facility] Basophils, Absolute 0.03 0.00 - 0.07 K/uL 04/28/2025 4:32 AM CDT [facility] Immature Grans, Absolute 0.03 K/uL 04/28/2025 4:32 AM CDT [facility] Blood Venipuncture / Unknown 04/28/2025 4:08 AM CDT 04/28/2025 4:16 AM CDT us Stefano Yu DO LAB BLOOD ORDERABLES Fi nal Result [facility] [address] [place] [address], * X-ray chest AP portable (04/28/2025 3:27 AM CDT) Anatomical Region Laterality Modality Chest Radiographic Negrita ging Impressions 04/28/2025 4:15 AM CDT FINDINGS AND IMPRESSION: Cardiac silhouette is not enlarged. No evidence of mediastinal widening. No evidence of pleural effusion. No definite pneumothorax noted. No lung consolidation or opacities. Overall no acute cardiopulmonary findings. Narrative 04/28/2025 4:15 AM CDT EXAM DESCRIPTION: XR CHEST AP PORTABLE HISTORY: 40 y/o F with CP; TECHNIQUE: Chest x-ray in one view COMPARISON: 03/15/2025 Procedure Note Judie Martínez MD - 04/28/2025 EXAM DESCRIPTION: XR CHEST AP PORTABLE HISTORY: 40 y/o F with CP; TECHNIQUE: Chest x-ray in one view COMPARISON: 03/15/2025 IMPRESSION: FINDINGS AND IMPRESSION: Cardiac silhouette is not enlarged. No evidence of mediastinal widening. No evidence of pleural effusion. No definite pneumothorax noted. No lung consolidation or opacities. Overall no acute cardiopulmonary findings. at04:15:32 Stefano Yu DO [facility] DIAGNOSTIC IMAGING ORDERABLES Final Result documented in this encounter Visit Diagnoses Diagnosis Chest pain, unspecified type- Primary Nausea and vomiting, unspecified vomiting type documented in this encounter Administered Medications Inactive Administered Medications - up to 3 most recent administrations Medication Order MAR Action Action Date Dose Rate Site morphine (injection) 5 mg STAT, 5 mg, Intravenous, Once, On 04/28/25 at 0422, For 1 dose Given 04/28/2025 4:51 AM CDT 5 mg potassium chloride SA CR tablet 40 mEq STAT, 40 mEq, Oral, Once, On 04/28/25 at 0454, For 1 dose, DO NOT CRUSH OR CHEW. Given 04/28/2025 5:27 AM CDT 40 mEq prochlorperazine (Compazine) (injection) 10 mg STAT, 10 mg, Intravenous, Once, On 04/28/25 at 0324, For 1 dose Given 04/28/2025 4:49 AM CDT 10 mg documented in this encounter Active and Recently Administered Medications Times are shown in CDT. Scheduled Medication Order 04/26/2025 04/27/2025 04/28/2025 morphine (injection) 5 mg (COMPLETED) STAT, 5 mg, Intravenous, Once, On 04/28/25 at 0422, For 1 dose 0451 (Given - Provid er: Cindy Lyman RN) potassium chloride SA CR tablet 40 mEq (COMPLETED) STAT, 40 mEq, Oral, Once, On 04/28/25 at 0454, For 1 dose, DO NOT CRUSH OR CHEW. 0527 (Given - Provid er: KATY Ford) prochlorperazine (Compazine) (injection) 10 mg (COMPLETED) STAT, 10 mg, Intravenous, Once, On 04/28/25 at 0324, For 1 dose 0449 (Given - Provid er: Cindy Lyman RN) documented in this encounter Care Teams Boiler Cleaner Relationship Specialty Start Date End Date Andriy Ortiz MD [address] [place] [phone] PCP - General Family Medicine 10/11/23 Mariaa Barron APRN [address] [place] [id number] PCP - Insurance 03/15/25 documented as of this encounter
--- OUTSIDE RECORDS SUMMARY | 2025-05-01 20:23 | XMS_ITS | Clinical Summary ---
Author Organization [facility] Authernative Address [address] [place] [id number] Care Team Providers Care Staff Physical Therapy Assistant Name Role Phone Andriy Ortiz MD Primary Care Provider [phone] Mariaa Barron ASSEMBLER INSTALLER STRUCTURES Unavailable [phone] Allergies Active Allergy Reactions Criticality Noted Date [...] hypertension 09/03/2024 Gastroparesis 08/07/2024 No diagnosis on Sandston I 02/07/2024 Anxiety 09/22/2023 Bipolar affective 09/22/2023 Cervical radiculopathy 09/22/2023 Chest pain 09/22/2023 CHF (congestive heart failure) 12/30/2022 Chronic obstructive pulmonary disease 12/30/2022 Fibromyalgia 12/30/2022 Atherosclerosis of coronary artery without angin a pectoris 08/12/2021 Encounters Date Type Department Care Team Description 04/28/2025 3:05 AM CDT - 04/28/2025 6:05 AM CDT Emergency Emergency Department [address] [place] [phone] Stefano Yu DO Chest pain, unspecified type (Primary Dx); Nausea and vomiting, unspecified vomiting type Discharge Disposition: Home or Self Care 04/28/2025 Travel 04/07/2025 7:14 PM CDT - 04/08/2025 12:12 AM CDT Emergency Emergency Department [address] [place] [phone] Discharge Disposition: Left Without Being Seen 03/28/2025 8:42 PM CDT - 03/29/2025 12:30 PM CDT Emergency Emergency Department [address] [place] [phone] Jez Marcos MD Dental infection (Primary Dx) Discharge Disposition: Home or Self Care 03/28/2025 Travel 03/15/2025 10:16 AM CDT - 03/15/2025 1:03 PM CDT Emergency Emergency Department [address] [place] [phone] Mitch Zhang MD Chest pain, rule out [...] I, High Sensitivity-Standalone (04/28/2025 4:59 AM CDT) [facility] HS Troponin I, Standalone <4.0 <14.9 ng/L 04/28/2025 5:41 AM CDT [facility] Blood Venipuncture / Unknown 04/28/2025 4:59 AM CDT 04/28/2025 5:10 AM CDT Narrative [facility] - 04/28/2025 5:41 AM CDT [...] DO LAB BLOOD ORDERABLES Fi nal Result [facility] [address] [place] [address], * High Sensitivity Troponin I-Timed Series (04/28/2025 4:08 AM CDT) Only the most recent of3 resultswithin the time period is included. [facility] HS Troponin I <4.0 <14.9 ng/L 04/28/2025 4:49 AM CDT [facility] Blood Venipuncture / Unknown 04/28/2025 4:08 AM CDT 04/28/2025 4:16 AM CDT Narrative [facility] - 04/28/2025 4:49 AM CDT [...] BLOOD ORDERABLES Fi nal Result [facility] [address] [place] [address], * (ABNORMAL) CBC (With Diff) (04/28/2025 4:08 [...] - 50.0 % 04/28/2025 4:32 AM CDT [facility] Monocytes, Auto 7.3 4.6 - 12.0 [...] - 0.07 K/uL 04/28/2025 4:32 AM CDT [facility] Immature Grans, Absolute 0.03 K/uL 04/28/2025 4:32 AM CDT [facility] Blood Venipuncture / Unknown 04/28/2025 4:08 AM CDT 04/28/2025 4:16 AM CDT us Stefano Yu DO LAB BLOOD ORDERABLES Fi nal Result [facility] [address] [id number], * B-type Natriuretic Peptide (04/28/2025 4:08 AM CDT) B-TYPE NATRIURETIC PEPTIDE <10 <=100 pg/mL 04/28/2025 4:48 AM CDT [facility] Blood Venipuncture / Unknown 04/28/2025 4:08 AM CDT 04/28/2025 4:16 AM CDT us Stefano Yu DO LAB BLOOD ORDERABLES Fi nal Result [facility] [address] [place] [address], * (ABNORMAL) Basic Metabolic Panel (04/28/2025 4:08 [...] Stefano Yu DO LAB BLOOD ORDERABLES Fi critical access hospital Result [facility] [address] [place] [address], * X-ray chest AP portable (04/28/2025 3:27 [...] PM CDT 04/08/2025 5:58 AM CDT Narrative [facility] - 04/08/2025 5:58 AM CDT Ventricular Rate- 98 BPM Atrial Rate- 98 BPM P-R Interval- 130 ms QRS Duration- 102 ms Q-T Interval- 354 ms QTC Calculation(Bazett)- 451 ms P Sandston- 75 degrees T Sandston- 59 degrees Diagnosis Normal sinus rhythm Incomplete right bundle branch block Borderline ECG When compared with ECG of 28-Mar-2025 17:10, No significant change was found Confirmed by Valorie Norman ([id number]) on 04/08/2025 5:58:48 AM Samuel Claire MD ECG ORDERABLES Final Resu lt Performing Organization Address City/[facility]/ZIP Co de Phone Number [facility] * Urine test, Point of Care Testing (03/28/2025 10:46 PM CDT) Test, Ur Negative [facility] Lot Number [id number] [facility] Expiration Date 10/22/2026 [facility] Internal Control(s) Acceptable [facility] Jez Marcos MD POINT OF CARE TEST ORDERABLES Fi nal Result Performing Organization Address City/[facility]/ZIP Co de Phone Number [facility] [place] [address], * HIGH SENSITIVITY TROPONIN I- HOUR 1 (03/28/2025 8:11 PM CDT) Only the most recent of2 resultswithin the time period is included. HS Troponin I, 1hr <4.0 <14.9 ng/L 03/28/2025 9:15 PM CDT [facility] Blood Venipuncture / Unknown 03/28/2025 8:11 PM CDT 03/28/2025 8:15 PM CDT Narrative [facility] - 03/28/2025 9:15 PM CDT [...] ORDERABLES Final Re sult Performing Organization Address [facility]/ZIP Co de Phone Number [facility] [address] [place] [address], * Magnesium, Serum (03/28/2025 8:11 PM CDT) Only the most recent of2 resultswithin the time period is included. Pathologist [facility] Magnesium 1.7 1.6 - 2.6 mg/dL 03/28/2025 10:02 PM CDT [facility] Blood Venipuncture / Unknown 03/28/2025 8:11 PM CDT 03/28/2025 8:15 PM CDT Srikanth BRYAN LAB BLOOD ORDERABLES Final Res ult Performing Organization Address [facility] Co de Phone Number [facility] [address] [place] [address], * (ABNORMAL) CBC (No Diff) (03/28/2025 5:14 PM CDT) Only the most recent of2 resultswithin the time period is included. WBC 9.48 3.60 - 9.50 K/uL 03/28/2025 5:37 PM CDT [facility] RBC 4.29 4.00 - 5.20 M/uL 03/28/2025 5:37 PM CDT [facility] Hemoglobin 11.3(L) 12.0 - 15.0 g/dL 03/28/2025 5:37 PM CDT [facility] Hematocrit 36.8 35.0 - 45.0 % 03/28/2025 5:37 PM CDT [facility] MCV 85.8 80.0 - 100.0 fL [...] 0.0 #/100 WBC 03/28/2025 5:37 PM CDT [facility] Blood Venipuncture / Unknown 03/28/2025 5:14 PM CDT 03/28/2025 5:27 PM CDT us Alejandro Camacho MD LAB BLOOD ORDERABLES Final Re sult [facility] [address] [place] [address], * EKG 12 lead (03/28/2025 5:10 PM CDT) 03/28/2025 5:10 PM CDT 04/02/2025 6:00 PM CDT Narrative [facility] - 04/02/2025 6:00 PM CDT Ventricular Rate- 78 BPM Atrial Rate- 78 BPM P-R Interval- 126 ms QRS Duration- 106 ms Q-T Interval- 428 ms QTC Calculation(Bazett)- 487 ms P Sandston- 20 degrees T Sandston- 45 degrees Diagnosis Normal sinus rhythm RSR' or QR pattern in V1 suggests right ventricular conduction delay Nonspecific T wave abnormality Prolonged QT Abnormal ECG When compared with ECG of 15-Mar-2025 10:18, No significant change was found Confirmed by Tonja Trinh ([id number]) on 04/02/2025 6:00:01 PM us Alejandro Camacho MD ECG ORDERABLES Final Result [facility] * PO4, Serum (03/15/2025 10:35 AM CDT) Phosphorus 3.9 2.5 - 4.5 mg/dL 03/15/2025 11:02 AM CDT [facility] Blood Venipuncture / Unknown 03/15/2025 10:35 AM CDT 03/15/2025 10:38 AM CDT Mitch Zhang MD LAB BLOOD ORDERABLES Chery l Result Performing Organization Address [facility] Co de Phone Number [facility] [address] [place] [address], * EKG 12 lead (03/15/2025 10:18 AM CDT) 03/15/2025 10:1 8 AM CDT 03/15/2025 4:43 PM CDT Narrative [facility] - 03/15/2025 4:43 PM CDT Ventricular Rate- 89 BPM Atrial Rate- 89 BPM P-R Interval- 170 ms QRS Duration- 102 ms Q-T Interval- 386 ms QTC Calculation(Bazett)- 469 ms P Sandston- 84 degrees T Sandston- 67 degrees Diagnosis Normal sinus rhythm RSR' or QR pattern in V1 suggests right ventricular conduction delay Nonspecific T wave abnormality Borderline ECG When compared with ECG of 20-Dec-2024 01:42, No significant change was found Confirmed by Tonja Trinh ([id number]) on 03/15/2025 4:43:53 PM Samuel Claire MD ECG ORDERABLES Final Resu lt Performing Organization Address City/[facility]/ZIP Co de Phone Number [facility] from Last 3 Months Insurance [employer] Advance Directives * Full Code (Latest Code Status on File) Date Activated Date Inactivated Comments 03/28/2025 10:42 PM 03/29/2025 10:31 PM * Full Code Date Activated Date Inactivated Comments 12/20/2024 4:22 AM 12/20/2024 3:12 PM Care Teams Staff Physical Therapy Assistant Relationship Specialty Start Date End Date Andriy Ortiz MD [address] [place] [phone] PCP - General Family Medicine 10/11/23 Mariaa Barron APRN [address] [place] [id number] PCP - Insurance 03/15/25
--- OUTSIDE RECORDS SUMMARY | 2025-05-01 20:23 | XMS_ITS | Encounter Summary ---
Author Organization [facility] Address [address] [place] [address] Phone Care Team Providers Care Insulation Worker Apprentice Name Role Phone Pradeep Bunch MD Primary Care Provider [phone] System, Pcp Not In Primary Care Provider Unavail able Reason for Visit * Reason Comments Medication Refill Encounter Details Date Type Department Care Team (Late st Contact Info) Description 05/07/2022 Refill MOID [facility] Internal Medicine [address] [place] [phone] Jared Gay Jr., MD [address] [place] [phone] Social History Tobacco Use Types Packs/Day Years [...] on file Legal Sex Female 10:09 AM JIGMAN Gender Identity Not on file Sexual Orientation Not on file documented as of this encounter Plan of Treatment Not on file documented as of this encounter Visit Diagnoses Not on filedocumented in this encounter Additional Health Concerns Assessment Noted Time A fall risk assessment has been complete d for the patient 07/18/2021 2:14 PM CDT documented as of this encounter Care Teams Insulation Worker Apprentice Relationship Specialty Start Date End Date Pradeep Bunch MD [address] [place] [address] [place] [phone] PCP - General 07/19/20 03/30/25 System, Pcp Not In PCP - General 03/31/25 documented as of this encounter
--- NOTE | 2025-05-01 20:24 | XRR_ITS ---
PROCEDURE INFORMATION: Exam: XR Chest Exam date and time: 05/01/2025 8:32 PM Age: 40 years old Clinical indication: Pain; Chest pressure; Prior surgery; Surgery date: 6+ months; Surgery type: Cardiac stents; Additional info: Cp TECHNIQUE: Imaging protocol: Radiologic exam of the chest. Views: 1 view. COMPARISON: CT angio chest PE protcl [id number] 04/30/2025 1:21 AM FINDINGS: Lungs: Unremarkable. No consolidation. Pleural spaces: Unremarkable. No pleural effusion. No pneumothorax. Heart/Mediastinum: Unremarkable. No cardiomegaly. Bones/joints: Unremarkable. XR/XR chest 1V portable [id number] IMPRESSION: No acute findings.
--- OUTSIDE RECORDS SUMMARY | 2025-05-01 20:24 | XMS_ITS | Patient Health Record ---
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 Name Role Phone Anita Church Primary Care Provider Akshat Marshall [phone] Allergies Allergen (clinical drug ingredient) Drug/Non Drug Allergy documented on EMR Reaction Allergy Type Onset Date Status ketorolac Ketorolac hives Drug Allergy Active Substance with sulfonamide structure and antibacterial mechanism of action (substance) Sulfa Antibiotics hives Drug Allergy Active tramadol traMADol anaphylaxis Drug Allergy Activ e Results Component Value Reference Range Notes Xray: Chest PA/Lat (PERFORME D AT ANOTHER FACILITY) Reviewed date:04/03/2025 02:38:01 PM Interpretation:Not Tracking Performing Lab: Notes/Report: Not Tracking Transthoracic Echocardiogram Reviewed date:04/03/2025 09:36:14 AM Interpretation:Not Tracking Performing Lab: Notes/Report: Not Tracking Carotid Duplex Reviewed date:03/23/2025 08:17:28 AM Interpretation:Not Tracking Performing Lab: Notes/Report: Not Tracking Reason For Referral Reason refer to dr bahena car diologist [place] Diagnosis 1 History of heart art ashwin stent (Z95.5) Diagnosis 2 Hx of myocardial inf arction (I25.2) Diagnosis 3 Right-sided heart fa ilure, unspecified HF chronicity (I50.810) Referral Organization [facility] Referring Provider First Name Anita Referring Provider Last Name Ranjit Referring Provider Speciality Nurse Prac titioner Referred Provider Tim Bahena [place] [facility] Referred Provider Specialty Cardiology General Notes Sruthi Craft RN 05:57:31 PM > Per Dr. Bahena's office once referral has been received and processed they will reach out to pt to schedule. Referral and most recent OV note faxed., Sruthi Craft RN 03/28/2025 04:02:57 PM > Engineering Librarian called stating they have received referral and are working on scheduling an appointment. Engineering Librarian states Mona should be contacting me in the next few days regarding an appointment., Sruthi Craft RN 04/18/2025 11:51:34 AM > Pc to Dr. Bahena's office and left a message for [employer] to call me back regarding appointment status for pt. Pc to pt, phone was answered by pt and when I stated I was calling from [facility] pt ended the phone call., Anika Moreira [...] Status Risk Notes Problem Coronary artery disease (01380929) Coronary artery disease (I25.10) Active confirmed Problem [id number] History of heart artery stent (Z95.5) Active confirmed Problem 547047384 Hx of myocardial infarction (I25.2) Active confirmed Problem Gastroparesis (204785878) Gastroparesis (K31.84) Active confirmed Problem Current smoker (39586605) Current smoker (F17.200) Active confirmed Vital Signs Heart Rate 68 Minute 03/20/2025 Temperature 97.8 degrees Fahrenheit 03/20/2025 Respiratory Rate 18 /min 03/20/2025 Oximetry 98 Percent 03/20/2025 Blood pressure diastolic 64 mm Hg 03/20/2025 Height 67 in 03/20/2025 Blood pressure systolic 96 mm Hg 03/20/2025 Weight 194.2 lbs 03/20/2025 BMI 30.41 kg/m2 03/20/2025 Encounters Encounter Location Date Provider [facility] [address] [place] [address] 04/02/2025 [facility] [address] [place] [address] 04/19/2025 Anita Church [facility] [address] [place] [address] 03/20/2025 Anita Church Dental infection K04 .7 ; Right-sided heart failure, unspecified HF chronicity I50.810 ; Hx of myocardial infarction I25.2 ; History of heart artery stent Z95.5 ; Gastroparesis K31.84 ; Current smoker F17.200 ; Coronary artery disease I25.10 and Vitamin B 12 deficiency E53.8 Assessments Encounter Date Diagnosis (ICD Code) Assessment Notes Treat ment Notes Treatment Clinical Notes 03/20/2025 Dental infection (ICD-10 - K04.7) Pt went to [facility] for dental pain yesterday, rx for amoxicillin-pot clavulanate given but 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 [...] injections Q month, continue. 03/20/2025 Other Seeing [facility] for behavioral health issues, Telma Castillo DNP and giancarlo pop therapist. Pt states takes tizanidine for back pain and siatic nerve pain. Pt reports fibromyalgia and occipital neuralgia on gabapentin. Hospitalized last week for 4 days for chestpain, nausea, and low bp. Seen Dr. Melgar cardiology. OLVIN sent for records. OLVIN sent to Dr. Mejia, and current PCP., A Healthy Lifestyle: Care Instructions material was printed Plan Of Treatment No Information Insurance Providers Payer Name Payer Address Payer Phone Subscriber Number Group Number Insured Name Patient Relationship to Insured Coverage Start Date Coverage End Date [employer] [address] [place] [address] [id number] Deidre Bunch Self - patient is the insured UPDATE INSURANCE OR SLIDE [address] [id number] Deidre Bunch Self - patient is the [...]
--- OUTSIDE RECORDS SUMMARY | 2025-05-01 20:24 | XMS_ITS | Data Portability ---
Author Organization [facility], autoContract Address [address] [facility] [address] [place] [address] Care Team Providers Care Director Employee Safety And Health Name Role Phone Unavailable Primary Care Provider Unavailabl e Unavailable Referring Provider Unavailable Assessment No assessment recorded. Plan of Treatment Reminders Order Date Submit Date Provider Last Modified By Organization Details Last Modified Time Details Appointments None recorded. Lab amylase, serum or plasma 2017 018 sonny [place] ([facility]), [address] [place] [address] Adrián [place], [address], 8 15:58:17 CMP, serum or plasma 2017 018 JOSE ROBERTO [place] ([facility])[address] Adrián [place], [address], 8 17:37:39 lipase, serum or plasma 2017 018 ambrocio [place] ([facility])[address] Adrián [place], [address], 8 13:33:38 CBC w/ auto diff 2017 018 JOSE ROBERTO [place] ([facility])[address] Adrián [place], [address], 8 17:25:18 Referral gastroente rologist referral 2017 018 leon Ferguson MD, [address], [facility] [place], [address], 9 13:15:15 Procedures None recorded. Surgeries None recorded. Imaging US, transvagin al 2017 018 [facility]) Imaging, [address] [place] [address] Adrián Mcdonough, [place], [place], [address], 8 03:01:31 Medication Orders neomycin-p olymyxin-h ydrocort 3.5 mg-10,000 unit/mL-1 % ear drops,susp 2017 018 INTERFACE Not available 8 15:53:51 promethazi ne 25 mg tablet 2017 018 INTERFACE Not available 8 16:09:31 Patient TargetsNo targets recorded. Patient Instructions Encounter Date Encounter Id Patient Instructions Last Modified By Organization Details Last Modified Time 06/15/2018 [id number] nausea and vomit ing: care instructions kstucker [...] immediately. [email or web address] Not available 06/15/2018 16:12:03 06/27/2018 [id number] influenza (flu) vaccine: care instructions [email or web address] Not available 06/27/2018 15:53:49 earache: care instructions [email or web address] Not available 06/27/2018 15:53:49 gastroesophageal reflux disease (GERD): care instructions [email or web address] Not available 06/27/2018 15:53:49 Dr. 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, [place], [address], 06/15/2018 17:25:18 06/15/20 18 06/15/2018 CBC w/ auto diff blood erythrocytes automated count (number/volu me) 5.56 10*6/ uL 4.00-5 .40 high Not Available [facility] [address], [place], [address], 06/15/2018 17:25:18 06/15/20 18 06/15/2018 CBC w/ auto diff blood hemoglobin measurement (mass/volume ) 15.7 g/dL 12.0-1 6.0 Not Available [facility] [address], [place], [address], 06/15/2018 17:25:18 06/15/20 18 06/15/2018 CBC w/ auto diff HCT vfr bld auto 49.3 % 36.0-4 8.0 high Not Available [facility] [address], [place], [address], 06/15/2018 17:25:18 06/15/20 18 06/15/2018 CBC w/ auto diff automated erythrocyte mean corpuscular volume 88.7 fL 80-100 Not Available [facility] [address], [place], [address], 06/15/2018 17:25:18 06/15/20 18 06/15/2018 CBC w/ auto diff automated erythrocyte mean corpuscular hemoglobin (mass per erythrocyte) 28.2 pg 27-32 Not Available [facility] [address], [place], [address], 06/15/2018 17:25:18 06/15/20 18 06/15/2018 CBC w/ auto diff automated erythrocyte mean corpuscular hemoglobin concentratio n measurement (mass/vol 31.8 g/dL 31.0-3 7.0 Not Available [facility] [address], [place], [address], 06/15/2018 17:25:18 06/15/20 18 06/15/2018 CBC w/ auto diff automated erythrocyte distribution width ratio 12.3 % 12-14. 5 Not Available [facility] [address], [place], [address], 06/15/2018 17:25:18 06/15/20 18 06/15/2018 CBC w/ auto diff automated blood platelet count (count/volum e) 93 10*3/ uL 140-45 0 low Not Available [facility] [address], [place], [address], 06/15/2018 17:25:18 06/15/20 18 06/15/2018 CBC w/ auto diff automated blood platelet mean volume 10.5 fL 7.4-10 .4 high Not Available [facility] [address], [place], [address], 06/15/2018 17:25:18 06/15/20 18 06/15/2018 CBC w/ auto diff automated blood segmented neutrophils/ 100 leukocytes 57.0 % 40-70 Not Available [facility] [address], [place], [address], 06/15/2018 17:25:18 06/15/20 18 06/15/2018 CBC w/ auto diff blood lymphocytes/ 100 leukocytes by flow cytometry 34.3 % 20-44 Not Available [facility] [address], [place], [address], 06/15/2018 17:25:18 06/15/20 18 06/15/2018 CBC w/ auto diff automated blood monocytes/10 0 leukocytes 5.5 % 2-9 Not Available [facility] [address], [place], [address], 06/15/2018 17:25:18 06/15/20 18 06/15/2018 CBC w/ auto diff automated blood eosinophils/ 100 leukocytes 2.0 % 0-4 Not Available [facility] [address], [place], [address], 06/15/2018 17:25:18 06/15/20 18 06/15/2018 CBC w/ auto diff automated blood basophils/10 0 leukocytes 1.2 % 0-1 high Not Available [facility] [address], [place], [address], 06/15/2018 17:25:18 06/15/20 18 06/15/2018 CBC w/ auto diff blood neutrophils automated count (number/volu me) 5.93 10*3/ uL 1.8-7. 7 Not Available [facility] [address], [place], [address], 06/15/2018 17:25:18 06/15/20 18 06/15/2018 CBC w/ auto diff blood lymphocytes automated count (number/volu me) 3.56 10*3/ uL 0.9-4. 8 Not Available [facility] [address], [place], [address], 06/15/2018 17:25:18 06/15/20 18 06/15/2018 CBC w/ auto diff blood monocytes automated count (number/volu me) 0.6 10*3/ uL 0-0.8 Not Available [facility] [address], [place], [address], 06/15/2018 17:25:18 06/15/20 18 06/15/2018 CBC w/ auto diff blood eosinophils automated count (count/volum e) 0.21 10*3/ uL 0-0.7 Not Available [facility] [address], [place], [address], 06/15/2018 17:25:18 06/15/20 18 06/15/2018 CBC w/ auto diff automated blood basophil count (count/volum e) 0.13 10*3/ uL 0-0.2 Not Available [facility] [address], [place], [address], 06/15/2018 17:25:18 06/15/20 18 06/15/2018 serum or plasm a amyla se measu remen t (enzy matic activ ity/v olume ) serum or plasma amylase measurement (enzymatic activity/vol ume) 56 U/L 30-110 Not Available [facility] [address], [place], [address], 06/15/2018 17:26:23 06/15/20 18 06/15/2018 serum or plasm a lipas e measu remen t (enzy matic activ ity/v olume ) serum or plasma lipase measurement (enzymatic activity/vol ume) 60 U/L 23-300 Not Available [facility] [address], [place], [address], 06/15/2018 17:26:24 06/15/20 18 06/15/2018 CMP, serum or plasm a glomerular filtration rate/1.73 sq M.predicted by creatinine-b ased formula (CKD-epi) 128.1 mL 60.0-1 20.0 Not Available [facility] [address], [place], [address], 06/15/2018 17:37:39 06/15/20 18 06/15/2018 CMP, serum or plasm a serum or plasma glucose measurement (mass/volume ) 94 mg/dL 74-106 Not Available [facility] [address], [place], [address], 06/15/2018 17:37:39 06/15/20 18 06/15/2018 CMP, serum or plasm a serum or plasma urea nitrogen measurement (mass/volume ) 10 mg/dL 7-17 Not Available [facility] [address], [place], [address], 06/15/2018 17:37:39 06/15/20 18 06/15/2018 CMP, serum or plasm a serum or plasma creatinine measurement (mass/volume ) 0.5 mg/dL 0.7-1. 2 low Not Available [place] [facility] [address], [place], [address], 06/15/2018 17:37:39 06/15/20 18 06/15/2018 CMP, serum or plasm a blood urea nitrogen/cre atinine mass ratio 20.0 % 12 Not Available [facility] [address], [place], [address], 06/15/2018 17:37:39 06/15/20 18 06/15/2018 CMP, serum or plasm a serum or plasma sodium measurement (moles/volum e) 138 mmol/ L 137-14 5 Not Available [place] [facility] [address], [place], [address], 06/15/2018 17:37:39 06/15/20 18 06/15/2018 CMP, serum or plasm a serum or plasma potassium measurement (moles/volum e) 4.5 mmol/ L 3.5-5. 1 Not Available [place] [facility] [address], [place], [address], 06/15/2018 17:37:39 06/15/20 18 06/15/2018 CMP, serum or plasm a serum or plasma chloride measurement (moles/volum e) 105 mmol/ L 98-107 Not Available [facility] [address], [place], [address], 06/15/2018 17:37:39 06/15/20 18 06/15/2018 CMP, serum or plasm a serum or plasma carbon dioxide, total measurement (moles/volum e) 22 mmol/ L 22-30 Not Available [facility] [address], [place], [address], 06/15/2018 17:37:39 06/15/20 18 06/15/2018 CMP, serum or plasm a blood calcium measurement (mass/volume ) 9.2 mg/dL 8.4-10 .2 Not Available [facility] [address], [place], [address], 06/15/2018 17:37:39 06/15/20 18 06/15/2018 CMP, serum or plasm a serum or plasma anion gap 15.5 mmol/ L 11.0-2 0.0 Not Available [facility] [address], [place], [address], 06/15/2018 17:37:39 06/15/20 18 06/15/2018 CMP, serum or plasm a osmolality of serum or plasma by calculation 275 mOsm/ kg 265.85 -296.6 0 Not Available [facility] [address], [place], [address], 06/15/2018 17:37:39 06/15/20 18 06/15/2018 CMP, serum or plasm a serum or plasma protein measurement (mass/volume ) 8.6 g/dL 6.3-8. 2 high Not Available [facility] [address], [place], [address], 06/15/2018 17:37:39 06/15/20 18 06/15/2018 CMP, serum or plasm a serum or plasma albumin measurement (mass/volume ) 4.6 g/dL 3.5-5. 0 Not Available [facility] [address], [place], [address], 06/15/2018 17:37:39 06/15/20 18 06/15/2018 CMP, serum or plasm a albumin/glob serpl-mrto 4.0 g/dL 2.2-4. 2 Not Available [facility] [address], [place], [address], 06/15/2018 17:37:39 06/15/20 18 06/15/2018 CMP, serum or plasm a serum or plasma albumin/glob ulin mass ratio 1.10 % 1.10-2 .20 Not Available [facility] [address], [place], [address], 06/15/2018 17:37:39 06/15/20 18 06/15/2018 CMP, serum or plasm a serum or plasma total bilirubin measurement (mass/volume ) 0.50 mg/dL 0.2-1. 3 Not Available [facility] [address], [place], [address], 06/15/2018 17:37:39 06/15/20 18 06/15/2018 CMP, serum or plasm a serum or plasma aspartate aminotransfe rase measurement (enzymatic activity/vol ume) 40 U/L 14-36 high Not Available [facility] [address], [place], [address], 06/15/2018 17:37:39 06/15/20 18 06/15/2018 CMP, serum or plasm a serum or plasma alanine aminotransfe rase measurement (enzymatic activity/vol ume) 54 U/L 9-52 high Not Available [facility] [employer] [facility] [address], [place], [address], 06/15/2018 17:37:39 06/15/20 18 06/15/2018 CMP, serum or plasm a serum or plasma alkaline phosphatase measurement (enzymatic activity/vol ume) 96 U/L 38-126 Not Available [facility] [address], [place], [address], 06/15/2018 17:37:39 06/15/20 18 06/15/2018 amyla se, serum or plasm a serum or plasma amylase measurement (enzymatic activity/vol ume) 56 U/L 30-110 Not Available [facility] [address], [place], [address], 06/15/2018 17:37:39 06/15/20 18 06/15/2018 serum or plasm a lipas e measu remen t (enzy matic activ ity/v olume ) serum or plasma lipase measurement (enzymatic activity/vol ume) 60 U/L 23-300 Not Available [facility] [address], [place], [address], 06/15/2018 17:37:40 12/31/19 23 12/31/2022 CBC WITH DIFFE RENTI AL WBC 8.0 K/uL 4.0-11 .0 Not Available [facility] ([facility]) [address] [place], [address], 12/31/2022 05:17:21 12/31/19 23 12/31/2022 CBC WITH DIFFE RENTI AL RBC 4.35 M/uL 4.00-5 .50 Not Available [facility] ([facility]) [address] [place], [address], 12/31/2022 05:17:21 12/31/19 23 12/31/2022 CBC WITH DIFFE RENTI AL hemoglobin 12.9 g/dL 12.0-1 6.0 Not Available [facility] ([facility]) [address] [place], [address], 12/31/2022 05:17:21 12/31/19 23 12/31/2022 CBC WITH DIFFE RENTI AL hematocrit 39.4 % 36.0-4 8.0 Not Available [facility] ([facility]) [address] [place], [address], 12/31/2022 05:17:21 12/31/19 23 12/31/2022 CBC WITH DIFFE RENTI AL MCV 90.6 fL 78.0-1 02.0 Not Available [facility] ([facility]) [address] [place], [place], [address], 12/31/2022 05:17:21 12/31/19 23 12/31/2022 CBC WITH DIFFE RENTI AL MCH 29.7 pg 25.0-3 5.0 Not Available [facility] ([facility]) [address] [place], [place], [address], 12/31/2022 05:17:21 12/31/19 23 12/31/2022 CBC WITH DIFFE RENTI AL MCHC 32.7 g/dL 30.0-3 8.0 Not Available [facility] ([facility]) [address] [place], [place], [address], 12/31/2022 05:17:21 12/31/19 23 12/31/2022 CBC WITH DIFFE RENTI AL RDW 13.2 % 11.5-1 6.0 Not Available [facility] ([facility]) [address], [place], [address], 12/31/2022 05:17:21 12/31/19 23 12/31/2022 CBC WITH DIFFE RENTI AL platelet count 229 K/uL 150-45 0 Not Available [facility] ([facility]) [address] [place], [place], [address], 12/31/2022 05:17:21 12/31/19 23 12/31/2022 CBC WITH DIFFE RENTI AL abs neutrophils 4.2 K/uL 1.8-7. 0 Not Available [facility] ([facility]) [address] [place], [address], 12/31/2022 05:17:21 12/31/19 23 12/31/2022 CBC WITH DIFFE RENTI AL abs lymphocytes 3.0 K/uL 1.0-4. 0 Not Available [facility] ([facility] [address] [place], [address], 12/31/2022 05:17:21 12/31/19 23 12/31/2022 CBC WITH DIFFE RENTI AL abs monocytes 0.5 K/uL 0.1-1. 1 Not Available [facility] ([facility] [address] [place], [address], 12/31/2022 05:17:21 12/31/19 23 12/31/2022 CBC WITH DIFFE RENTI AL abs eosinophils 0.3 K/uL 0.0-0. 5 Not Available [facility] ([facility] [address] [place], [address], 12/31/2022 05:17:21 12/31/19 23 12/31/2022 CBC WITH DIFFE RENTI AL abs basophils 0.0 K/uL 0.0-0. 3 Not Available [facility] ([facility] [address] [place], [address], 12/31/2022 05:17:21 12/31/19 23 12/31/2022 CBC WITH DIFFE RENTI AL abs immature grans 0.0 K/uL 0.0-0. 1 Not Available [facility] ([facility] [address] [place], [address], 12/31/2022 05:17:21 12/31/19 23 12/31/2022 CBC WITH DIFFE RENTI AL neutrophils 52.1 % Not Available [facility] [address] [place], [address], 12/31/2022 05:17:21 12/31/19 23 12/31/2022 CBC WITH DIFFE RENTI AL lymphocytes 36.9 % Not Available [facility] [address] [place], [place], [address], 12/31/2022 05:17:21 12/31/19 23 12/31/2022 CBC WITH DIFFE RENTI AL monocytes 6.3 % Not Available [facility] ([facility] [address] [place], [address], 12/31/2022 05:17:21 12/31/19 23 12/31/2022 CBC WITH DIFFE RENTI AL eosinophils 3.8 % Not Available [facility] [address] [place], [address], 12/31/2022 05:17:21 12/31/19 23 12/31/2022 CBC WITH DIFFE RENTI AL basophils 0.5 % Not Available [facility] [address] [place], [address], 12/31/2022 05:17:21 12/31/19 23 12/31/2022 CBC WITH DIFFE RENTI AL immature grans 0.4 % Not Available [facility] [address] [place], [address], 12/31/2022 05:17:21 12/31/19 23 12/31/2022 CBC WITH DIFFE RENTI AL nucleated RBCs <1.0 /100_ WBCs <1 Not Available [facility] ([facility] [address] [place], [address], 12/31/2022 05:17:21 12/31/19 23 12/31/2022 LUTEI NIZIN G HORMO NE LH 6.0 IU/L Comme nt for LUTEI NIZIN G HORMO NE Folli cular 2.4 - 12.6 IU/L Mid-C ycle 14.0 - 95.6 IU/L Lutea l 1.0 - 11.4 IU/L Post- Menop ausal 7.7 - 58.5 IU/L Not Available [facility] ([facility]) [address] [place], [address], 12/31/2022 05:17:20 12/31/19 23 12/31/2022 ESTRA DIOL estradiol 296 pg/mL Comme nt for ESTRA DIOL Folli cular 12 - 233 pg/mL Ovula tion 41 - 398 pg/mL Lutea l 22 - 341 pg/mL Post Menop ausal No HRT < 20 pg/mL Post Menop ausal With HRT < 139 pg/mL Not Available [facility] ([facility] [address] [place], [address], 12/31/2022 05:17:19 12/31/19 23 12/31/2022 FOLLI TONY STIM HORMO NE FSH 5.8 IU/L Comme nt for FOLLI TONY STIM HORMO NE Folli cular : 3.5 - 12.5 IU/L Mid-C ycle: 4.7 - 21.5 IU/L Lutea l: 1.7 - 7.7 IU/L Post- Menop ausal : 25.8 - 134.8 IU/L Not Available [facility] ([facility] [address] [place], [address], 12/31/2022 05:17:19 12/31/19 23 12/31/2022 THYRO ID STIM HORMO NE TSH 2.0 mIU/L 0.40-4 .1 Not Available [facility] ([facility] [address] [place], [address], 12/31/2022 05:17:18 12/31/19 23 12/31/2022 LIPID PROFI LE cholesterol 157 mg/dL <200 Not Available [facility] [address] [facility] [place], [address], 12/31/2022 05:17:17 12/31/19 23 12/31/2022 LIPID PROFI LE triglyceride s 133 mg/dL 0-149 Not Available [facility] [address] [place], [address], 12/31/2022 05:17:17 12/31/19 23 12/31/2022 LIPID PROFI LE HDL cholesterol 50 mg/dL >39 Not Available [facility] [address] [place], [address], 12/31/2022 05:17:17 12/31/19 23 12/31/2022 LIPID PROFI LE LDL cholesterol 84 mg/dL <100 Not Available [facility] [address] [place] [place], [address], 12/31/2022 05:17:17 12/31/19 23 12/31/2022 LIPID PROFI LE non HDL cholesterol 107 mg/dL <130 Not Available [facility] [address] [facility] [place], [address], 12/31/2022 05:17:17 12/31/19 23 12/31/2022 LIPID PROFI [...] Optim al) Coron robert Risk Ratio : [place] for femal es < 4.44 Not Available [facility] ([facility]) [address] [place], [address], 12/31/2022 05:17:17 12/31/19 23 12/31/2022 COMP METAB OLIC PANEL sodium 141 mEq/L 135-14 6 Not Available [facility] ([facility] [address] [place], [address], 12/31/2022 05:17:17 12/31/19 23 12/31/2022 COMP METAB OLIC PANEL potassium 4.0 mEq/L 3.5-5. 4 Not Available [facility] ([facility] [address] [place], [address], 12/31/2022 05:17:17 12/31/19 23 12/31/2022 COMP METAB OLIC PANEL chloride 102 mEq/L 95-107 Not Available [facility] ([facility] [address] [place], [address], 12/31/2022 05:17:17 12/31/19 23 12/31/2022 COMP METAB OLIC PANEL carbon dioxide 27 mEq/L 19-31 Not Available [facility] [address] [place], [address], 12/31/2022 05:17:17 12/31/19 23 12/31/2022 COMP METAB OLIC PANEL anion gap 12 mEq/L 7-23 Not Available [facility] ([facility] [address] [place], [address], 12/31/2022 05:17:17 12/31/19 23 12/31/2022 COMP METAB OLIC PANEL glucose fasting 84 mg/dL 70-99 Not Available [facility] [address] [place], [address], 12/31/2022 05:17:17 12/31/19 23 12/31/2022 COMP METAB OLIC PANEL urea nitrogen (BUN) 8 mg/dL 6-20 Not Available [facility] [address] [place], [address], 12/31/2022 05:17:17 12/31/19 23 12/31/2022 COMP METAB OLIC PANEL creatinine 0.65 mg/dL 0.60-1 .30 Not Available [facility] ([facility]) [address] [place], [place], [address], 12/31/2022 05:17:17 12/31/19 23 12/31/2022 COMP METAB OLIC PANEL 2020 CKD-epi eGFR-cr 117 mL/mi n/1.7 3m'2 >59 Not Available [facility] ([facility] [address] [place], [place], [address], 12/31/2022 05:17:17 12/31/19 23 12/31/2022 COMP METAB OLIC PANEL BUN/creatini ne ratio 12 ratio Not Available [facility] [address] [place], [place], [address], 12/31/2022 05:17:17 12/31/19 23 12/31/2022 COMP METAB OLIC PANEL calcium total 8.9 mg/dL 8.5-10 .5 Not Available [facility] ([facility] [address] [place], [place], [address], 12/31/2022 05:17:17 12/31/19 23 12/31/2022 COMP METAB OLIC PANEL protein total 6.9 g/dL 6.1-8. 3 Not Available [facility] ([facility]) [address] [place], [place], [address], 12/31/2022 05:17:17 12/31/19 23 12/31/2022 COMP METAB OLIC PANEL albumin 4.2 g/dL 3.5-5. 2 Not Available [facility] ([facility] [address] [place], [address], 12/31/2022 05:17:17 12/31/19 23 12/31/2022 COMP METAB OLIC PANEL globulin 2.7 g/dL 1.7-4. 3 Not Available [facility] ([facility] [address] [place], [address], 12/31/2022 05:17:17 12/31/19 23 12/31/2022 COMP METAB OLIC PANEL A/G ratio 1.6 ratio 0.9-2. 8 Not Available [facility] ([facility] [address] [place], [address], 12/31/2022 05:17:17 12/31/19 23 12/31/2022 COMP METAB OLIC PANEL bilirubin total 0.2 mg/dL 0.0-1. 2 Not Available [facility] ([facility] [address] [place], [address], 12/31/2022 05:17:17 12/31/19 23 12/31/2022 COMP METAB OLIC PANEL alkaline phosphatase 86 U/L 40-112 Not Available [facility] [address] [place], [address], 12/31/2022 05:17:17 12/31/19 23 12/31/2022 COMP METAB OLIC PANEL AST (SGOT) 11 U/L 9-40 Not Available [facility] [address] [place], [address], 12/31/2022 05:17:17 12/31/19 23 12/31/2022 COMP METAB OLIC PANEL ALT (SGPT) 8 U/L 5-40 Not Available [facility] [address] [place], [address], 12/31/2022 05:17:17 07/07/20 18 US, trans vagin al No observ ation record ed. [email or web address] [place] [facility] [address] [place], [address], 07/08/2018 11:58:30 07/07/20 18 07/04/2018 US, trans vagin al No observ ation record ed. [email or web address] [facility] [address] [place], [address], 07/08/2018 09:22:11 12/26/19 23 12/25/2022 imagi ng inter preta tion No observ ation record ed. [id number], [address], 08/13/2024 21:04:15 12/26/19 23 12/25/2022 imagi ng inter preta tion No observ ation record ed. [id number], [address], 08/13/2024 21:04:15 01/14/20 23 01/13/2023 imagi ng inter preta tion No observ ation record ed. [id number], [address], 08/13/2024 21:04:15 01/19/20 23 01/18/2023 imagi ng inter preta tion No observ ation record ed. [id number], [address], 08/13/2024 21:04:15 Result Notes None recorded. Problems Name Problem SNOMED Code Status Onset Date Resolution Date Notes Provider Name and Address Organization Details Recorded Time Depressive disorder 92303468 Active 2017 RAMIRO OLIVARES, BREAKDOWN PERSON [address], [place], [address] , [place] - Joey Phillips [facility] 8 16:00:37 Anxiety 96352608 Active 2017 RAMIRO OLIVARES, BREAKDOWN PERSON [address], [place], [address] , [place] LEXI Phillips [facility] 8 16:00:40 Gastroesophag eal reflux disease 615612071 Active 2017 RAMIRO OLIVARES, BREAKDOWN PERSON [address], [place], [address] , [place] LEXI Phillips [facility] 8 16:02:17 Steatotic liver disease 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 2017 RAMIRO OLIVARES, BREAKDOWN PERSON [address], [place], [address] , LEXI Phillips [facility] 8 16:02:26 Chronic hepatitis C 689381596 Active 2017 RAMIRO OLIVARES, BREAKDOWN PERSON [address], [place], [address] , LEXI Phillips [facility] 8 16:02:35 Chronic obstructive pulmonary disease 93614429 Active 2017 RAMIRO OLIVARES, BREAKDOWN PERSON [address], [place], [address] , [place] LEXI Phillips [facility] 8 16:03:15 Fibromyalgia 865428788 Active 2017 RAMIRO OLIVARES, BREAKDOWN PERSON [address], [place], [address] , LEXI Phillips [facility] 8 16:03:38 Congestive heart failure 86593510 Active 2022 Not Available [facility] 4 21:05:01 Problem Notes None recorded. Procedures Surgical History Date Name Laterality Status Provider Name and Address Organization Details Recorded Time 10/04/19 10 Caesarean Section completed Alisha Phillips [facility] 06/15/2018 15:47:07 10/04/19 10 Tubal Ligation completed Alisha Phillips [facility] 06/15/2018 15:47:19 10/04/19 07 Caesarean Section completed Alisha Phillips [facility] 06/15/2018 15:47:04 10/04/19 06 Caesarean Section completed Alisha Phillips [facility] 06/15/2018 15:46:56 10/04/19 05 Cholecystectomy completed Alisha Phillips [facility] 06/15/2018 15:46:38 Cardiac Surgery completed Not Available [facility] 08/13/2024 21:03:47 Imaging Results None recorded. Procedure Notes None recorded. Medical Equipment None Reported. Allergies Allergen ID Allergen Name Allergen Category Reaction Reaction Severity Criticality Documentation Date Start Date Code Code System Note Provider Name and Address Organization Details Recorded Time 30570 Substance with sulfonami de structure and antibacte rial mechanism of action (substanc e) medicatio n anaphylax is moderate Not available 06/15/2018 10234 8003 SNOMED LEXI Bazzi Md [facility] 8 15:41:59 Medications Name Sig Start Date [...] Address Organization Details Last Updated DateTime 3 05211.2 6 g 27.6 kg/m2 170.18 cm 62 /min 100 % 100 % 96.4 [degF] 90/59 mm[Hg] Not Available [facility] 4 21:04:57 Date Recorded Body weight Body mass index (BMI) Body height Body temperature Heart rate Respiratory rate Oxygen saturation Oxygen saturation in Arterial blood by Pulse oximetry Systolic And Diastolic Provider Name and Address Organization Details Last Updated DateTime 8 049625. 2 g 35.1 kg/m2 172.72 cm 98.1 [degF] 81 /min 19 /min 99 % 99 % 130/82 mm[Hg] Alisha Phillips [facility] 8 15:55:23 Date Recorded Body height Body mass index (BMI) Body weight Body temperature Heart rate Respiratory rate Oxygen saturation Oxygen saturation in Arterial blood by Pulse oximetry Systolic And Diastolic Provider Name and Address Organization Details Last Updated DateTime 8 172.72 cm 34.9 kg/m2 100006. 45 g 97.4 [degF] 70 /min 19 /min 96 % 96 % 132/80 mm[Hg] Alisha Phillips [facility] 8 15:23:18 Social History Question Answer Notes LastModified by Organizat ion Details LastModified Time Tobacco Smoking Status Current Every Day Smoker LEXI Bazzi [facility] 06/15/2018 15:44:10 Are You Blind Or Do You Have Difficulty Seeing? No [id number] Information not available 08/13/2024 What Is Your Level Of Caffeine Consumption? Heavy Information not available 06/15/2018 Are You Deaf Or Do You Have Serious Difficulty Hearing? No [id number].[id number] 900 Information not available 08/13/2024 What Type Of Diet Are You Following? REGULAR [email or web address] Information not available 06/15/2018 Education 12 [email or web address] Information no t available 06/15/2018 Hard Of Hearing Or Deaf In One Or Both Ears? No [email or web address] Information not available 06/15/2018 Legally Blind In One Or Both Eyes? No [email or web address] Information no t available 06/15/2018 Live Alone Or With Others? With Others [email or web address] Information not available 06/15/2018 Risk Assessment Level Medium [email or web address] Information not available 07/07/2018 What Was The Date Of Your Most Recent Tobacco Screening? 06/27/2018 Information not available 04/27/2019 How Many Children Do You Have? 6 [id number].[id number] 900 Information not available 08/13/2024 Performs Monthly Self-breast Exam? No [email or web address] Information no t available 06/15/2018 What Is Your Relationship Status? [id number] 900 Information not available 08/13/2024 Seat Belts Used Routinely Yes [email or web address] Information not available 06/15/2018 Are You Sexually Active? Yes [email or web address] Information not available 06/15/2018 Smoke Alarm In Home Yes [email or web address] Information not available 06/15/2018 At What Age Did You Start Smoking Tobacco? 14 MIGRATION.3747600 900 Information not available 08/13/2024 Are You Passively Exposed To Smoke? Yes [email or web address] Information no t available 06/15/2018 How Much Tobacco Do You Smoke? 1 PPD [email or web address] Information not available 06/15/2018 Do You Use Sunscreen Routinely? No [email or web address] Information not available 06/15/2018 Do You Have Difficulty Walking Or Climbing Stairs? No MIGRATION.4190128 900 Information not available 08/13/2024 Sex: Unknown Functional Status Question Answer Note LastModified by Organizat ion Details LastModified Time Do you use any illicit or recreational drugs? No MIGRATION.0056987 900 Information not available 08/13/2024 Do you or have you ever used any other forms of tobacco or nicotine? No MIGRATION.5557529 900 Information not available 08/13/2024 What is your level of alcohol consumption? None [email or web address] Information not available 06/15/2018 Are you currently employed? No Information not available 06/15/2018 Do you have difficulty doing errands alone? No MIGRATION.7665117 900 Information not available 08/13/2024 Are you able to care for yourself independently? Yes [email or web address] Information not available 06/15/2018 Do you have difficulty dressing, bathing, grooming, or toileting? No MIGRATION.4901474 900 Information not available 08/13/2024 What is your exercise level? Occasional [email or web address] Information not available 06/15/2018 Mental Status Question Answer Note LastModified by Organizat ion Details LastModified Time Do you have difficulty concentrating, remembering or making decisions? No MIGRATION.[id number] 0 Information not available 08/13/2024 Family History Relationship Description Onset Age of this Age Resolved Age Notes LastModified by Organization Details LastModified Time Mother Anxiety disorder [email or web address] Not available 2017 15:52:28 Mother Cerebrovascu lar accident [email or web address] Not available 09/2018 15:52:49 Mother Myocardial infarction [email or web address] Not available 06/15 15:52:57 Mother Hypertensive disorder [id number].022 [id number] Not available 08/13/2024 21:04:14 Daughter Asthma [email or web address] Not availabl e 06/15/2018 15:52:41 Father Disease of liver Not available 2017 15:53:20 Father Malignant neoplastic disease Colon and Liver [email or web address] Not available 06/15/2018 16:00:20 Father Hypertensive disorder MIGRATION.021 [id number] Not available 08/13/2024 21:04:14 Medical History Condition [...] MDCK, quadrivalent, preservative 8 completed Not Available [facility] 10/21/2019 02:08:50 Past Encounters Encounter ID Performer Location Encounter Start Date Encounter Closed Date Diagnosis/Indication Diagnosis SNOMED-CT Code Diagnosis ICD10 Code Diagnosis Note [id number] RAMIRO OLIVARES [facility] [address] [place] [address] 06/15/2018 15:25:33 06/22/2018 11:46:42 Left upper quadrant pain 047955105 R10.12 Nausea and vomiting 1693 2000 R11.2 Chronic hepatitis C 1283 65688 B18.2 Sees GI in [place] [id number] RAMIRO OLIVARES [facility] [address] [place] [address] 06/27/2018 15:03:54 06/28/2018 14:51:38 Administration of influenza vaccine 39107654 Z23 Gastroesop hageal reflux disease 595778964 K21.9 Otalgia 06376033 H92.02 Tonsillar debris 8037667 00 J35.8 Warm salt water gargles Cyst of left ovary 89369 19224 3443002 N83.202 [id number] SONJA ESTRADA - [address] [place] L[place]I Torres [address] 12/30/2022 00:00:00 12/30/2022 12:46:51 Health Concerns Section Related Observation LastModified by Organization Detai ls LastModified Time None Recorded Concern Status LastModified by Organization Details LastModified Time None Recorded Advance Directives Directive None Recorded Payers Insurance Date Sequence Insurance Name Policy Number Policy Saunders Covered Member ID Saunders Member ID Guarantor Name 02/05/2021 1 [place]IT[place] Deidre Hussein [id number] Deidre Hussein 11/25/2020 1 [employer]: [place] - JOANIE - LOTTIE OPEN ACCESS (POS) Deidre Hussein [id number] Deidre Hussein 11/25/2020 1 [employer] - ESSENTIAL CARE 2 (PPO) [id number] Deidre Hussein [id number] Deidre Hussein OBGyn Episode No OBEpisode recorded.
--- OUTSIDE RECORDS SUMMARY | 2025-05-01 20:24 | XMS_ITS | Encounter Summary ---
Author Organization [facility] Address [address] [place] [address] Care Team Providers Care Technical Marketing Consultant Name Role Phone Andriy Ortiz MD Primary Care Provider [phone] Mariaa Barron QUAIL FARMER Unavailable Encounter Details Date Type Department Care Team [...] on filedocumented in this encounter Care Teams Technical Marketing Consultant Relationship Specialty Start Date End Date Andriy Ortiz MD [address] [place] [address] PCP - General Family Medicine 10/11/23 Mariaa Barron APRN [address] [place] [id number] PCP - Insurance 03/15/25 documented as of this encounter
--- OUTSIDE RECORDS SUMMARY | 2025-05-01 20:25 | XMS_ITS ---
Author Organization [facility] Address [address] [place] [address] Care Team Providers Care Manager Supply Chain Name Role Phone Andriy Ortiz MD Primary Care Provider Mariaa Barron SYSTEM PLANNING ENGINEER Unavailable [phone] Transitional Care Management Status:Closed (Closed) Start date:03/29/2025 End date:04/28/2025 Close reason:Patient graduated Related social drivers of health:Social Connections, Alcohol Use, Tobacco Use, Financial Resource Strain, Depression, Stress, Physical Activity, Transportation Needs Continued Care and Services Coordination
--- OUTSIDE RECORDS SUMMARY | 2025-05-01 20:25 | XMS_ITS | Referral Summary ---
Author Organization [facility] Address [address] [place] [id number] Care Team Providers Care Bakery Clerk Name Role Phone Saqib, Primary Care Provider Jason reyes Encounters Date Type Department Care Team Description 04/23/2025 Travel 04/23/2025 2:00 AM CDT - 04/23/2025 4:39 AM CDT Emergency [facility] [address] [place] [address] Leda Craig MD Chest pain, unspecified type (Primary Dx) Discharge Disposition: (01) - Home or Self Care 04/07/2025 8:05 PM CDT - 04/08/2025 5:02 AM CDT Emergency [facility] [address] [place], [place] [phone] Eloped from emergency department (Primary Dx) Discharge Disposition: (07) - Left Against Medical Advice or Discontinued Care 04/07/2025 Travel 03/28/2025 Travel 03/28/2025 5:09 PM CDT - 03/28/2025 7:35 PM CDT Emergency [facility] [address] [place] [phone] Discharge Disposition: (07) - Left Against Medical Advice or Discontinued Care 03/16/2025 11:19 PM CDT - 03/17/2025 1:18 AM CDT [facility] [address] [place] [phone] Luis A Rodríguez MD Atypical chest pain [...] Problem Noted Date Diagnosed Date 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 No 09/21/2024 Hunger Vital Sign Answer Date Recorded Within the past 12 months, y ou worried that your food would run out before you got the money to buy more. Patient declined Within the past 12 months, t he food you bought just didn't last and you didn't have money to get more. Patient declined [facility] HRSN - Transportation Answer Date R [...] Sex Assigned at Female 10/01/2024 8:27 PM MISSION ASSESSMENT SPECIALIST Legal Sex Female 4:36 PM MISSION ASSESSMENT SPECIALIST Gender Identity Female 10/01/2024 8:27 PM MISSION ASSESSMENT SPECIALIST Sexual Orientation Straight 10/01/2024 8: 27 PM MISSION ASSESSMENT SPECIALIST Last Filed Vital Signs Vital Sign Reading [...] on file Medical Devices Implanted Type Area Pneumatic System Conveyor Operator Device Identifier Shelf Expiration Date Model / Serial / Lot Device Prcls Prostyle 6fr Sutue Mediate Knot Push - [id number] Implanted:Qty: 1 on 09/21/2024 by Praveen Sanz MD at [facility] [employer] 05/03/2026 [id number] / [id number] / [id number] Procedures Procedure Name Priority Date/Time Associated Diagnosis [...] Natriuretic Peptide (04/23/2025 2:14 AM CDT) Pathologist [facility] NT ProB-Natriuretic Peptide 57.5 15.8 - 104.8 pg/mL 04/23/2025 2:56 AM CDT [facility] Comment:The Alere NT-pro BNP for Alinity i assay is susceptible to interference effects from total protein >12.6 g/dL. Total protein at 15.2 g/dL decreased NT- proBNP values at 125 pg/mL by -12.7%. Blood VENOUS BLOOD SPECIMEN / Unknown Venipuncture / Unknown 04/23/2025 2:14 AM CDT 04/23/2025 2:16 AM CDT us Leda Craig MD LAB BLOOD ORDERABLES Final Res ult [facility] [address] [place] [address] * High Sensitivity Troponin Baseline with Reflex Actions if indicated (04/23/2025 2:14 AM CDT) Only the most recent of2 resultswithin the time period is included. [facility] High Sensitivity Trop, Baseline <2.7 <14.0 ng/L 04/23/2025 2:56 AM CDT [facility] Comment:Low risk for myocard ial infarction in patients with low clinical risk and symptoms > 2 hrs. Consider other causes of chest pain. A reflex 2-hour troponin will automatically be ordered; please cancel if not clinically indicated Symptom Onset >2Hrs Yes Hours 04/23/2025 2:56 AM CDT [facility] Symptom Onset >10Hrs No Hours 04/23/2025 2:56 AM CDT [facility] Blood VENOUS BLOOD SPECIMEN / Unknown Venipuncture / Unknown 04/23/2025 2:14 AM CDT 04/23/2025 2:16 AM CDT us Leda Craig MD LAB BLOOD ORDERABLES Final Res ult [facility] [address] [facility] [phone] * (ABNORMAL) CBC and Differential (04/23/2025 2:14 AM CDT) [facility] WBC 10.6 4.5 - 11.0 K/cmm 04/23/2025 2:51 AM CDT [facility] RBC 4.04 4.00 - 5.20 M/cmm 04/23/2025 2:51 AM CDT [facility] Hemoglobin 10.5(L) 12.0 - 16.0 g/dL 04/23/2025 2:51 AM CDT [facility] Hematocrit 34.0(L) 36.0 - 46.0 % 04/23/2025 2:51 AM CDT [facility] MCV 84 80 - 100 fL 04/23/2025 2:51 AM CDT [facility] MCH 26 26 - 34 pg 04/23/2025 2:51 AM [facility] MCHC 31 31 - 37 g/dL 04/23/2025 2:51 AM [facility] RDW 17.4(H) 12.2 - 15.6 % 04/23/2025 2:51 AM [facility] RDWSD 54.3 40.0 - 55.0 fL 04/23/2025 2:51 AM [facility] Platelets 223 150 - 400 K/cmm 04/23/2025 2:51 AM [facility] Comment:Reviewed smear. MPV 10.5 9.2 - 12.0 fL 04/23/2025 2:51 AM [facility] Nucleated RBC's 0 0 - 1 /100WBC 04/23/2025 2:51 AM [facility] Neutrophils % 55.0 40.0 - 70.0 % 04/23/2025 2:51 AM [facility] Lymphocytes % 34.0 22.0 - 44.0 % 04/23/2025 2:51 AM [facility] Monocytes % 8.1(H) 3.0 - 7.0 % 04/23/2025 2:51 AM [facility] Eosinophils % 2.3 2.0 - 4.0 % 04/23/2025 2:51 AM [facility] Basophils % 0.3 0.0 - 1.0 % 04/23/2025 2:51 AM [facility] Immature Granulocytes Percent Automated 0.3 0.0 - 0.5 % 04/23/2025 2:51 AM [facility] Neutrophils Absolute 5.81 1.50 - 7.70 K/cmm 04/23/2025 2:51 AM [facility] Lymphocytes Absolute 3.59 1.00 - 4.80 K/cmm 04/23/2025 2:51 AM [facility] Monocytes Absolute 0.85 0.20 - 1.00 K/cmm 04/23/2025 2:51 AM [facility] Eosinophils Absolute 0.24 0.00 - 0.50 K/cmm 04/23/2025 2:51 AM [facility] Basophils Absolute 0.03 0.00 - 0.20 K/cmm 04/23/2025 2:51 AM CDT [facility] Immature Platelet Fraction Percent 4.7 1.0 - 7.0 % 04/23/2025 2:51 AM CDT [facility] Blood VENOUS BLOOD SPECIMEN / Unknown Venipuncture / Unknown 04/23/2025 2:14 AM CDT 04/23/2025 2:16 AM CDT us Leda Craig MD LAB BLOOD ORDERABLES Final Res ult Performing Organization Address [facility] Co de Phone Number [facility] [address] [place] [phone] * Manual Differential (04/23/2025 2:14 AM CDT) Platelet Estimate Adequate 04/23/2025 2:51 AM CDT [facility] Blood VENOUS BLOOD SPECIMEN / Unknown Venipuncture / Unknown 04/23/2025 2:14 AM CDT 04/23/2025 2:16 AM CDT us Leda Craig MD LAB BLOOD ORDERABLES Final Res ult Performing Organization Address [facility] Phone Number [facility] [address] [place] [phone] * (ABNORMAL) CK (04/23/2025 2:14 AM CDT) Only the most recent of2 resultswithin the time period is included. CK, Total 27(L) 29 - 168 IU/L 04/23/2025 2:56 AM CDT [facility] Blood VENOUS BLOOD SPECIMEN / Unknown Venipuncture / Unknown 04/23/2025 2:14 AM CDT 04/23/2025 2:16 AM CDT us Leda Craig MD LAB BLOOD ORDER W/O STOP Final Result Performing Organization Address [facility]/State/ZIP Co de Phone Number [facility] [address] [phone] * (ABNORMAL) Basic Metabolic Panel (04/23/2025 2:14 AM CDT) [facility] Signature Glucose 75 70 - 105 mg/dL 04/23/2025 2:56 AM CDT [facility] BUN 9 7 - 18 mg/dL 04/23/2025 2:56 AM T [facility] Creatinine, Blood 0.80 0.57 - 1.11 mg/dL 04/23/2025 2:56 AM CDT [facility] Sodium 136 136 - 145 mEq/L 04/23/2025 2:56 AM T [facility] Potassium 4.0 3.5 - 5.1 mEq/L 04/23/2025 2:56 AM CDT [facility] Chloride 105 98 - 107 mEq/L 04/23/2025 2:56 AM T [facility] Carbon Dioxide 20.8(L) 22.0 - 29.0 mEq/L 04/23/2025 2:56 AM CDT [facility] Calcium 8.8 8.4 - 10.2 mg/dL 04/23/2025 2:56 AM T [facility] Estimated GFR 96 >60 mL/min/1. 73m2 04/23/2025 2:56 AM T [facility] Comment: Calculation based on the [...] - 12 mEq/L 04/23/2025 2:56 AM T [facility] Blood VENOUS BLOOD SPECIMEN / Unknown Venipuncture / Unknown 04/23/2025 2:14 AM CDT 04/23/2025 2:16 AM CDT us Leda Craig MD LAB BLOOD ORDERABLES Final Res ult Performing Organization Address [facility] Co de Phone Number [facility] [address] [phone] * EKG 12 Lead - STAT (04/23/2025 1:53 AM CDT) Only the most recent of4 resultswithin the time period is included. [facility] Signature Ventricular Rate EKG/Min 85 BPM [facility]USE Atrial Rate 85 BPM [facility] M[facility] QRS-Interval (MSEC) 104 ms [facility] QT-Interval (MSEC) 412 ms [facility] QTc 490 ms [facility] P [place] 62 degrees [facility] MUSE R [place] 48 degrees [facility] MUSE T [place] 32 degrees [facility] MUSE 04/23/2025 1:53 AM CDT Narrative [facility]USE - 04/25/2025 4:26 PM [...] ECG ORDERABLES Final Result Performing Organization Address [facility]/State/ZIP Co de Phone Number [facility] * XR Chest 2 [...] POC Negative NEGATIVE 03/16/2025 11:53 PM CDT [facility] Blood VENOUS BLOOD SPECIMEN / Unknown 03/16/2025 11:50 PM CDT 03/16/2025 11:53 PM CDT us Luis A Rodríguez MD LAB BLOOD ORDERABLES Final Result Performing Organization Address City/[facility]/ZIP Co de Phone Number [facility] [address] [place] [phone] * Urine Micro Hold Specimen (03/16/2025 11:34 PM CDT) Extra Tube Hold for add-ons. 03/17/2025 1:01 AM CDT [facility] Urine URINE SPECIMEN COLLECTION, CLEAN CATCH / Unknown Non-blood Collection / Unknown 03/16/2025 11:34 PM CDT 03/16/2025 11:39 PM CDT us Luis A Rodríguez MD URINE ORDERABLES Final Res ult Performing Organization Address City/[facility]/ZIP Co de Phone Number [facility] [address] [place] [phone] * (ABNORMAL) Basic Metabolic and Venous pH Panel POC (03/16/2025 11:34 PM CDT) Glucose POC 71 70 - 105 mg/dl 03/16/2025 11:52 PM CDT [facility] BUN POC 5(L) 7 - 18 mg/dl 03/16/2025 11:52 PM CDT [facility] Creatinine POC 0.90 0.57 - 1.11 mg/dL 03/16/2025 11:52 PM CDT [facility] Sodium POC 136 136 - 145 mmol/L 03/16/2025 11:52 PM CDT [facility] Potassium POC 3.4(L) 3.5 - 5.1 mmol/L 03/16/2025 11:52 PM T [facility] Chloride POC 102 98 - 107 mmol/L 03/16/2025 11:52 PM T [facility] CO2 POC 32.7(H) 22.0 - 29.0 mmol/L 03/16/2025 11:52 PM CDT [facility] Ionized Calcium POC 1.13 1.12 - 1.32 mmol/L 03/16/2025 11:52 PM CDT [facility] ESTIMATED GFR POC 84 >60 mL/min/1. 73m2 03/16/2025 11:52 PM CDT [facility] Comment: The calculation is based on [...] 7.310 - 7.410 03/16/2025 11:52 PM T [facility] Anion Gap POC 1.3(L) 8 - 12 mEq/L 03/16/2025 11:52 PM T [facility] Blood VENOUS BLOOD SPECIMEN / Unknown Venipuncture / Unknown 03/16/2025 11:34 PM CDT 03/16/2025 11:36 PM CDT Luis A Rodríguez MD LAB BLOOD ORDERABLES Final Result [facility] [address] [place] [address] * UA DIPSTICK MICROSCOPIC IF INDICATED, WITH REFLEX TO CULTURE, POC (03/16/2025 11:34 PM CDT) Color, UA POC Yellow Yellow, Light Yellow, Dark Yellow 03/16/2025 11:49 PM CDT [facility] Clarity, UA POC Clear Clear 03/16/2025 11:49 PM CDT [facility] Specific [place], UA POC 1.010 1.003 - 1.035 03/16/2025 11:49 PM CDT [facility] pH, UA POC 7.5 5.0 - 9.0 03/16/2025 11:49 PM CDT [facility] Protein, UA POC Negative Negative 03/16/2025 11:49 PM CDT [facility] Glucose, UA POC Negative Negative 03/16/2025 11:49 PM CDT [facility] Ketones, UA POC Negative Negative 03/16/2025 11:49 PM CDT [facility] Bilirubin, UA POC Negative Negative 03/16/2025 11:49 PM CDT [facility] Blood, UA POC Negative Negative 03/16/2025 11:49 PM CDT [facility] Urobilinogen, UA POC 0.2 0.2, 1.0 03/16/2025 11:49 PM CDT [facility] Esterase UA POC Negative Negative 03/16/2025 11:49 PM CDT [facility] Nitrite, UA POC Negative Negative 03/16/2025 11:49 PM CDT [facility] Urine URINE SPECIMEN COLLECTION, CLEAN CATCH / Unknown Non-blood Collection / Unknown 03/16/2025 11:34 PM CDT 03/16/2025 11:39 PM CDT us Luis A Rodríguez MD URINE ORDERABLES Final Res ult Performing Organization Address City/[facility]/ZIP Co de Phone Number [facility] [address] [place] [phone] * Extra Urine Red Top (03/16/2025 11:34 PM CDT) Extra Urine Red Top Hold for add-ons. 03/17/2025 1:01 AM CDT [facility] Urine URINE SPECIMEN COLLECTION, CLEAN CATCH / Unknown Non-blood Collection / Unknown 03/16/2025 11:34 PM CDT 03/16/2025 11:39 PM CDT us Luis A Rodríguez MD URINE ORDERABLES Final Res ult [facility] [address] [place] [address] * Gold (SST) Top (03/16/2025 11:34 PM CDT) Gold Top Hold Specimen Hold for add-ons. 03/17/2025 1:01 AM CDT [facility] Blood VENOUS BLOOD SPECIMEN / Unknown Venipuncture / Unknown 03/16/2025 11:34 PM CDT 03/16/2025 11:36 PM CDT us Luis A Rodríguez MD LAB BLOOD ORDERABLES Final Result [facility] [address] [place] [id number] * Purple Top (03/16/2025 11:34 PM CDT) Pathologist [facility] Purple Top Hold Specimen Hold for add-ons. 03/17/2025 1:01 AM CDT [facility] Blood VENOUS BLOOD SPECIMEN / Unknown Venipuncture / Unknown 03/16/2025 11:34 PM CDT 03/16/2025 11:36 PM CDT Result Peter Rodríguez MD LAB BLOOD ORDERABLES Final Result [facility] [address] [place] [id number] * Green Top (03/16/2025 11:34 PM CDT) Green Top Hold Specimen Hold for add-ons. 03/17/2025 1:01 AM CDT [facility] Blood VENOUS BLOOD SPECIMEN / Unknown Venipuncture / Unknown 03/16/2025 11:34 PM CDT 03/16/2025 11:36 PM CDT us Luis A Rodríguez MD LAB BLOOD ORDERABLES Final Result [facility] [address] [place] [phone] * Light Blue Top (03/16/2025 11:34 PM CDT) Light Blue Top Hold Specimen Hold for add-ons. 03/17/2025 1:01 AM CDT [facility] Blood VENOUS BLOOD SPECIMEN / Unknown Venipuncture / Unknown 03/16/2025 11:34 PM CDT 03/16/2025 11:36 PM CDT Luis A Rodríguez MD LAB BLOOD ORDERABLES Final Result [facility] [address] [place] [address] * (ABNORMAL) CBC w/Diff POC (03/16/2025 11:34 PM CDT) Pathologist [facility] WBC POC 8.2 4.5 - 11.0 K/cmm 03/16/2025 11:40 PM CDT [facility] RBC POC 4.09 4.00 - 5.20 M/cmm 03/16/2025 11:40 PM T [facility] Hematocrit POC 34.7(L) 36.0 - 48.0 % 03/16/2025 11:40 PM CDT [facility] Hemoglobin POC 10.6(L) 12.0 - 16.0 g/dl 03/16/2025 11:40 PM T [facility] MCV POC 85 80 - 100 fl 03/16/2025 11:40 PM CDT [facility] MCH POC 26 26 - 34 pg 03/16/2025 11:40 PM CDT [facility] MCHC POC 31 31 - 37 g/dl 03/16/2025 11:40 PM CDT [facility] Platelets POC 213 150 - 400 K/cmm 03/16/2025 11:40 PM CDT [facility] Neutrophils % POC 54.1 40.0 - 70.0 % 03/16/2025 11:40 PM CDT [facility] Lymphs % POC 36.8 22.0 - 44.0 % 03/16/2025 11:40 PM CDT [facility] Monos % POC 7.1(H) 3.0 - 7.0 % 03/16/2025 11:40 PM CDT [facility] Baso % POC 0.2 0.0 - 1.0 % 03/16/2025 11:40 PM CDT [facility] Eos % POC 1.6(L) 2.0 - 4.0 % 03/16/2025 11:40 PM CDT [facility] Immature Gran % POC 0.2 0.0 - 0.5 % 03/16/2025 11:40 PM CDT [facility] NEUTROPHILS ABSOLUTE 4.43 1.50 - 7.70 K/cmm 03/16/2025 11:40 PM CDT [facility] LYMPHOCYTES ABSOLUTE 3.02 1.00 - 4.80 K/cmm 03/16/2025 11:40 PM CDT [facility] MONOCYTES ABSOLUTE 0.58 0.20 - 1.00 K/cmm 03/16/2025 11:40 PM CDT [facility] BASOPHILS ABSOLUTE 0.02 0.00 - 0.20 K/cmm 03/16/2025 11:40 PM CDT [facility] EOSINOPHILS ABSOLUTE 0.13 0.00 - 0.50 K/cmm 03/16/2025 11:40 PM CDT [facility] Blood VENOUS BLOOD SPECIMEN / Unknown Venipuncture / Unknown 03/16/2025 11:34 PM CDT 03/16/2025 11:36 PM CDT Luis A Rodríguez MD LAB BLOOD ORDERABLES Final Result [facility] [address] [phone] * Magnesium (03/16/2025 11:34 PM CDT) [facility] Magnesium 1.750 1.560 - 2.520 mg/dL 03/17/2025 12:16 AM CDT [facility] Blood VENOUS BLOOD SPECIMEN / Unknown Venipuncture / Unknown 03/16/2025 11:34 PM CDT 03/16/2025 11:36 PM CDT Luis A Rodríguez MD LAB BLOOD ORDERABLES Final Result [facility] [address] [place] [address] from Last 3 Months Insurance [facility] Advance Directives * Full Code (Latest Code Status on File) Date Activated Date Inactivated Comments 09/21/2024 1:00 PM 10/01/2024 5:40 PM * Full Code Date Activated Date Inactivated Comments 09/20/2024 6:29 PM 09/21/2024 1:00 PM Care Teams Bakery Clerk Relationship Specialty Start Date End Date None, PCP - General 03/16/25
--- OUTSIDE RECORDS SUMMARY | 2025-05-01 20:25 | XMS_ITS ---
Author Organization [facility] Address [address] [place] [address] Care Team Providers Care Last Picker Name Role Phone Andriy Ortiz MD Primary Care Provider [phone] Mariaa Barron INTERNET MARKETER Unavailable [phone] ED Transition of Care Status:Identified (Enrolling) Start date:04/28/2025 Related social drivers of health:Social Connections, Alcohol Use, Tobacco Use, Financial Resource Strain, Depression, Stress, Physical Activity, Transportation Needs Continued Care and Services Coordination
--- OUTSIDE RECORDS SUMMARY | 2025-05-01 20:25 | XMS_ITS | Clinical Summary ---
Author Organization [facility] Address [address] [place] [address] Phone Care Team Providers Care Wire Mesh Gate Assembler Name Role Phone System, Pcp Not In [...] tablet (5 mg total) before bedtime. Active ARIPiprazole (ABILIFY) 2 MG tablet Take one [...] mouth 2 (two) times a day. Active famotidine (PEPCID) 40 MG tablet Take one [...] (four) hours as needed for muscle spasms. Discontinu ed(Dose adjustment ) gabapentin (NEURONTIN) 300 MG capsule Take two capsules (600 mg total) by mouth in the morning and two capsules (600 mg total) at noon and two capsules (600 mg total) before bedtime. Discontinu ed(Dose adjustment ) prochlorperazine (COMPAZINE) 5 MG tablet Take one tablet (5 mg total) by mouth every 6 (six) hours as needed for nausea. 20 tablet 03/31/20 naloxone (NARCAN) 4 mg/actuation nasal spray one spray by Nasal route Every 2 minutes as needed. 1 Blist Pack 03/31/20 25 Additional Information Patient taking differently:1 spray Nasal Every 2 min PRN,opioid overdose, Reported on 04/11/2025 magnesium oxide (MAG-OX) 400 mg (241.3 mg [...] CDT - 04/11/2025 3:38 PM CDT Emergency [facility] Emergency Department [address] [id number] Rex Sanabria MD Chest pain, unspecified type; Hypokalemia; Hypomagnesemia; Drug-seeking behavior Discharge Disposition: Home 04/11/2025 Travel 04/05/2025 4:12 PM CDT - 04/05/2025 5:02 PM CDT Emergency [facility] Emergency Department [address] [phone] Tutu Song MD Chest pain, moderate coronary artery risk Discharge Disposition: Left Against Medical Advice 04/02/2025 Telephone [facility] Care Coordination [address] [place] [address] Mercedes Diez 03/31/2025 2:34 AM CDT - 03/31/2025 4:03 PM CDT Hospital Encounter [facility] [address] [phone] Skyla Mills MD Dhami, Balreet Kaur, MD [...] on file 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 Troponin T High Sensitivity <6 <=14 ng/L 04/11/2025 3:26 PM CDT [facility] Blood Venipuncture / Unknown 04/11/2025 3:03 PM CDT 04/11/2025 3:06 PM CDT Narrative [facility] - 04/11/2025 3:26 PM CDT Biotin >1200 ng/mL can reduce Elecsys Troponin T Gen 5 (Terence Gen 5; [employer]) assay recovery, potentially leading to falsely low results in patients with suspected acute myocardial infarction (AMI). us Rex Sanabria MD LAB BLOOD ORDERABLES Fin al Result Performing Organization Address [facility] Co de Phone Number [facility] [address] [place] [address] * EKG 12 lead in 90 minutes (04/11/2025 3:00 PM CDT) Only the most recent of5 resultswithin the time period is included. Vent Rate 99 BPM MUSE Atrial Rate 99 BPM MUSE ND Interval 154 ms MUSE QRS Interval 100 ms MUSE QT Interval 382 ms MUSE QTC Interval 490 ms MUSE P [place] 75 degrees MUSE R [place] 65 degrees MUSE T [place] 49 degrees MUSE Clinical Diagnosis Normal sinus rhythm Confirmed by MD Bertha, Nephertiti ([id number]) on 04/11/2025 7:06:09 PM MUSE 04/11/2025 3:00 PM CDT 04/11/2025 7:06 PM CDT us Rex Sanabria MD ECG ORDERABLES Edited R esult - Final Performing Organization Address [facility]/ZIP Co de Phone Number MUSE * EKG 12-LEAD ED DOCUMENTATION (04/11/2025 [...] * D-dimer, quantitative (04/11/2025 1:37 PM CDT) [facility] D-dimer 0.45 <0.50 ug/ml FEU 04/11/2025 2:14 PM CDT [facility] Comment:The STA Liatest D-di gordon assay can [...] MD LAB BLOOD ORDERABLES Fin al Result [facility] [address] [place] [address] * ProBNP (04/11/2025 1:16 PM CDT) Only the most recent of3 resultswithin the time period is included. Pathologist [facility] ProBNP 36 <125 pg/mL 04/11/2025 4:05 PM CDT [facility] Comment: [place] for Congestive Heart Failure [...] MD LAB BLOOD ORDERABLES Fin al Result [facility] [address] [address] * X-Ray Chest Portable (04/11/2025 1:16 PM [...] <6 <=14 ng/L 04/11/2025 1:47 PM CDT [facility] Blood Venipuncture / Unknown 04/11/2025 1:16 PM CDT 04/11/2025 1:24 PM CDT Narrative [facility] - 04/11/2025 1:47 PM CDT Biotin >1200 ng/mL can reduce Elecsys Troponin T Gen 5 (Terence Gen 5; [employer]) assay recovery, potentially leading to falsely low results in patients with suspected acute myocardial infarction (AMI). us Rex Sanabria MD LAB BLOOD ORDERABLES Fin al Result [facility] [address] [address] * (ABNORMAL) CBC with Differential (04/11/2025 1:16 PM CDT) Only the most recent of3 resultswithin the time period is included. WBC 9.3 5.0 - 10.0 K/uL 04/11/2025 1:27 PM CDT [facility] RBC 4.23 4.10 - 5.40 M/uL 04/11/2025 1:27 PM T [facility] Hemoglobin 11.3(L) 12.0 - 16.0 g/dL 04/11/2025 1:27 PM [facility] [place] Hematocrit 35.6(L) 37.0 - 47.0 % 04/11/2025 1:27 PM T [facility] MCV 84.2 80.0 - 97.0 fL 04/11/2025 1:27 PM CDT [facility] MCH 26.7(L) 27.0 - 32.0 pg 04/11/2025 1:27 PM [facility] [place] MCHC 31.7(L) 32.0 - 36.0 g/dL 04/11/2025 1:27 PM T [facility] RDW SD 56.1(H) 36.4 - 46.3 fL 04/11/2025 1:27 PM [facility] [place] Platelet 288 150 - 500 K/uL 04/11/2025 1:27 PM T [facility] MPV 11(H) 7 - 10 fL 04/11/2025 1:27 PM [facility] [place] Absolute Neutrophil 6.5 2.5 - 7.5 K/uL 04/11/2025 1:27 PM [facility] [place] Absolute Lymphocyte 2.1 1.0 - 4.0 K/uL 04/11/2025 1:27 PM CDT [facility] Absolute Monocyte 0.66(H) 0.05 - 0.60 K/uL 04/11/2025 1:27 PM CDT [facility] Absolute Eosinophil 0.08 0.05 - 0.50 K/uL 04/11/2025 1:27 PM CDT [facility] Absolute Basophil 0.02 0.00 - 0.10 K/uL 04/11/2025 1:27 PM CDT [facility] Absolute Immature Granulocytes 0.02(H) <=0.00 K/uL 04/11/2025 1:27 PM CDT [facility] Neutrophil percent 69.1 50.0 - 75.0 % 04/11/2025 1:27 PM CDT [facility] Lymphocyte percent 22.5 20.0 - 40.0 % 04/11/2025 1:27 PM CDT [facility] Monocyte percent 7.1(H) 0.0 - 6.0 % 04/[facility]osin[facility] percent 0.9 0.0 - 6.0 % 04/11/2025 1:27 PM [facility] [place] Basophils Percent, Automated 0.2 0.0 - 1.0 % 04/11/2025 1:27 [facility] Immature Granulocytes percent 0.20(H) % 04/11/2025 1:27 PM [facility] [place] Blood Venipuncture / Unknown 04/11/2025 1:16 PM CDT 04/11/2025 1:24 PM CDT us Rex Sanabria MD LAB BLOOD ORDERABLES Fin al Result [facility] [address] [place] [address] * (ABNORMAL) Magnesium (04/11/2025 1:16 PM CDT) Only the most recent of3 resultswithin the time period is included. Magnesium 1.6(L) 1.8 - 2.4 mg/dL 04/11/2025 1:47 PM CDT [facility] Blood Venipuncture / Unknown 04/11/2025 1:16 PM CDT 04/11/2025 1:24 PM CDT us Rex Sanabria MD LAB BLOOD ORDERABLES Fin al Result [facility] [address] [place] [address] * (ABNORMAL) CMP (04/11/2025 1:16 PM CDT) Only the most recent of3 resultswithin the time period is included. Sodium 139 135 - 145 mmol/L 04/11/2025 1:47 PM CDT [facility] Potassium 3.1(L) 3.5 - 5.0 mmol/L 04/11/2025 1:47 PM T [facility] Chloride 99 98 - 107 mmol/L 04/11/2025 1:47 PM T [facility] Carbon Dioxide 25 21 - 32 mmol/L 04/11/2025 1:47 PM T [facility] Anion Gap 15 6 - 16 mmol/L 04/11/2025 1:47 PM CDT [facility] Glucose 94 70 - 110 mg/dL 04/11/2025 1:47 PM T [facility] BUN 6(L) 7 - 18 mg/dL 04/11/2025 1:47 PM T [facility] Creatinine 0.73 0.60 - 1.30 mg/dL 04/11/2025 1:47 PM T [facility] BUN/Creatinine Ratio 8.2(L) 11.7 - 13.9 04/11/2025 1:47 PM CDT [facility] Calcium 9.3 8.5 - 10.1 mg/dL 04/11/2025 1:47 PM CDT [facility] Comment:Calcium measurements are adversely affected by the use of Omniscan during MRI. Analysis of calcium is not recommended for 12 to 24 hours after the use of the contrast agent. Protein total 7.6 6.4 - 8.2 g/dL 04/11/2025 1:47 PM CDT [facility] Albumin 3.5 3.4 - 5.0 g/dL 04/11/2025 1:47 PM CDT [facility] Bilirubin Total 0.4 0.0 - 1.0 mg/dL 04/11/2025 1:47 PM CDT [facility] AST 11 7 - 34 U/L 04/11/2025 1:47 PM CDT [facility] ALT 7(L) 16 - 62 U/L 04/11/2025 1:47 PM CDT [facility] ALP 93 50 - 136 U/L 04/11/2025 1:47 PM CDT [facility] eGFR 2020 CKD-EPI-cr 107.4 >60.0 mL/min/1.7 3m*2 04/11/2025 1:47 PM CDT [facility] Blood Venipuncture / Unknown 04/11/2025 1:16 PM CDT 04/11/2025 1:24 PM CDT us Rex Sanabria MD LAB BLOOD ORDERABLES Fin al Result [facility] [address] [place] [address] * (ABNORMAL) Urinalysis with Microscopic and Culture if Positive (04/05/2025 4:37 PM CDT) Color UA Yellow Yellow 04/05/2025 4:47 PM CDT [facility] Clarity UA Clear Clear 04/05/2025 4:47 PM CDT [facility] pH UA 6.0 5.0 - 8.0 04/05/2025 4:47 PM CDT [facility] Specific Ramey UA 1.015 1.005 - 1.030 04/05/2025 4:47 PM [facility] [place] Glucose UA Negative Negative 04/05/2025 4:47 PM [facility] [place] Ketones UA Negative Negative 04/05/2025 4:47 PM [facility] [place] Bilirubin UA Negative Negative 04/05/2025 4:47 PM [facility] [place] Protein UA Negative Negative 04/05/2025 4:47 PM [facility] [place] Leukocyte Esterase UA Negative Negative 04/05/2025 4:47 PM [facility] [place] Nitrite UA Negative Negative 04/05/2025 4:47 PM [facility] [place] Blood UA 1+(A) Negative 04/05/2025 4:47 PM [facility] [place] Urobilinogen UA 0.2 0.2 - 1.0 E.U./dL 04/05/2025 4:47 PM [facility] [place] RBC UA 19.2 <=23.0 RBC/ul 04/05/2025 4:47 PM [facility] [place] WBC UA 5.8 <=28.0 WBC/ul 04/05/2025 4:47 PM [facility] [place] Squamous Epithelial Cells UA 14.0 <=31.0 Epi/ul 04/05/2025 4:47 PM [facility] [place] Hyaline Casts UA <1.41 <=2.00 Hospice Admitting Clerk/ul 04/05/2025 4:47 PM [facility] [place] Bacteria UA 154.2 <=941.0 Fran/ul 04/05/2025 4:47 PM [facility] [place] Urine MID-STREAM URINE SPECIMEN / Unknown Collection / Unknown 04/05/2025 4:37 PM CDT 04/05/2025 4:39 PM CDT us Mikie Rodgers PA-C URINE ORDERABLES Final Result [facility] [address] [place] [address] * (ABNORMAL) Drug Screen Urine Ipanel (04/05/2025 4:37 PM CDT) Only the most recent of2 resultswithin the time period is included. [facility] Amphetamines Urine, Screen Negative Negative 04/05/2025 4:57 PM CDT [facility] Barbiturates Urine, Screen Negative Negative 04/05/2025 4:57 PM CDT [facility] Benzodiazepines Urine, Screen Positive(A) Negative 04/05/2025 4:57 PM CDT [facility] Cannabinoids Urine, Screen Negative Negative 04/05/2025 4:57 PM CDT [facility] Cocaine Metabolite Urine, Screen Negative Negative 04/05/2025 4:57 PM CDT [facility] Fentanyl Urine, Screen Positive(A) Negative 04/05/2025 4:57 PM CDT [facility] Opiates Urine, Screen Positive(A) Negative 04/05/2025 4:57 PM CDT [facility] Phencyclidine (PCP) Urine, Screen Negative Negative 04/05/2025 4:57 PM CDT [facility] Creatinine Urine 62.10 10.00 - 300.00 mg/dL 04/05/2025 4:57 PM CDT [facility] Urine URINE SPECIMEN / Unknown Collection / Unknown 04/05/2025 4:37 PM CDT 04/05/2025 4:42 PM CDT Narrative [facility] - 04/05/2025 4:57 PM CDT This is [...] URINE ORDERABLES Final Result Performing Organization Address [facility] de Phone Number [facility] [address] [place] [address] * hCG Serum Qualitative (04/05/2025 4:27 PM CDT) hCG qualitative Negative Negative 4:45 PM CDT [facility] Blood Venipuncture / Unknown 04/05/2025 4:27 PM CDT 04/05/2025 4:29 PM CDT Mikie Rodgers PA-C LAB BLOOD ORDERABLES F inal Result Performing Organization Address [facility] de Phone Number [facility] [address] [place] [address] * Echocardiogram Complete With Contrast if Needed (03/31/2025 8:52 AM CDT) 03/31/2025 8:22 AM CDT Narrative BOC IMG RAD - 03/31/2025 7:18 PM CDT Transthoracic Echocardiography Report (TTE) Demographics Patient Name WALTER GLASGOW Gender Female Patient Number [id number] Race Visit Number [id number] Room Number 3221 Accession Number [id number] Referring Physician . 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 Procedure date Date: 03/31/2025Start: 08:22 AM Study Location: [facility] Non-Invasive Indications: Symptomatic Chest Pain. Patient Status: [...] Name WALTER GLASGOW Gender Female Patient Number [id number] Race Visit Number [id number] Room Number 3221 Accession Number [id number] Referring Physician MD. 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 Procedure date Date: 03/31/2025Start: 08:22 AM Study Location: [facility] Non-Invasive Indications: Symptomatic Chest Pain. Patient Status: [...] 64 ECHO CV IMG ORDERABLES Final Result [facility] IMG RAD [address] [place] [address] * Hemoglobin A1c (03/31/2025 8:09 AM CDT) Hemoglobin A1c 5.6 3.8 - 5.6 % 03/31/2025 8:32 AM CDT [facility] Estimated average glucose 114 03/31/2025 8:32 AM CDT [facility] Blood Venipuncture / Unknown 03/31/2025 8:09 AM CDT 03/31/2025 8:15 AM CDT Laura Park DO LAB BLOOD ORDERABLES Final Res ult [facility] [address] [address] * Troponin High Sensitivity at 3 Hours (03/31/2025 5:49 AM CDT) Troponin T High Sensitivity <6 <=14 ng/L 03/31/2025 6:37 AM CDT [facility] Blood Venipuncture / Unknown 03/31/2025 5:49 AM CDT 03/31/2025 6:15 AM CDT Narrative [facility] - 03/31/2025 6:37 AM CDT Biotin >1200 ng/mL can reduce [employer]csys Troponin T Gen 5 (Terence Gen 5; [employer]) assay recovery, potentially leading to falsely low results in patients with suspected acute myocardial infarction (AMI). Evaristo Brewer DO LAB BLOOD ORDERABLES Final Resul t Performing Organization Address [facility]/ZIP Co de Phone Number [facility] [address] [place] [address] * TSH (03/31/2025 5:49 AM CDT) TSH 1.55 0.35 - 5.50 uIU/mL 03/31/2025 7:25 AM CDT [facility] Blood Venipuncture / Unknown 03/31/2025 5:49 AM CDT 03/31/2025 6:15 AM CDT Laura Park DO LAB BLOOD ORDERABLES Final Res ult Performing Organization Address [facility] Co de Phone Number [facility] [address] [place] [address] * (ABNORMAL) Potassium (03/31/2025 5:49 AM CDT) Potassium 3.4(L) 3.5 - 5.0 mmol/L 03/31/2025 8:38 AM CDT [facility] Blood Venipuncture / Unknown 03/31/2025 5:49 AM CDT 03/31/2025 6:15 AM CDT Laura Park DO LAB BLOOD ORDERABLES Final Res ult Performing Organization Address [facility] Co de Phone Number [facility] [address] [place] [address] * (ABNORMAL) Lipid Panel (03/31/2025 5:49 AM CDT) Triglycerides 109 <150 mg/dL 03/31/2025 6:37 AM CDT [facility] Cholesterol 109 <=200 mg/dL 03/31/2025 6:37 AM CDT [facility] HDL 42(L) >50 mg/dL 03/31/2025 6:37 AM CDT [facility] Cholesterol/HDL Ratio 2.6 % 03/31/2025 6:37 AM CDT [facility] Comment: Average coronary risk ratio for males: 4.97 (Human male up to 199 years) Average coronary risk ratio for females: 4.44 (Human male up to 199 years) LDL Calculated 45 <=100 mg/dL 03/31/2025 6:37 AM CDT [facility] Blood Venipuncture / Unknown 03/31/2025 5:49 AM CDT 03/31/2025 6:15 AM CDT Evaristo Brewer DO LAB BLOOD ORDERABLES Final Resul t [facility] [address] [address] from Last 3 Months Insurance [employer] Advance Directives For more information, please contact: [phone] (7AM - 5PM [facility], 7 days a week) * Full Code (Latest Code Status on File) Date Activated Date Inactivated Comments 03/31/2025 4:45 AM 03/31/2025 6:09 PM Care Teams Wire 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
--- OUTSIDE RECORDS SUMMARY | 2025-05-01 20:25 | XMS_ITS | Clinical Summary ---
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 09/21/2024 Fibromyalgia 09/21/2024 Chest pain, unspecified type 09/20/2024 Encounters Date Type Department Care Team Description 04/23/2025 2:00 AM CDT - 04/23/2025 4:39 AM CDT Emergency [facility] [address] [place] [address] Leda Craig MD Chest pain, unspecified type (Primary Dx) Discharge Disposition: (01) - Home or Self Care 04/23/2025 Travel 04/07/2025 8:05 PM CDT - 04/08/2025 5:02 AM CDT Emergency [facility] [address], [place] [phone] Eloped from emergency department (Primary Dx) Discharge Disposition: (07) - Left Against Medical Advice or Discontinued Care 04/07/2025 Travel 03/28/2025 5:09 PM CDT - 03/28/2025 7:35 PM CDT Emergency [facility] [address] [place] [address] Discharge Disposition: (07) - Left Against Medical Advice or Discontinued Care 03/28/2025 Travel 03/16/2025 11:19 PM CDT - 03/17/2025 1:18 AM CDT Emergency [facility] [address] [place] [address] Luis A Rodríguez MD Atypical chest pain [...] drink = 0.6 oz pur e alcohol) [facility] Utilities Answer Date Recorded In the past 12 months has e [employer], gas, oil, or water [employer] threatened to shut off services in your home? No 09/21/2024 Hunger Vital Sign Answer Date Recorded Within the past 12 months, y ou worried that your food would run out before you got the money to buy more. Patient declined Within the past 12 months, t he food you bought just didn't last and you didn't have money to get more. Patient declined [facility] HRSN - Transportation Answer Date R [...] Sex Assigned at Female 10/01/2024 8:27 PM UG DESIGNER Legal Sex Female 4:36 PM UG DESIGNER Gender Identity Female 10/01/2024 8:27 PM UG DESIGNER Sexual Orientation Straight 10/01/2024 8: 27 PM UG DESIGNER Last Filed Vital Signs Vital Sign Reading [...] this topic Medical Devices Implanted Type Area Electroless Plater Device Identifier Shelf Expiration Date Model / Serial / Lot Device Prcls Prostyle 6fr Sutue Mediate Knot Push - [id number] Implanted:Qty: 1 on 09/21/2024 by Praveen Sanz MD at [facility] VASCULAR 05/03/2026 [id number] / [id number] / [id number] Procedures Procedure Name Priority Date/Time Associated Diagnosis [...] Brain Natriuretic Peptide (04/23/2025 2:14 AM CDT) [facility] NT ProB-Natriuretic Peptide 57.5 15.8 - 104.8 pg/mL 04/23/2025 2:56 AM CDT [facility] Comment:The Alere NT-pro BNP for Alinity i assay is susceptible to interference effects from total protein >12.6 g/dL. Total protein at 15.2 g/dL decreased NT- proBNP values at 125 pg/mL by -12.7%. Blood VENOUS BLOOD SPECIMEN / Unknown Venipuncture / Unknown 04/23/2025 2:14 AM CDT 04/23/2025 2:16 AM CDT us Leda Craig MD LAB BLOOD ORDERABLES Final Res ult [facility] [address] [place] [address] * High Sensitivity Troponin Baseline with Reflex Actions if indicated (04/23/2025 2:14 AM CDT) Only the most recent of2 resultswithin the time period is included. [facility] High Sensitivity Trop, Baseline <2.7 <14.0 ng/L 04/23/2025 2:56 AM CDT [facility] Comment:Low risk for myocard ial infarction in patients with low clinical risk and symptoms > 2 hrs. Consider other causes of chest pain. A reflex 2-hour troponin will automatically be ordered; please cancel if not clinically indicated Symptom Onset >2Hrs Yes Hours 04/23/2025 2:56 AM T [facility] Symptom Onset >10Hrs No Hours 04/23/2025 2:56 AM T [facility] Blood VENOUS BLOOD SPECIMEN / Unknown Venipuncture / Unknown 04/23/2025 2:14 AM CDT 04/23/2025 2:16 AM CDT us Leda Craig MD LAB BLOOD ORDERABLES Final Res ult [facility] [address] [phone] * (ABNORMAL) CBC and Differential (04/23/2025 2:14 AM CDT) WBC 10.6 4.5 - 11.0 K/cmm 04/23/2025 2:51 AM [facility] RBC 4.04 4.00 - 5.20 M/cmm 04/23/2025 2:51 AM [facility] Hemoglobin 10.5(L) 12.0 - 16.0 g/dL 04/23/2025 2:51 AM [facility] Hematocrit 34.0(L) 36.0 - 46.0 % 04/23/2025 2:51 AM [facility] MCV 84 80 - 100 fL 04/23/2025 2:51 AM [facility] MCH 26 26 - 34 pg 04/23/2025 2:51 AM [facility] MCHC 31 31 - 37 g/dL 04/23/2025 2:51 AM [facility] RDW 17.4(H) 12.2 - 15.6 % 04/23/2025 2:51 AM [facility] RDWSD 54.3 40.0 - 55.0 fL 04/23/2025 2:51 AM [facility] Platelets 223 150 - 400 K/cmm 04/23/2025 2:51 AM [facility] Comment:Reviewed smear. MPV 10.5 9.2 - 12.0 fL 04/23/2025 2:51 AM [facility] Nucleated RBC's 0 0 - 1 /100WBC 04/23/2025 2:51 AM [facility] Neutrophils % 55.0 40.0 - 70.0 % 04/23/2025 2:51 AM [facility] Lymphocytes % 34.0 22.0 - 44.0 % 04/23/2025 2:51 AM [facility] Monocytes % 8.1(H) 3.0 - 7.0 % 04/23/2025 2:51 AM [facility] Eosinophils % 2.3 2.0 - 4.0 % 04/23/2025 2:51 AM [facility] Basophils % 0.3 0.0 - 1.0 % 04/23/2025 2:51 AM [facility] Immature Granulocytes Percent Automated 0.3 0.0 - 0.5 % 04/23/2025 2:51 AM [facility] Neutrophils Absolute 5.81 1.50 - 7.70 K/cmm 04/23/2025 2:51 AM [facility] Lymphocytes Absolute 3.59 1.00 - 4.80 K/cmm 04/23/2025 2:51 AM [facility] Monocytes Absolute 0.85 0.20 - 1.00 K/cmm 04/23/2025 2:51 AM [facility] Eosinophils Absolute 0.24 0.00 - 0.50 K/cmm 04/23/2025 2:51 AM [facility] Basophils Absolute 0.03 0.00 - 0.20 K/cmm 04/23/2025 2:51 AM [facility] Immature Platelet Fraction Percent 4.7 1.0 - 7.0 % 04/23/2025 2:51 AM [facility] Blood VENOUS BLOOD SPECIMEN / Unknown Venipuncture / Unknown 04/23/2025 2:14 AM T 04/23/2025 2:16 AM CDT Leda Craig MD LAB BLOOD ORDERABLES Final Res ult Performing Organization Address [facility]/ZIP Co de Phone Number [facility] [address] [place], [place] [id number] * Manual Differential (04/23/2025 2:14 AM CDT) Platelet Estimate Adequate 04/23/2025 2:51 AM CDT [facility] Blood VENOUS BLOOD SPECIMEN / Unknown Venipuncture / Unknown 04/23/2025 2:14 AM CDT 04/23/2025 2:16 AM CDT Leda Craig MD LAB BLOOD ORDERABLES Final Res ult Performing Organization Address [facility] de Phone Number [facility] [address] [place] [address] * (ABNORMAL) CK (04/23/2025 2:14 AM CDT) Only the most recent of2 resultswithin the time period is included. Pathologist [facility] [place] CK, Total 27(L) 29 - 168 IU/L 04/23/2025 2:56 AM CDT [facility] Blood VENOUS BLOOD SPECIMEN / Unknown Venipuncture / Unknown 04/23/2025 2:14 AM CDT 04/23/2025 2:16 AM CDT Leda Craig MD LAB BLOOD ORDER W/O STOP Final Result Performing Organization Address [facility] Co de Phone Number [facility] [address] [place] [facility] [address] * (ABNORMAL) Basic Metabolic Panel (04/23/2025 2:14 AM CDT) Glucose 75 70 - 105 mg/dL 04/23/2025 2:56 AM CDT [facility] BUN 9 7 - 18 mg/dL 04/23/2025 2:56 AM CDT [facility] Creatinine, Blood 0.80 0.57 - 1.11 mg/dL 04/23/2025 2:56 AM CDT [facility] Sodium 136 136 - 145 mEq/L 04/23/2025 2:56 AM T [facility] Potassium 4.0 3.5 - 5.1 mEq/L 04/23/2025 2:56 AM T [facility] Chloride 105 98 - 107 mEq/L 04/23/2025 2:56 AM [facility] Carbon Dioxide 20.8(L) 22.0 - 29.0 mEq/L 04/23/2025 2:56 AM T [facility] Calcium 8.8 8.4 - 10.2 mg/dL 04/23/2025 2:56 AM T [facility] Estimated GFR 96 >60 mL/min/1. 73m2 04/23/2025 2:56 AM T [facility] Comment: Calculation based on the Chronic [...] - 12 mEq/L 04/23/2025 2:56 AM T [facility] Blood VENOUS BLOOD SPECIMEN / Unknown Venipuncture / Unknown 04/23/2025 2:14 AM CDT 04/23/2025 2:16 AM CDT us Leda Craig MD LAB BLOOD ORDERABLES Final Res ult [facility] [address] [place] [address] * EKG 12 Lead - STAT (04/23/2025 1:53 AM CDT) Only the most recent of4 resultswithin the time period is included. Ventricular Rate EKG/Min 85 BPM [facility] [place] [facility] Atrial Rate 85 BPM [facility] [place] [facility] QRS-Interval (MSEC) 104 ms [facility] [place] [facility] QT-Interval (MSEC) 412 ms [facility] [place] [facility] QTc 490 ms [facility] [place] [facility] P [place] 62 degrees [facility] [place] [place] [facility] R [place] 48 degrees [facility] [place] [facility] T [place] 32 degrees [facility] [place] [facility] 04/23/2025 1:53 AM CDT Narrative [facility] [place] [facility] - 04/25/2025 4:26 PM CDT Test [...] Leda Craig MD ECG ORDERABLES Final Result [facility] [place] [facility] * XR Chest 2 Vw PA [...] POC Negative NEGATIVE 03/16/2025 11:53 PM CDT [facility] [place] [place] [facility] Blood VENOUS BLOOD SPECIMEN / Unknown 03/16/2025 11:50 PM CDT 03/16/2025 11:53 PM CDT Luis A Rodríguez MD LAB BLOOD ORDERABLES Final Result [facility] [address] [place] [address] * Urine Micro Hold Specimen (03/16/2025 11:34 PM CDT) Extra Tube Hold for add-ons. 03/17/2025 1:01 AM T [facility] Urine URINE SPECIMEN COLLECTION, CLEAN CATCH / Unknown Non-blood Collection / Unknown 03/16/2025 11:34 PM CDT 03/16/2025 11:39 PM CDT Luis A Rodríguez MD URINE ORDERABLES Final Res ult [facility] [address] [place] [address] * (ABNORMAL) Basic Metabolic and Venous pH Panel POC (03/16/2025 11:34 PM CDT) Pathologist [facility] [place] Glucose POC 71 70 - 105 mg/dl 03/16/2025 11:52 PM T [facility] BUN POC 5(L) 7 - 18 mg/dl 03/16/2025 11:52 PM [facility] Creatinine POC 0.90 0.57 - 1.11 mg/dL 03/16/2025 11:52 PM T [facility] Sodium POC 136 136 - 145 mmol/L 03/16/2025 11:52 PM [facility] Potassium POC 3.4(L) 3.5 - 5.1 mmol/L 03/16/2025 11:52 PM [facility] Chloride POC 102 98 - 107 mmol/L 03/16/2025 11:52 PM [facility] CO2 POC 32.7(H) 22.0 - 29.0 mmol/L 03/16/2025 11:52 PM [facility] Ionized Calcium POC 1.13 1.12 - 1.32 mmol/L 03/16/2025 11:52 PM [facility] ESTIMATED GFR POC 84 >60 mL/min/1. 73m2 03/16/2025 11:52 PM [facility] Comment: The calculation is based on [...] 7.310 - 7.410 03/16/2025 11:52 PM CDT [facility] Anion Gap POC 1.3(L) 8 - 12 mEq/L 03/16/2025 11:52 PM CDT [facility] Blood VENOUS BLOOD SPECIMEN / Unknown Venipuncture / Unknown 03/16/2025 11:34 PM CDT 03/16/2025 11:36 PM CDT Luis A Rodríguez MD LAB BLOOD ORDERABLES Final Result [facility] [address] [place] [address] * UA DIPSTICK MICROSCOPIC IF INDICATED, WITH REFLEX TO CULTURE, POC (03/16/2025 11:34 PM CDT) Color, UA POC Yellow Yellow, Light Yellow, Dark Yellow 03/16/2025 11:49 PM CDT [facility] Clarity, UA POC Clear Clear 03/16/2025 11:49 PM CDT [facility] Specific [place], UA POC 1.010 1.003 - 1.035 03/16/2025 11:49 PM CDT [facility] [place] [facility] pH, UA POC 7.5 5.0 - 9.0 03/16/2025 11:49 PM CDT [facility] [place] [place] [facility] Protein, UA POC Negative Negative 03/16/2025 11:49 PM CDT [facility] [place] [place] [facility] Glucose, UA POC Negative Negative 03/16/2025 11:49 PM CDT [facility] [place] [place] [facility] Ketones, UA POC Negative Negative 03/16/2025 11:49 PM CDT [facility] [place] [place] [facility] Bilirubin, UA POC Negative Negative 03/16/2025 11:49 PM CDT [facility] [place] [place] [facility] Blood, UA POC Negative Negative 03/16/2025 11:49 PM CDT [facility] Urobilinogen, UA POC 0.2 0.2, 1.0 03/16/2025 11:49 PM CDT [facility] [place] [place] [facility] Esterase UA POC Negative Negative 03/16/2025 11:49 PM CDT [facility] Nitrite, UA POC Negative Negative 03/16/2025 11:49 PM CDT [facility] Urine URINE SPECIMEN COLLECTION, CLEAN CATCH / Unknown Non-blood Collection / Unknown 03/16/2025 11:34 PM CDT 03/16/2025 11:39 PM CDT us Luis A Rodríguez MD URINE ORDERABLES Final Res ult Performing Organization Address [facility]/ZIP Co de Phone Number [facility] [address] [place] [phone] * Extra Urine Red Top (03/16/2025 11:34 PM CDT) Extra Urine Red Top Hold for add-ons. 03/17/2025 1:01 AM CDT [facility] Urine URINE SPECIMEN COLLECTION, CLEAN CATCH / Unknown Non-blood Collection / Unknown 03/16/2025 11:34 PM CDT 03/16/2025 11:39 PM CDT us Luis A Rodríguez MD URINE ORDERABLES Final Res ult Performing Organization Address City/[facility]/ZIP Co de Phone Number [facility] [address] [place] [address] * Gold (SST) Top (03/16/2025 11:34 PM CDT) Gold Top Hold Specimen Hold for add-ons. 03/17/2025 1:01 AM CDT [facility] Blood VENOUS BLOOD SPECIMEN / Unknown Venipuncture / Unknown 03/16/2025 11:34 PM CDT 03/16/2025 11:36 PM CDT Result Peter Rodríguez MD LAB BLOOD ORDERABLES Final Result [facility] [address] [place] [phone] * Purple Top (03/16/2025 11:34 PM CDT) Purple Top Hold Specimen Hold for add-ons. 03/17/2025 1:01 AM CDT [facility] Blood VENOUS BLOOD SPECIMEN / Unknown Venipuncture / Unknown 03/16/2025 11:34 PM CDT 03/16/2025 11:36 PM CDT Result Peter Rodríguez MD LAB BLOOD ORDERABLES Final Result Performing Organization Address City/[facility]/ZIP Co de Phone Number [facility] [address] [place] [phone] * Green Top (03/16/2025 11:34 PM CDT) Green Top Hold Specimen Hold for add-ons. 03/17/2025 1:01 AM CDT [facility] Blood VENOUS BLOOD SPECIMEN / Unknown Venipuncture / Unknown 03/16/2025 11:34 PM CDT 03/16/2025 11:36 PM CDT Result Peter Rodríguez MD LAB BLOOD ORDERABLES Final Result Performing Organization Address City/[facility]/ZIP Co de Phone Number [facility] [place] [place] [facility] [address] [place] [phone] * Light Blue Top (03/16/2025 11:34 PM CDT) Light Blue Top Hold Specimen Hold for add-ons. 03/17/2025 1:01 AM CDT [facility] Blood VENOUS BLOOD SPECIMEN / Unknown Venipuncture / Unknown 03/16/2025 11:34 PM CDT 03/16/2025 11:36 PM CDT us Luis A Rodríguez MD LAB BLOOD ORDERABLES Final Result [facility] [address] [phone] * (ABNORMAL) CBC w/Diff POC (03/16/2025 11:34 PM CDT) WBC POC 8.2 4.5 - 11.0 K/cmm 03/16/2025 11:40 PM CDT [facility] RBC POC 4.09 4.00 - 5.20 M/cmm 03/16/2025 11:40 PM CDT [facility] Hematocrit POC 34.7(L) 36.0 - 48.0 % 03/16/2025 11:40 PM CDT [facility] Hemoglobin POC 10.6(L) 12.0 - 16.0 g/dl 03/16/2025 11:40 PM CDT [facility] MCV POC 85 80 - 100 fl 03/16/2025 11:40 PM CDT [facility] MCH POC 26 26 - 34 pg 03/16/2025 11:40 PM CDT [facility] MCHC POC 31 31 - 37 g/dl 03/16/2025 11:40 PM CDT [facility] Platelets POC 213 150 - 400 K/cmm 03/16/2025 11:40 PM CDT [facility] Neutrophils % POC 54.1 40.0 - 70.0 % 03/16/2025 11:40 PM CDT [facility] Lymphs % POC 36.8 22.0 - 44.0 % 03/16/2025 11:40 PM CDT [facility] Monos % POC 7.1(H) 3.0 - 7.0 % 03/16/2025 11:40 PM CDT [facility] Baso % POC 0.2 0.0 - 1.0 % 03/16/2025 11:40 PM CDT [facility] Eos % POC 1.6(L) 2.0 - 4.0 % 03/16/2025 11:40 PM CDT [facility] [place] [place] [facility] Immature Gran % POC 0.2 0.0 - 0.5 % 03/16/2025 11:40 PM CDT [facility] [place] [place] [facility] NEUTROPHILS ABSOLUTE 4.43 1.50 - 7.70 K/cmm 03/16/2025 11:40 PM CDT [facility] [place] [place] [facility] LYMPHOCYTES ABSOLUTE 3.02 1.00 - 4.80 K/cmm 03/16/2025 11:40 PM CDT [facility] MONOCYTES ABSOLUTE 0.58 0.20 - 1.00 K/cmm 03/16/2025 11:40 PM CDT [facility] [place] [place] [facility] BASOPHILS ABSOLUTE 0.02 0.00 - 0.20 K/cmm 03/16/2025 11:40 PM CDT [facility] [place] [place] [facility] EOSINOPHILS ABSOLUTE 0.13 0.00 - 0.50 K/cmm 03/16/2025 11:40 PM CDT [facility] Blood VENOUS BLOOD SPECIMEN / Unknown Venipuncture / Unknown 03/16/2025 11:34 PM CDT 03/16/2025 11:36 PM CDT Luis A Rodríguez MD LAB BLOOD ORDERABLES Final Result Performing Organization Address City/[facility]/ZIP Co de Phone Number [facility] [address] [place], [place] [phone] * Magnesium (03/16/2025 11:34 PM CDT) [facility] Magnesium 1.750 1.560 - 2.520 mg/dL 03/17/2025 12:16 AM CDT [facility] Blood VENOUS BLOOD SPECIMEN / Unknown Venipuncture / Unknown 03/16/2025 11:34 PM CDT 03/16/2025 11:36 PM CDT us Luis A Rodríguez MD LAB BLOOD ORDERABLES Final Result Performing Organization Address City/[facility]/ZIP Co de Phone Number [facility] [address] [place] [phone] from Last 3 Months Insurance [facility] Advance Directives * Full Code (Latest Code Status on File) Date Activated Date Inactivated Comments 09/21/2024 1:00 PM 10/01/2024 5:40 PM * Full Code Date Activated Date Inactivated Comments 09/20/2024 6:29 PM 09/21/2024 1:00 PM Care Teams Deputy County Clerk Relationship Specialty Start Date End Date None, PCP - General 03/16/25
--- OUTSIDE RECORDS SUMMARY | 2025-05-01 20:26 | XMS_ITS | Data Portability ---
Author Organization [facility], [facility]. Address [address] [place] [address] Care Team Providers Care Cork Mixer Name Role Phone [facility] Primary Care Provider Assessment Encounter Date Assessment Date Assessment LastModified by Organization Details LastModified Time 05/17/2024 05/17/2024 No show to nick swanson Not available 05/21/2024 16:31:16 09/13/2024 09/13/2024 Patient left before being seen [email or web address] Not available 09/13/2024 18:21:15 Plan of Treatment Reminders Order Date Submit Date Provider Last Modified By Organization Details Last Modified Time Details Appointments FOLLOW UP 30 2024 03:00P Goran LIMON NP Not available Not available Not available Lab CBC 2020 021 [email or web address] [facility] ([facility] Orders), [address] [place], [address], 10/17/2021 12:13:54 CMP, serum or plasma 2020 021 [facility] ([facility] Lab Orders), [address] [place], [address], 10/17/2021 12:13:54 pro BNP (pro B-type natriuret ic peptide), serum or plasma 2020 021 [email or web address] [facility] (All Lab Orders), [address] [place], [address], 10/17/2021 12:13:54 Referral overnight pulse oximetry referral 2021 [email or web address] [facility], [address] [place], [address], 04/02/2022 14:12:01 behaviora l health referral - Patient with increasin g anxiety with home and health stressors ; requests behaviora l health evaluatio n 2021 [email or web address] [facility], [address], [place], [address], 11/13/2021 14:02:14 Procedures None recorded. Surgeries None recorded. Imaging event monitor 2020 [email or web address] [facility]), [address], [place], [address], 11/13/2021 13:56:06 Medication Orders Effient 10 mg tablet 2021 JOSE ROBERTO [facility], [facility] [address] [facility], [address], [place], [address], 01/28/2022 15:31:34 verapamil ER (SR) 120 mg tablet,ex tended release 2021 [email or web address] [facility], [address] [place] [address], [id number], 09/13/2024 12:31:40 furosemid e 20 mg tablet 2020 [email or web address] [facility], [facility] [address] [place], [id number], 09/23/2022 11:38:10 Patient TargetsNo targets recorded. Patient [...] 10.3 10*3/ uL 4.5-11 .0 Not Available [facility] ([facility]) [address] [place] [address], [address], 09/30/2021 17:49:30 09/30/20 21 09/30/2021 CBC PANEL - BLOOD BY AUTOM ATED COUNT erythrocytes [#/volume] in blood by automated count 4.64 10*6/ uL 4.2-5. 4 Not Available [facility] ([facility]) [address] [place] [address], [address], 09/30/2021 17:49:30 09/30/20 21 09/30/2021 CBC PANEL - BLOOD BY AUTOM ATED COUNT hemoglobin [mass/volume ] in blood 13.2 g/dL 12.0-1 6.0 Not Available [facility] ([facility]) [address] [place] [address], [address], 09/30/2021 17:49:30 09/30/20 21 09/30/2021 CBC PANEL - BLOOD BY AUTOM ATED COUNT HCT vfr bld auto 40.3 % 36.0-4 8.0 Not Available [facility] ([facility]) [facility] [place], [address], 09/30/2021 17:49:30 09/30/20 21 09/30/2021 CBC PANEL - BLOOD BY AUTOM ATED COUNT MCV [entitic volume] by automated count 86.9 fL 80-100 Not Available [facility] ([facility]) [facility] [place], [address], 09/30/2021 17:49:30 09/30/20 21 09/30/2021 CBC PANEL - BLOOD BY AUTOM ATED COUNT MCH [entitic mass] by automated count 28.4 pg 27-32 Not Available [facility] ([facility]) [facility] [place], [address], 09/30/2021 17:49:30 09/30/20 21 09/30/2021 CBC PANEL - BLOOD BY AUTOM ATED COUNT MCHC [mass/volume ] by automated count 32.8 g/dL 31.0-3 7.0 Not Available [facility] ([facility]) [address] [place], [address], 09/30/2021 17:49:30 09/30/20 21 09/30/2021 CBC PANEL - BLOOD BY AUTOM ATED COUNT erythrocyte distribution width [ratio] by automated count 13.3 % 12-14. 5 Not Available [facility] ([facility]) [address] [place] [address], [address], 09/30/2021 17:49:30 09/30/20 21 09/30/2021 CBC PANEL - BLOOD BY AUTOM ATED COUNT platelets [#/volume] in blood by automated count 242 10*3/ uL 150-45 0 1648, 09/30 Not Available [facility] ([facility]) [facility] [place] [place], [address], 09/30/2021 17:49:30 09/30/20 21 09/30/2021 CBC PANEL - BLOOD BY AUTOM ATED COUNT platelet mean volume [entitic volume] in blood by automated count 11.1 fL 9.1-13 .2 Not Available [facility] ([facility]) [facility] [place], [address], 09/30/2021 17:49:30 09/30/20 21 09/30/2021 NATRI URETI C PEPTI DE.B PROHO RMONE N-TER SHAW [MASS /VOLU ME] IN SERUM OR PLASM A natriuretic peptide.B prohormone N-terminal [mass/volume ] in serum or plasma 213.00 pg/mL 0-125. 00 high Not Available [facility] ([facility]) [address] [place] [address], [address], 09/30/2021 18:10:07 09/30/20 21 09/30/2021 COMPR EHENS WHIT METAB OLIC 2000 PANEL - SERUM OR PLASM A glucose [mass/volume ] in serum or plasma 97 mg/dL 74-106 Not Available [facility] ([facility]) [address] [place] [address], [address], 10/01/2021 12:18:21 09/30/20 21 09/30/2021 COMPR EHENS WHIT METAB OLIC 2000 PANEL - SERUM OR PLASM A urea nitrogen [mass/volume ] in serum or plasma 7 mg/dL 7-17 Not Available [facility] ([facility]) [address] [place] [address], [address], 10/01/2021 12:18:21 09/30/20 21 09/30/2021 COMPR EHENS WHIT METAB OLIC 2000 PANEL - SERUM OR PLASM A creatinine [mass/volume ] in serum or plasma 0.6 mg/dL 0.7-1. 2 low Not Available [facility] ([facility]) [address] [place] [address], [address], 10/01/2021 12:18:21 09/30/20 21 09/30/2021 COMPR EHENS WHIT METAB OLIC 2000 PANEL - SERUM OR PLASM A sodium [moles/volum e] in serum or plasma 141 mmol/ L 137-14 5 Not Available [facility] ([facility]) [address] [place] [address], [address], 10/01/2021 12:18:21 09/30/20 21 09/30/2021 COMPR EHENS WHIT METAB OLIC 2000 PANEL - SERUM OR PLASM A potassium [moles/volum e] in serum or plasma 3.7 mmol/ L 3.5-5. 1 Not Available [facility] ([facility]) [address] [place], [address], 10/01/2021 12:18:21 09/30/20 21 09/30/2021 COMPR EHENS WHIT METAB OLIC 1999 PANEL - SERUM OR PLASM A chloride [moles/volum e] in serum or plasma 103 mmol/ L 98-107 Not Available [facility] ([facility]) [facility] [place], [address], 10/01/2021 12:18:21 09/30/20 21 09/30/2021 COMPR EHENS WHIT METAB OLIC 2000 PANEL - SERUM OR PLASM A carbon dioxide, total [moles/volum e] in serum or plasma 28 mmol/ L 22-30 Not Available [facility] ([facility]) [address] [place], [address], 10/01/2021 12:18:21 09/30/20 21 09/30/2021 COMPR EHENS WHIT METAB OLIC 2000 PANEL - SERUM OR PLASM A calcium [mass/volume ] in blood 9.1 mg/dL 8.4-10 .2 Not Available [facility] ([facility]) [facility] [place] [place], [address], 10/01/2021 12:18:21 09/30/20 21 09/30/2021 COMPR EHENS WHIT METAB OLIC 2000 PANEL - SERUM OR PLASM A anion gap in serum or plasma 10.0 mEq/L 7.0-16 .0 Not Available [facility] ([facility]) [facility] [place] [place], [address], 10/01/2021 12:18:21 09/30/20 21 09/30/2021 COMPR EHENS WHIT METAB OLIC 2000 PANEL - SERUM OR PLASM A urea nitrogen/cre atinine [mass ratio] in blood 11.6 % 12.0-2 0.0 low Not Available [facility] ([facility]) [address] [place], [address], 10/01/2021 12:18:21 09/30/20 21 09/30/2021 COMPR EHENS WHIT METAB OLIC 2000 PANEL - SERUM OR PLASM A osmolality of serum or plasma by calculation 279 mOsm/ kg 261-28 0 Not Available [facility] ([facility]) [address] [place], [address], 10/01/2021 12:18:21 09/30/20 21 09/30/2021 COMPR EHENS WHIT METAB OLIC 2000 PANEL - SERUM OR PLASM A glomerular filtration rate/1.73 sq M.predicted [volume rate/area] in serum, plasma or blood by creatinine-b ased formula (CKD-epi) 118.1 mL 90.0-1 20 Not Available [facility] ([facility]) [address] [place], [address], 10/01/2021 12:18:21 09/30/20 21 09/30/2021 COMPR EHENS WHIT METAB OLIC 2000 PANEL - SERUM OR PLASM A bilirubin.to keiko [mass/volume ] in serum or plasma 0.40 mg/dL 0.2-1. 3 Not Available [facility] ([facility]) [address] [place], [address], 10/01/2021 12:18:21 09/30/20 21 09/30/2021 COMPR EHENS WHIT METAB OLIC 2000 PANEL - SERUM OR PLASM A aspartate aminotransfe rase [enzymatic activity/vol ume] in serum or plasma 18 U/L 14-36 Not Available [facility] ([facility]) [address] [place], [address], 10/01/2021 12:18:21 09/30/20 21 09/30/2021 COMPR EHENS WHIT METAB OLIC 2000 PANEL - SERUM OR PLASM A alanine aminotransfe rase [enzymatic activity/vol ume] in serum or plasma 12 U/L 0-34 Not Available [facility] ([facility]) [address] [place], [address], 10/01/2021 12:18:21 09/30/20 21 09/30/2021 COMPR EHENS WHIT METAB OLIC 2000 PANEL - SERUM OR PLASM A alkaline phosphatase [enzymatic activity/vol ume] in serum or plasma 107 U/L 38-126 Not Available [facility] ([facility]) [address] [place], [address], 10/01/2021 12:18:21 09/30/20 21 09/30/2021 COMPR EHENS WHIT METAB OLIC 2000 PANEL - SERUM OR PLASM A protein [mass/volume ] in serum or plasma 7.0 g/dL 6.3-8. 2 Not Available [facility] ([facility]) [address] [place], [address], 10/01/2021 12:18:21 09/30/20 21 09/30/2021 COMPR EHENS WHIT METAB OLIC 2000 PANEL - SERUM OR PLASM A albumin [mass/volume ] in serum or plasma 4.2 g/dL 3.5-5. 0 Not Available [facility] ([facility]) [address] [place], [address], 10/01/2021 12:18:21 09/30/20 21 09/30/2021 COMPR EHENS WHIT METAB OLIC 2000 PANEL - SERUM OR PLASM A globulin [mass/volume ] in plasma 2.8 g/dL 2.2-4. 2 Not Available [facility] ([facility]) [address] [place], [address], 10/01/2021 12:18:21 09/30/20 21 09/30/2021 COMPR EHENS WHIT METAB OLIC 2000 PANEL - SERUM OR PLASM A albumin/glob ulin [mass ratio] in serum or plasma 1.50 % 1.10-2 .20 Not Available [facility] ([facility]) [address] [place], [address], 10/01/2021 12:18:21 04/03/20 25 04/03/2025 HCG SERPL -ACNC choriogonado tropin [units/volum e] in serum or plasma NEGATI VE Not Available [facility] ([facility]) [address] [place], [address], 04/03/2025 11:21:34 09/05/20 21 08/28/2021 elect rocar [...] monit or No observ ation record ed. [facility] [address], [place], [address], 11/21/2021 15:05:04 04/07/20 22 03/02/2022 NM, myoca rdial perfu zack scan No observ ation record ed. [address], [address], 04/08/2022 09:10:41 04/21/20 22 03/03/2022 elect twyla delatorre am No observ ation record ed. [facility]. [address] [place] [address], [address], 04/21/2022 11:30:56 08/26/20 22 08/11/2022 imagi ng/di agnos tic resul t No observ ation record ed. BAR[facility] Not Available 2021 09:34:43 12/26/19 23 12/25/2022 imagi ng/di agnos tic resul t No observ ation record ed. [address], [address], 12/28/2022 08:16:41 03/09/20 24 12/25/2022 US, echoc ardio gram No observ ation record ed. [email or web address] Not Available 2023 15:28:04 04/12/20 25 04/05/2025 CT, angio gram, chest , w/ contr ast No observ ation record ed. [email or web address] Not Available 2024 10:35:25 04/12/20 25 03/26/2025 NM, myoca rdial perfu azck scan No observ ation record ed. [email or web address] [...] Organization Details Recorded Time Coronary arteriosclero sis 07437270 [facility] Dyspnea on exertion 60811455 Active 2023 [facility] 11:56:03 Edema of lower extremity 323744223 Active 2023 [facility] 11:56:24 Insomnia 446225844 Active 2023 [facility] 11:56:37 Diastolic heart failure 179137196 Active 2023 [facility] 11:56:51 Tobacco user 009445944 Active 2023 [facility] 11:57:00 Problem Notes None recorded. Procedures Surgical History Date Name Laterality Status Provider Name and Address Organization Details Recorded Time Division of fallopian tube completed J[facility]ne [facility] 09/04/2021 19:04:58 Caesarean Section completed [facility] 09/04/2021 19:05:14 Cholecystectomy completed [facility] 09/04/2021 19:05:33 Coronary Artery Stent completed [facility] 09/04/2021 19:10:54 Imaging Results None recorded. Procedure Notes None recorded. Medical Equipment None Reported. Allergies Allergen ID Allergen Name Allergen Category Reaction Reaction Severity Criticality Documentation Date Start Date Code Code System Note Provider Name and Address Organization Details Recorded Time 645397 Substance with sulfonami de structure and antibacte rial mechanism of action (substanc e) medicatio n Not available Not available Not available 09/04/2021 17377 8003 [facility] 18:[facility]12 Medications Name Sig Start Date Stop [...] 2 171.45 cm 16 /min 31.2 kg/m2 62283.6 6 g 96 /min 97 % 97 % 112/78 mm[Hg] Tally Tim [facility] 2 15:33:00 Date Recorded Body height Body mass index (BMI) Body weight Respiratory rate Heart rate Systolic And Diastolic Provider Name and Address Organization Details Last Updated DateTime 2 171.45 cm 25.9 kg/m2 69396.5 2 g 16 /min 84 /min 167/8 mm[Hg] Jocelyne Malone [facility] 2 14:58:31 Date Recorded Body mass index (BMI) Body height Provider Name and Address Organization Details Last Updated DateTime 09/13/2024 28.9 kg/m2 172.72 cm Mary Kay Turner [facility] 09/13/2024 12:23:46 Date Recorded Heart rate Respiratory rate Body weight Oxygen saturation Oxygen saturation in Arterial blood by Pulse oximetry Systolic And Diastolic Provider Name and Address Organization Details Last Updated DateTime 4 76 /min 16 /min 26115.5 5 g 98 % 98 % 99/61 mm[Hg] Page Juarez [facility] 4 12:22:00 Date Recorded Body height Body mass index (BMI) Body weight Respiratory rate Heart rate Systolic And Diastolic Provider Name and Address Organization Details Last Updated DateTime 1 171.45 cm 32.3 kg/m2 45614.8 1 g 16 /min 91 /min 122/72 mm[Hg] Jocelyne Malone [facility] 1 16:38:12 Social History Question Answer Notes LastModified by [employer] Details LastModified Time Tobacco Smoking Status Current Every Day Smoker [email or web address] 01/28/2022 14:53:39 What Is Your Level Of Caffeine Consumption? None [email or web address] Information not available 01/28/2022 What Was The Date Of Your Most Recent Tobacco Screening? 01/28/2022 Information not available 01/28/2022 What Is Your Relationship Status? Information not available 01/28/2022 Sex: Unknown Functional Status Question Answer Note LastModified by [employer] Details LastModified Time Do you use any illicit or recreational drugs? No [email or web address] Information not available 01/28/2022 Do you or have you ever used any other forms of tobacco or nicotine? Yes [email or web address] Information not available 01/28/2022 What is your level of alcohol consumption? Occasional Information not available 01/28/2022 Are you currently employed? No [email or web address] Information not available 01/28/2022 Do you or have you ever used e-cigarettes or vape? Current user of electronic cigarettes [email or web address] Information not available 01/28/2022 Mental Status None recorded. Family History Relationship Description Onset Age of this Age Resolved Age Notes LastModified by Organization Details LastModified Time Father Heart disease [email or web address] Not available 2020 18:59:07 Father Heart failure Not available 2020 19:00:49 Father Hypertensive disorder [email or web address] Not available 2020 19:01:25 Mother Heart disease [email or web address] Not available 2020 18:59:07 Mother Heart failure Not available 2020 19:00:49 Mother Hypertensive disorder [email or web address] Not available 2020 19:01:26 Brother Hypertensive disorder Not available 2020 19:01:36 Paternal Grandmother Hypertensive disorder [email or web address] Not available 2020 19:01:48 Paternal Grandmother Heart failure [email or web address] Not available 2020 19:04:16 Sister Hypertensive disorder [email or web address] Not available 2020 19:01:56 Paternal Grandfather Hypertensive disorder [email or web address] Not available 2020 19:02:11 Paternal Grandfather Heart failure Not available 2020 19:03:24 Maternal Grandmother Hypertensive disorder [email or web address] Not available 2020 19:02:49 Maternal Grandmother Heart failure [email or web address] Not available 2020 19:03:40 Maternal Grandfather Hypertensive disorder [email or web address] Not available 2020 19:03:01 Maternal Grandfather Heart failure Not available 2020 19:03:52 Medical History Condition Response Coronary Artery Disease Y Hypothyroidism Y Anxiety Disorder Y Muscle, Joint, or Bone Problems Y Arthritis Y Acid Reflux (GERD) Y Liver Disease Y Headaches Y Migraines Y Heart Attack (PR) Y Back Problems Y GERD/Reflux Y Hypertension Y Gynecological HistoryNo gynecological history recorded. Obstetrics History GPAL:G 0 P 0 0 0 0 Past Encounters Encounter ID Performer Location Encounter Start Date Encounter Closed Date Diagnosis/Indication Diagnosis SNOMED-CT Code Diagnosis ICD10 Code Diagnosis Note [id number] Kary Pires APRN [facility]. [address] [place], [place] [address], [place] [address] 07/18/2018 18:25:24 07/20/2018 18:44:48 [id number] [facility]. [address] [place], [place] [address], [place] [address] 07/28/2018 19:24:37 07/29/2018 11:13:30 [id number] Kary Pires APRN [facility]. [address] [place], [place] [address], [place] [address] 08/01/2018 15:00:43 08/02/2018 10:53:43 [id number] Kary Pires APRN [facility]. 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 [address] [place], [place] [address], [place] [address] 08/17/2018 16:32:29 08/17/2018 17:13:30 [id number] Kary Pires APRN [facility]. [address] [place], [place] [address], [place] [address] 09/05/2018 16:32:33 09/06/2018 08:08:33 [id number] Kary Pires APRN [facility]. [address] [place], [place] [address], [place] [address] 09/13/2018 14:12:22 09/13/2018 16:07:34 [id number] Alejandra James MD [facility]. [address] [place], [place] [address] [address] 09/29/2018 13:29:04 09/29/2018 14:50:15 [id number] Kary Pires APRN [facility]. [address] [place] [address] [place] [address] 11/01/2018 18:29:07 11/03/2018 08:51:42 [id number] Kary Pires APRN [facility]. [address] [place] [address] [place] [address] 11/18/2018 13:52:55 11/21/2018 08:28:25 [id number] Kary Pires APRN [facility]. [address] [place] [address] [place] [address] 12/09/2018 14:38:01 12/12/2018 08:28:39 [id number] Kary Pires APRN [facility]. [address] [place] [address] [place] [address] 12/13/2018 10:02:51 12/13/2018 11:40:57 [id number] Dennise Lizama APRN [facility]. [address] [place] [address] [place] [address] 12/27/2018 17:47:54 12/28/2018 17:39:19 [id number] Kary Pires APRN [facility]. [address] [place] [address] [place]án [place], [place] [address] 01/30/2019 14:01:14 01/30/2019 14:41:27 [id number] Alejandra James MD [facility]. [address] [place] [address] [place] [address] 02/07/2019 14:36:05 02/07/2019 16:04:50 [id number] Kary Pires APRN [facility]. [address] [place] [address] [place] [address] 02/13/2019 12:16:50 02/13/2019 12:55:13 [id number] Alejandra James MD [facility]. [address] [place] [address] [place] [address] 02/15/2019 15:58:48 02/15/2019 16:38:05 [id number] Kary Pires APRN [facility]. [address] [place] [address] 02/28/2019 16:23:03 02/28/2019 19:13:41 [id number] Kary Pires APRN [facility]. [place] [address] 03/20/2019 15:30:41 03/20/2019 19:00:02 [id number] Alejandra James MD [facility] [address] 03/30/2019 09:22:23 03/30/2019 11:24:56 [id number] Kary Pires APRN [facility] [address] 03/31/2019 15:53:50 03/31/2019 18:38:04 [id number] Kary Pires APRN [facility]. [facility] [place] [address] 04/10/2019 14:10:20 04/10/2019 15:27:14 [id number] Kary Pires APRN [facility]. [facility] [place] [address] 04/11/2019 13:58:16 04/11/2019 14:44:15 [id number] Kary Pires APRN [facility]. [facility] [place] [address] 05/08/2019 14:25:40 05/08/2019 18:26:39 [id number] MD [facility] [address] [facility] [place] [address] 07/20/2019 10:42:45 07/20/2019 12:36:08 [id number] Kary Pires APRN [facility]. [place] [address] 11/10/2019 19:36:22 11/13/2019 16:54:07 [id number] Kary Pires APRN [facility]. [address] [place] [address] [place] [address] 11/14/2019 17:50:43 11/15/2019 13:07:31 [id number] Yang Bishop APRN [facility]. [address] [place] [address] [place] [address] 11/23/2019 13:42:36 11/23/2019 16:04:11 [id number] Alejandra James MD [facility]. [address] [place] [address] [place], [place] [address] 12/14/2019 14:59:04 12/14/2019 16:17:00 [id number] Dennise Lizama APRN [facility]. [address] [place], [place] [address], [place] [address] 01/03/2020 09:56:17 01/04/2020 11:46:41 [id number] Alejandra James MD [facility]. [address] [place], [place] [address] [address] 02/05/2021 11:19:50 02/10/2021 13:11:22 [id number] Alejandra James MD [facility]. [address] [place], [place] [address], [place] [address] 02/12/2021 15:38:46 02/13/2021 15:54:47 [id number] Alejandra James MD [facility]. [address] [place], [place] [address], [place] [address] 03/13/2021 16:11:59 03/14/2021 08:29:45 [id number] Alejandra James MD [facility]. [address] [place], [place] [address] [address] 04/14/2021 11:46:56 04/15/2021 12:47:27 [id number] Alejandra James MD [facility]. [address] [place], [place] [address] [address] 4 04/21/2021 10:50:31 04/22/2021 13:04:37 [id number] Alejandra James MD [facility]. [address] [place], [place] [address] [address] 05/20/2021 16:10:24 05/23/2021 16:35:40 [id number] Pradeep Bunch MD [facility]. [address] [place], [place] [address] [address] 07/09/2021 09:53:19 07/14/2021 07:21:49 [id number] Deidre Curran APRN [facility] [address] [place] [address] [place] [address] 08/14/2021 10:48:11 08/15/2021 19:19:33 [id number] RENETTA MONTALVO APRN [facility] Medical [facility] [address] [place] [address] 08/19/2021 14:22:02 08/19/2021 15:16:56 [id number] Deidre [facility]ran [facility]N [facility] [address] [place] [address] [place] [address] 08/25/2021 11:05:12 08/25/2021 15:32:12 [id number] Alejandra James MD [facility]. [address] [place], [place] [address], [place] [address] 09/02/2021 10:04:15 09/02/2021 10:51:28 [id number] Edson Ortiz MD [facility] CArdiolog y. [address] [place] [address] [place] [address] 09/05/2021 09:55:44 09/05/2021 11:26:19 Coronary arteriosclerosis in pauma artery 8074550941 107 I25.10 Obesity 594749643 E66.9 Gastroesop hageal reflux disease without esophagitis 566873413 K21.9 Ventricula r fibrillation 11875390 I49.01 Post-disch arge follow-up 658707512 Z09 [id number] Alejandra James MD [facility]. [address] [place], [place] [address], [place] [address] 09/10/2021 16:13:34 09/11/2021 17:05:53 [id number] Deidre Curran APRN [facility] [address] [place] [address] [place] [address] 6 09/30/2021 12:12:17 10/01/2021 08:48:10 [id number] Sima Gurrola [employer] [facility] CArdiolog y. [address] 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 [address] [facility] [place] [address] 10/29/2021 15:28:11 10/30/2021 08:50:46 Essential hypertension 96166446 I10 Mixed anxi ety and depressive disorder 915202489 F41.8 [id number] Alejandra James MD [facility]. [address] [place] [address] Adrián BARTH [facility] [place] [address] 12/09/2021 14:53:45 12/11/2021 14:03:31 [id number] Paul Pope Jr., [facility] CArdiolog y. [address] [facility] [place] [address] 01/28/2022 14:24:35 02/03/2022 16:35:47 Coronary arteriosclerosis 04610277 I25.10 pci to the LAD 08/2021 Dyspnea on exertion 6084 5006 R06.09 Edema of l ower extremity 684696855 R60.0 Difficulty sleeping 3013 02066 Z72.820 Diastolic heart failure 432405731 I50.32 Tobacco user 457896687 Z 72.0 [id number] Alejandra James MD [facility]. [address] [place] [address] Adrián BARTH [facility] [place] [address] 04/23/2022 15:38:14 05/11/2022 11:19:13 [id number] Alejandra James MD [facility]. [address] [place] [address] 05/20/2022 09:26:47 05/29/2022 13:49:48 [id number] Alejandra James MD [facility]. [address] [place], [place] [address], [place] [address] 07/09/2022 16:54:01 07/23/2022 14:12:01 [id number] Alejandra James MD [facility]. [address] [place], [place] [address], [place] [address] 07/21/2022 11:30:54 08/05/2022 18:16:07 [id number] Edson Ortiz MD [facility] CArdiolog [facility] [address] [place] [address], [place] [address] 05/17/2024 14:53:31 05/21/2024 16:31:22 [id number] [facility] [address] [place] [address], [place] [address] 05/26/2024 11:39:51 05/26/2024 14:21:31 [id number] [facility] [address] [place] [address] 05/29/2024 11:42:25 05/29/2024 12:48:23 [id number] [facility] [address] [place] [address] 06/15/2024 15:42:54 06/15/2024 17:57:36 [id number] Edson Ortiz MD [facility] CArdiolog [facility] [address] [place] [address], [place] [address] 09/13/2024 12:09:00 09/13/2024 18:21:21 Coronary arteriosclerosis 10706920 I25.10 ECHO (limited) . Left ventricula r ejection fraction, by visual estimation , is 60 to 65%.2. Normal RV systolic function.3 . Mild mitral valve regurgitat ion.4. No significan t change from prior echo. Dyspnea on exertion 6084 5006 R06.09 Edema of l ower extremity 998153278 R60.0 - continue furosemide 20 mg Diastolic heart failure 875157098 I50.32 Sinus rhythm with some episodes of sinus tachycardi a, no abnormal rhythms. Health Concerns Section Related Observation LastModified by Organization Detai ls LastModified Time None Recorded Concern Status LastModified by Organization Details LastModified Time None Recorded Advance Directives Directive None Recorded Payers Insurance Date Sequence Insurance Name Policy Number Policy Saunders Covered Member ID Saunders Member ID Guarantor Name 03/13/2025 1 [employer] - ESSENTIAL CARE 2 (PPO) Deidre Bunch [id number] Deidre Bunch 03/13/2025 1 [place]SS[place] CARE 2 (PPO) [id number] Deidre A Couch [id number] Deidre Bunch 03/13/2025 [place]) Deidre Couch [id number] Deidre Bunch 03/13/2025 1 [place] EARLINE Deidre Couch [id number] Deidre Bunch 04/10/2025 1 [place] ESSENTIAL CARE 2 (PPO) Deidre Bunch [id number] Deidre Bunch 03/13/2025 2 [place]) Deidre Bunch [id number] Deidre Bunch OBGyn Episode No OBEpisode recorded.
--- OUTSIDE RECORDS SUMMARY | 2025-05-01 20:26 | XMS_ITS | Data Portability ---
Author Organization [facility] Address [address] [place] [id number] Assessment Encounter Date Assessment Date Assessment LastModified by Organization Details LastModified Time 08/29/2024 08/29/2024 -Review of [facility] ED visit 08.28.24 [email or web address] Not available 09/12/2024 01:17:33 09/13/2024 09/13/2024 -OLVIN most recent cardiology notes -OLVIN ED note from [facility] and [facility] Admission notes. -This visit is medically necessary for longitudinal evaluation of this patient due to serious, complex, medical conditions. Will continue to follow this patient and serve as the focal point for all of this patient's needs, as the medical conditions require continuation of care. Not available 09/19/2024 20:26:12 10/05/2024 10/05/2024 -OLVIN Pulmonology -This visit is medically necessary for longitudinal evaluation of this patient due to serious, complex, medical conditions. Will continue to follow this patient and serve as the focal point for all of this patient's needs, as the medical conditions require continuation of care. [email or web address] Not available 10/15/2024 23:56:09 11/13/2024 11/13/2024 -This visit is medically necessary for longitudinal evaluation of this patient due to serious, complex, medical conditions. Will continue to follow this patient and serve as the focal point for all of this patient's needs, as the medical conditions require continuation of care. [email or web address] Not available 11/13/2024 15:06:02 12/11/2024 12/11/2024 -F2F visit to include HPI, review of multiple, previous ED visits, plan of care and discharge letter spent is 22 mins. [email or web address] Not available 12/21/2024 19:56:28 Plan of Treatment Reminders Order Date Submit Date Provider Last Modified By Organization Details Last Modified Time Details Appointments None recorded. Lab CBC 2024 025 [facility] ([facility]) - [place], [address], [address], [place], [address], 5 17:56:13 CMP, serum or plasma 2024 025 [facility] ([facility]) - [place], [address], [address], [place], [address], 5 17:56:13 unlisted lab - pain management panel w/reflex 2023 024 [place] [facility]li ([facility]) - [place], [address], [address], [place], [address], 4 16:38:31 unlisted lab - pain management panel w/reflex 2023 024 [place] Ty[place]li ([facility]) - [place], [address], [address], [place], [address], 4 14:35:47 Referral None recorded. Procedures None recorded. Surgeries None recorded. Imaging None recorded. Medication Orders Nitrostat 0.4 mg sublingual tablet 2024 025 [place] [facility], [address], [place], [id number], 5 13:14:10 prasugrel HCl 10 mg tablet 2024 025 [facility], [address], [place], [id number], 5 15:42:44 trazodone 100 mg tablet 2024 025 [facility], [address], [place], [place], [id number], 15:42:49 cyanocobal alba (vit B-12) 1,000 mcg/mL injection solution 2024 [facility], [address], [place], [place], [id number], 16:45:45 tizanidine 4 mg tablet 2024 [facility] [place] [address], [place], [place], [id number], 11:10:47 gabapentin 600 mg tablet 2024 [facility] [place], [address], [place], [place], [id number], 10:17:00 hydrocodon e 5 mg-acetami nophen 325 mg tablet 2024 [facility] [place] [facility] [place] [address], [place], [place], [id number], 17:28:41 metoclopra mide 5 mg tablet 2024 [facility] [place] [facility] [place], [address], [place], [place], [id number], 15:42:44 omeprazole 40 mg capsule,de layed release 2024 [facility] [place] [facility] [place], [address], [place], [place], [id number], 17:28:33 verapamil 120 mg tablet 2024 [facility] [place] [facility] [place], [address], [place], [place], [id number], 15:42:38 hydrochlor othiazide 12.5 mg capsule 2024 [facility], [address], [place], [place], [id number], 5 10:17:02 potassium chloride ER 10 mEq capsule,ex tended release 2024 [facility], [address], [place], [place], [id number], 5 10:16:59 atorvastat in 80 mg tablet 2024 [facility], [address], [place], [place], [id number], 5 11:10:45 Nitrostat 0.4 mg sublingual tablet 2024 [facility] [place] [address], [place], [place], [id number], 5 13:33:55 hydrocodon e 5 mg-acetami nophen 325 mg tablet 2024 [facility], [address], [place], [place], [id number], 5 10:35:16 gabapentin 600 mg tablet 2024 [facility] [place], [address], [place], [place], [id number], 5 14:36:39 scopolamin e 1 mg over 3 days transderma l patch 2024 [facility] [place], [address], [place], [place], [id number], 5 14:46:50 metoclopra mide 5 mg tablet 2024 [facility] [place], [address], [place], [place], [id number], 5 15:45:24 verapamil 120 mg tablet 2024 [facility], [address], [place], [place], [id number], 5 15:45:27 albuterol sulfate HFA 90 mcg/actuat ion aerosol inhaler 2024 025 [facility], [address], [place], [place], [id number], 5 10:35:17 potassium chloride ER 10 mEq capsule,ex tended release 2024 025 [facility], [address], [place], [place], [id number], 5 10:35:15 tizanidine 4 mg tablet 2023 024 [facility], [address], [place], [place], [id number], 5 14:39:28 cyanocobal alba (vit B-12) 1,000 mcg/mL injection solution 2023 024 [facility], [address], [place], [place], [id number], 4 17:27:05 hydrocodon e 5 mg-acetami nophen 325 mg tablet 2023 024 [email or web address] [facility], [address], [place], [place], [id number], 4 14:40:17 ondansetro n HCl (PF) 4 mg/2 mL injection solution 2023 024 [email or web address], [address], [place], [place], [id number], 4 16:25:29 ondansetro n HCl 4 mg tablet 2023 025 [facility], [address], [place], [place], [id number], 14:36:31 metoclopra mide 5 mg tablet 2023 [place] [facility], [address], [place], [id number], 5 11:10:46 verapamil 120 mg tablet 2023 024 [facility], [facility] [address], [id number], 5 10:17:01 potassium chloride ER 10 mEq capsule,ex tended release 2023 [facility] [place], [facility] [address], [id number], 11:42:20 Patient TargetsNo targets recorded. Patient Instructions Encounter Date Encounter Id Patient Instructions Last Modified By Organization Details Last Modified Time 08/29/2024 [id number] -Instructions reviewed with patient and the patient repeated and agrees to follow -Keep specialist appointments as scheduled -RTC in 1 month on 12.15.24 for follow up, sooner as needed. -Patient discharged to self to home in stable condition. [email or web address] Not available 09/12/2024 01:19:33 09/13/2024 [id number] -Instructions reviewed with patient and the patient repeated and agrees to follow -Keep specialty appointments as scheduled -RTC in 1 month for follow up, sooner as needed. -Patient discharged to self to home in stable condition. [email or web address] Not available 09/19/2024 20:28:07 10/05/2024 [id number] -Instructions reviewed with patient and the patient repeated and agrees to follow -RTC in 1 month on 2.3.25 for follow up, sooner as needed. -Patient discharged to self to home in stable condition. Not available 10/15/2024 23:53:24 11/13/2024 [id number] -Instructions reviewed with patient and the patient repeated and agrees to follow -RTC in 1 month for follow up or sooner if symptoms or worsen -Patient discharged to self to home in stable condition. [email or web address] Not available 12/11/2024 04:33:45 12/11/2024 [id number] -Patient was informed will not be refilling pain medications, she did ask for refills of her other medications, it is found she has refills existing. -Patient left clinic did not make a follow up appointment; left clinic in stable condition. [email or web address] Not available 12/21/2024 19:58:25 Reason for Referral None Reported. Results Created Date Observation Date Name Description Value Unit Range Abnormal Flag Note LastModifiedBy Organization Detail LastModifiedTime 08/08/20 24 08/10/2024 PAIN MANAG E W RFX URN amphetamine interp NEGATI VE cutoff 500 NG/mL Not Available [facility] [address] [facility], [address], 08/10/2024 14:44:21 08/08/20 24 08/10/2024 PAIN MANAG E W RFX URN barbiturates interp NEGATI VE cutoff 200 NG/mL Not Available [facility] [address] [facility] [place], [address], 08/10/2024 14:44:21 08/08/20 24 08/10/2024 PAIN MANAG E W RFX URN benzodiazepi richard interp NEGATI VE cutoff 200 NG/mL Not Available [facility] [address] [facility] [place], [address], 08/10/2024 14:44:21 08/08/20 24 08/10/2024 PAIN MANAG E W RFX URN cocaine interp NEGATI VE cutoff 150 NG/mL Not Available [facility] [address] [place], [address], 08/10/2024 14:44:21 08/08/20 24 08/10/2024 PAIN MANAG E W RFX URN methadone interp NEGATI VE cutoff 300 NG/mL Not Available [facility] [address] [facility] [place], [address], 08/10/2024 14:44:21 08/08/20 24 08/10/2024 PAIN MANAG E W RFX URN opiates interp NEGATI VE cutoff 300 NG/mL Not Available [facility] [address] [place] [address] [place], [address], 08/10/2024 14:44:21 08/08/20 24 08/10/2024 PAIN MANAG E W RFX URN oxycodone interp NEGATI VE cutoff 100 NG/mL Not Available [facility] [address] [place] [address] [place], [address], 08/10/2024 14:44:21 08/08/20 24 08/10/2024 PAIN MANAG E W RFX URN pcp - phencyclidin e interp NEGATI VE cutoff 25 NG/mL Not Available [facility] [address] [place] [address] [place], [address], 08/10/2024 14:44:21 08/08/20 24 08/10/2024 PAIN MANAG E W RFX URN propoxyphene interp NEGATI VE cutoff 300 NG/mL Not Available [facility] [address] [place] [address] [place], [address], 08/10/2024 14:44:21 08/08/20 24 08/10/2024 PAIN MANAG E W RFX URN cannabinoids interp NEGATI VE cutoff 50 NG/mL Not Available [facility] [address] [place] [address] [place], [address], 08/10/2024 14:44:21 08/08/20 24 08/10/2024 PAIN MANAG E W RFX URN creatinine 26 mg/dL >10 Comme nt for PAIN MANAG E W RFX URN Speci men - Urine Not Available [facility] [address] [place] [address] [place], [address], 08/10/2024 14:44:21 08/08/20 24 08/10/2024 PRESC RIPTI ON MED(S ) drug #1 No Medica tions Prescr ibed Not Available [facility] [address] [place], [address], 08/10/2024 14:44:22 08/08/20 24 08/10/2024 PRESC RIPTI ON MED(S ) enhanced report Comple te To downl oad an enhan angelica repor t for this test go to: https ://er pt.[facility]. us/#/ login [email or web address] [...] high- compl exity testi ng. Not Available [facility] [address] [place], [address], 08/10/2024 14:44:22 08/29/20 24 09/02/2024 PAIN MANAG E W RFX URN amphetamine interp Negati ve cutoff 500 NG/mL Not Available [facility] [address] [place], [address], 09/02/2024 14:35:47 08/29/20 24 09/02/2024 PAIN MANAG E W RFX URN barbiturates interp Negati ve cutoff 200 NG/mL Not Available [facility] [address] [place], [address], 09/02/2024 14:35:47 08/29/20 24 09/02/2024 PAIN MANAG E W RFX URN benzodiazepi richard interp Positi ve Incons istent cutoff 200 NG/mL abnormal Not Available [facility] [address] [place] [place], [address], 09/02/2024 14:35:47 08/29/20 24 09/02/2024 PAIN MANAG E W RFX URN cocaine interp Negati ve cutoff 150 NG/mL Not Available [facility] [address] [place], [address], 09/02/2024 14:35:47 08/29/20 24 09/02/2024 PAIN MANAG E W RFX URN methadone interp Negati ve cutoff 300 NG/mL Not Available [facility] [address] [place], [address], 09/02/2024 14:35:47 08/29/20 24 09/02/2024 PAIN MANAG E W RFX URN opiates interp Negati ve cutoff 300 NG/mL Not Available [facility] [address] [place], [address], 09/02/2024 14:35:47 08/29/20 24 09/02/2024 PAIN MANAG E W RFX URN oxycodone interp Negati ve cutoff 100 NG/mL Not Available [facility] [address] [place], [address], 09/02/2024 14:35:47 08/29/20 24 09/02/2024 PAIN MANAG E W RFX URN pcp - phencyclidin e interp Negati ve cutoff 25 NG/mL Not Available [facility] [address] [place] [address] [place], [address], 09/02/2024 14:35:47 08/29/20 24 09/02/2024 PAIN MANAG E W RFX URN propoxyphene interp Negati ve cutoff 300 NG/mL Not Available [facility] [address] [place], [address], 09/02/2024 14:35:47 08/29/20 24 09/02/2024 PAIN MANAG E W RFX URN cannabinoids interp Negati ve cutoff 50 NG/mL Not Available [facility] [address] [place], [address], 09/02/2024 14:35:47 08/29/20 24 09/02/2024 PAIN MANAG E W RFX URN creatinine 57 mg/dL >10 Comme nt for PAIN MANAG E W RFX URN Speci men - Urine Not Available [facility] [address] [place], [address], 09/02/2024 14:35:47 08/29/20 24 09/02/2024 PRESC RIPTI ON MED(S ) drug #1 No Medica tions Prescr ibed Not Available [facility] [address] [facility] [place], [address], 09/02/2024 14:35:47 08/29/20 24 09/02/2024 PRESC RIPTI [...] high- compl exity testi ng. Not Available [facility] [address] [facility] [place], [address], 09/02/2024 14:35:47 08/29/20 24 09/02/2024 BENZO DIAZE PINES CON U 7-aminoclona zepam 244 NG/mL <50.0 high Not Available [facility] [address] [facility] [place], [address], 09/02/2024 14:35:48 08/29/20 24 09/02/2024 [place] CON U 7-aminoclona zepam interp Positi ve-Inc onsist ent abnormal Not Available [facility] [address] [facility] [place], [address], 09/02/2024 14:35:48 08/29/20 24 09/02/2024 [place] CON U 7-aminofluni trazepam Not Detect ed NG/mL <50.0 Not Available [facility] [address] [facility] [place], [address], 09/02/2024 14:35:48 08/29/20 24 09/02/2024 [place] CON U 7-aminofluni trazepam interp Negati ve Not Available [facility] [address] [facility] [place], [address], 09/02/2024 14:35:48 08/29/20 24 09/02/2024 [place] CON U A-hydroxyalp razolam Not Detect ed NG/mL <50.0 Not Available [facility] [address] [facility] [place], [address], 09/02/2024 14:35:48 08/29/20 24 09/02/2024 [place] CON U A-hydroxyalp razolam interp Negati ve Not Available [facility] [address] [facility] [place], [address], 09/02/2024 14:35:48 08/29/20 24 09/02/2024 [place] CON U lorazepam Not Detect ed NG/mL <50.0 Not Available [facility] [address] [place], [address], 09/02/2024 14:35:48 08/29/20 24 09/02/2024 [place] CON U lorazepam interp Negati ve Not Available [facility] [address] [place], [address], 09/02/2024 14:35:48 08/29/20 24 09/02/2024 [place] CON U nordiazepam Not Detect ed NG/mL <50.0 Not Available [facility] [address] [place], [address], 09/02/2024 14:35:48 08/29/20 24 09/02/2024 [place] CON U nordiazepam interp Negati ve Not Available [facility] [address] [place], [address], 09/02/2024 14:35:48 08/29/20 24 09/02/2024 [place] CON U oxazepam Not Detect ed NG/mL <50.0 Not Available [facility] [address] [place], [address], 09/02/2024 14:35:48 08/29/20 24 09/02/2024 [place] CON U oxazepam interp Negati ve Not Available [facility] [address] [place], [address], 09/02/2024 14:35:48 08/29/20 24 09/02/2024 [place] CON U temazepam Not Detect ed NG/mL <50.0 Not Available [facility] [address] [place], [place], [address], 09/02/2024 14:35:48 08/29/20 24 09/02/2024 [place] CON U temazepam interp Negati ve Not Available [facility] [address] [place], [address], 09/02/2024 14:35:48 09/13/20 24 09/17/2024 PAIN MANAG E W RFX URN amphetamine interp Positi ve Incons istent cutoff 500 NG/mL abnormal Not Available [facility] [address] [place], [address], 09/17/2024 16:38:31 09/13/20 24 09/17/2024 PAIN MANAG E W RFX URN barbiturates interp Negati ve cutoff 200 NG/mL Not Available [facility] [address] [place], [address], 09/17/2024 16:38:31 09/13/20 24 09/17/2024 PAIN MANAG E W RFX URN benzodiazepi richard interp Positi ve Incons istent cutoff 200 NG/mL abnormal Not Available [facility] [address] [place] [place], [address], 09/17/2024 16:38:31 09/13/20 24 09/17/2024 PAIN MANAG E W RFX URN cocaine interp Negati ve cutoff 150 NG/mL Not Available [facility] [address] [facility] [place], [address], 09/17/2024 16:38:31 09/13/20 24 09/17/2024 PAIN MANAG E W RFX URN methadone interp Negati ve cutoff 300 NG/mL Not Available [facility] [address] [place], [address], 09/17/2024 16:38:31 09/13/20 24 09/17/2024 PAIN MANAG E W RFX URN opiates interp Positi ve Incons istent cutoff 300 NG/mL abnormal Not Available [facility] [address] [place], [place], [address], 09/17/2024 16:38:31 09/13/20 24 09/17/2024 PAIN MANAG E W RFX URN oxycodone interp Negati ve cutoff 100 NG/mL Not Available [facility] [address] [place], [address], 09/17/2024 16:38:31 09/13/20 24 09/17/2024 PAIN MANAG E W RFX URN pcp - phencyclidin e interp Negati ve cutoff 25 NG/mL Not Available [facility] [address] [place], [address], 09/17/2024 16:38:31 09/13/20 24 09/17/2024 PAIN MANAG E W RFX URN propoxyphene interp Negati ve cutoff 300 NG/mL Not Available [facility] [address] [place], [address], 09/17/2024 16:38:31 09/13/20 24 09/17/2024 PAIN MANAG E W RFX URN cannabinoids interp Negati ve cutoff 50 NG/mL Not Available [facility] [address] [place], [address], 09/17/2024 16:38:31 09/13/20 24 09/17/2024 PAIN MANAG E W RFX URN creatinine 280 mg/dL >10 Comme nt for PAIN MANAG E W RFX URN Speci men - Urine Not Available [facility] [address] [place], [address], 09/17/2024 16:38:31 09/13/20 24 09/17/2024 PRESC RIPTI ON MED(S ) drug #1 No Medica tions Prescr ibed Not Available [facility] [address] [facility] [place], [address], 09/17/2024 16:38:32 09/13/20 24 09/17/2024 PRESC RIPTI ON MED(S ) enhanced report Comple te To downl oad an enhan angelica repor t for this test go to: https ://er pt.[facility]. us/#/ login [email or web address] [...] high- compl exity testi ng. Not Available [facility] [address] [facility] [place], [address], 09/17/2024 16:38:32 09/13/20 24 09/17/[address] U amphetamine Not Detect ed NG/mL <50.0 Not Available [facility] [address] [place], [address], 09/17/2024 16:38:32 09/13/20 24 09/17/[address] U amphetamine interp Negati ve Not Available [facility] [address] [place], [address], 09/17/2024 16:38:32 09/13/20 24 09/17/[address] U methamphetam ine Not Detect ed NG/mL <50.0 Not Available [facility] [address] [place], [address], 09/17/2024 16:38:32 09/13/20 24 09/17/[address] U methamphetam ine interp Negati ve Not Available [facility] [address] [place], [address], 09/17/2024 16:38:32 09/13/20 24 09/17/2024 [place]EN[place] DIA[place] CON U 7-aminoclona zepam >1000 NG/mL <50.0 high Not Available [facility] [address] [place], [address], 09/17/2024 16:38:33 09/13/20 24 09/17/2024 BEN[place] DIAZE [place] CON U 7-aminoclona zepam interp Positi ve-Inc onsist ent abnormal Not Available [facility] [address] [place], [address], 09/17/2024 16:38:33 09/13/20 24 09/17/2024 [place]EN[place] DIA[place] CON U 7-aminofluni trazepam Not Detect ed NG/mL <50.0 Not Available [facility] [address] [place], [address], 09/17/2024 16:38:33 09/13/20 24 09/17/2024 [place] D[place] CON U 7-aminofluni trazepam interp Negati ve Not Available [facility] [address] [place], [address], 09/17/2024 16:38:33 09/13/20 24 09/17/2024 [place]EN[place] DIA[place] CON U A-hydroxyalp razolam Not Detect ed NG/mL <50.0 Not Available [facility] [address] [place], [address], 09/17/2024 16:38:33 09/13/20 24 09/17/2024 BENZO DIAZE PINES CON U A-hydroxyalp razolam interp Negati ve Not Available [facility] [address] [place], [address], 09/17/2024 16:38:33 09/13/20 24 09/17/2024 BENZO DIAZE [place] CON U lorazepam Not Detect ed NG/mL <50.0 Not Available [facility] [address] [place], [address], 09/17/2024 16:38:33 09/13/20 24 09/17/2024 BENZO DIAZE [place] CON U lorazepam interp Negati ve Not Available [facility] [address] [place], [address], 09/17/2024 16:38:33 09/13/20 24 09/17/2024 [facility] CON U nordiazepam Not Detect ed NG/mL <50.0 Not Available [facility] [address] [place], [address], 09/17/2024 16:38:33 09/13/20 24 09/17/2024 BENZO DIAZE [place] CON U nordiazepam interp Negati ve Not Available [facility] [address] [place], [place], [address], 09/17/2024 16:38:33 09/13/20 24 09/17/2024 [place] CON U oxazepam Not Detect ed NG/mL <50.0 Not Available [facility] [address] [place], [place], [address], 09/17/2024 16:38:33 09/13/20 24 09/17/2024 [place]ENZO D[place] CON U oxazepam interp Negati ve Not Available [facility] [address] [place], [place], [address], 09/17/2024 16:38:33 09/13/20 24 09/17/2024 BENZO DIAZE [place] CON U temazepam Not Detect ed NG/mL <50.0 Not Available [facility] [address] [place], [id number], 09/17/2024 16:38:33 09/13/20 24 09/17/2024 BENZO DIAZE PINES CON U temazepam interp Negati ve Not Available [facility] ([facility]) [address] [place], [id number], 09/17/2024 16:38:33 09/13/20 24 09/17/[address] URN codeine Not Detect ed NG/mL <50.0 Not Available [facility]) [address], [place], [id number], 09/17/2024 16:38:33 09/13/20 24 09/17/[address] URN codeine interp Negati ve Not Available [facility] [address], [place], [address], 09/17/2024 16:38:33 09/13/20 24 09/17/[address] URN morphine Not Detect ed NG/mL <50.0 Not Available [facility] [address] [place], [address], 09/17/2024 16:38:33 09/13/20 24 09/17/[address] URN morphine interp Negati ve Not Available [facility] [address] [place], [address], 09/17/2024 16:38:33 09/13/20 24 09/17/[address] URN hydrocodone 182 NG/mL <50.0 high Not Available [facility] [address] [place], [address], 09/17/2024 16:38:33 09/13/20 24 09/17/[address] URN hydrocodone interp Positi [facility]Inc onsist ent abnormal Not Available [facility] [address] [place], [address], 09/17/2024 16:38:33 09/13/20 24 09/17/[address] URN hydromorphon e 110 NG/mL <50.0 high Not Available [facility] [address] [place], [address], 09/17/2024 16:38:33 09/13/20 24 09/17/[address] URN hydromorphon e interp [facility] onsist ent abnormal Not Available [facility] [address] [place], [address], 09/17/2024 16:38:33 09/13/20 24 09/17/[address] URN dihydrocodei ne 131 NG/mL <50.0 high Not Available [facility] [address] [place], [address], 09/17/2024 16:38:33 09/13/20 24 09/17/[address] URN dihydrocodei ne interp Pos[facility]Inc onsist ent abnormal Not Available [facility] [address] [place], [place], [address], 09/17/2024 16:38:33 08/09/20 24 08/09/2024 XR, chest , 2 view No observ ation record ed. [email or web address] [facility] [address] [place], [address], 08/25/2024 00:00:30 08/17/20 24 08/16/2024 XR, chest , 2 view No observ ation record ed. [email or web address] [facility] [address] [place], [address], 08/25/2024 00:00:23 09/07/20 24 08/29/2024 XR, chest , 2 view No observ ation record ed. [facility] Not Available 2023 14:36:24 09/07/20 24 09/02/2024 US, duple x, venou s, upper extre mity No observ ation record ed. [facility] Not Available 2023 14:38:27 09/09/20 24 09/08/2024 XR, chest , 2 view No observ ation record ed. [email or web address] [facility] [address] [place], [address], 09/15/2024 13:17:08 09/21/20 24 09/20/2024 CT, angio gram, abdom en + pelvi s, w/ contr ast No observ ation record ed. [address] , [place], [address], 09/24/2024 11:23:30 09/21/20 24 09/20/2024 trans -thor acic echoc ardio gram (TTE) (PROC ) No observ ation record ed. [address] [place], [address], 09/24/2024 11:21:27 09/21/20 24 09/21/2024 XR, ribs, unila teral No observ ation record ed. [address] [place], [address], 09/24/2024 11:24:17 09/28/20 24 09/27/2024 XR, chest , 2 view No observ ation record ed. [address] [place], [address], 10/05/2024 07:56:27 10/01/20 24 10/01/2024 CT, angio gram, chest + abdom en + pelvi s, w/ contr ast No observ ation record ed. [address] [place], [address], 10/05/2024 09:41:17 10/02/20 24 10/01/2024 XR, chest No observ ation record ed. [address] [place], [address], 10/05/2024 09:39:10 10/05/19 25 09/30/2024 XR, chest No observ ation record ed. [facility] Not Available 2024 09:38:33 11/09/19 25 11/08/2024 XR, chest , 2 view No observ ation record ed. [place] [address] [place], [address], 11/11/2024 22:52:21 12/12/19 25 12/11/2024 XR, chest , 2 view No observ ation record ed. [email or web address] [facility] [address] [place], [address], 12/11/2024 16:51:02 12/12/19 25 12/11/2024 emerg ency dept. visit * No observ ation record ed. [email or web address] [facility] [address] [facility], [place], [address], 12/11/2024 16:51:28 03/13/20 25 03/12/2025 XR, chest No observ ation record ed. [email or web address] [facility] [address] [place] [address], [address], 03/13/2025 14:00:36 03/26/20 25 03/26/2025 NM, myoca rdial perfu zack scan No observ ation record ed. [email or web address] [facility] [address] [place] [address], [address], 04/02/2025 12:55:56 Result Notes None recorded. 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 6637015860221 03 Active 2020 WILLIAM CABAN RADIATOR TESTER [address] [place], [address], [facility] 4 08:26:46 Chronic anxiety 512881220 Active 2023 WILLIAM CABAN RADIATOR TESTER [address] [place], [address], [facility] 22:49:35 Gastropares is syndrome 908425906 Active 2023 WILLIAM CABAN APRN [address], [place], [address], [facility] 22:49:41 Muscle spasm of cervical muscle of neck 201721035604 Active 2023 WILLIAM CABAN APRN [address], [place], [address], [facility] 19:46:27 Chronic obstructive pulmonary disease 75065530 Active [address] CABAN [address]N [address] [facility] [address], [place], [address], [facility] 19:46:11 Hypokalemia 28465635 Active [address]23 [address] CABAN [address]N [address] [facility], [place], [address], [facility] 19:46:18 Essential hypertensio n 15685119 Active 2023 [address] CABAN APRN [address] [facility], [place], [address], [facility] 19:46:14 Chronic fatigue syndrome 54132016 Active 2023 WILLIAM CABAN APRN [address], [place], [address], [facility] 19:46:07 Obesity 355293376 Active 2023 WILLIAM CABAN RADIATOR TESTER [address], [place], [address], [facility] 19:46:30 Lumbar radiculopat hy 315417897 Active 2023 [address] CABAN [address]N [address] [facility], [place], [address], [facility] 4 19:46:23 Chronic diastolic heart failure 143085506 Active 2023 WILLIAM CABAN RADIATOR TESTER [address] [facility] [address] [place], [address], [facility] 4 19:55:13 Problem Notes None recorded. Procedures Surgical History Date Name Laterality Status Provider Name and Address Organization Details Recorded Time 08/17/20 07 cholecystectomy completed [facility] 08/08/2024 16:15:47 08/18/20 00 ligation of fallopian tube completed [facility] 08/08/2024 16:14:39 delivery completed [facility] 08/08/2024 16:14:17 Stent placemt ante carotid completed [facility] 08/08/2024 16:15:08 Imaging Results None recorded. Procedure Notes None recorded. Medical Equipment None Reported. Allergies Allergen ID Allergen Name Allergen Category Reaction Reaction Severity Criticality Documentation Date Start Date Code Code System Note Provider Name and Address Organization Details Recorded Time 68898 Substance with sulfonami de structure and antibacte rial mechanism of action (substanc e) medicatio n Not available Not available Not available 08/08/2024 90511 8003 SNOMED dona coltharp [facility] 15:57:44 67589 Toradol medicatio n anaphylax is moderate high 08/08/2024 99146 RxNorm dona coltharp [facility] 15:58:31 41860 duloxetin e medicatio n Not available Not available Not available 08/08/2024 46420 RxNorm WILLIAM CABAN RADIATOR TESTER [address] [facility] [address] [place], [address], [facility] 4 17:10:16 Medications Name Sig Start [...] Updated DateTime 5 172.72 cm 30.1 kg/m2 70691.0 1 g 18 /min 98 % 98 % 98.2 [degF] 82 /min 114/68 mm[Hg] [facility] 5 14:12:33 Date Recorded Body height Body mass index (BMI) Body weight Respiratory rate Oxygen saturation Oxygen saturation in Arterial blood by Pulse oximetry Body temperature Heart rate Systolic And Diastolic Provider Name and Address Organization Details Last Updated DateTime 5 172.72 cm 29.3 kg/m2 07012.3 3 g 18 /min 100 % 100 % 97.4 [degF] 74 /min 118/68 mm[Hg] [facility] 5 14:28:48 Date Recorded Body height Body mass index (BMI) Body weight Respiratory rate Body temperature Oxygen saturation Oxygen saturation in Arterial blood by Pulse oximetry Heart rate Systolic And Diastolic Provider Name and Address Organization Details Last Updated DateTime 4 172.72 cm 30.7 kg/m2 38879.6 6 g 18 /min 98 [degF] 98 % 98 % 72 /min 120/72 mm[Hg] dona ramirezendy [facility] 4 11:47:39 Date Recorded Body height Body mass index (BMI) Body weight Respiratory rate Oxygen saturation Oxygen saturation in Arterial blood by Pulse oximetry Body temperature Heart rate Systolic And Diastolic Provider Name and Address Organization Details Last Updated DateTime 4 172.72 cm 30.4 kg/m2 20539.1 9 g 18 /min 97 % 97 % 97.7 [degF] 77 /min 106/68 mm[Hg] dona venturaendy [facility] 4 16:24:33 Social History Question Answer Notes LastModified by Organizat ion Details LastModified Time Tobacco Smoking Status Current Every Day Smoker dona venturaabdirahman calderon, [facility] 08/08/2024 16:12:18 What Type Of Diet Are [...] not available 08/08/2024 What is your occupation? [employer] Information not available 08/08/2024 What is your exercise level? Occasional Information not available 08/08/2024 Mental Status Question Answer Note LastModified by Organization D etails LastModified Time Do you feel stressed (tense, restless, nervous, or anxious, or unable to sleep at night)? [id number] Information not available 08/08/2024 Family History Relationship [...] Disease N Gout N Kidney Stones N Depression N COPD N HX Inpatient Psych Admission N Congestive Heart Failure N Parkinson's N [...] Reflux N Heart Disease Y Hypertension Y Chicken Pox N Osteoporosis N Gynecological History Statement/Question Response Menses Monthly N Age at Menarche 13 Current Control Method None Obstetrics History GPAL:G 3 P 3 0 0 0 Type Value Full Term 3 Total 3 Past Encounters Encounter ID Performer Location Encounter Start Date Encounter Closed Date Diagnosis/Indication Diagnosis SNOMED-CT Code Diagnosis ICD10 Code Diagnosis Note [id number] WILLIAM CABAN RUDY [facility] [address] [place] [address] 08/08/2024 15:42:38 08/08/2024 17:46:44 Chronic pain syndrome 211138624 G89.4 -Patient denies active pain management contract with any provider.- Patient query on [place] Prescript[place] Drug Monitoring program shows multiple [...] provider; patient agrees to referral back to [facility] Pain management clinic. -Pain management contract discussed, and agreed upon by provider and patient, signed by patient and scanned into [employer].-As of today there should not be any [...] emergent use if needed. Gastropare sis syndrome 468471574 K31.84 -Patient has been followed by GI provider in [facility]; she has not found one in her [facility] area of [facility].-Zuleika ent reports she has been on Librax in the past but due to chronic pain and opioid prescripti on, this is not advised since FDA warning on combinatio n use.-Will continue current regimen of metoclopra mide, omeprazole and daily Potassium replacemen t.-Referra l for GI specialty as discussed. Chronic anxiety 59617121 9 F41.9 -Patient is followed by provider with [facility] for her mental health medication s.-Continu e current regimen Atheroscle rosis of coronary artery without angina pectoris 4104941949 49834 I25.10 -[facility] , patient to continue Baby asa. She admits she has SL TNG to use as needed for chest pain; to follow instructio ns as prescribed .-No chest pain or acute symptoms today. Hypertensive disorder 38 028857 I10 -Patient currently taking verapamil; patient admits [...] RTC/ER if these occur. Lumbar radiculopathy 128 364452 M54.16 -Patient has been having right sided pain for several months, has worsened in the past few weeks.-Rep orts history of disc bulges in past, received interventi onal injections which helped temporaril y.-Unknown last MRI-Advise d to have new imaging to evaluate worsening pain with numbness. [id number] WILLIAM CABAN [address] [address] 08/21/2024 15:29:35 08/21/2024 16:50:29 Chronic pain syndrome 993698197 G89.4 -Patient query on [place] Prescript[place] on Drug Monitoring program review shows no new controlled prescripti ons filled since last 7 day prescripti on of opioid by [facility] provider on 08.08.24.-P ending [facility] pain management [employer] appt.-Init ial UDS on 08.08.24 is negative for controlled or illegal substances .-Re-enfor angelica pain management agreement contract; one month hydro-apap given to take as needed every 6 hours as needed.-Winston ordoñez admits having naloxone nasal spray available for emergent use is needed. Gastropare sis syndrome 067713805 K31.84 -Pending GI specialty appointmen t.-To continue current regimen of metoclopra mide, omeprazole and daily Potassium replacemen t.-Will add trial of transderma l scopolamin e patch; indication s, directions and possible SE of reviewed. Atheroscle rosis of coronary artery without angina pectoris 2671669105 22260 I25.10 -Has been followed by Dr. Barry and has a follow up in Sep 2024. Chronic anxiety 85561971 9 F41.9 Patient is followed by provider with [facility] for her mental health medication s.-Continu e current regimen [id number] WILLIAM ARSH [facility] [address] [place] [address] 08/29/2024 10:52:03 08/29/2024 13:32:23 Chronic pain syndrome 107828612 G89.4 -Pending [facility] pain management [employer] appt.-Zuleika ent query on [place] Prescript[place] on Drug Monitoring program review shows no new controlled prescripti ons filled since last prescripti on of opioid by [facility] provider on 08.11.24.-I nitial UDS on 08.08.24 is negative for controlled or illegal substances .-Re-enfor angelica pain management agreement contract; one month hydro-apap given to take as needed every 6 hours as needed.-Winston ordoñez admits having naloxone nasal spray available for emergent use is needed.-[facility] RTC each month for F2F for refills [...] e for payment.-U DS today Chronic anxiety 79401030 9 F41.9 -Followed by [facility] provider for POC-Denies acute s.s Atheroscle rosis of coronary artery without angina pectoris 5314920509 76028 I25.10 Nausea 129512843 R11.0 Muscle spa sm of cervical muscle of neck 8815826355 04 M62.838 -A muscle spasm is sudden [...] exercises to the specific area. Chest pain 72136564 R07. 9 -Patient denies pain today.-Has follow up appt. with Dr. Barry on 09.20.24; she is advised to call to add to cancellati on waiting list.-Re-e nforced emergent s.s to go directly to nearest ED: Severe sudden onset of chest pain, shortness of breath, severe JARRETT, loss of function, diff speech, or swallowing . Chronic ob structive pulmonary disease 56059530 J44.9 Hypokalemia 48726564 E87 .6 Essential hypertension 75294501 I10 -BP is controlled with current regimen verapamil, continue 120mg twice daily-Yarely tor bp, keep diary and bring with next appt. Gastropare sis syndrome 509045621 K31.84 -Pending GI specialty appointmen t.-To continue current regimen of metoclopra mide, omeprazole and daily Potassium replacemen t.-Will add trial of transderma l scopolamin e patch; indication s, directions and possible SE of reviewed. [id number] WILLIAM CABAN RUDY [facility] [address] [place] [address] 09/13/2024 15:55:45 09/13/2024 17:54:35 Chronic pain syndrome 263842136 G89.4 -Pending [facility] pain management [employer] appt; patient has spoken with office reporting they have her referral and will call her for an appt.-Zuleika ent query on [place] Prescript[place] on Drug Monitoring program review shows no new controlled prescripti ons filled since last prescripti on of opioid by [facility] provider on 08.29.24.- Initial UDS on 08.08.24 [...] use if needed.-Re peat UDS today Obesity 275228980 E66.09 Chronic fa tigue syndrome 01963733 R53.82 -Continue monthly B12 injections Lumbar radiculopathy 128 757645 M54.16 -Pending PA approval for MRI, it [...] chiropract or treatment. -Declines PT Chronic anxiety 39491056 9 F41.9 -Followed by [facility] provider for POC-Denies acute s.s Chronic di astolic heart failure 680103188 I50.32 -Has been followed by [facility] cardiology -Today she reports that she has decided to change and establish with [facility], she confirmed she called and RS her appt with [facility] to see RUDY Joe on 10.03.24 Essential hypertension 22949597 I10 -BP is controlled with current regimen verapamil, continue 120mg twice daily-Yarely tor bp, keep diary and bring with next appt. History of thrombophlebitis 678237067 Z86.72 -Advised to complete antibiotic s as prescribed Hypokalemia 22619767 E87 .6 -Stable levels with replacemen t dosing-Rev iewed with patient high potassium foods to increase-W ill repeat labs with next visit [id number] WILLIAM ARSH [facility] [address] [place] [address] 10/05/2024 13:58:37 10/05/2024 16:05:17 Gastroparesis syndrome 005673992 K31.84 -Pending GI specialty appointmen t; Next appt is 11.02.24-To continue current regimen of metoclopra mide, omeprazole and daily Potassium replacemen t.-Will add trial of transderma l scopolamin e patch; indication s, directions and possible SE of reviewed. Chronic pain syndrome 37 2650441 G89.4 -Pending [facility] pain management [employer] appt on 10.18.24-Winston ordoñez query on [place] Prescript[place] on Drug Monitoring program review shows no new controlled prescripti ons filled since last 30 day prescripti on of opioid by [facility] provider on 09.06.24.-M ost recent UDS on Sep 13 2024 is consistent for opioids and benzo medication s prescribed .-Continue current POC medication of tizanidine 4mg and opioid hydro/apap 5/325 as prescribed .-Patient admits naloxone agent is on hand for emergency use if needed Essential hypertension 97871251 I10 -BP is controlled with current regimen verapamil, continue 120mg twice daily-Yarely tor bp, keep diary and bring with next appt. Atheroscle rosis of coronary artery without angina pectoris 8249439382 54229 I25.10 -Had to RS with [facility] for 1.20.25 Hypokalemia 64734270 E87 .6 -Stable levels with replacemen t dosing-Rev iewed with patient high potassium foods to increase-W ill repeat labs with next visit Chronic ob structive pulmonary disease 19400557 J44.9 -Chronic controlled with current medication s Albuterol rescue MDI as needed for short of breath.- To keep rescue MDI on person.-Av oid triggers-R eport to nearest ED or call 911 if uncontroll ed SOB, chest pain, high fever, new or worsening of swelling in legs or abdominal area Allergic rhinitis 804277 04 J30.89 -Discussed physical exam findings not [...] -Increase water intake, use a cool humidifier [id number] WILLIAM CABAN APRN [facility] [address] [place] [address] 11/13/2024 14:16:50 11/13/2024 16:55:36 Chronic fatigue syndrome 52852345 R53.82 -Continue monthly B12 injections Chronic pain syndrome 37 0246973 G89.4 -Patient has had to RS pain management due to bad weather-Winston ordoñez query on [place] Prescript[place] on Drug Monitoring program review shows no new controlled prescripti ons filled since last 30 day prescripti on of opioid by [facility] provider on - Most recent UDS on Sep 13 2024 is consistent for opioids and benzo medication s prescribed .-Continue current POC medication of tizanidine 4mg and opioid hydro/apap 5/325 as prescribed .-Will increase gabapentin to 600mg TID from 400mg-Zuleika ent admits naloxone agent is on hand for emergency use if needed Gastropare sis syndrome 620439843 K31.84 -Pending GI specialty appointmen t; Next appt is 11.02.24-To continue current regimen of metoclopra mide, omeprazole and daily Potassium replacemen t.-Will add trial of transderma l scopolamin e patch; indication s, directions and possible SE of reviewed. Atheroscle rosis of coronary artery without angina pectoris 8776624524 12947 I25.10 -Reports she has a RS appt. with [facility] clinic on 11.15.24 Hypokalemia 32100570 E87 .6 -Stable levels with replacemen t dosing-Rev iewed with patient high potassium foods to increase Chronic depression 30910 0009 F32.1 -Reports doing well on current regimen-De nies homicidal or suicidal ideation-D enies acute s.s-Contin ue trazodone 100mg 1-3tabs at HS for rest Essential hypertension 98772161 I10 -BP is controlled with current regimen verapamil, continue 120mg twice daily-Yarely tor bp, keep diary and bring with next appt. [id number] WILLIAM CABAN [facility] [address] [place] [address] 12/11/2024 13:40:52 12/11/2024 17:51:10 Chronic pain syndrome 327848450 G89.4 -See HPI-Multip le documents in [place] to local ED to show this patient is showing addictive and drug-seeki ng behavior for opioids.-S he was initially informed [facility] will continue her routine medication s, but no further pain medication s, she declines this. Letter of discharge will be sent to patient. Chronic di astolic heart failure 428055884 I50.32 -She is establishe d with cardiology , Dr. Goran Barry in [place] . Chronic anxiety 29408541 9 F41.9 -Followed by [facility] provider for POC Health Concerns Section Related Observation LastModified by Organization Detai ls LastModified Time None Recorded Concern Status LastModified by Organization Details LastModified Time None Recorded Advance Directives Directive None Recorded Payers Insurance Date Sequence Insurance Name Policy Number Policy Saunders Covered Member ID Saunders Member ID Guarantor Name 04/19/2025 1 [employer] - ESSENTIAL CARE 2 (PPO) Deidre Bunch [id number] Deidre Bunch OBGyn Episode No OBEpisode recorded.
--- OUTSIDE RECORDS SUMMARY | 2025-05-01 20:27 | XMS_ITS | Data Portability ---
Author Organization [facility], Telemed[facility] Address [address] [address] Assessment No assessment recorded. Plan of Treatment Reminders Order Date Submit Date Provider Last Modified By Organization Details Last Modified Time Details Appointments None recorded . Lab None recorded . Referral counseli ng referral 2022 023 [facility], [address], [place], [address], 11:20:35 psychiat rist referral 2022 023 Berna Dueñas MD, [address], [address], [place], [address], 09:54:59 pain manageme nt referral 2022 023 [facility], [address], [place], [address], 14:52:48 Procedures None recorded . Surgeries None recorded . Imaging None recorded . Medication Orders clonazep am 0.5 mg tablet 2022 023 JOSE ROBERTO [facility], [address] [place], [address], 10:31:28 Seroquel 100 mg tablet 2022 023 JOSE ROBERTO [facility], [address] [place], [address], 10:31:27 omeprazo le 40 mg capsule, delayed release 2022 023 JOSE ROBERTO [facility], [address] [place], [address], 10:31:27 gabapent in 300 mg capsule 2022 023 JOSE ROBERTO [facility], [address] [place], [address], 10:31:27 Patient TargetsNo targets recorded. Patient InstructionsNo instructions recorded. Reason for Referral Counseling Referral for Bipo lar disorder Referring Physician: Francesco Riley [facility], Encounter Date: 12/30/2022 Psychiatrist Referral for Bi polar disorder Referring Physician: Francesco Riley [facility], Encounter Date: 12/30/2022 Pain Management Referral for Long-term current use of opiate analgesic drug Referring Physician: Francesco Riley [facility], Encounter Date: 12/30/2022 Results Created Date Observation Date Name Description Value Unit Range Abnormal Flag Note LastModifiedBy Organization Detail LastModifiedTime 12/31/19 23 12/31/2022 COMP METAB OLIC PANEL sodium 141 mEq/L 135-14 6 Not Available [facility] [address] [place], [address], 12/31/2022 05:17:17 12/31/19 23 12/31/2022 COMP METAB OLIC PANEL potassium 4.0 mEq/L 3.5-5. 4 Not Available [facility] [address] [place], [address], 12/31/2022 05:17:17 12/31/19 23 12/31/2022 COMP METAB OLIC PANEL chloride 102 mEq/L 95-107 Not Available [facility] [address] [place], [address], 12/31/2022 05:17:17 12/31/19 23 12/31/2022 COMP METAB OLIC PANEL carbon dioxide 27 mEq/L 19-31 Not Available [facility] [address] [place], [address], 12/31/2022 05:17:17 12/31/19 23 12/31/2022 COMP METAB OLIC PANEL anion gap 12 mEq/L 7-23 Not Available [facility] [address] [place], [address], 12/31/2022 05:17:17 12/31/19 23 12/31/2022 COMP METAB OLIC PANEL glucose fasting 84 mg/dL 70-99 Not Available [facility] [address] [place], [address], 12/31/2022 05:17:17 12/31/19 23 12/31/2022 COMP METAB OLIC PANEL urea nitrogen (BUN) 8 mg/dL 6-20 Not Available [facility] [address] [place], [address], 12/31/2022 05:17:17 12/31/19 23 12/31/2022 COMP METAB OLIC PANEL creatinine 0.65 mg/dL 0.60-1 .30 Not Available [facility] [address] [place], [address], 12/31/2022 05:17:17 12/31/19 23 12/31/2022 COMP METAB OLIC PANEL 2020 CKD-epi eGFR-cr 117 mL/mi n/1.7 3m'2 >59 Not Available [facility] [address] [place], [address], 12/31/2022 05:17:17 12/31/19 23 12/31/2022 COMP METAB OLIC PANEL BUN/creatini ne ratio 12 ratio Not Available [facility] [address] [place], [address], 12/31/2022 05:17:17 12/31/19 23 12/31/2022 COMP METAB OLIC PANEL calcium total 8.9 mg/dL 8.5-10 .5 Not Available [facility] [address] [place], [address], 12/31/2022 05:17:17 12/31/19 23 12/31/2022 COMP METAB OLIC PANEL protein total 6.9 g/dL 6.1-8. 3 Not Available [facility] [address] [place], [address], 12/31/2022 05:17:17 12/31/19 23 12/31/2022 COMP METAB OLIC PANEL albumin 4.2 g/dL 3.5-5. 2 Not Available [facility] [address] [place], [address], 12/31/2022 05:17:17 12/31/19 23 12/31/2022 COMP METAB OLIC PANEL globulin 2.7 g/dL 1.7-4. 3 Not Available [facility] [address] [place], [address], 12/31/2022 05:17:17 12/31/19 23 12/31/2022 COMP METAB OLIC PANEL A/G ratio 1.6 ratio 0.9-2. 8 Not Available [facility] [address] [place], [address], 12/31/2022 05:17:17 12/31/19 23 12/31/2022 COMP METAB OLIC PANEL bilirubin total 0.2 mg/dL 0.0-1. 2 Not Available [facility] [address] [place], [address], 12/31/2022 05:17:17 12/31/19 23 12/31/2022 COMP METAB OLIC PANEL alkaline phosphatase 86 U/L 40-112 Not Available [facility] [address], [place], [address], 12/31/2022 05:17:17 12/31/19 23 12/31/2022 COMP METAB OLIC PANEL AST (SGOT) 11 U/L 9-40 Not Available [facility] [address] [place], [address], 12/31/2022 05:17:17 12/31/19 23 12/31/2022 COMP METAB OLIC PANEL ALT (SGPT) 8 U/L 5-40 Not Available [facility] [address] [place], [address], 12/31/2022 05:17:17 12/31/19 23 12/31/2022 LIPID PROFI LE cholesterol 157 mg/dL <200 Not Available [facility] [address] [place], [address], 12/31/2022 05:17:17 12/31/19 23 12/31/2022 LIPID PROFI LE triglyceride s 133 mg/dL 0-149 Not Available [facility] [address] [place], [address], 12/31/2022 05:17:17 12/31/19 23 12/31/2022 LIPID PROFI LE HDL cholesterol 50 mg/dL >39 Not Available [facility] [address] [place], [address], 12/31/2022 05:17:17 12/31/19 23 12/31/2022 LIPID PROFI LE LDL cholesterol 84 mg/dL <100 Not Available [facility] [address] [place], [address], 12/31/2022 05:17:17 12/31/19 23 12/31/2022 LIPID PROFI LE non HDL cholesterol 107 mg/dL <130 Not Available [facility] [address] [place], [address], 12/31/2022 05:17:17 12/31/19 23 12/31/2022 LIPID PROFI [...] Optim al) Coron robert Risk Ratio : [place] [facility] for femal es < 4.44 Not Available [facility] [address] [place], [address], 12/31/2022 05:17:17 12/31/19 23 12/31/2022 THYRO ID STIM HORMO NE TSH 2.0 mIU/L 0.40-4 .1 Not Available [facility] [address] [place], [address], 12/31/2022 05:17:18 12/31/19 23 12/31/2022 FOLLI TONY STIM HORMO NE FSH 5.8 IU/L Comme nt for FOLLI TONY STIM HORMO NE Folli cular : 3.5 - 12.5 IU/L Mid-C ycle: 4.7 - 21.5 IU/L Lutea l: 1.7 - 7.7 IU/L Post- Menop ausal : 25.8 - 134.8 IU/L Not Available [facility] [address] [place], [address], 12/31/2022 05:17:19 12/31/19 23 12/31/2022 ESTRA DIOL estradiol 296 pg/mL Comme nt for ESTRA DIOL Folli cular 12 - 233 pg/mL Ovula tion 41 - 398 pg/mL Lutea l 22 - 341 pg/mL Post Menop ausal No HRT < 20 pg/mL Post Menop ausal With HRT < 139 pg/mL Not Available [facility] [address] [facility] [place], [address], 12/31/2022 05:17:19 12/31/19 23 12/31/2022 LUTEI NIZIN G HORMO NE LH 6.0 IU/L Comme nt for LUTEI NIZIN G HORMO NE Folli cular 2.4 - 12.6 IU/L Mid-C ycle 14.0 - 95.6 IU/L Lutea l 1.0 - 11.4 IU/L Post- Menop ausal 7.7 - 58.5 IU/L Not Available [facility] [address] [facility] [place], [address], 12/31/2022 05:17:20 12/31/19 23 12/31/2022 CBC WITH DIFFE RENTI AL WBC 8.0 K/uL 4.0-11 .0 Not Available [facility] [address] [facility] [place], [address], 12/31/2022 05:17:21 12/31/19 23 12/31/2022 CBC WITH DIFFE RENTI AL RBC 4.35 M/uL 4.00-5 .50 Not Available [facility] [address] [facility] [place], [address], 12/31/2022 05:17:21 12/31/19 23 12/31/2022 CBC WITH DIFFE RENTI AL hemoglobin 12.9 g/dL 12.0-1 6.0 Not Available [facility] [address] [place], [address], 12/31/2022 05:17:21 12/31/19 23 12/31/2022 CBC WITH DIFFE RENTI AL hematocrit 39.4 % 36.0-4 8.0 Not Available [facility] [address] [place], [address], 12/31/2022 05:17:21 12/31/19 23 12/31/2022 CBC WITH DIFFE RENTI AL MCV 90.6 fL 78.0-1 02.0 Not Available [facility] [address], [place], [address], 12/31/2022 05:17:21 12/31/19 23 12/31/2022 CBC WITH DIFFE RENTI AL MCH 29.7 pg 25.0-3 5.0 Not Available [facility] [address], [place], [address], 12/31/2022 05:17:21 12/31/19 23 12/31/2022 CBC WITH DIFFE RENTI AL MCHC 32.7 g/dL 30.0-3 8.0 Not Available [facility] [address], [place], [address], 12/31/2022 05:17:21 12/31/19 23 12/31/2022 CBC WITH DIFFE RENTI AL RDW 13.2 % 11.5-1 6.0 Not Available [facility] [address] [place], [place], [address], 12/31/2022 05:17:21 12/31/19 23 12/31/2022 CBC WITH DIFFE RENTI AL platelet count 229 K/uL 150-45 0 Not Available [facility] [address] [place], [place], [address], 12/31/2022 05:17:21 12/31/19 23 12/31/2022 CBC WITH DIFFE RENTI AL abs neutrophils 4.2 K/uL 1.8-7. 0 Not Available [facility] [address] [place], [address], 12/31/2022 05:17:21 12/31/19 23 12/31/2022 CBC WITH DIFFE RENTI AL abs lymphocytes 3.0 K/uL 1.0-4. 0 Not Available [facility] [address] [place], [address], 12/31/2022 05:17:21 12/31/19 23 12/31/2022 CBC WITH DIFFE RENTI AL abs monocytes 0.5 K/uL 0.1-1. 1 Not Available [facility] [address] [place], [address], 12/31/2022 05:17:21 12/31/19 23 12/31/2022 CBC WITH DIFFE RENTI AL abs eosinophils 0.3 K/uL 0.0-0. 5 Not Available [facility] [address] [place], [address], 12/31/2022 05:17:21 12/31/19 23 12/31/2022 CBC WITH DIFFE RENTI AL abs basophils 0.0 K/uL 0.0-0. 3 Not Available [facility] [address] [place], [address], 12/31/2022 05:17:21 12/31/19 23 12/31/2022 CBC WITH DIFFE RENTI AL abs immature grans 0.0 K/uL 0.0-0. 1 Not Available [facility] [address] [place], [address], 12/31/2022 05:17:21 12/31/19 23 12/31/2022 CBC WITH DIFFE RENTI AL neutrophils 52.1 % Not Available [facility] [address] [place], [place], [address], 12/31/2022 05:17:21 12/31/19 23 12/31/2022 CBC WITH DIFFE RENTI AL lymphocytes 36.9 % Not Available [facility] [address] [place], [address], 12/31/2022 05:17:21 12/31/19 23 12/31/2022 CBC WITH DIFFE RENTI AL monocytes 6.3 % Not Available [facility] [address] [place], [address], 12/31/2022 05:17:21 12/31/19 23 12/31/2022 CBC WITH DIFFE RENTI AL eosinophils 3.8 % Not Available [facility] [address] [place], [address], 12/31/2022 05:17:21 12/31/19 23 12/31/2022 CBC WITH DIFFE RENTI AL basophils 0.5 % Not Available [facility] [address] [place], [address], 12/31/2022 05:17:21 12/31/19 23 12/31/2022 CBC WITH DIFFE RENTI AL immature grans 0.4 % Not Available [facility] [address] [place], [address], 12/31/2022 05:17:21 12/31/19 23 12/31/2022 CBC WITH DIFFE RENTI AL nucleated RBCs <1.0 /100_ WBCs <1 Not Available [facility] [address] [place], [place], [address], 12/31/2022 05:17:21 12/26/19 23 12/25/2022 imagi ng inter preta tion No observ ation record ed. [address], [address], 12/29/2022 11:22:00 12/26/19 23 12/25/2022 imagi ng inter preta tion No observ ation record ed. [address], [address], 12/29/2022 11:21:41 01/14/20 23 01/13/2023 imagi ng inter preta tion No observ ation record ed. [address], [address], 01/21/2023 17:11:56 01/19/20 23 01/18/2023 imagi ng inter preta tion No observ ation record ed. [address], [address], 01/21/2023 17:12:02 Result Notes None recorded. Problems Name Problem SNOMED Code Status Onset Date Resolution Date Notes Provider Name and Address Organization Details Recorded Time Congestive heart failure 40248095 Active 2022 Alberta calderon, [facility] 3 09:47:30 Chronic obstructive pulmonary disease 44909989 Active 2022 Alberta calderon, [facility] 3 09:47:47 Fibromyalgia 561893933 Active 2022 Alberta calderon, [facility] 3 09:47:54 Problem Notes None recorded. Procedures Surgical History Date Name Laterality Status Provider Name and Address Organization Details Recorded Time Caesarean Section completed Alberta Oseguera 12/30/2022 09:50:36 Cholecystectomy completed Alberta Oseguera 12/30/2022 [...] Not available Not available Not available 12/30/2022 27511 8003 SNOMED Alberta calderon, LEXI Padilla Song [...] Address Organization Details Last Updated DateTime 3 54449.2 6 g 96.4 [degF] 27.6 kg/m2 170.18 cm 62 /min 100 % 100 % 90/59 mm[Hg] Alberta [facility]se[facility] 09:46:55 Social History Question Answer Notes LastModified by Clikthrough ion Details LastModified Time Tobacco Smoking Status [...] SNOMED-CT Code Diagnosis ICD10 Code Diagnosis Note [id number] MIGUEL Guerrero Main Office [address] [place] [address] 12/30/2022 09:32:24 12/30/2022 10:46:11 History of myocardial infarction 354698411 I25.2 pt is seeing cardiology in [place] every three months. Bipolar disorder 9479508 4 F31.9 continue taking wellbutrin and duloxetine , will start back on low dose seroquel and set up with psychiatry for further eval. transition from xanax to clonazepam Neuropathy 182090691 G62 .9 use as directed Gastroesop hageal reflux disease 714271472 K21.9 use as directed Long-term current use of opiate analgesic drug 8944831602 93528 Z79.891 will set up with pain management [...] ID Guarantor Name 02/09/2024 1 [place]: JASKARAN EARLINEWILFRED Hussein [id number] Deidre Hussein OBGyn Episode No OBEpisode recorded.
--- OUTSIDE RECORDS SUMMARY | 2025-05-01 20:27 | XMS_ITS | Patient Health Record ---
Author Organization [facility] Address [address] [place] [address] Care Team Providers Care Cutter Operator Tile Name Role Phone DuaneeDidre Unavailable [phone] Tete Taylor Unavailable [phone] Migration, Provider Unavailable Unavailable Dee Valentine Unavailable [phone] Saritha Sweeney Unavailable [phone] Allergies Allergen (clinical drug ingredient) Drug/Non Drug Allergy documented on EMR Reaction Allergy Type Onset Date Status Substance with sulfonamide structure and antibacterial mechanism of action (substance) Sulfa Antibiotics Unknown Drug Allergy Active sulfacetamide Sulfacetamide Unknown Drug Allergy Active Results Component Value Reference Range Notes Chest PA/Lat-44032 Reviewed date:06/07/2024 10:27:06 AM Interpretation: Performing Lab: Notes/Report: See Below For Report Chest PA/Lat Read See Below For Report X-RAY EXAM CHEST 2 [id number] Reviewed date:01/19/2025 11:28:03 AM Interpretation: Performing Lab: Notes/Report: Chest PA/Lat-[id number] Reviewed date:05/25/2024 09:51:09 AM Interpretation: Performing Lab: Notes/Report: [id number] Reason For Referral Reason molluscum contagiosu m Diagnosis 1 Molluscum contagiosu m (B08.1) Referral Organization [facility] Referring Provider First Name Saritha Referring Provider [...] Provider Speciality Nurse Mandeep mckeon Referred Organization [facility] Referred Provider Jessee Danielson [facility] Referred Address [address],[address],[place] Referred Provider Specialty Gastroentero logy Referral Priority [...] Date Status Comme nts Influenza (whole), CPT 51356 Inactive Unknown 09/25/2016 Administered Influenza (whole), CPT 97887 Inactive Unknown 07/25/2018 Administered Social History Tobacco [...] Status W/U Status Risk Notes Problem Gastroparesis (554386556) Gastroparesis (K31.84) Active confirmed Problem Fibromyalgia (930894878) Fibromyalgia (M79.7) Active confirmed Problem Anxiety (69685219) Anxiety (F41.9) Active confi rmed Problem Essential hypertension (92764631) Hypertension, unspecified type (I10) Active confirmed Problem Hyperlipidaemia (23764275) Hyperlipidemia, unspecified hyperlipidemia type (E78.5) Active confirmed Problem Allergic rhinitis caused by pollen (02040512) Seasonal allergic rhinitis due to pollen (J30.1) Active confirmed Problem Insomnia (276907565) Insomnia, unspecified type (G47.00) Active confirmed Problem Long-term current use of drug therapy (423114455) Antiplatelet or antithrombotic long-term use (Z79.02) Active confirmed Problem Dysphagia (74648487) Dysphagia (R13.10) Active confirmed Problem Atherosclerotic heart disease of [place] coronary artery without angina pectoris (319841425549518) Arteriosclerosis of coronary artery (I25.10) Active confirmed Problem H/O heart artery stent (Z95.5) Active confirmed Problem Tobacco dependence (91422660) Tobacco dependence (F17.200) Active confirmed Problem Hyperlipidemia (98605698) Hyperlipidemia (E78.5) Active confirmed Problem Vitamin D deficiency (19319651) Low vitamin D level (E55.9) Active confirmed Problem 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 Problem Chronic obstructive lung disease (83308847) COPD without exacerbation (J44.9) Active confirmed Problem Coronary artery disease with angina pectoris with documented spasm, unspecified vessel or lesion type, unspecified whether [place] or transplanted heart (I25.111) Active confirmed Vital Signs Heart Rate 88 /min 05/24/2024 Temperature 97.8 degrees Fahrenheit 05/24/2024 Respiratory Rate 18 /min 05/24/2024 Oximetry 94 % 05/24/2024 Blood pressure diastolic 64 mm Hg 05/24/2024 Weight-kg 85.82 kg 05/24/2024 Height 67 in 05/24/2024 Blood pressure systolic 130 mm Hg 05/24/2024 Weight 189.2 lbs 05/24/2024 BMI 29.63 kg/m2 05/24/2024 Encounters Encounter Location Date Provider Diagnosis [facility]ly [facility] [address] [place] [address] 05/24/2024 Saritha Sweeney Coronary artery disease with angina pectoris with documented spasm, unspecified vessel or lesion type, unspecified whether [place] or transplanted heart I25.111 ; BMI 29.0-29.9,adult [...] Migration Migrated_Facility 0 0 07/29/2024 Provider Migration [facility] [address] [place] [address] 04/24/2025 Deidre Zepeda [facility] [address] [place] [address] 05/29/2024 Saritha Sweeney [facility] [address] [place] [address] 05/26/2024 Saritha Sweeney [address] [place] [address] 05/26/2024 Saritha Sweeney [facility] [address] [place] [address] 05/22/2024 Saritha Sweeney [facility] [address] [place] [address] 05/18/2024 Saritha Sweeney Assessments Encounter Date Diagnosis (ICD Code) Assessment Notes Treatment Notes Treatment Clinical Notes Section Notes 05/24/2024 BMI 29.0-29.9,adult (ICD-10 - Z68.29) meds, diet and exercise as directed 05/24/2024 Coronary artery disease with angina pectoris with documented spasm, unspecified vessel or lesion type, unspecified whether [place] or transplanted heart (ICD-10 - I25.111) follow [...] Details Provider Name:Seamus ying, 05/25/2025 09:15:00 AM, [address] [place] [address], [phone], Insurance Providers Payer Name Payer Address Payer Phone Subscriber Number Group Number Insured Name Patient Relationship to Insured Coverage Start Date Coverage End Date Emelyetter [address] [place] [id number] Deidre Bunch Self - patient is the insured [place] Medicaid [address] [place] [address] [phone] [id number] AliviaDeidre Self - patient is the insured [...]
[2025-05-01 20:31] VITALS: BP 111/79; PULSE 83; RESP 16; TEMP 36.7; O2SAT 100
--- NOTE | 2025-05-01 20:36 | W.ED.CHESTPA ---
HPI - Chest Pain General: Chief Complaint: Chest Pain Stated Complaint: CHEST PAINS Time Seen by Provider: 05/01/25 20:36 History of Present Illness: 40-year-old female with a history of coronary artery disease status post stents and congestive heart failure who presents to the emergency room with chest pain. She states this started about 3 hours ago and radiates into her left neck and arm. She has had some nausea and vomiting. This is a squeezing and stabbing pain. She is taken 5 nitros with only minimal relief. Related Data Home Medications ?Medication ?Instructions ?Recorded ?Confirmed Klonopin 0.5 mg PO TID 01/19/23 01/19/23 aspirin 81 mg capsule 81 mg PO DAILY 01/20/23 04/30/25 atorvastatin 80 mg tablet 80 mg PO QPM 01/20/23 04/30/25 bupropion HCl 150 mg 24 hr tablet, 150 mg PO QAM 01/20/23 01/20/23 extended release gabapentin 300 mg tablet 600 mg PO TID 01/20/23 04/30/25 hydrocodone 7.5 mg-acetaminophen 1 tab PO Q6H PRN Pain 01/20/23 01/20/23 325 mg tablet isosorbide mononitrate 30 mg 90 mg PO DAILY 01/20/23 01/20/23 tablet,extended release 24 hr metoprolol tartrate 50 mg tablet 50 mg PO BID 01/20/23 01/20/23 nitroglycerin 0.4 mg sublingual 0.4 mg sublingual Q5M PRN Chest 01/20/23 01/20/23 tablet Pain omeprazole 40 mg capsule,delayed 40 mg PO BID 01/20/23 01/20/23 release prasugrel HCl 10 mg tablet 10 mg PO DAILY 01/20/23 01/20/23 torsemide 20 mg tablet 20 mg PO DAILY 01/20/23 01/20/23 trazodone 50 mg tablet 50 mg PO BEDTIME PRN Sleep 01/20/23 01/20/23 Allergies Allergy/AdvReac Type Severity Reaction Status Date / Time Beta-Blockers Allergy ADR-Nausea Verified 05/01/25 20:34 (Beta-Adrenergic Bloc ketorolac (From Toradol) Allergy ALGY-Hives Verified 05/01/25 20:34 ondansetron Allergy ADR-Vomitin Verified 05/01/25 20:34 g Sulfa (Sulfonamide Allergy ADR-Itching Verified 05/01/25 20:34 Antibiotics) tramadol Allergy ALGY-Difficulty Verified 05/01/25 20:34 Swallowing Review of Systems Narrative: Constitutional symptoms: Negative except as documented in HPI. Skin symptoms: Negative except as documented in HPI. Eye symptoms: Negative except as documented in HPI. ENMT symptoms: Negative except as documented in HPI. Respiratory symptoms: Negative except as documented in HPI. Cardiovascular symptoms: Negative except as documented in HPI. Gastrointestinal symptoms: Negative except as documented in HPI. Genitourinary symptoms: Negative except as documented in HPI. Musculoskeletal symptoms: Negative except as documented in HPI. Neurologic symptoms: Negative except as documented in HPI. Psychiatric symptoms: Negative except as documented in HPI. Endocrine symptoms: Negative except as documented in HPI. Physical Exam Narrative: EXAM NARRATIVE: General: Alert, no acute distress. Skin: Warm, dry. Head: Normocephalic, atraumatic. Neck: Supple, trachea midline. Eye: Extraocular movements are intact. Ears, nose, mouth and throat: mucosa moist. Cardiovascular: Regular, Normal peripheral perfusion. Respiratory: Lungs are clear to auscultation, respirations are non-labored, breath sounds are equal, Symmetrical chest wall expansion. Gastrointestinal: Soft, Nontender, Non distended Musculoskeletal: Normal ROM, no deformity. Neurological: Alert and oriented, No focal neurological deficit observed. Psychiatric: Cooperative, appropriate mood & affect. Course Vital Signs: Vital signs: Vital Signs Temperature 98.1 F 05/01/25 20:31 Pulse Rate 78 05/01/25 21:48 Respiratory Rate 18 05/01/25 22:02 Blood Pressure 102/63 05/01/25 21:48 Pulse Oximetry 99 05/01/25 22:02 Oxygen Delivery Me thod Room Air 05/01/25 21:48 MDM - Chest Pain Medical Decision Making Differential diagnosis for patient with chest pain includes but is not limited to and based on the above HPI, review of systems and physical exam: Pneumonia. unstable angina. angina. Acute coronary syndrome / ND. Pulmonary embolism. Costochondritis / musculoskeletal. Pleurisy. Pericarditis. Esophageal spasm. Pancreatis. Cholecystitis. Orders placed to evaluate differential diagnosis based on the above differential, HPI and physical exam EKG: Time 2028. Rate 81 normal sinus rhythm, nonspecific ST-T changes, no ectopy, normal WI & QRS intervals, This was reviewed and interpreted by myself the ER physician at 2032. Chest x-ray: No acute process. No infiltrate. No pneumothorax. This was reviewed and interpreted by myself the emergency room physician. I also reviewed the radiology report. Lab Review: Laboratory results were reviewed and interpreted by myself the emergency room physician. No leukocytosis. No anemia. No renal failure. Initial troponin is less than 6. HEART Pathway [facility] All calculations should be rechecked by clinician prior to use RESULT SUMMARY: 5 points HEART Pathway Score High risk 12-65% 30-day MACE Admit to hospital or observation. Further testing indicated. INPUTS: History ?> 2 = Highly suspicious EKG ?> 1 = Non-specific repolarization disturbance Age ?> 0 = <45 Risk factors ?> 2 = >= risk factors or history of atherosclerotic disease Initial troponin ?> 0 = <=ormal limit I reviewed the patient's medical record. Reexamination: Patient remained stable. No increased work of breathing. No altered mental status. No focal motor deficits. Consultation: I spoke Dr. Steinberg is on-call for the hospitalist service agrees to admission. Assessment and plan: Chest pain Coronary artery disease ?Morphine helped with her pain somewhat -I discussed the patient with the hospitalist on-call who is admitting the patient. - Discussed findings and plan with patient. Answered any questions. - All laboratory values were reviewed and interpreted personally by myself, the ER physician - All imaging was reviewed and interpreted personally by myself, the ER physician. - Evaluation and treatment of this problem were appropriate in the emergency setting Lab Data 05/01/25 20:58 05/01/25 20:58 Radiology Impressions Chest X-Ray 05/01/25 20:24 IMPRESSION: No acute findings. Laboratory Results WBC 7.86 10^3/uL (3.29-11.43) 05/01/25 20:58 RBC 3.82 10^6/uL (3.85-5.65) L 05/01/25 20:58 Hgb 10.00 g/dL (11.27-16.99) L 05/01/25 20:58 Hct 32.3 % (36-47) L 05/01/25 20:58 MCV 84.6 fl (85-98) L 05/01/25 20:58 MCH 26.2 pg (27-33) L 05/01/25 20:58 MCHC 31.0 g/dL (30-55) 05/01/25 20:58 RDW 17.9 % (12.1-15.1) H 05/01/25 20:58 Plt Count 226 10^3/cmm (157-399) 05/01/25 20:58 MPV 10.6 fL (7.4-10.4) H 05/01/25 20:58 Neut % (Auto) 56.5 % 05/01/25 20:58 Lymph % (Auto) 33.8 % 05/01/25 20:58 Mcculloch % (Auto) 8.7 % 05/01/25 20:58 Eos % (Auto) 0.6 % 05/01/25 20:58 Baso % (Auto) 0.1 % 05/01/25 20:58 Neut # (Auto) 4.44 10^3/uL (1.8-7.7) 05/01/25 20:58 Lymph # (Auto) 2.7 10^3/uL (0.8-4.8) 05/01/25 20:58 Mcculloch # (Auto) 0.7 10^3/uL (0.2-0.9) 05/01/25 20:58 Eos # (Auto) 0.1 10^3/uL (0.0-0.8) 05/01/25 20:58 Baso # (Auto) 0.0 10^3/uL (0.0-0.1) 05/01/25 20:58 Nucleated RBC % (auto) 0 % 05/01/25 20:58 Nucleated RBCs # 0.0 /100WBC 05/01/25 20:58 Sodium 138 mmol/L (136-145) 05/01/25 20:58 Potassium 3.7 mmol/L (3.5-5.1) 05/01/25 20:58 Chloride 100 mmol/L (98-107) 05/01/25 20:58 Carbon Dioxide 24 mmol/L (22-29) 05/01/25 20:58 Anion Gap 17.7 (5-19) 05/01/25 20:58 BUN 9 mg/dL (6-20) 05/01/25 20:58 Creatinine 0.8 mg/dL (0.5-0.9) 05/01/25 20:58 GFR Calculation 79.9 mL/min (90-130) L 05/01/25 20:58 Glucose 76 mg/dL (65-115) 05/01/25 20:58 Calculated Osmolality 283 mOsm/kg (285-295) L 05/01/25 20:58 Calcium 9.1 mg/dL (8.5-10.5) 05/01/25 20:58 Total Bilirubin 0.2 mg/dL (0.15-1.2) 05/01/25 20:58 AST 10 U/L (0-32) 05/01/25 20:58 ALT 8 U/L (0-33) 05/01/25 20:58 Alkaline Phosphatase 94 U/L (35-105) 05/01/25 20:58 Troponin T Baseline < 6 ng/L (0-10) 05/01/25 20:58 NT-Pro-B Natriuret Pep 47 pg/mL (0-125) 05/01/25 20:58 Total Protein 7.8 g/dL (6.6-8.7) 05/01/25 20:58 Albumin 4.3 g/dL (3.5-5.2) 05/01/25 20:58 Globulin 3.5 g/dL (1.3-4.6) 05/01/25 20:58 Lipase 21 U/L (13-60) 05/01/25 20:58 HCG, Qual Negative (Negative) 05/01/25 20:58 All radiology interpretation(s) finalized by discharge Clincial Decision Support The following clinical decision support tools were used to aid in care of the patient HEART Score -> History: Highly Suspicious, EKG: Non-specific Changes, Age: Less than 45 yrs, Risk Factors: >/=3 Risk Factors, Troponin: Baseline Trop <16 ng/L. Resulting HEART Score: 5. Discharge Plan Discharge Patient Disposition: Placed in Observation Clinical Impression: Unstable angina pectoris, Coronary artery disease Coding Level of Care Code ED Meter Calibrator for Bart Garrett
[2025-05-01 21:08] LABS: Hematocrit 32.3 % (36-47); Hemoglobin 10.00 g/dL (11.27-16.99); Mean Corpuscular HGB Conc 31.0 g/dL (30-55); Mean Corpuscular Hemoglobin 26.2 pg (27-33); Mean Corpuscular Volume 84.6 fl (85-98); Nucleated Red Blood Cells % 0 %; Platelet Count 226 10^3/cmm (157-399); Red Blood Count 3.82 10^6/uL (3.85-5.65); White Blood Count 7.86 10^3/uL (3.29-11.43)
[2025-05-01 21:22] LABS: HCG, Serum Qual Negative (Negative)
[2025-05-01 21:27] LABS: Troponin(5th) Baseline < 6 ng/L (0-10)
[2025-05-01 21:46] LABS: Slide Review Slide Review Perform
[2025-05-01 21:48] VITALS: BP 102/63; PULSE 78; RESP 18; O2SAT 99
[2025-05-01 22:02] VITALS: RESP 18; O2SAT 99
[2025-05-01] MEDS: ondansetron hcl ODT 4 mg Tab PO (22:02)
[2025-05-01] MEDS: morphine 4 mg/mL SDV 1 mL IVP ×2 (22:02→23:45)
[2025-05-01 22:15] LABS: Alanine Aminotransferase 8 U/L (0-33); Albumin Level 4.3 g/dL (3.5-5.2); Alkaline Phosphatase 94 U/L (35-105); Anion Gap 17.7 (5-19); Aspartate Amino Transferase 10 U/L (0-32); Blood Urea Nitrogen 9 mg/dL (6-20); Calcium 9.1 mg/dL (8.5-10.5); Carbon Dioxide 24 mmol/L (22-29); Chloride 100 mmol/L (98-107); Creatinine Clr Calc Pharmacy 105.1156; Globulin 3.5 g/dL (1.3-4.6); Glucose 76 mg/dL (65-115); Lipase 21 U/L (13-60); Osmolality Calculated 283 mOsm/kg (285-295); Potassium 3.7 mmol/L (3.5-5.1); Sodium 138 mmol/L (136-145); Total Protein 7.8 g/dL (6.6-8.7)
[2025-05-01 22:21] LABS: NT Pro B Type Natriuretic Pept 47 pg/mL (0-125)
--- NOTE | 2025-05-01 22:25 | ECG_ITS ---
[facility]: 2025[facility]01 Pat Name: Deidre Bunch Department: Room: 102 Gender: Female [place] Man: CHAVA: 1985 Requested By: Jeffry Mcdaniel Order Number: [id number] Osiris MD: Deshawn Reno M.D. Measurements Intervals [place] Rate: 76 P: 28 CA: 160 QRS: 46 QRSD: 119 T: 39 QT: 420 QTc: 475 Interpretive Statements SINUS RHYTHM INCOMPLETE RIGHT BUNDLE BRANCH BLOCK [90+ ms QRS DURATION, TERMINAL R IN V1/V2, 40+ ms S IN I/aVL/V4/V5/V6] Compared to ECG 04/30/2025 03:52:12 T-wave abnormality no longer present Electronically Signed On 05-03-2025 10:29:57 CDT by Deshawn Reno M.D. [email or web address] [id number]
--- NOTE | 2025-05-01 22:57 | USCV_ITS ---
Deidre Bunch Age: 40 Gender: F : 1985 Exam Date: 05/01/2025 23:31 Ordering Phys: Esperanza Steinberg MD Technologist: ZAHIDA Exam Location: [facility] – [place] Indication: recurrent chest pain, history of CAD s/p PCI BP: 102 / 63 HR: 83 Rhythm: Sinus Technical Quality: Adequate MEASUREMENTS (Male / Female) Normal Values 2D ECHO LV Diastolic Diameter PLAX 4.2 cm 4.2 - 5.9 / 3.9 - 5.3 cm IVS Diastolic Thickness 1.0 cm 0.6 - 1.0 / 0.6 - 0.9 cm IVS Systolic Thickness 1.4 cm LVPW Diastolic Thickness 1.0 cm 0.6 - 1.0 / 0.6 - 0.9 cm LVPW Systolic Thickness 1.4 cm LVOT Diameter 1.6 cm LV Ejection Fraction 2D Teich 71.5 % LV Ejection Fraction MOD 4C 60.1 % LV Ejection Fraction MOD 2C 61.1 % LV Ejection Fraction 2C AL 61.3 % LA Diameter 2.8 cm Aorta at Sinotubular Diameter 2.3 cm IVC Diameter 1.6 cm M-MODE LA Ao Ratio MM 0.8 AV Cusp Separation MM 1.3 cm DOPPLER AV Peak Velocity 126.0 cm/s LVOT Peak Velocity 115.0 cm/s AV Area Cont Eq vti 1.6 cm squared AV Area Cont Eq pk 1.9 cm squared MV Peak Velocity 99.0 cm/s MV Area PHT 5.0 cm squared Mitral E to A Ratio 0.8 TV Peak E Velocity 74.0 cm/s PV Peak Velocity 87.0 cm/s FINDINGS Left Ventricle Normal left ventricular size, systolic function and wall thickness, with no regional wall motion abnormalities. Left ventricular ejection fraction is estimated at 60 %. Grade I/IV diastolic dysfunction (abnormal relaxation filling pattern), normal to mildly elevated filling pressures. Right Ventricle The right ventricle is normal in size and function. Right Atrium The right atrium is normal in size. Left Atrium The left atrium is normal in size. Mitral Valve Structurally normal mitral valve without significant stenosis or prolapse. There is no mitral regurgitation. Aortic Valve Structurally normal aortic valve without significant sclerosis or stenosis. There is no aortic regurgitation. Tricuspid Valve Structurally normal tricuspid valve without significant stenosis or regurgitation. Pulmonary artery systolic pressure is normal. Pulmonic Valve Structurally normal pulmonic valve without significant stenosis. There is no pulmonic regurgitation. Pericardium Normal pericardium without effusion. Aorta Normal ascending aorta dimension. IVC The inferior vena cava appears normal. CONCLUSIONS Normal left ventricular size, systolic function and wall thickness, with no regional wall motion abnormalities. Left ventricular ejection fraction is estimated at 60 %. Grade I/IV diastolic dysfunction (abnormal relaxation filling pattern), normal to mildly elevated filling pressures. No significant valve abnormalities. There is no pericardial effusion. Right atrial pressure is around 5 mm of mercury. Bharati Melgar MD (Electronically Signed) Final Date: 02 May 2025 13:00 S
--- NOTE | 2025-05-01 23:20 | PM.HP ---
Providers/Chief Complaint Admitting Physician: DR CONLEY-seen before midnight Chief Complaint: CHEST PAINS History of Present Illness Deidre Bunch is a 40 year old female with medical history significant for coronary artery disease who had had stent placement in the past presenting with chest pain that is recurrent and persistent and that is also very sharp in quality. Patient had presented to days ago and had to leave because she was not given narcotics for her pain she declined nitros declined any other pain medicine but only ask them for narcotics. With workup ongoing patient got up her and her left the emergency room on early Wednesday morning. Today being Wednesday patient arrive to the emergency room promising to stay at the same behavioral is being displayed. She was not given narcotics she was given everything to relieve her pain with narcotics she did not like that. He reluctantly come to the floor where I had seen the patient and her instead by the bedside and had come to the nurses station several times Jeanette for Josef. When you speak to the patient the answered. Patient was not there patient could not speak. Lab studies were unremarkable troponin were unremarkable. Patient and the had insinuated leaving AGAINST MEDICAL ADVICE again I talked with them talk them into staying as I had gone to now go to the emergency room to see another patient upon my return to stepdown unit where the patient was in room 102 bed 1, she was already gone AGAINST MEDICAL ADVICE with the . Review of Systems Narrative: System review upon tenogram reviewed we are significant for chest pain cardiovascular and nothing else. Medications/Allergies Home Medications ?Medication ?Instructions ?Recorded ?Confirmed ?Last Taken ?Type Klonopin 1 mg PO PRN 01/19/23 05/02/25 04/29/25 History aspirin 81 mg capsule 81 mg PO DAILY 01/20/23 05/02/25 1 Day Ago History ~05/01/25 atorvastatin 80 mg tablet 80 mg PO QPM 01/20/23 05/02/25 04/30/25 History gabapentin 300 mg tablet 600 mg PO TID 01/20/23 05/02/25 05/01/25 History hydrocodone 7.5 mg-acetaminophen 1 tab PO Q6H PRN Pain 01/20/23 05/02/25 1 Day Ago History 325 mg tablet ~05/01/25 isosorbide mononitrate 30 mg 90 mg PO DAILY 01/20/23 01/20/23 Unknown History tablet,extended release 24 hr nitroglycerin 0.4 mg sublingual 0.4 mg sublingual Q5M PRN Chest 01/20/23 05/02/25 05/02/25 History tablet Pain omeprazole 40 mg capsule,delayed 40 mg PO BID 01/20/23 05/02/25 05/01/25 History release prasugrel HCl 10 mg tablet 10 mg PO DAILY 01/20/23 05/02/25 05/01/25 History trazodone 50 mg tablet 300 mg PO BEDTIME PRN Sleep 01/20/23 05/02/25 05/01/25 History furosemide 40 mg tablet 40 mg PO DAILY 05/02/25 05/02/25 05/01/25 History ranolazine 500 mg tablet,extended 500 mg PO BID 05/02/25 05/02/25 1 Day Ago History release,12 hr ~05/01/25 tizanidine 4 mg tablet 4 mg PO Q6H 05/02/25 05/02/25 1 Week Ago History ~04/25/25 verapamil 120 mg tablet 120 mg PO DAILY 05/02/25 05/02/25 1 Day Ago History ~05/01/25 Allergies Allergy/AdvReac Type Severity Reaction Status Date / Time Beta-Blockers Allergy ADR-Nausea Verified 05/01/25 20:34 (Beta-Adrenergic Bloc ketorolac (From Toradol) Allergy ALGY-Hives Verified 05/01/25 20:34 ondansetron Allergy ADR-Vomitin Verified 05/01/25 20:34 g Sulfa (Sulfonamide Allergy ADR-Itching Verified 05/01/25 20:34 Antibiotics) tramadol Allergy ALGY-Difficulty Verified 05/01/25 20:34 Swallowing Vitals/I&O/Wt Last Vital Signs Temp 98.1 F 05/01/25 20:31 Pulse 78 05/01/25 21:48 Resp 18 05/01/25 22:02 BP 102/63 05/01/25 21:48 Pulse Ox 99 05/01/25 22:02 O2 Del Method Room Air 05/01/25 21:48 Weight last 48 hrs Weight 83.915 kg Physical Exam Narrative: General The patient is seen no apparent distress. Constantly looking at the who is forcing about narcotics HEENT normocephalic atraumatic neck neck is supple cardiovascular heart is regular lungs are pretty much clear abdomen soft nontender nondistended unremarkable extremities are intact no edema has good pulses neurology has no focality lab studies lab studies reviewed and noted for normal chemistry normal CBC normal troponin. Data 05/01/25 20:58 05/01/25 20:58 A&P Assessment and plan 1. Coronary artery disease: History of coronary artery disease - Continue patient home medication with statins of 80 mg in p.m., aspirin 81 mg to continue isosorbide continue 2. Chest pain: Chest pains could be multifactorial corrector sharp and squeezing Continue to follow through and optimize It is very interesting patient is having chest pain every day at home over the past 5 days but the troponin and negative Continue antianginal nitro drip Continue antiplatelets heparin drip 3. Unstable angina pectoris: Patient is with recurrent and persistent chest pain Heparin drip initiated and running Nitro drip initiated is specifically ask him for narcotics for Dilaudid coming back and forth from the nursing station to the room Recurrent behavior patient left AMA with the drug and had to leave after they have been evaluated 2 days ago in the emergency room and will need to return today for the same behavior and at this point patient is thinking about leaving AGAINST MEDICAL ADVICE when cardiology consult on the way stress test versus cath we had the plans Plan: GI and DVT prophylaxis in place PDMP PDMP Reviewed: Last Reviewed 05/02/25 03:33 by Esperanza Conley MD Attestations Medical Necessity Statement*: A young woman 40-year-old with complaints of chest pains and with a history of coronary artery disease with stent placement this of a workup for at least 2 midnights versus 23-hour observation. Coding Level of Care Code Acute Code for [facility] Fwd Diagnoses Coronary artery disease I25.10 Chest pain R07.9 Unstable angina pectoris I20.0
[2025-05-01 23:43] LABS: Troponin 5 2HR < 6.0 ng/L (0-10); Troponin 5 2HR Delta 0 ABS# (0-10)
[2025-05-01 23:45] VITALS: RESP 18; O2SAT 98
[2025-05-02] VITALS: BP 130/74; PULSE 84; RESP 20; TEMP 36.7; O2SAT 97
[2025-05-02] MEDS: heparin drip 25,000 UNIT/500 ML PREMIX 24 UNIT IV (00:31)
[2025-05-02] MEDS: heparin 5,000 unit/mL INJ 1 mL IVP (00:32)
[2025-05-02] MEDS: heparin 5,000 unit/mL INJ 1 mL 5000 UNIT SUBCUT (00:32)
[2025-05-02 00:37] VITALS: BP 116/69; PULSE 79
[2025-05-02] MEDS: nitroglycerin 1 gm/inch oint Pkt 1 INCH TOPICAL (00:37)
[2025-05-02 00:54] VITALS: BP 121/79; PULSE 80; RESP 18; O2SAT 99
[2025-05-02 01:06] VITALS: BMI 32.1
--- NOTE | 2025-05-02 01:40 | PC.NURSE ---
Addendum entered by Loida Curran RN 05/02/25 03:43: 0235- Patient requesting klonopin and trazadone to help her sleep and easy anxiety. Notified Dr. Steinberg regarding patient request. MD at nurses station wanting to do admission assessment. Awaiting reply. Original Note: Patient and arrived from ED. Patient is complaining of 7/10 chest, back, neck, and arm pain. Patient also endorsing nausea and SOB. Patient requesting pain medication and nausea medication. Notified Dr. Steinberg regarding patient complaints. Discussed patient allergies. During conversation with MD, walked down to nurses station requesting since the morphine didn't work if this nurse can get dilaudid. Received orders from Dr. Steinberg no narcotics, no tramadol, no ketorlac, can start nitro gtt for chest pain. Also received orders for nuclear stress test and 10 mg compazine Q6hrs prn.
--- NOTE | 2025-05-02 03:18 | PC.NURSE ---
Dr. Steinberg at bedside to do admission assessment, this nurse in with doctor setting up nitro drip for chest pain. Patient is over talking patient and answering questions for patient. Doctor trying to communicate with patient and explained to she is in good hands and he can get some rest. After doctor left, stated This is ridiculous, I don't like that the doctor said she is fine its not cardiac related. It can't be safe to give that much nitro. The morphine took the edge off. Patient was in agreement with . Educated patient regarding nitro and importance of staying for further testing. This nurse also attempted to explain what the doctor said. Dr. Steinberg came back into room to help with any miscommunication there might have been explaining The chest pain could be cardiac or not. Either way chest pain is treated the same, as cardiac. After doctor left this nurse yet again tried educating patient regarding importance of staying. Patient and adament about leaving, bilateral IV taken out, nitro paste removed, and AMA paperwork signed. Patient grabs patient hands and rushed to door to leave. After patient and were let out of unit this nurse called security explaining was taking over conversations and very dominant over patient. THis nurse wanted to ensure patient wasn't being harmed by . Patient did deny any abuse questions during admission but refused to leave bedside during that time.
--- NOTE | 2025-05-02 03:53 | PM.MISC ---
Miscellaneous Note Purpose of Documentation: Patient left AGAINST MEDICAL ADVICE coming in with chest pain and undergoing evaluation. Note: Patient while being admitted was talking about leaving AGAINST MEDICAL ADVICE. Patient had repeatedly done this on every presentation. Upon being admitted and having heparin drip going nitro drip, when had antiplatelets on board patient and the wanted to leave AGAINST MEDICAL ADVICE again patient came in with chest pain stress test have been ordered for patient to have that done patient left AGAINST MEDICAL ADVICE at this time and there are no formal routine discharge because patient left AGAINST MEDICAL ADVICE. Patient left after she had been evaluated and this is a billable encounter. H&P had been written and documented. Leaving AGAINST MEDICAL ADVICE its nonbillable encounter
== END 2025-05-02 03:43 | disposition left against medical advice (07) ==
LOC: ER 23:06 → CSU 23:35
PROVIDERS: Emergency Medicine; Admitting Provider Internal Medicine; Emergency Provider Emergency Medicine; Visit Provider Internal Medicine
DX: I25.119 Atherosclerotic heart disease of native coronary artery with unspecified angina pectoris (principal); Z95.5 Presence of coronary angioplasty implant and graft; Z79.82 Long term (current) use of aspirin; K21.9 Gastro-esophageal reflux disease without esophagitis; Z53.29 Procedure and treatment not carried out because of patient's decision for other reasons
CPT/HCPCS: 36415; 71045; 80053; 83690; 83880; 84484; 84703; 85025; 93005; 93306; 96365; 96366; 96367; 96372; 96375; 96376; 99285; G0378; J1644; J2270; J7030; J9999; Q0162